=== PATIENT | female | born 1940 | race Caucasian/White ===

== ENCOUNTER → 2018-05-21 12:11 | Outpatient (RCR) | payer MEDICARE, MEDICAID, SELFPAY ==
--- NOTE | 2013-12-20 12:14 | TODAY_ITS ---
To: PCP AND CCC Reason for today's visit: TRANSPORTATION Plan: 12/06/13 - [facility], [employer], SPOKE TO PATIENT VIA PHONE, FILLED OUT THE [facility] TRANSPORTATION FORM, FAXED FORM TO [facility]. 12/09/13 - MEHRAN TAY, [facility] TRANSPORTATION CONFIRMED TO [facility] [employer] Action Plan: Chronic Condition: Referred to:
== END ==
LOC: CCT 11-22 13:00
PROVIDERS: PCP Nurse Practitioner Adult Health; Visit Provider Nurse Practitioner Adult Health
DX: 799.89 (principal)

== ENCOUNTER → 2018-09-07 08:56 | Outpatient (BNVA) | payer MEDICARE, MEDICAID, SELFPAY | PROVIDERS: PCP Student in an Organized Health Care Education/Training Program; Visit Provider Nurse Practitioner Gerontology | DX: R69 Illness, unspecified (principal) ==

== ENCOUNTER 2018-09-07 10:45 | Outpatient (CLI) | payer MEDICARE, MEDICAID, SELFPAY ==
--- NOTE | 2018-09-07 10:00 | DI.RAD_ITS ---
SYMPTOM/DIAGNOSIS: RT FLANK PAIN. H/O RT RENAL STONES Z87.442. H/O URINARY CALCULI ABDOMINAL PLAIN FILM: Scattered gas and fecal material are noted in the colon. There is a small quantity of gas in nondilated proximal small bowel loops. There is no evidence of obstruction. There is no evidence of gross organomegaly or localized intra-abdominal or pelvic mass. On this image a small radiodensity is noted in the right paramedian position at the level of L3-4 which was seen on the previous study of 03/19/18 and may represent a vascular calcification. A small mid-ureteral calculus could however, not be entirely excluded. Vascular calcification is identified in the abdomen and pelvis. There is no evidence of gross organomegaly or localized intra-abdominal or pelvic mass. SUMMARY: There is no change in the position or appearance of a small calcification in the right paramedian position at L3-4. If there is any specific clinical question regarding a right ureteral calculus at this site then further assessment with ultrasound, CT urogram and if appropriate a retrograde study is suggested.
== END 2018-09-07 11:05 ==
PROVIDERS: PCP Student in an Organized Health Care Education/Training Program; Visit Provider Nurse Practitioner Gerontology
DX: R10.31 Right lower quadrant pain (principal); Z87.442 Personal history of urinary calculi; I10 Essential (primary) hypertension
CPT/HCPCS: 81003; 99213; 74018

== ENCOUNTER 2018-09-07 11:13 | Outpatient (REF) | payer MEDICARE, MEDICAID, SELFPAY | END 2018-09-07 11:33 | LOC: LBN 11:13 | PROVIDERS: PCP Student in an Organized Health Care Education/Training Program; Visit Provider Nurse Practitioner Gerontology | DX: R10.9 Unspecified abdominal pain (principal) | CPT/HCPCS: 87086 ==

== ENCOUNTER 2018-09-08 00:48 | Outpatient (CLI) | payer MEDICARE, MEDICAID, SELFPAY ==
--- NOTE | 2018-09-08 16:41 | DI.US_ITS ---
SYMPTOM/DIAGNOSIS: RIGHT FLANK PAIN WITH H/O KIDNEY STONES, RT URETERAL CALCULUS R10.9 ABD PAIN N20.0 RENAL ULTRASOUND: The left kidney measures 10 x 4.3 x 4.4 cm. Multiple small nonobstructing renal calculi are demonstrated. The right kidney measures 11 x 4.8 x 4.3 cm. Note is also made of multiple calcifications in the left kidney. The largest calcification measures up to 4.6 mm in the lower pole. There is no evidence of right or left hydronephrosis. No mass or cyst is identified. There is incidental finding of a left adnexal ovarian cyst which could be further evaluated with a committed pelvic ultrasound. The pre-void bladder contains 63 cc. The post-void bladder 30 cc. Both ureteral jets were demonstrated. SUMMARY: Bilateral nonobstructing nephrolithiasis. Incidental finding of an anechoic region in the left adnexa which likely represents a small left ovarian cyst. This patient could be further evaluated with a committed pelvic ultrasound if appropriate.
== END 2018-09-08 01:08 ==
PROVIDERS: PCP Student in an Organized Health Care Education/Training Program; Visit Provider Nurse Practitioner Gerontology
DX: R10.31 Right lower quadrant pain (principal); N20.0 Calculus of kidney; N83.292 Other ovarian cyst, left side; N20.1 Calculus of ureter
CPT/HCPCS: 76770

== ENCOUNTER 2018-09-22 22:57 | Emergency (ER) | payer MEDICARE, MEDICAID, SELFPAY ==
[2018-09-22 23:02] VITALS: BP 166/69; PULSE 58; RESP 16; TEMP 36.4; O2SAT 99
--- NOTE | 2018-09-22 23:09 | W.ED.GENAD ---
Discharge Plan Disposition Patient Disposition: HOME Condition: Good Discharge Details Chief Complaint: FlankPain Clinical Impression: Kidney stone Primary Care Provider: Miguelina Tilley ED Provider: Bernard Ballard Home Meds and New Rx's Prescriptions: New tramadol 50 mg tablet 50 mg PO Q6H Qty: 12 RF: 0 No Action nitroglycerin [Nitrostat] 0.4 mg tablet, sublingual 0.4 mg Sublingual PRN Qty: 30 RF: 0 metoprolol succinate 25 mg tablet extended release 24 hr 25 mg PO DAILY Qty: 90 RF: 3 multivitamin [Daily Vitamin] 1 EACH tablet 1 ea PO DAILY RF: 0 acetaminophen [Tylenol Arthritis] 650 MG tablet extended release 1,300 mg PO BID PRNRF: 0 ipratropium-albuterol [DuoNeb] 3 ML solution for nebulization 3 ml Inhalation Q4H PRN Qty: 3 RF: 6 calcium carb and citrate-vitD3 1 EACH tablet extended release 1 ea PO DAILY Qty: 1 RF: 0 melatonin-pyridoxine HCl (B6) 1 EACH tablet,ext release multiphase 1 ea PO HS RF: 0 Magnesium Citrate 240 mg PO DAILY RF: 0 Advair HFA 8 GM HFA aerosol inhaler 2 puff Inhalation BID Qty: 3 RF: 3 epinephrine [EpiPen 2-Moe] 0.3 MG/0.3 ML auto-injector 0.3 mg IM ONCE Qty: 2 RF: 0 fluticasone [Flonase Allergy Relief] 9.9 ML spray,suspension 1 - 2 spry NS DAILY Qty: 3 RF: 3 montelukast 10 MG tablet 10 mg PO HS Qty: 90 RF: 3 guaifenesin 600 MG tablet extended release 12hr 600 mg PO Q12H PRN Qty: 180 RF: 3 Adult Aerosol Mask 1 EACH misc 1 ea Miscellaneous DAILY Qty: 1 RF: 0 Entrust Plus Briefs 1 EACH misc 1 ea Miscellaneous TID Qty: 1 RF: 12 atorvastatin 40 MG tablet 40 mg PO DAILY Qty: 90 RF: 3 cetirizine 10 MG tablet 10 mg PO DAILY MDD 10 Qty: 90 RF: 3 amlodipine [Norvasc] 5 MG tablet 5 mg PO DAILY Qty: 90 RF: 3 ProAir HFA 8.5 GM HFA aerosol inhaler 1 - 2 puff Inhalation Q4H PRN Qty: 2 RF: 4 ipratropium-albuterol 3 ML solution for nebulization 3 ml Inhalation Q3H PRN Qty: 1 RF: 0 aspirin [Aspir-81] 81 mg tablet,delayed release (DR/EC) 81 mg PO DAILY Qty: 90 RF: 3 nitrofurantoin macrocrystal 100 mg capsule 100 mg PO QID Qty: 20 RF: 0 Discharge Instructions Instructions: Kidney Stones (ED) Additional Instructions: Please contact Dr. Call immediately this morning for further evaluation. Please follow-up as soon as possible for reassessment. If you notice any worsening of your symptoms, or any new symptoms such as vomiting, diarrhea, fever, chills, shortness of breath, chest pain, numbness, weakness, or fainting , please return immediately to the emergency department for reevaluation. Please follow up with your primary care provider as soon as possible for reassessment and reevaluation. As always, it was a pleasure participating in your medical care today. Referrals: Miguelina Tilley DO [Primary Care Provider] - Medical Decision Making This is a 77-year-old female who presents today for evaluation of right flank pain. Pain is been present for greater than 10 days. She had a suspected urinary tract infection which was treated with nitrofurantoin. She had 10 days of this, and for the last 5 days after treatment she has had continued pain that is not improving. Physical exam demonstrates notable right upper quadrant tenderness. The patient is concern for a UTI or Lex I do feel that the differential should also include gallbladder etiology. Because of the patient's age, and risk factors we will evaluate for urinary tract infection however will also get a CT scan to evaluate for any acute intra-abdominal process. Will order EKG and chest x-ray for less likely atypical ACS presentation. Patient does not want anything additional for pain at this time. 3:[address] scan has returned demonstrates evidence of a 7 mm calculus on the right. This correlates well with the patient's symptomatology. Her pain seems to be well controlled at this point. Renal function is normal, no evidence of UTI on urinalysis, and no evidence of significant white count or bandemia. No left shift. With normal laboratory workup, pain is controlled, and the patient able to tolerate p.o. I feel that she can be safely discharged home with close follow-up with Dr. Call her regular urologist. They will be contacting him tomorrow morning. Since the stone is 7 mm and proximal she is not a candidate for Flomax. I would not be surprised that this will require stenting for removal. I have extensively reviewed the treatment plan and discharge instructions with the patient and their family. I have addressed all patient concerns at this time. The patient and family was made aware of what symptoms to monitor for that would warrant a return to the emergency department. Discussed the plan with the patient and family, they demonstrate verbal understanding and agreement with our assessment and plan at this time. FINDINGS: Lower thorax: No acute findings. ABDOMEN: Liver: Normal. No mass. Gallbladder and bile ducts: Normal. No calcified stones. No ductal dilation. Pancreas: Normal. No ductal dilation. Spleen: Normal. No splenomegaly. Adrenals: Normal. No mass. Kidneys and ureters: Renal cysts up to 8 mm. 7 mm calculus right proximal ureter with minimal right hydronephrosis. Stomach and bowel: Colonic diverticula. . Mild fecal retention. Appendix: No evidence of appendicitis. PELVIS: Bladder: Unremarkable as visualized. Reproductive: 4 cm left ovarian cyst suggested. ABDOMEN and PELVIS: Intraperitoneal space: Normal. No free air. No significant fluid collection. Bones/joints: No acute fracture. No dislocation. Soft tissues: Unremarkable. Vasculature: Normal. No abdominal aortic aneurysm. Lymph nodes: Normal. No enlarged lymph nodes. IMPRESSION: 1. 7 mm calculus right proximal ureter with minimal right hydronephrosis. 2. 4 cm left ovarian cyst suggested. 3. Mild fecal retention. Dictated and Authenticated by: Brian Reynaga MD. Urine culture results from urinalysis she was receiving treatment for: Possible contaminated collection Organism 1 GRAM NEGATIVE ARCELIA COLONY COUNT <10,000 COLONIES/ML Organism 2 STREPTOCOCCUS VIRIDANS GROUP COLONY COUNT 50,000 - 100,000 COLONIES/ML Organism 3 GRAM POSITIVE LEW,MIXED COLONY COUNT <10,000 COLONIES/ML EKG 23: 40 Rate 75, sinus rhythm, first-degree AV block, [place] 242, QTc 458, QRS 100, no significant ST elevations or depressions, old Q wave in V2, no other significant abnormalities. HPI General Date/Time Provider Initiated Documentation: 09/22/18 22:58. HPI Narrative: This is a 77-year-old female with a multitude of allergies and a past medical history of cerebrovascular disease, coronary artery disease, hypertension, COPD, kidney stones, and bladder sling surgery who presents today for evaluation of right flank and abdominal pain. The patient states that the symptoms began roughly a week and a half ago, she received a 10-day treatment of nitrofurantoin by her physician. She completed this course 5 days ago. Since then her symptoms have persisted, she has had some associated chills but no fevers. Her pain is described as a right-sided flank pain that radiates directly to her groin with associated right upper quadrant abdominal pain. She denies any hematochezia, melena, acholic stool, or hematemesis. She denies any hematuria, increase in urinary frequency, or dysuria. Patient does have chronic pain problems, and she regularly takes Tylenol for her pain, which she states is not improved her symptoms. Patient denies any other modifying factors. She still has her gallbladder, appendix, and uterus. She denies any IV or illicit drug use. She denies any pertinent family history. Related Data Home Medications Medication Instructions Recorded Confirmed acetaminophen [Tylenol Arthritis] 1,300 mg PO BID PRN 12/31/12 09/23/18 multivitamin [Daily Vitamin] 1 ea PO DAILY 12/31/12 09/22/18 ipratropium-albuterol [DuoNeb] 3 ml INHALATION Q4H PRN #3 box 08/03/14 09/22/18 calcium carb and citrate-vitD3 1 ea PO DAILY #1 tab 08/29/14 09/22/18 melatonin-pyridoxine HCl (B6) 1 ea PO HS 12/11/15 09/22/18 Magnesium Citrate 240 mg PO DAILY 05/01/17 09/23/18 fluticasone-salmeterol [Advair Hfa 2 puff INHALATION BID #3 inhaler 06/10/17 09/22/18 230-21] epinephrine [Epipen 2-Moe] 0.3 mg IM ONCE #2 pen 08/21/17 09/22/18 fluticasone [Flonase Allergy 1 - 2 spry NS DAILY #3 bottle 09/18/17 09/22/18 Relief] diaper,brief,adult,disposable #1 ea 11/06/17 09/08/18 [Brief] guaifenesin 600 mg PO Q12H PRN #180 tab-cap 11/06/17 09/22/18 montelukast 10 mg PO HS #90 tab-cap 11/06/17 09/22/18 nebulizer accessories [Adult #1 ea 11/06/17 09/08/18 Aerosol Mask] albuterol sulfate [Proair Hfa] 1 - 2 puff INHALATION Q4H PRN #2 03/19/18 09/23/18 puff amlodipine [Norvasc] 5 mg PO DAILY #90 tab-cap 03/19/18 09/23/18 atorvastatin 40 mg PO DAILY #90 tab-cap 03/19/18 09/22/18 cetirizine 10 mg PO DAILY #90 tab-cap MDD 10 03/19/18 09/22/18 ipratropium-albuterol 3 ml INHALATION Q3H PRN #1 box 03/19/18 09/22/18 aspirin 81 mg tablet,delayed 81 mg PO DAILY #90 tab 08/09/18 09/23/18 release nitroglycerin 0.4 mg sublingual 0.4 mg SUBLINGUAL PRN #30 tab-cap 09/08/18 09/22/18 tablet metoprolol succinate ER 25 mg 25 mg PO DAILY #90 tab 09/09/18 09/22/18 tablet,extended release 24 hr nitrofurantoin macrocrystal 100 mg 100 mg PO QID #20 cap 09/09/18 09/22/18 capsule tramadol 50 mg PO Q6H #12 tab 09/23/18 Previous Rx's Medication Instructions Recorded fluticasone-salmeterol [Advair Hfa 2 puff INHALATION BID #3 inhaler 06/10/17 230-21] epinephrine [Epipen 2-Moe] 0.3 mg IM ONCE #2 pen 08/21/17 fluticasone [Flonase Allergy 1 - 2 spry NS DAILY #3 bottle 09/18/17 Relief] diaper,brief,adult,disposable #1 ea 11/06/17 [Brief] guaifenesin 600 mg PO Q12H PRN #180 tab-cap 11/06/17 montelukast 10 mg PO HS #90 tab-cap 11/06/17 nebulizer accessories [Adult #1 ea 11/06/17 Aerosol Mask] albuterol sulfate [Proair Hfa] 1 - 2 puff INHALATION Q4H PRN #2 03/19/18 puff amlodipine [Norvasc] 5 mg PO DAILY #90 tab-cap 03/19/18 atorvastatin 40 mg PO DAILY #90 tab-cap 03/19/18 cetirizine 10 mg PO DAILY #90 tab-cap MDD 10 03/19/18 ipratropium-albuterol 3 ml INHALATION Q3H PRN #1 box 03/19/18 aspirin 81 mg tablet,delayed 81 mg PO DAILY #90 tab 08/09/18 release nitroglycerin 0.4 mg sublingual 0.4 mg SUBLINGUAL PRN #30 tab-cap 09/08/18 tablet metoprolol succinate ER 25 mg 25 mg PO DAILY #90 tab 09/09/18 tablet,extended release 24 hr nitrofurantoin macrocrystal 100 mg 100 mg PO QID #20 cap 09/09/18 capsule tramadol 50 mg PO Q6H #12 tab 09/23/18 Allergies Allergy/AdvReac Type Severity Reaction Status Date / Time Influenza Virus Vaccines Allergy Severe throat Verified 09/22/18 23:13 closed duloxetine HCl Allergy Intermediate sweat/throat Verified 09/22/18 23:13 [From Cymbalta] tight egg Allergy Intermediate Swelling/Ed Verified 09/22/18 23:13 shoshana Penicillins Allergy Intermediate swelling/choked Verified 09/22/18 23:13 up Sulfa (Sulfonamide Allergy Intermediate swelling Verified 09/22/18 23:13 Antibiotics) tetracycline Allergy Unknown unknown Verified 09/22/18 23:13 morphine AdvReac Severe HR Verified 09/22/18 23:13 dropped/BP high ciprofloxacin [From Cipro] AdvReac Intermediate AGITATION Verified 09/22/18 23:13 gabapentin AdvReac Intermediate Dizziness Verified 09/22/18 23:13 & Sedation hyoscyamine AdvReac Intermediate lightheaded Verified 09/22/18 23:13 lisinopril AdvReac Intermediate Uvula Verified 09/22/18 23:13 Swelling mirtazapine AdvReac Intermediate throat Verified 09/22/18 23:13 discomfort, feeling tired, nauseated nortriptyline AdvReac Intermediate Verified 09/22/18 23:13 homatropine [From Hycodan] AdvReac Mild Loopy Verified 09/22/18 23:13 hydrocodone bitartrate AdvReac Mild Loopy Verified 09/22/18 23:13 [From Hycodan] lidocaine AdvReac Mild Skin Verified 09/22/18 23:13 sensitivity/Rash trazodone AdvReac Unknown Dizzy, Verified 09/22/18 23:13 weak and hallucinations cephalexin monohydrate AdvReac ?LE Verified 09/22/18 23:13 [From Keflex] weakness nuts Allergy Intermediate Swelling/Ed Uncoded 09/22/18 23:13 shoshana peanut butter AdvReac Uncoded 09/22/18 23:13 Review of Systems Review of Systems All systems reviewed & are unremarkable except as noted in HPI and below PFSH Medical History ASCVD (arteriosclerotic cardiovascular disease) CVA (cerebral vascular accident) HTN (hypertension) Postmenopausal Surgical History Coronary Stent TOT (Incontinence sling) Social History Smoking/Tobacco Use Status: Never Exam Narrative Exam Narrative: 1.Const: Well-nourished, Well-developed, appearing stated age 2.Eyes: PERRL, no conjunctival injection, and symmetrical lids. 3.ENT: Atraumatic external nose and ears. Mildly dry MM. Neck: Symmetric, trachea midline, No thyromegaly. 4.CVS: +S1/S2, No murmurs or gallops. Peripheral pulses 2+ and equal in all extremities. Brisk capillary refill in all extremities. 5.RESP: Unlabored respiratory effort. Clear to auscultation bilaterally. No wheezes rales or rhonchi 6.GI: Soft, notable right upper quadrant and right CVA tenderness. Mild right groin tenderness. No evidence of significant inguinal hernia. No abdominal distention. 7.MSK: Normocephalic/Atraumatic, Extremities w/o deformity or ttp No cyanosis or clubbing, Normal movement of all extremities. No significant pitting edema. 8.Skin: Warm, Dry. No rashes or lesions. 9.Neuro: appointment coordinator II-XII grossly intact. Sensation grossly intact, no focal neurologic deficits. 10.Psych: (AAO) x3. Appropriate mood and affect
[2018-09-22 23:35] LABS: Abs Immature Grans 0.01 k/cumm (0.0-0.09); Absolute Basophil Count 0.02 k/cumm (0.0-0.2); Absolute Lymphocyte Count 2.15 k/cumm (1.2-3.4); Absolute Monocyte Count 0.67 k/cumm (0.11-0.7); Absolute Neutrophil Count 4.01 k/cumm (1.2-6.7); Basophils % 0.3; Eosinophils % 2.8; HGB 13.2 g/dL (12.0-15.5); Immature Grans % 0.1; Lymphocytes % 30.5; Mean Corp. HGB Concentration 33.8 g/dL (32.0-36.0); Mean Corpuscular Hemoglobin 32.6 pg (27.0-33.0); Mean Corpuscular Volume 96.3 fL (80-95); Mean Platelet Volume 10.1 fL (8.0-11.0); Monocytes % 9.5; Neutrophils % 56.8; Platelet Count 165 x1000/uL (130-400); RBC 4.05 m/cumm (4.00-5.20); White Blood Cell Count 7.06 k/cumm (4.4-10.8)
[2018-09-22 23:42] LABS: Bilirubin Negative (Negative); Blood Trace-lysed (Negative); Clarity Clear; Glucose Negative (Negative); Ketones Negative (Negative); Leukocyte Esterase Trace (Negative); Nitrite Negative (Negative); Specific Gravity 1.015 (1.005-1.025); Urobilinogen 0.2 EU/dL (Up TO 0.2); pH 8.5 (5-8)
[2018-09-22] MEDS: Lactated Ringers 1,000 ML 1000 ML IV (23:45)
[2018-09-22 23:49] LABS: Bacteria Negative HPF (Negative); C & S Indicated? No; Casts Negative LPF (Negative); Crystals Negative HPF (Negative); Epithelial Cells Few HPF (Negative); Mucus Negative (Negative); RBC Negative (0-2); WBC 0-2 HPF (0-5)
[2018-09-22 23:50] LABS: ALT 33 U/L (12-78); AST 22 U/L (15-37); Albumin 3.8 g/dL (3.4-5.0); Alkaline Phosphatase 87 U/L (46-116); BUN 14 mg/dL (7-18); Bilirubin, Total 0.3 mg/dL (0.2-1.0); CREATININE 0.97 mg/dL (0.55-1.02); Calcium 9.9 mg/dL (8.5-10.1); Chloride 104 mmol/L (98-107); Estimated GFR 55.98 (mL/min/1.73m2); Glucose 107 mg/dL (70-100); Lipase 100 U/L (73-393); Potassium 3.7 mmol/L (3.5-5.1); Sodium 144 mmol/L (136-145); Total Protein 6.9 g/dL (6.4-8.2); Troponin I 0.04 ng/mL (0.00-0.06)
--- NOTE | 2018-09-23 01:35 | DI.CT_ITS ---
SYMPTOM/DIAGNOSIS: RUQ TENDERNESS ABDOMEN AND PELVIC CT: CT scan of the abdomen and pelvis was performed following the uneventful administration of intravenous contrast material. Comparison is made with 11/15/16. No acute findings are seen in the lung bases. The liver is normal in size. No suspicious hepatic masses are seen. The portal and superior mesenteric veins are patent. The gallbladder is negative. No biliary ductal dilatation is seen. The pancreas, spleen and adrenal glands are unremarkable. The kidneys show normal and symmetric enhancement. There are bilateral renal cysts. There are non obstructing stones seen in the right kidney. There is a 7 mm. stone seen in the proximal right ureter causing mild hydronephrosis. The urinary bladder is intact. There is a 4 cm. cystic lesion in the left adnexa. This has shown interval increase in size since 11/15/16. The reproductive organs are otherwise unremarkable. There is diverticulosis of the colon but no evidence of acute diverticulitis. The bowel shows no evidence of obstruction or inflammation. There is extensive atherosclerosis of the abdominal aorta and its runoff and the celiac axis and both superior and inferior mesenteric arteries. No significant abdominal or pelvic adenopathy, ascites or pneumoperitoneum is present. The bones show no acute abnormality. IMPRESSION: 1. 7 mm. proximal right ureteral calculus with mild hydronephrosis. 2. Interval increase in size of 4 cm. left adnexal cystic lesion which may be ovarian in origin. Pelvic ultrasound may be considered for further evaluation.
[2018-09-23] MEDS: Omnipaque 350 MG/ML 100 ML BTL IJ (01:43)
--- NOTE | 2018-09-23 02:36 | DI.VRAD_ITS ---
EXAM: CT Abdomen and Pelvis With Contrast EXAM DATE/TIME: 09/23/2018 12:48 AM CLINICAL HISTORY: 77 years old, female; Pain; Abdominal pain; Localized; Right upper quadrant (ruq); Prior surgery; Surgery date: 6+ months; Surgery type: Bladder sling surgery, kidney stones removed, coronary stents; Patient HX: Ruq pain and tenderness TECHNIQUE: Axial computed tomography images of the abdomen and pelvis with intravenous contrast. All CT scans at this facility use at least one of these dose optimization techniques: automated exposure control; mA and/or kV adjustment per patient size (includes targeted exams where dose is matched to clinical indication); or iterative reconstruction. Coronal and sagittal reformatted images were created and reviewed. CONTRAST: 77 ml of Omnipaque 350 administered intravenously. COMPARISON: CT ABD PELVIS WO CONTRAST 11/15/2016 11:28 AM FINDINGS: Lower thorax: No acute findings. ABDOMEN: Liver: Normal. No mass. Gallbladder and bile ducts: Normal. No calcified stones. No ductal dilation. Pancreas: Normal. No ductal dilation. Spleen: Normal. No splenomegaly. Adrenals: Normal. No mass. Kidneys and ureters: Renal cysts up to 8 mm. 7 mm calculus right proximal ureter with minimal right hydronephrosis. Stomach and bowel: Colonic diverticula. . Mild fecal retention. Appendix: No evidence of appendicitis. PELVIS: Bladder: Unremarkable as visualized. Reproductive: 4 cm left ovarian cyst suggested. ABDOMEN and PELVIS: Intraperitoneal space: Normal. No free air. No significant fluid collection. Bones/joints: No acute fracture. No dislocation. Soft tissues: Unremarkable. Vasculature: Normal. No abdominal aortic aneurysm. Lymph nodes: Normal. No enlarged lymph nodes. IMPRESSION: 1. 7 mm calculus right proximal ureter with minimal right hydronephrosis. 2. 4 cm left ovarian cyst suggested. 3. Mild fecal retention. Dictated and Authenticated by: Brian Reynaga MD. Ordering:SHAYNA Wagner MD
[2018-09-23 02:55] LABS: Troponin I 0.02 ng/mL (0.00-0.06)
[2018-09-23 03:26] VITALS: BP 184/97; PULSE 96; RESP 16; O2SAT 98
== END 2018-09-23 03:28 | disposition home or self-care (01) ==
PROVIDERS: Emergency Provider Student in an Organized Health Care Education/Training Program; PCP Student in an Organized Health Care Education/Training Program
DX: N13.2 Hydronephrosis with renal and ureteral calculous obstruction (principal); I25.10 Atherosclerotic heart disease of native coronary artery without angina pectoris; Z95.5 Presence of coronary angioplasty implant and graft; Z87.440 Personal history of urinary (tract) infections; Z87.442 Personal history of urinary calculi; J44.9 Chronic obstructive pulmonary disease, unspecified; I10 Essential (primary) hypertension
CPT/HCPCS: 36415; 80053; 83690; 93005; 96360; 99285; 74177; 81003; 81015; 82248; 84484; 85025; 93010; 99284; J3490

== ENCOUNTER 2018-09-27 11:19 | Observation (INO) | payer MEDICARE, MEDICAID, SELFPAY ==
[2018-09-27] VITALS (9 sets, daily range): BP systolic 113–135; BP diastolic 56–81; PULSE 55–73; RESP 16–22; TEMP 36.3–37.4; O2SAT 95–99
[2018-09-27] MEDS: Lactated Ringers 1,000 ML 80 ML IV (09:09)
[2018-09-27] MEDS: LEVOFLOXACIN 500 MG/100 ML BAG 100 MG IVPB (09:15)
--- NOTE | 2018-09-27 09:22 | DI.RAD_ITS ---
SYMPTOMS/DIAGNOSIS: RIGHT KIDNEY STONE RETROGRADE IN THE OR: Fluoroscopy Time: 3.94 sec Fluoroscopy was utilized by Dr. Call during the retrograde evaluation of the right renal collecting system. Please refer to the procedure report for complete details.
[2018-09-27] MEDS: Lidocaine 2% Jelly 6 ML SYR (10:32)
[2018-09-27] MEDS: Omnipaque 300 MG/ML 50 ML BTL (11:16)
[2018-09-27] MEDS: Lactated Ringers 1,000 ML 75 ML IV (12:59)
[2018-09-27] MEDS: Normal Saline Flush 10 ML SYR IV (12:59)
[2018-09-27] MEDS: traMADol 50 MG TAB PO ×3 (12:59→23:44)
--- NOTE | 2018-09-27 13:14 | NUR.NOTE ---
Nursing Note: 1210 Pt arrived on [facility] room 234 from PACU, vitals stable. See shift assessment for details.
--- NOTE | 2018-09-27 15:26 | ROE_ITS ---
DATE OF PROCEDURE: September 27, 2018 PREOPERATIVE DIAGNOSIS: Right ureteral stone. POSTOPERATIVE DIAGNOSIS: Same. PROCEDURE: Cystoscopy; right retrograde pyelogram; right flexible ureteroscopy; insert right uretera l catheter. SURGEON: Hansel Call M.D. ANESTHESIA: General. COMPLICATIONS: None. HISTORY: This is a 77-year-old woman who has a history of Proteus urinary tract infections and infec tion-type kidney stones. She's recently been found to have a proximal right ureteral stone that is s ymptomatic. She presents for stone manipulation. OPERATIVE REPORT: The patient was brought to the Operating Room on 09/27/18. She was given preoperati ve antibiotics. After successful induction of general anesthesia, she was placed in the dorsal lithotomy position. H er genitalia was prepped and draped. A 22 Macedonian rigid cystoscope was passed through the urethra into the bladder. The bladder was inspec ori with the 30-degree lens. Numerous small stone particles were found floating within the bladder. No large stone burden was see n. The right ureteral orifice was then cannulated with a 6 Macedonian access catheter. A retrograde film wa s obtained by injecting Omnipaque through the access catheter under fluoroscopic guidance. The ureter no longer appeared dilated compared to her CT scan from just a week ago. I then passed a Glidewire through the access catheter and maneuvered the wire up to the lower pole ca lyx of the kidney. We passed a dual-lumen catheter over the wire and a second wire was positioned. We chose one of the wires as a working wire and the second as a safety wire. We then removed the josh l-lumen catheter. We passed a ureteral access sheath over the working wire. We removed that wire and passed the flexib le ureteroscope up the access sheath until we reached the proximal ureter. Some inflammatory changes were seen in the proximal ureter at the location of the previously-identifi ed stone, but no stone was seen in that particular region. We then inspected each of the calyces an d only found two small stones within the lower pole calyx. These stones were flushed free. The uret eroscope was then withdrawn down the remainder of the ureter, inspecting the ureter as we went. No a dditional large stone burden was seen within the ureter. Based on today's examination it appears that the stone has either fragmented or passed. I went ahead and passed a 6 Macedonian access catheter back over the safety wire and we will utilize this access cath eter as our stent. The access catheter was brought back out through the urethra. We then passed a 1 6 Macedonian De La Rosa catheter and brought the access catheter into the lumen of the De La Rosa catheter to allow both to drain to a drainage bag. The catheter balloon was inflated with 10 cc's of sterile water. The patient tolerated this procedure well. There were no complications.
[2018-09-27] MEDS: guaiFENesin 600 MG TABCR PO (20:26)
[2018-09-27] MEDS: Budesonide/Formoterol 160/4.5 6 GM 60 PUFF INH IH (20:26)
[2018-09-27] MEDS: Montelukast 10 MG TAB PO (22:23)
[2018-09-27] MEDS: amLODIPine 5 MG TAB PO (22:23)
[2018-09-28 00:18] VITALS: BP 130/69; PULSE 60; RESP 19; TEMP 36.2; O2SAT 96
[2018-09-28] MEDS: Lactated Ringers 1,000 ML 75 ML IV (00:22)
[2018-09-28] MEDS: traMADol 50 MG TAB PO ×2 (05:57→12:18)
--- NOTE | 2018-09-28 07:21 | W.PM.PROGNOT ---
Date of Service Date of service: 09/28/18 Time of Service: 07:21 Assessment and Plan (1) Right ureteral calculus: Current visit: No Status: Acute We will remove her De La Rosa catheter and ureteral stents/catheter this morning. We will send her home later today with oral antibiotics. She will follow-up with me in 4 weeks. She will need a renal ultrasound and a urine culture at that time. Subjective Interval history since last seen: Chief complaint: Postoperative day #1 The patient has had some back discomfort especially on the right side. He has not had any fever or chills. She is tolerating p.o. Exam Narrative Exam Narrative: She is in no distress. Her vital signs are documented elsewhere in the chart. Her catheter is draining clear urine with some particulate matter. She is awake and alert. Objective Objective Clinical Data: Vital Signs Temperature 36.2 C L 09/28/18 00:18 Temperature Source Tympanic 09/28/18 00:18 Pulse 60 09/28/18 00:18 Pulse Rhythm Regular 09/28/18 01:05 Respiratory Rate 19 09/28/18 00:18 Respiratory Effort Non-Labored 09/28/18 01:05 Respiratory Depth Normal 09/28/18 01:05 Respiratory Pattern Normal 09/28/18 01:05 Blood Pressure 130/69 09/28/18 00:18 Pulse Oximetry 96 09/28/18 00:18 Respiratory End-tidal CO2 32 09/27/18 11:56 Oxygen Delivery Method Room Air 09/28/18 00:18 Oxygen Flow Rate 0 09/28/18 00:18 Pain Level 0 09/27/18 12:10 Intake & Output 09/27/18 09/27/18 09/28/18 11:59 23:59 11:59 Intake Total 800 / 1520.75 720.75 / 1520.75 611.25 / 611.25 Output Total 1200 / 1200 700 / 700 Balance 800 / 320.75 -479.25 / 320.75 -88.75 / -88.75 Weight 54.7 kg Intake: IV 800 / 1270.75 470.75 / 1270.75 611.25 / 611.25 Oral 250 / 250 Output: Urine 1200 / 1200 700 / 700 Other: Urine Color Pale Hendricks Hendricks Yellow Urine Appearance Clear Mucous Threads Clear Emesis Description None
--- NOTE | 2018-09-28 07:23 | W.PM.DS.N ---
DS: Diagnosis Discharge Diagnosis (1) Right ureteral calculus: Status: Acute Discharge Plan Disposition Patient Disposition: HOME Condition: Stable Discharge Details Reason For Visit: URETERAL STONE Admit Date/Time: 09/27/18 11:19 Admit Provider: Hansel Call Attending Provider: Hansel Call Primary Care Provider: Miguelina Tilley Hospital Course Hospital Course: The patient was found to have a right proximal ureteral stone on CT scan. She was brought to the operating room on 09/27/2018. She had a retrograde pyelogram that did not confirm the large stone. We then did flexible ureteroscopy which showed multiple small stones along the ureter and in the collecting system. None of these needed to be fragmented with the holmium laser but we were able to flush them out using hand irrigation. We placed a ureteral catheter to act as temporary stent as well as a De La Rosa catheter. 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 On postoperative day #1 she is afebrile we are removing her catheter and stent and she will be discharged to home Home Meds and New Rx's Prescriptions: New levofloxacin 250 mg tablet 250 mg PO DAILY Qty: 3 RF: 0 No Action nitroglycerin [Nitrostat] 0.4 mg tablet, sublingual 0.4 mg Sublingual PRN Qty: 30 RF: 0 metoprolol succinate 25 mg tablet extended release 24 hr 25 mg PO DAILY Qty: 90 RF: 3 multivitamin [Daily Vitamin] 1 EACH tablet 1 ea PO DAILY RF: 0 acetaminophen [Tylenol Arthritis] 650 MG tablet extended release 1,300 mg PO BID PRNRF: 0 calcium carb and citrate-vitD3 1 EACH tablet extended release 1 ea PO BID Qty: 1 RF: 0 melatonin-pyridoxine HCl (B6) 1 EACH tablet,ext release multiphase 1 ea PO HS RF: 0 Magnesium Citrate 240 mg PO DAILY RF: 0 Advair HFA 8 GM HFA aerosol inhaler 2 puff Inhalation BID Qty: 3 RF: 3 epinephrine [EpiPen 2-Moe] 0.3 MG/0.3 ML auto-injector 0.3 mg IM ONCE Qty: 2 RF: 0 fluticasone [Flonase Allergy Relief] 9.9 ML spray,suspension 1 - 2 spry NS DAILY Qty: 3 RF: 3 montelukast 10 MG tablet 10 mg PO HS Qty: 90 RF: 3 Adult Aerosol Mask 1 EACH misc 1 ea Miscellaneous DAILY Qty: 1 RF: 0 Entrust Plus Briefs 1 EACH misc 1 ea Miscellaneous TID Qty: 1 RF: 12 atorvastatin 40 MG tablet 40 mg PO DAILY Qty: 90 RF: 3 cetirizine 10 MG tablet 10 mg PO DAILY MDD 10 Qty: 90 RF: 3 ProAir HFA 8.5 GM HFA aerosol inhaler 1 - 2 puff Inhalation Q4H PRN Qty: 2 RF: 4 ipratropium-albuterol 3 ML solution for nebulization 3 ml Inhalation Q3H PRN Qty: 1 RF: 0 aspirin [Aspir-81] 81 mg tablet,delayed release (DR/EC) 81 mg PO DAILY Qty: 90 RF: 3 nitrofurantoin macrocrystal 100 mg capsule 100 mg PO QID Qty: 20 RF: 0 amlodipine [Norvasc] 5 MG tablet 5 mg PO HS RF: 0 guaifenesin 600 MG tablet extended release 12hr 600 mg PO BID RF: 0 tramadol 50 mg tablet 50 mg PO Q6H Qty: 12 RF: 0 Discharge Instructions Additional Instructions: A prescription for antibiotics lopez has been sent to pharmacy in [place]. Please notify the patient's [id number] so that the prescription can be picked up before the [id number] drives over from [place]. The patient will need a follow-up appointment with me in about 4 weeks. She will need a renal ultrasound and a urine culture at that time. Activity:: Activity as Tolerated Equipment/Supplies:: No Equipment Needed Diet:: As Tolerated Discharge Orders Discharge Orders: Discharge Order (Routine); Ordered 09/28/18 Ordered By: Hansel Call Discharge Data Discharge Comment: Pts [id number] will not be available to clam picker pt until after noon Exam Narrative Exam Narrative: At the time of discharge, the patient appears comfortable. She does not appear septic or toxic. Her vital signs are documented elsewhere in the chart. Her abdomen is soft with no masses. There is no guarding or rebound tenderness. Her De La Rosa catheter is draining clear urine this morning. The catheter will be removed prior to discharge. She is awake, alert and oriented DS: Data Vitals/I&O Vitals and I&O: Vital Signs Temperature 36.2 C L 09/28/18 00:18 Temperature Source Tympanic 09/28/18 00:18 Pulse 60 09/28/18 00:18 Pulse Rhythm Regular 09/28/18 01:05 Respiratory Rate 19 09/28/18 00:18 Respiratory Effort Non-Labored 09/28/18 01:05 Respiratory Depth Normal 09/28/18 01:05 Respiratory Pattern Normal 09/28/18 01:05 Blood Pressure 130/69 09/28/18 00:18 Pulse Oximetry 96 09/28/18 00:18 Respiratory End-tidal CO2 32 09/27/18 11:56 Oxygen Delivery Method Room Air 09/28/18 00:18 Oxygen Flow Rate 0 09/28/18 00:18 Pain Level 0 09/27/18 12:10 Intake & Output 09/27/18 09/27/18 09/28/18 11:59 23:59 11:59 Intake Total 800 / 1520.75 720.75 / 1520.75 611.25 / 611.25 Output Total 1200 / 1200 700 / 700 Balance 800 / 320.75 -479.25 / 320.75 -88.75 / -88.75 Weight 54.7 kg Intake: IV 800 / 1270.75 470.75 / 1270.75 611.25 / 611.25 Oral 250 / 250 Output: Urine 1200 / 1200 700 / 700 Other: Urine Color Pale Hendricks Hendricks Yellow Urine Appearance Clear Mucous Threads Clear Emesis Description None PFSH Medical History ASCVD (arteriosclerotic cardiovascular disease) CVA (cerebral vascular accident) HTN (hypertension) Postmenopausal Surgical History Coronary Stent TOT (Incontinence sling) Social History Smoking/Tobacco Use Status: Never
[2018-09-28] MEDS: Budesonide/Formoterol 160/4.5 6 GM 60 PUFF INH IH (07:51)
[2018-09-28] MEDS: Aspirin E.C. 81 MG TABEC PO (08:25)
[2018-09-28] MEDS: Atorvastatin 40 MG TAB PO (08:25)
[2018-09-28] MEDS: guaiFENesin 600 MG TABCR PO (08:25)
[2018-09-28] MEDS: LEVOFLOXACIN 500 MG/100 ML BAG 100 MG IVPB (08:25)
[2018-09-28] MEDS: Cetirizine 10 MG TAB PO (08:25)
[2018-09-28] MEDS: Multivitamin TAB 1 TAB PO (08:25)
[2018-09-28 08:33] VITALS: BP 114/70; PULSE 74; RESP 18; TEMP 37.2; O2SAT 97
[2018-09-28] MEDS: Metoprolol CR 25 MG TABCR PO (09:46)
--- NOTE | 2018-09-28 13:54 | PDOC.CMIN ---
- If Service Date Differs Date of service: 09/28/18 Time of Service: 13:54 Care Management Initial Assess REASON FOR HOSPITALIZATION:: Uretheral stone PAST MEDICAL HISTORY/PAST SURGICAL HISTORY:: HTN, Asthma, urinary incontinance, spinal stenosis, osteopenia, GERD, cervival spondylosis, allergic rhinitis, rectocele, irreg heartrate, PREVIOUS FUNCTIONAL STATUS/SOCIAL/FAMILY SUPPORTS:: Ellen lives at home alone she does have moderate needs choices for care and a homemaker. Her daugher in law is an RN and provides her support at home including transportaiton. Ellen prepares her own food and is able to move around her home with the assistance of her walker. CURRENT FUNCTIONAL STATUS:: Ellen is up to the chair she states she is ready to return home. Her daughter in law is present for discharge instructions and follow up plan of care. Ellen states she is ready to return home today. ADVANCE DIRECTIVES:: On file son and daughter in law are agents, Her spouse Don is no longer living. CM provided a new advance directive for patient to complete if she chooses. Has patient been provided with information about the portal?: Yes Did the patient sign up for the portal?: No CODE STATUS:: Full Code INSURANCE COVERAGE / FINANCIAL ISSUES:: Medicare CURRENT HOME/COMMUNITY SERVICES/EQUIPMENT:: Choice for care moderate needs Khalida Telles through [facility] is her community CM. She has a walker, wheelchair, commode, and ramp at home. PRIMARY CARE PHYSICIAN:: POTENTIAL DISCHARGE NEEDS:: Follow up with and primary care as directed. PATIENT/FAMILY EDUCATION NEEDS:: Discharge education, limitations and follow up plan of including as me three discussion and self management. ANTICIPATED BARRIERS TO DISCHARGE:: None identified TRANSPORTATION:: Via private car with daughter in law PLAN:: Ellen will be discharged home today she will follow up with provider as directed. No addtional services at this time she will resume choice for care and services through [facility].
== END 2018-09-28 14:51 | disposition home or self-care (01) ==
PROVIDERS: Admitting Provider Urology; PCP Student in an Organized Health Care Education/Training Program; Visit Provider Urology
PROC: 0TC68ZZ Extirpation of Matter from Right Ureter, Via Natural or Artificial Opening Endoscopic (ICD-10-PCS; CPT 52352; principal; 2018-09-27 09:30)
DX: N20.1 Calculus of ureter (principal); I10 Essential (primary) hypertension
CPT/HCPCS: 52352; 52332; 94640; 99217; 99238; NC; 74420; G0378; J1100; J1885; J1956; J2405; Q9967

== ENCOUNTER 2018-10-26 01:00 | Outpatient (CLI) | payer MEDICARE, MEDICAID, SELFPAY ==
--- NOTE | 2018-10-26 13:00 | DI.US_ITS ---
SYMPTOMS/DIAGNOSIS: RT URETERAL CALCULUS, N201., F/U AFTER URETEROSCOPY RENAL ULTRASOUND: Comparison is made with CT dated . The prevoid bladder volume measured 55 cc's. No bladder stones or bladder masses are seen. There is no postvoid residual. A 5 cm cyst is again noted in the left adnexal region. This appears unchanged from previous exams. The right kidney measures 9.6 cm in length. Mild right hydronephrosis is seen. A small stone is seen at the inferior pole. The left kidney measures 9.8 cm. A nonobstructing stone is seen in the mid left kidney which appeared vascular on the previous CT. No left hydronephrosis is seen. IMPRESSION: Mild right hydronephrosis. Small nonobstructing bilateral renal calculi.
== END 2018-10-26 01:20 ==
PROVIDERS: PCP Student in an Organized Health Care Education/Training Program; Visit Provider Urology
DX: N13.30 Unspecified hydronephrosis (principal); N20.0 Calculus of kidney
CPT/HCPCS: 76770; 81003; 99213

== ENCOUNTER 2019-04-14 01:25 | Outpatient (CLI) | payer MEDICARE, MEDICAID, SELFPAY ==
--- NOTE | 2019-04-14 10:09 | DI.US_ITS ---
SYMPTOMS/DIAGNOSIS: MONITOR STONES, N20.0, CALCULUS OF KIDNEY AND URETER, N20.1 RENAL ULTRASOUND: The prevoid bladder volume measures 122 cc. The postvoid residual is 24 cc. Both the ureteral jets were visualized. No bladder mass or bladder calcification is seen. The left kidney measures 9.4 cm in length. The right kidney measures 9.3 cm in length and shows a cyst at the upper pole. There is a small nonobstructing stone at the lower pole of the right kidney. There is stable mild right hydronephrosis. There is a 4.4 cm left adnexal cyst with a septation, which does not appear significantly changed. It appears to have increased in size when compared with the 2015 exam. IMPRESSION: Stable mild hydronephrosis. Left adnexal cyst appears increased in size when compared with 2015, but stable since the more recent exam.
--- NOTE | 2019-04-14 10:10 | DI.RAD_ITS ---
SYMPTOMS/DIAGNOSIS: N20.0, RT KIDNEY STONE, F/U STONES KUB: Comparison is made with [id number] and CT dated . A calcification remains in place on the right side of the L 3 - 4 disc space consistent with the mid ureteral stone on CT. The kidneys are mainly obscured by bowel gas and stool. Degenerative changes are seen in the spine and hips. IMPRESSION: No change in position of right ureteral calculus.
== END 2019-04-14 01:45 ==
PROVIDERS: PCP Student in an Organized Health Care Education/Training Program; Visit Provider Urology
DX: N20.0 Calculus of kidney (principal); N20.1 Calculus of ureter
CPT/HCPCS: 76770; 74018

== ENCOUNTER → 2019-04-22 08:20 | Outpatient (BNVA) | payer MEDICARE, MEDICAID, SELFPAY | PROVIDERS: PCP Student in an Organized Health Care Education/Training Program; Visit Provider Urology | DX: N20.1 Calculus of ureter (principal) | CPT/HCPCS: 99213 ==

== ENCOUNTER 2019-04-28 13:55 | Inpatient (IN) | payer MEDICARE, MEDICAID, SELFPAY ==
[2019-04-28] VITALS (12 sets, daily range): BP systolic 102–157; BP diastolic 63–99; PULSE 83–109; RESP 12–21; TEMP 36–36.9; O2SAT 95–98
--- NOTE | 2019-04-28 06:45 | DI.RAD_ITS ---
SYMPTOM/DIAGNOSIS: RT URETERAL CALCULUS OR RETROGRADE: Fluoroscopy Time: 78.6 seconds C arm fluoroscopy was utilized by Dr. Call. Please see the procedure note. Hard copies show catheterization of what appears to be the right ureter.
--- NOTE | 2019-04-28 11:46 | W.PM.HP.N ---
Date of service: 04/28/19 Time of Service: 11:46 Assessment and Plan (1) Right ureteral calculus: Current visit: No Status: Acute For ureteroscopy and holmium laser of ureteral stone. We will keep her in the hospital overnight for IV antibiotics and to monitor for sepsis. (2) Asthma: Current visit: No Status: Acute Qualifiers: Asthma complication type: uncomplicated Asthma persistence: persistent Asthma severity: moderate Qualified Code(s): J45.40 - Moderate persistent asthma, uncomplicated History of Present Illness Chief Complaint: Right ureteral stone Narrative: This is a 78 year old woman who has a history of Proteus urinary tract infections, sepsis and kidney stones. She has required ureteroscopic stone treatment. Her stone composition was 70% calcium phosphate, 20% calcium carbonate and 10% struvite. She presents now with a 4 week history of right flank pain. She has been found to have right hydronephrosis on Ultrasound and a calcification in the expected course of the right proximal ureter on KUB. She presents for ureteroscopic treatment of her stone. She is not febrile at this point, but given her history of struvite stones and sepsis, she will be kept in the hospital overnight for IV antibiotics. Her antibiotics (Gentamicin) will be chosen based on her previous proteus sensitivities. Review of Systems Review of Systems No fevers or chills No vision change or dysphasia No diabetes or thyroid Shortness of breath with exertion, Hx COPD No chest pain or palpitations No nausea, vomiting, hepatitis, ulcers, jaundice No seizures, strokes or peripheral neuropathy No bleeding disorders or anemia Chronic back pain and arthralgia PFSH Social History Smoking/Tobacco Use Status: Never Alcohol Intake: never Drug use: Never Substance use type: does not use Do you feel safe at home: Yes Meds Home Medications Medication Instructions Recorded Confirmed Type multivitamin [Daily Vitamin] 1 ea PO DAILY 12/31/12 04/28/19 History melatonin-pyridoxine HCl (B6) 1 ea PO HS 12/11/15 04/28/19 History fluticasone propion-salmeterol 2 puff INHALATION BID #3 inhaler 06/10/17 04/28/19 Rx [Advair Hfa 230-21] nebulizer accessories [Adult #1 ea 11/06/17 03/16/19 Rx Aerosol Mask] albuterol sulfate [Proair Hfa] 1 - 2 puff INHALATION Q4H PRN #2 03/19/18 04/28/19 Rx puff aspirin 81 mg tablet,delayed 81 mg PO DAILY #90 tab 08/09/18 04/28/19 Rx release nitroglycerin 0.4 mg sublingual 0.4 mg SUBLINGUAL PRN #30 tab-cap 09/08/18 04/28/19 Rx tablet metoprolol succinate 25 mg 25 mg PO DAILY #90 tab 09/09/18 04/28/19 Rx tablet,extended release 24 hr amlodipine [Norvasc] 5 mg PO HS 09/24/18 04/28/19 History guaifenesin 600 mg tablet, 600 mg PO BID #60 tab 12/09/18 04/28/19 Rx extended release 12 hr montelukast 10 mg tablet 10 mg PO HS #90 tab-cap 12/09/18 04/28/19 Rx epinephrine 0.3 mg/0.3 mL 0.3 mg IM ONCE #2 pen 01/07/19 04/25/19 Rx injection, auto-injector acetaminophen 650 mg 1,300 mg PO BID 03/16/19 04/25/19 History tablet,extended release atorvastatin 40 mg tablet 40 mg PO DAILY #90 tab-cap 03/16/19 04/28/19 Rx cetirizine 10 mg tablet 10 mg PO DAILY #90 tab-cap MDD 10mg 03/16/19 04/28/19 Rx diaper,brief,adult,disposable #132 each 03/16/19 03/16/19 Rx ipratropium-albuterol 0.5 mg-3 3 ml INHALATION Q3H PRN #90 ml 03/16/19 04/25/19 Rx mg(2.5 mg base)/3 mL nebulization soln magnesium citrate 125 mg capsule 250 mg PO DAILY cap 03/16/19 04/28/19 History sanitary pads #150 each 03/16/19 03/16/19 Rx sanitary pads #20 each 03/16/19 03/16/19 History calcium carb,cit ER 600 mg 1 tab PO BID #1 tab 04/22/19 04/28/19 History calcium-vit D3 500 unit tablet,ext.release Allergies Allergy/AdvReac Type Severity Reaction Status Date / Time Influenza Virus Vaccines Allergy Severe throat Verified 04/28/19 12:18 closed duloxetine HCl Allergy Intermediate sweat/throat Verified 04/28/19 12:18 [From Cymbalta] tight egg Allergy Intermediate Swelling/Ed Verified 04/28/19 12:18 shoshana Penicillins Allergy Intermediate swelling/choked Verified 04/28/19 12:18 up Sulfa (Sulfonamide Allergy Intermediate swelling Verified 04/28/19 12:18 Antibiotics) tetracycline Allergy Unknown unknown Verified 04/28/19 12:18 morphine AdvReac Severe HR Verified 04/28/19 12:18 dropped/BP high ciprofloxacin [From Cipro] AdvReac Intermediate AGITATION Verified 04/28/19 12:18 gabapentin AdvReac Intermediate Dizziness Verified 04/28/19 12:18 & Sedation hyoscyamine AdvReac Intermediate lightheaded Verified 04/28/19 12:18 lisinopril AdvReac Intermediate Uvula Verified 04/28/19 12:18 Swelling mirtazapine AdvReac Intermediate throat Verified 04/28/19 12:18 discomfort, feeling tired, nauseated nortriptyline AdvReac Intermediate Verified 04/28/19 12:18 homatropine [From Hycodan] AdvReac Mild Loopy Verified 04/28/19 12:18 hydrocodone bitartrate AdvReac Mild Loopy Verified 04/28/19 12:18 [From Hycodan] lidocaine AdvReac Mild Skin Verified 04/28/19 12:18 sensitivity/Rash trazodone AdvReac Unknown Dizzy, Verified 04/28/19 12:18 weak and hallucinations cephalexin monohydrate AdvReac ?LE Verified 04/28/19 12:18 [From Keflex] weakness nuts Allergy Intermediate Swelling/Ed Uncoded 04/28/19 12:18 shoshana peanut butter AdvReac Intermediate Swelling/Ed Uncoded 04/28/19 12:18 shoshana Exam Const General: cooperative and not in acute distress Nutritional Appearance: thin Neck Neck: supple Resp Effort & Inspection: normal respiratory effort Auscultation: clear to auscultation bilaterally Cardio Rate: regular rate Rhythm: regular rhythm Other: tachycardic GI Palpation: soft and no masses Neuro General: alert, awake and oriented x3
[2019-04-28] MEDS: Lactated Ringers 1,000 ML 80 ML IV ×3 (12:35→23:44)
[2019-04-28] MEDS: Omnipaque 300 MG/ML 50 ML BTL (13:35)
[2019-04-28 14:39] LABS: HCT 36.5 % (36.0-46.0); HGB 12.5 g/dL (12.0-15.5); Mean Corp. HGB Concentration 34.2 g/dL (32.0-36.0); Mean Corpuscular Hemoglobin 33.2 pg (27.0-33.0); Mean Corpuscular Volume 96.8 fL (80-95); Mean Platelet Volume 10.8 fL (8.0-11.0); Platelet Count 140 x1000/uL (130-400); RBC 3.77 m/cumm (4.00-5.20)
--- NOTE | 2019-04-28 15:02 | NUR.NOTE ---
Nursing Note: Pt brought up to 227 from the PACU @ 1443. Report received from SLEEVE TURNER. Pt in stable condition. Slid to bed in room. Reporting 0/10 pain, A&Ox3, denies SOB - clear lung sounds, denies chest pain/discomfort, no N/V, jaramillo in place w/ blue stent in place - patent draining clear pink tinged urine, pedal/radial pulses palpable, no edema. Started LR @ 80 mL/hr on L FA PIV per order. Daughter in room w/ patient, number on board. Awaiting PT consult. Vitals in stable condition. Was reported that patient has right sided facial droop and L sided weakness in history. Pt oriented to call banda system, SCDs started. Pt has many allergies - few to note: eggs and nuts. Pt requires ground meat. Dietary notified.
[2019-04-28 15:40] LABS: ALT 36 U/L (12-78); AST 19 U/L (15-37); Albumin 3.8 g/dL (3.4-5.0); Alkaline Phosphatase 53 U/L (46-116); Anion Gap 8.9 mmol/L (3-11); BUN 15 mg/dL (7-18); Bilirubin, Total 0.6 mg/dL (0.2-1.0); CO2 28.1 mmol/L (21.0-32.0); CREATININE 0.84 mg/dL (0.55-1.02); Calcium 8.7 mg/dL (8.5-10.1); Chloride 106 mmol/L (98-107); Glucose 106 mg/dL (70-100); Potassium 3.9 mmol/L (3.5-5.1); Sodium 143 mmol/L (136-145); Total Protein 6.2 g/dL (6.4-8.2)
--- NOTE | 2019-04-28 18:00 | IN_ITS ---
Date of service: 04/28/19 Time of Service: 16:02 PT Notes Inpatient Physical Therapy Evaluation Date: 04/28/2019 Referring Doctor: Hansel Call MD PT Orders: PT CONSULT: Gait and strength training?which she benefit from home PT after discharge? Precautions: Fall. Standard. Patient Profile/Admitting Diagnosis: Patient is a 78-year-old female with past medical history significant for urinary incontinence, osteopenia, and palliative care treatments who is diagnosed with a right ureteral calculus and is status post ureteroscopic stone therapy on 04/27/2019. PMHX: Palliative care treatment Cervical spondylosis Carpal tunnel syndrome GERD Osteopenia Spinal stenosis Urinary incontinence Unsteady gait Uvular edema Social History/Home Situation: Patient lives alone in a 2 floor house with a ramp to enter and with a stair lift to go to the second floor of the house. Patient has everything she needs on the main floor of the house. She states that she is been for a long time of part of a walking in [place], [place] using her 4 wheeled walker. Inside the house she is independent with all transfers but sometimes would require the use of a cane. She also uses a cane to get to her mailbox outside of her house. Laagvckt-sx-bqu states that she has a wheelchair for any day that she feels so. She has been independent in the kitchen and needs to walk 30 feet from her bedroom to the kitchen and about 45 feet from her bedroom to the bathroom. Son and fyznhyxe-hj-thb lives 2 miles away. Current Functional Limitations: Need for assistance and assistive device and doing all transfer and ambulation task Equipment Owned/DME: F WW, wheelchair, SPC, raised toilet seat, grab bar, walk in shower, shower stool, bedside commode, grab bars Subjective: Patient pleasant and cooperative. She is agreeable to a PT consult and treatment today. Eucmbiiv-pi-nfi who is a nurse is present throughout PT consult and treatment. Miwikmna-cu-gsp stated that they are hoping that regimen of written home exercise program will be provided for the patient so that they may not have a need for home health PT services anymore. Patient denies headache, chest pain, and flank pain throughout PT session. Objective: General Observation: Patient seen resting in bed. In NAD. De La Rosa catheter with stent in place. IV in left UE. Bilateral knee-high TEDS on. Anti- thromboembolic pump on bilateral legs. Mental Status: Alert and oriented as to person and place Pain: 0/10 ROM: Right Upper Extremity: Shoulder Flexion WFL. Shoulder abduction WFL. Elbow flexion WFL. Wrist flexion WFL. Functional opening and closing of hand WFL. Left Upper Extremity: Shoulder Flexion WFL. Shoulder abduction WFL. Elbow flexion WFL. Wrist flexion WFL. Functional opening and closing of hand WFL. Right Lower Extremity: Hip flexion WFL. Hip abduction WFL. Knee flexion WFL. Ankle dorsiflexion WFL. Ankle plantarflexion WFL. Left Lower Extremity: Hip flexion WFL. Hip abduction WFL. Knee flexion WFL. Ankle dorsiflexion WFL. Ankle plantarflexion WFL. Strength: Right Upper Extremity: Shoulder flexors 4-/5. Shoulder abductors 4-/5. Elbow flexors 4-/5. Elbow extensors 4-/5. Business Banking Manager strong. Left Upper Extremity: Shoulder flexors 4/5. Shoulder abductors 4/5. Elbow flexors 4/5. Elbow extensors4/5. Business Banking Manager strong. Right Lower Extremity: Hip flexors 3+/5. Hip abductors 3+/5. Knee flexors 3+/5. Knee extensors 3+/5. Ankle dorsiflexors 3+/5. Ankle plantarflexors 3+/5. Left Lower Extremity:Hip flexors 4-/5. Hip abductors 4-/5. Knee flexors 4-/5. Knee extensors 4-/5. Ankle dorsiflexors 4-/5. Ankle plantarflexors 4-/5. Sensation: Intact as to pain and pressure on bilateral lower extremities. Bed Mobility/Transfers: Rolling SBA Supine to sit SBA Sit to supine SBA Sit to stand CGA Stand to sit CGA Bed to chair CGA Chair to bed CGA Gait: Patient was able to tolerate short distance in room ambulation of 8 feet +1 turn +2 step back's using F WW with FWB requiring only minimal assist from this PT with right knee mild buckle x 2, decreased appetite, and decreased gait velocity, Balance: Static Sitting: Good Dynamic Sitting: Good Static Standing: Fair Dynamic Standing: Fair Special Tests: Mobility Limitations Standardized Measure [facility] 6 clicks Basic Mobility Inpatient Short Form: Raw Score: 16 CMS Score: 54% deficit Informed Consent/Education: Patient and yefuhhvt-cc-nue instructed in purpose of PT consult and plan of care. Assessment: Patient presents with clinical signs and symptoms consistent with current/admitting diagnoses that have resulted to mobility limitations, gait instability, generalized weakness, and impairment of motor control as demonstrated by the following impairment level findings: 1. Decreased strength to B LE major muscle groups with the right more affected than the left 2. Impaired sitting/standing balance 3. Impaired activity tolerance Impairments are contributing to the following functional limitations: 1. Dependent bed mobility skills 2. Increased dependence with transfers 3. Inability to safely ambulate without assistive device and physical assistance 4. Increase completion time for mobility ADL performance 5. Increased fall risk 6. Inability to negotiate steps alone safely Patient is assessed as a 32098 moderate complexity based on the following: History: 78-year-old female with past medical history significant for asthma, cervical spondylosis, osteopenia, and spinal stenosis Examination: Demonstrable impairment in strength, balance, and range of motion with underlying impairments and functional limitations as documented above Presentation: Stable Decision Makin moderate complexity Goals: Goals X1 week 1. Supine-Sit independent 2. Sit-Supine independent 3. Sit-Stand independent 4. Stand-Sit independent 5. Bed-Chair independent 6. Chair-Bed independent 7. Independent gait on level surface with use of least restrictive device for at least 300 feet without report of pain nor dyspnea 8. Independent stair negotiation while holding onto bilateral rails for at least 10 steps without report of pain nor dyspnea 9. Independent with home exercise program 10. Good static and dynamic standing balance/tolerance Plan of Care/Treatment Plan: 1-2x/day, 7 days/week x 1 week. Plan of care has been reviewed with the PATTERN HAND providing the service under Physical Therapy direction. Initiate Physical Therapy intervention for strengthening, bed mobility, transfers, gait, stairs, balance training, use of assistive device. DISCHARGE RECOMMENDATIONS: Patient will benefit from home health PT services in order to progress mobility level using least restrictive assistive ambulatory device/using no device, assess home safety, identify additional equipment needs, and establish a functional maintenance program that will increase ability of patient to remain at home. TREATMENT CODE/TIME: 9716 2 x 30 minutes, 9753 0 x 14 minutes, beginning at 16:0:2 PM. Thank you very much for this referral. Arianna Fraser PT, DPT, CLT [facility]
[2019-04-28] MEDS: guaiFENesin 600 MG TABCR PO (20:12)
[2019-04-28] MEDS: Budesonide/Formoterol 160/4.5 6 GM 60 PUFF INH IH (20:12)
[2019-04-28] MEDS: Melatonin 3 MG TAB 9 MG PO (21:40)
[2019-04-28] MEDS: amLODIPine 5 MG TAB PO (21:40)
[2019-04-28] MEDS: Montelukast 10 MG TAB PO (21:41)
[2019-04-29 04:14] VITALS: BP 126/75; PULSE 73; RESP 18; TEMP 35.5; O2SAT 96
[2019-04-29 07:45] VITALS: BP 120/63; PULSE 86; RESP 18; TEMP 36.5; O2SAT 98
--- NOTE | 2019-04-29 07:46 | W.PM.PROGNOT ---
Date of Service Date of service: 04/29/19 Time of Service: 07:46 Assessment and Plan (1) Right ureteral calculus: Current visit: No Status: Acute She is doing well after her surgery. She has had no additional cardiac concerns. I would assume that she will be able to go home later today. I will check with her inspector of dredging to see if we need to make any adjustments to her cardiac medications were planned follow-up. We will also check in with care management and physical therapy to see if home physical therapy is indicated for this patient. Subjective Interval history since last seen: She has been comfortable overnight with no flank pain. She has had no chest pain. Exam Narrative Exam Narrative: She appears comfortable. Her vital signs are documented elsewhere. Her urine is clear. I went ahead and removed her catheter and ureteral stent this morning. She is awake, alert and oriented. Objective Objective Clinical Data: Abnormal lab results 04/28/19 04/28/19 Range/Units 14:20 14:20 WBC 3.70 L (4.4-10.8) k/cumm RBC 3.77 L (4.00-5.20) m/cumm MCV 96.8 H (80-95) fL MCH 33.2 H (27.0-33.0) pg Glucose 106 H (70-100) mg/dL Total Protein 6.2 L (6.4-8.2) g/dL Vital Signs Temperature 35.5 C L 04/29/19 04:14 Temperature Source Tympanic 04/29/19 04:14 Pulse 73 04/29/19 04:14 Pulse Rhythm Irregular 04/29/19 03:54 Respiratory Rate 18 04/29/19 04:14 Respiratory Effort Non-Labored 04/29/19 03:54 Respiratory Depth Normal 04/29/19 03:54 Respiratory Pattern Normal 04/29/19 03:54 Blood Pressure 126/75 04/29/19 04:14 Pulse Oximetry 96 04/29/19 04:14 Respiratory End-tidal CO2 32 04/28/19 14:08 Oxygen Delivery Method Room Air 04/29/19 04:14 Oxygen Flow Rate 0 04/29/19 04:14 Pain Level 0 04/28/19 14:32 Intake & Output 04/28/19 04/28/19 04/29/19 11:59 23:59 11:59 Intake Total 1735.000 / 1735.000 502 / 502 Output Total 1800 / 1800 1050 / 1050 Balance -65.000 / -65.000 -548 / -548 Weight 50 kg Intake: IV 1660.000 / 1660.000 102 / 102 Oral 75 / 75 400 / 400 Output: Urine 1800 / 1800 1050 / 1050 Other: Urine Color [place] Hendricks Hendricks Urine Appearance Clear Clear Comment URETERAL CATH URETERAL STENT PLACED TO DRAIN INTO RAPHAEL BAG Emesis Description None Laboratory Results WBC 3.70 k/cumm (4.4-10.8) L 04/28/19 14:20 RBC 3.77 m/cumm (4.00-5.20) L 04/28/19 14:20 Hgb 12.5 g/dL (12.0-15.5) 04/28/19 14:20 Hct 36.5 % (36.0-46.0) 04/28/19 14:20 MCV 96.8 fL (80-95) H 04/28/19 14:20 MCH 33.2 pg (27.0-33.0) H 04/28/19 14:20 MCHC 34.2 g/dL (32.0-36.0) 04/28/19 14:20 RDW 14.0 % (11.7-14.6) 04/28/19 14:20 Plt Count 140 x1000/uL (130-400) 04/28/19 14:20 MPV 10.8 fL (8.0-11.0) 04/28/19 14:20 Sodium 143 mmol/L (136-145) 04/28/19 14:20 Potassium 3.9 mmol/L (3.5-5.1) 04/28/19 14:20 Chloride 106 mmol/L (98-107) 04/28/19 14:20 Carbon Dioxide 28.1 mmol/L (21.0-32.0) 04/28/19 14:20 8.9 mmol/L (3-11) 04/28/19 14:20 BUN 15 mg/dL (7-18) 04/28/19 14:20 0.84 mg/dL (0.55-1.02) 04/28/19 14:20 >= 60.00 (mL/min/1.73m2) 04/28/19 14:20 Glucose 106 mg/dL (70-100) H 04/28/19 14:20 Calcium 8.7 mg/dL (8.5-10.1) 04/28/19 14:20 0.6 mg/dL (0.2-1.0) 04/28/19 14:20 AST 19 U/L (15-37) 04/28/19 14:20 ALT 36 U/L (12-78) 04/28/19 14:20 53 U/L (46-116) 04/28/19 14:20 6.2 g/dL (6.4-8.2) L 04/28/19 14:20 3.8 g/dL (3.4-5.0) 04/28/19 14:20
--- NOTE | 2019-04-29 07:49 | DSE_ITS ---
Date of service: 04/29/19 Time of Service: 07:49 DS: Diagnosis Discharge Diagnosis (1) Right ureteral calculus: Status: Acute Discharge Plan Disposition Patient Disposition: HOME Condition: Stable Discharge Details Reason For Visit: URETERAL STONE Admit Date/Time: 04/28/19 13:55 Admit Provider: Hansel Call Attending Provider: Hansel Call Primary Care Provider: Miguelina Tilley Hospital Course Hospital Course: The patient was brought to the operating room on 04/29/2019. She underwent left retrograde pyelogram which showed no obvious stones. We did right flexible ureteroscopy and extracted a ureteral stone. The previously identified ureteral stone in the proximal ureter was not seen intraluminally. I expect that this calcification is actually outside the ureter. We placed a ureteral stent and Raphael catheter after the procedure. 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 She remained af ebrile and from a urologic standpoint is ready for discharge on postoperative day #1. After induction of anesthesia, she did have some tachycardia. This has been an issue for her previously and she is maintained on beta-blockers. Her rate and rhythm return to her baseline. Before discharge, I will check with her metal cleaner to see if we need to make any changes in her medications or follow-up plans. I removed her catheter and stent before discharge. We will see her back in the office in 4 to 6 weeks. We should be able to review her stone analysis at that time. Instead of monitoring her with a renal ultrasound, I have chosen to monitor her with a nuclear renogram to confirm the absence of obstruction. Home Meds and New Rx's Prescriptions: No Action nitroglycerin [Nitrostat] 0.4 mg tablet, sublingual 0.4 mg Sublingual PRN Qty: 30 RF: 0 metoprolol succinate 25 mg tablet extended release 24 hr 25 mg PO DAILY Qty: 90 RF: 3 magnesium citrate 125 mg capsule 250 mg PO DAILY RF: 0 ipratropium-albuterol 0.5 mg-3 mg(2.5 mg base)/3 mL solution for nebulization 3 ml Inhalation Q3H PRN Qty: 90 RF: 4 atorvastatin 40 mg tablet 40 mg PO DAILY Qty: 90 RF: 3 cetirizine 10 mg tablet 10 mg PO DAILY MDD 10mg Qty: 90 RF: 3 (DME) Entrust Plus Briefs misc 1 ea Miscellaneous TID Qty: 132 RF: 12 (DME) sanitary pads pad See Dose Instructions .ROUTE .MEDSUPPLY Qty: 20 RF: 0 (DME) sanitary pads Qty: 150 RF: 11 multivitamin [Daily Vitamin] 1 EACH tablet 1 ea PO DAILY RF: 0 melatonin-pyridoxine HCl (B6) 1 EACH tablet,ext release multiphase 1 ea PO HS RF: 0 Advair HFA 8 GM HFA aerosol inhaler 2 puff Inhalation BID Qty: 3 RF: 3 (DME) Adult Aerosol Mask 1 EACH misc 1 ea Miscellaneous DAILY Qty: 1 RF: 0 albuterol sulfate [ProAir HFA] 8.5 GM HFA aerosol inhaler 1 - 2 puff Inhalation Q4H PRN Qty: 2 RF: 4 aspirin [Aspir-81] 81 mg tablet,delayed release (DR/EC) 81 mg PO DAILY Qty: 90 RF: 3 guaifenesin 600 mg tablet extended release 12hr 600 mg PO BID Qty: 60 RF: 3 montelukast 10 mg tablet 10 mg PO HS Qty: 90 RF: 3 epinephrine [EpiPen 2-Moe] 0.3 mg/0.3 mL auto-injector 0.3 mg IM ONCE Qty: 2 RF: 0 acetaminophen [Tylenol Arthritis] 650 mg tablet extended release 1,300 mg PO BID RF: 0 calcium carb and citrate-vitD3 600 mg calcium- 500 unit tablet extended release 1 tab PO BID Qty: 1 RF: 0 amlodipine [Norvasc] 5 MG tablet 5 mg PO HS RF: 0 Discharge Instructions Additional Instructions: F/U 4 to 6 weeks with nuclear renogram prior to visit (ordered in outpatient EMR) No change to cardiac medications or planned cardiac followup Stand Alone Forms: Nursing Discharge Form Referrals: Hansel Call MD [ [facility] STAFF PHYSICIAN] - Activity:: Activity as Tolerated Equipment/Supplies:: Walker Diet:: As Tolerated Discharge Orders Discharge Orders: Discharge Order (Routine); Ordered 04/29/19 Ordered By: Hansel Call Exam Narrative Exam Narrative: She is a thin older woman who does not appear to be in any current distress. She is cooperative. Her vital signs are documented elsewhere. Her chest wall motion is normal. She does not appear short of breath at rest. Her cardiac exam shows a regular rate and rhythm. Her abdomen is soft with no masses. Prior to removing the catheter, her urine was clear. She is awake, alert and oriented. DS: Data Vitals/I&O Vitals and I&O: Vital Signs Temperature 35.5 C L 04/29/19 04:14 Temperature Source Tympanic 04/29/19 04:14 Pulse 73 04/29/19 04:14 Pulse Rhythm Irregular 04/29/19 03:54 Respiratory Rate 18 04/29/19 04:14 Respiratory Effort Non-Labored 04/29/19 03:54 Respiratory Depth Normal 04/29/19 03:54 Respiratory Pattern Normal 04/29/19 03:54 Blood Pressure 126/75 04/29/19 04:14 Pulse Oximetry 96 04/29/19 04:14 Respiratory End-tidal CO2 32 04/28/19 14:08 Oxygen Delivery Method Room Air 04/29/19 04:14 Oxygen Flow Rate 0 04/29/19 04:14 Pain Level 0 04/28/19 14:32 Intake & Output 04/28/19 04/28/19 04/29/19 11:59 23:59 11:59 Intake Total 1735.000 / 1735.000 502 / 502 Output Total 1800 / 1800 1050 / 1050 Balance -65.000 / -65.000 -548 / -548 Weight 50 kg Intake: IV 1660.000 / 1660.000 102 / 102 Oral 75 / 75 400 / 400 Output: Urine 1800 / 1800 1050 / 1050 Other: Urine Color [place] Hendricks Hendricks Urine Appearance Clear Clear Comment URETERAL CATH URETERAL STENT PLACED TO DRAIN INTO RAPHAEL BAG Emesis Description None Labs on day of discharge: Labs from last 24 hours 04/28/19 04/28/19 04/28/19 14:20 14:20 13:32 WBC 3.70 L RBC 3.77 L Hgb 12.5 Hct 36.5 MCV 96.8 H MCH 33.2 H MCHC 34.2 RDW 14.0 Plt Count 140 MPV 10.8 Sodium 143 Potassium 3.9 Chloride 106 Carbon Dioxide 28.1 Anion Gap 8.9 BUN 15 Creatinine 0.84 Estimated GFR/1.73 m2 >= 60.00 Glucose 106 H Calcium 8.7 Total Bilirubin 0.6 AST 19 ALT 36 Alkaline Phosphatase 53 Total Protein 6.2 L Albumin 3.8 Stone Analysis Pending Stone Source Pending Stone Constituent 1 Pending Stone Constituent 2 Pending Stone Constituent 3 Pending Major Stone Nidus Pending Minor Stone Nidus Pending Major Stone Shell Pending Minor Stone Shell Pending Stone Comment Pending [facility] Medical History ASCVD (arteriosclerotic cardiovascular disease) CVA (cerebral vascular accident) HTN (hypertension) Postmenopausal Surgical History Coronary Stent History of section (Chronic) History of colonoscopy (Chronic) History of tubal ligation (Chronic) TOT (Incontinence sling) Social History Smoking/Tobacco Use Status: Never Alcohol Intake: never Drug use: Never Substance use type: does not use Do you feel safe at home: Yes
[2019-04-29] MEDS: Budesonide/Formoterol 160/4.5 6 GM 60 PUFF INH IH (07:56)
[2019-04-29] MEDS: guaiFENesin 600 MG TABCR PO (08:18)
[2019-04-29] MEDS: Cetirizine 10 MG TAB PO (08:18)
[2019-04-29] MEDS: Metoprolol CR 25 MG TABCR PO (08:19)
[2019-04-29] MEDS: Aspirin E.C. 81 MG TABEC PO (08:19)
[2019-04-29] MEDS: Atorvastatin 40 MG TAB PO (08:19)
[2019-04-29] MEDS: Multivitamin TAB 1 TAB PO (08:19)
--- NOTE | 2019-04-29 09:32 | ROE_ITS ---
DATE OF PROCEDURE: April 28, 2019 PREOPERATIVE DIAGNOSIS: Right ureteral stone. POSTOPERATIVE DIAGNOSIS: Same. PROCEDURE: Cystoscopy; right flexible ureteroscopy with stone extraction; left retrograde pyelogram; placement of right ureteral stent. SURGEON: Hansel Call M.D. ANESTHESIA: General. COMPLICATIONS: None. ESTIMATED BLOOD LOSS: Minimal. HISTORY: This is a 78-year-old woman who has a history of ureteral stones and renal stones. She cur rently is having right flank pain and hydronephrosis. On KUB she appears to have a proximal right ur eteral stone. She presents for stone manipulation. OPERATIVE REPORT: The patient was brought to the Operating Room on 04/28/19. After successful inducti on of general anesthesia, she was placed in the dorsal lithotomy position. Her genitalia was prepped and draped. A 22 Uzbek rigid cystoscope was passed through the urethra into the bladder. The bladder was inspec ori with a 30-degree lens. We initially started with the right ureteral orifice and cannulated it with an access catheter. I th en passed a guidewire through the access catheter and maneuvered the wire up the remainder of the ure ter. The access catheter was removed and a dual-lumen catheter was passed over the wire. This allow ed us to position a second wire. One of the wires was chosen as a working wire and the other one was a safety wire. We then passed a ureteral access sheath over the working wire and advanced the sheath up to the mid-ureter. I then passed a flexible ureteroscope through the access sheath and advanced the scope up the ureter. There was a narrowed area in the proximal ureter where the suspected stone was present, but I saw n o intraluminal stones at this point. I then advanced the scope further up the kidney and in one of the lower pole calyces I found a 3 mm s tone. That stone was grasped in a Zero-Tip stone basket and extracted in its entirety. The stone wa s sent to Pathology for stone analysis. We then withdrew the ureteroscope and access sheath. I reintroduced the cystoscope and passed and ac cess catheter into the left ureteral orifice. A retrograde film was obtained by injecting Omnipaque through the access catheter under fluoroscopic guidance. No filling defects were seen in the left ur eter or collecting system. Because of the manipulation on the right, we decided to place a ureteral stent. I used the 6 Uzbek access catheter as the stent and advanced it over the safety wire. The wire was removed. The access catheter was left coming through the urethra. I then passed a 16 Uzbek De La Rosa catheter through the urethra into the bladder. We brought the catheter into the lumen of the De La Rosa catheter and hooked th e catheter to gravity drainage. The patient tolerated this procedure well. There were no complications. We will plan on keeping her in the hospital overnight for IV antibiotics. We will monitor her with a nuclear renogram in 4 to 6 weeks.
--- NOTE | 2019-04-29 10:08 | CMPROGNOTE_ITS ---
- If Service Date Differs Date of service: 04/29/19 Time of Service: 10:08 Care Management Progress Note Ellen was discharged before CM was able to see her. A referral has been sent to [facility] for new PT and OT. They will start on Thursday and Ellen has been notified of that fact.
--- NOTE | 2019-04-29 10:56 | PT.INTREAT ---
Date of service: 04/29/19 Time of Service: 10:56 PT Notes Inpatient Physical Therapy Treatment Note [facility] Date: 04/29/19 PRECAUTIONS: Fall SUBJECTIVE: Ellen is agreeable to participating in PT. She states that she was not able to get much rest last night, and feels pretty tired today. OBJECTIVE: PAIN: No c/o pain BED MOBILITY/TRANSFERS Supine-sit: I Sit-supine: I Sit-stand: S Stand-sit: S GAIT Assistive Device: 4WW Weight bearing: Full Assist: CGA Distance: 15' x2 THEREX: Patient was issued and instructed in a HEP for LE strengthening and stabilization program, as per flow sheet. Patient demonstrates good understanding and appropriate completion of exercises. TOILETING: Patient toileted with supervision. ASSESSMENT: Patient tolerated session well without complaint. She was able to tolerate a progression in gait distance with 4WW support and CGA. She was able to tolerate the addition of a HEP for LE strengthening and stabilzation. PLAN: As per primary PT TREATMENT CODE/TIME: 25 minutes; 62387, [id number]
[2019-04-29 11:34] VITALS: BP 138/80; PULSE 83; RESP 17; TEMP 36.7; O2SAT 98
--- NOTE | 2019-04-29 12:57 | HHF2F_ITS ---
1. Encounter Date and Reason I certify that TATO MATOS was seen by Hansel Call MD on 04/29/19 and that I had a [id number] encounter with this patient that meets the physician face to face encounter requirements. 2. Clinical Findings Supporting Skilled Need and Homebound Status I certify that home health services are medically necessary, include either intermittent senior care and/or physical/speech therapy, and that this patient is homebound in that absences from the home require considerable and taxing effort and are infrequent or of short duration, or are attributable to the need to receive medical care. [X] (a) Attached documentation from encounter provides clinical findings supporting skilled need and homebound status (including what assistance patient requires to leave the home). The encounter with the patient was in whole, or in part, for the following medical condition, which is the primary reason for home health care: URETERAL STONE Halfway: Physical Therapy: PT/OT for gait and strength training - pt currently uses walker for ambulation Speech Therapy: Homebound: 3. Certification and Authentication I certify that I composed the above information based on my clinical judgement relating to this patient's medical condition and, if applicable, clinical findings communicated to me by the NPP or inpatient physician who performed the Home Health Referral. All further orders will be obtained through (Community Based Physician - PCP)
--- NOTE | 2019-04-29 15:48 | PT.INDS ---
Date of service: 04/29/19 Time of Service: 15:49 PT Notes Inpatient Physical Therapy Discharge Summary Dates: 04/29/2019 Dates of Service: 04/28/2019 through 04/29/2019 This is a clinical summary of care provided on the duration of dates listed above. No charge was made in the completion of this documentation. Referring Doctor: Hansel Call MD PT Orders: PT CONSULT: Gait and strength training?which she benefit from home PT after discharge? Precautions: Fall. Standard. Patient Profile/Admitting Diagnosis: Patient is a 78-year-old female with past medical history significant for urinary incontinence, osteopenia, and palliative care treatments who is diagnosed with a right ureteral calculus and is status post ureteroscopic stone therapy on 04/27/2019. PMHX: Palliative care treatment Cervical spondylosis Carpal tunnel syndrome GERD Osteopenia Spinal stenosis Urinary incontinence Unsteady gait Uvular edema Social History/Home Situation: Patient lives alone in a 2 floor house with a ramp to enter and with a stair lift to go to the second floor of the house. Patient has everything she needs on the main floor of the house. She states that she is been for a long time of part of a walking in [place], [place] using her 4 wheeled walker. Inside the house she is independent with all transfers but sometimes would require the use of a cane. She also uses a cane to get to her mailbox outside of her house. Hoxliink-oi-mdo states that she has a wheelchair for any day that she feels so. She has been independent in the kitchen and needs to walk 30 feet from her bedroom to the kitchen and about 45 feet from her bedroom to the bathroom. Son and [id number] lives 2 miles away. Current Functional Limitations: Need for assistance and assistive device and doing all transfer and ambulation task Equipment Owned/DME: F WW, wheelchair, SPC, raised toilet seat, grab bar, walk in shower, shower stool, bedside commode, grab bars Subjective: Patient pleasant and cooperative. She is agreeable to a PT consult and treatment today. Jgtbesim-un-rgs who is a nurse is present throughout PT consult and treatment. Yubuaboh-eg-lcd stated that they are hoping that regimen of written home exercise program will be provided for the patient so that they may not have a need for home health PT services anymore. Patient denies headache, chest pain, and flank pain throughout PT session. Objective: General Observation: NT Mental Status: NT Pain: NT ROM: Right Upper Extremity: Shoulder Flexion WFL. Shoulder abduction WFL. Elbow flexion WFL. Wrist flexion WFL. Functional opening and closing of hand WFL. Left Upper Extremity: Shoulder Flexion WFL. Shoulder abduction WFL. Elbow flexion WFL. Wrist flexion WFL. Functional opening and closing of hand WFL. Right Lower Extremity: Hip flexion WFL. Hip abduction WFL. Knee flexion WFL. Ankle dorsiflexion WFL. Ankle plantarflexion WFL. Left Lower Extremity: Hip flexion WFL. Hip abduction WFL. Knee flexion WFL. Ankle dorsiflexion WFL. Ankle plantarflexion WFL. Strength: Right Upper Extremity: Shoulder flexors 4-/5. Shoulder abductors 4-/5. Elbow flexors 4-/5. Elbow extensors 4-/5. Mailroom Manager strong. Left Upper Extremity: Shoulder flexors 4/5. Shoulder abductors 4/5. Elbow flexors 4/5. Elbow extensors4/5. Mailroom Manager strong. Right Lower Extremity: Hip flexors 3+/5. Hip abductors 3+/5. Knee flexors 3+/5. Knee extensors 3+/5. Ankle dorsiflexors 3+/5. Ankle plantarflexors 3+/5. Left Lower Extremity:Hip flexors 4-/5. Hip abductors 4-/5. Knee flexors 4-/5. Knee extensors 4-/5. Ankle dorsiflexors 4-/5. Ankle plantarflexors 4-/5. Sensation: Intact as to pain and pressure on bilateral lower extremities. Bed Mobility/Transfers: Rolling independent Supine to sit independent Sit to supine independent Sit to stand supervision Stand to sit supervision Bed to chair supervision Chair to bed supervision Gait: Patient was able to tolerate short distance in room ambulation of 15 feet x2 using 4WW with FWB requiring only CGA from PRODUCTION CONTROL SUPERVISOR this morning without right knee buckle, decreased step length, and decreased gait velocity. Balance: Static Sitting: Good Dynamic Sitting: Good Static Standing: Fair Dynamic Standing: Fair Assessment: Patient continues to presents with clinical signs and symptoms consistent with current/admitting diagnoses that have resulted to mobility limitations, gait instability, generalized weakness, and impairment of motor control as demonstrated by the following impairment level findings: 1. Decreased strength to B LE major muscle groups with the right more affected than the left 2. Impaired sitting/standing balance 3. Impaired activity tolerance Impairments are contributing to the following functional limitations: 1. Increased dependence with transfers 2. Inability to safely ambulate without assistive device and physical assistance 3. Increase completion time for mobility ADL performance 4. Increased fall risk 5. Inability to negotiate steps alone safely Patient is assessed as a [id number] moderate complexity based on the following: History: 78-year-old female with past medical history significant for asthma, cervical spondylosis, osteopenia, and spinal stenosis Examination: Demonstrable impairment in strength, balance, and range of motion with underlying impairments and functional limitations as documented above Presentation: Stable Decision Makin moderate complexity Goals: Goals X1 week 1. Supine-Sit independent MET 2. Sit-Supine independent MET 3. Sit-Stand independent NOT MET 4. Stand-Sit independent NOT MET 5. Bed-Chair independent NOT MET 6. Chair-Bed independent NOT MET 7. Independent gait on level surface with use of least restrictive device for at least 300 feet without report of pain nor dyspnea NOT MET 8. Independent stair negotiation while holding onto bilateral rails for at least 10 steps without report of pain nor dyspnea NOT MET 9. Independent with home exercise program NOT MET 10. Good static and dynamic standing balance/tolerance NOT MET DISCHARGE RECOMMENDATIONS: Patient will benefit from home health PT services in order to progress mobility level using least restrictive assistive ambulatory device/using no device, assess home safety, identify additional equipment needs, and establish a functional maintenance program that will increase ability of patient to remain at home. TREATMENT CODE/TIME: MD Thank you very much for this referral. Arianna Fraser PT, DPT, CLT [facility]
[2019-05-05 00:48] LABS: Source: Right Ureter
== END 2019-04-29 11:36 | disposition home or self-care (01) | DRG 661 ==
LOC: MS 14:57
PROVIDERS: Admitting Provider Urology; PCP Student in an Organized Health Care Education/Training Program; Visit Provider Urology
PROC: 0TC08ZZ Extirpation of Matter from Right Kidney, Via Natural or Artificial Opening Endoscopic (ICD-10-PCS; CPT 52352; principal; 2019-04-28 13:00)
DX: R00.0 Tachycardia, unspecified; T41.45XA Adverse effect of unspecified anesthetic, initial encounter; I10 Essential (primary) hypertension; K21.9 Gastro-esophageal reflux disease without esophagitis; R26.81 Unsteadiness on feet; N20.0 Calculus of kidney
CPT/HCPCS: 52352; 52005; 36415; 80053; 85027; 97110; 97162; 97530; 99232; NC; 74420; 82365; J0131; J1100; J1580; J1885; J2405; J3010; Q9967

== ENCOUNTER → 2019-05-06 15:22 | Outpatient (BNVA) | payer MEDICARE, MEDICAID, SELFPAY | PROVIDERS: PCP Student in an Organized Health Care Education/Training Program; Visit Provider Urology | DX: R10.9 Unspecified abdominal pain (principal); Z48.816 Encounter for surgical aftercare following surgery on the genitourinary system | CPT/HCPCS: 81003; 99213 ==

== ENCOUNTER 2019-05-06 16:49 | Outpatient (REF) | payer MEDICARE, MEDICAID, SELFPAY | END 2019-05-06 17:09 | LOC: LBN 16:49 | PROVIDERS: PCP Student in an Organized Health Care Education/Training Program; Visit Provider Urology | DX: R10.9 Unspecified abdominal pain (principal) | CPT/HCPCS: 87086 ==

== ENCOUNTER 2019-05-20 00:26 | Outpatient (CLI) | payer MEDICARE, MEDICAID, SELFPAY ==
--- NOTE | 2019-05-20 12:24 | DI.NM_ITS ---
SYMPTOMS/DIAGNOSIS: ? OBSTRUCTION, NO STONE ON URETEROSCOPY, N13.30 DTPA LASIX RENOGRAM: 12.0 millicuries of Technetium 99 M DTPA were administered IV. The split function is 51 on the left and 49 on the right. The right renal pelvis appears more prominent than the left, however, there is no evidence of abnormal renal retention. There is normal excretion following Lasix. IMPRESSION: DTPA Renogram is within normal limits.
== END 2019-05-20 00:46 ==
PROVIDERS: PCP Student in an Organized Health Care Education/Training Program; Visit Provider Urology
DX: N13.30 Unspecified hydronephrosis (principal); I25.10 Atherosclerotic heart disease of native coronary artery without angina pectoris; I10 Essential (primary) hypertension; E78.5 Hyperlipidemia, unspecified; I48.91 Unspecified atrial fibrillation
CPT/HCPCS: 99214; 78708

== ENCOUNTER 2019-05-20 10:21 | Outpatient (CLI) | payer MEDICARE, MEDICAID, SELFPAY | END 2019-05-20 10:41 | PROVIDERS: PCP Student in an Organized Health Care Education/Training Program; Visit Provider Internal Medicine Cardiovascular Disease | DX: I25.10 Atherosclerotic heart disease of native coronary artery without angina pectoris (principal); I48.91 Unspecified atrial fibrillation; E78.5 Hyperlipidemia, unspecified; I10 Essential (primary) hypertension; N13.30 Unspecified hydronephrosis | CPT/HCPCS: 99214; 78708; 93005; 93010 ==

== ENCOUNTER → 2019-05-24 08:17 | Outpatient (BNVA) | payer MEDICARE, MEDICAID, SELFPAY | PROVIDERS: PCP Student in an Organized Health Care Education/Training Program; Visit Provider Urology | DX: N20.0 Calculus of kidney (principal) | CPT/HCPCS: 99213 ==

== ENCOUNTER 2019-06-22 14:24 | Emergency (ER) | payer MEDICARE, MEDICAID, SELFPAY ==
[2019-06-22] VITALS (32 sets, daily range): BP systolic 120–140; BP diastolic 82–94; PULSE 76–144; RESP 13–33; TEMP 36.6; O2SAT 94–98
[2019-06-22 15:16] LABS: Abs Immature Grans 0.02 k/cumm (0.0-0.09); Absolute Basophil Count 0.01 k/cumm (0.0-0.2); Absolute Eosinophil Count 0.12 k/cumm (0.0-0.7); Absolute Lymphocyte Count 1.42 k/cumm (1.2-3.4); Absolute Monocyte Count 0.73 k/cumm (0.11-0.7); Absolute Neutrophil Count 3.62 k/cumm (1.2-6.7); Basophils % 0.2; HCT 39.8 % (36.0-46.0); HGB 13.6 g/dL (12.0-15.5); Immature Grans % 0.3; Mean Corp. HGB Concentration 34.2 g/dL (32.0-36.0); Mean Corpuscular Hemoglobin 33.4 pg (27.0-33.0); Mean Corpuscular Volume 97.8 fL (80-95); Mean Platelet Volume 9.7 fL (8.0-11.0); Monocytes % 12.3; Neutrophils % 61.2; Platelet Count 209 x1000/uL (130-400); RBC 4.07 m/cumm (4.00-5.20); White Blood Cell Count 5.92 k/cumm (4.4-10.8)
[2019-06-22 15:38] LABS: ALT 33 U/L (14-59); AST 19 U/L (15-37); Albumin 3.9 g/dL (3.4-5.0); Alkaline Phosphatase 57 U/L (46-116); Anion Gap 4.4 mmol/L (3-11); BUN 18 mg/dL (7-18); Bilirubin, Total 0.6 mg/dL (0.2-1.0); CO2 32.6 mmol/L (21.0-32.0); CREATININE 1.09 mg/dL (0.55-1.02); Calcium 9.5 mg/dL (8.5-10.1); Chloride 104 mmol/L (98-107); Glucose 106 mg/dL (70-100); Potassium 4.5 mmol/L (3.5-5.1); Sodium 141 mmol/L (136-145); Total Protein 7.1 g/dL (6.4-8.2)
[2019-06-22 16:07] LABS: Lipase 75 U/L (73-393); TSH 1.73 uIU/mL (0.36-3.74)
--- NOTE | 2019-06-22 16:34 | NUR.NOTE ---
Nursing Note: pt back from CT scan
[2019-06-22] MEDS: Omnipaque 350 MG/ML 100 ML BTL IJ (16:40)
--- NOTE | 2019-06-22 16:41 | DI.CT_ITS ---
EXAM: CT ABDOMEN PELVIS W CLINICAL HISTORY: epigasrtic pain. TECHNIQUE: CT examination of the abdomen and pelvis was performed with a bolus infusion of 100 cc Om nipaque 350. COMPARISON: CT ABDOMEN PELVIS W from 09/23/2018 FINDINGS: Images obtained through the lung bases are unremarkable. Liver, spleen, pancreas, gallbladder and b ile ducts are unremarkable. Abdominal aorta is of normal diameter. There is heavy wall calcificatio n of all abdominal arterial vasculature, high-grade stenosis of renal arteries could be present bilat erally but the arteries are not ideally visualized. Appendix not identified with certainty but there is no evidence of appendicitis or diverticulitis. 4 .5 cm in diameter left adnexal cyst again noted, possibly ovarian in origin. This has been previousl y noted and is grossly unchanged from most recent examination of April 14. No significant abdominal wall hernia seen. No abdominal or pelvic adenopathy. Renal cortex appears to enhance normally bilaterally. Presumed small incidental bilateral cortical renal cysts. No hydro nephrosis. Dense calcification noted adjacent to proximal right ureter, no intraureteral stone ident ified. Urinary bladder grossly unremarkable. IMPRESSION: 1. No evidence of urinary tract obstruction. 2 Indeterminate left adnexal cyst which appears stable. However ovarian carcinoma is not entirely ex cluded in this age group and close follow-up should be obtained.
--- NOTE | 2019-06-22 16:45 | DI.CT_ITS ---
EXAM: CT NECK W CLINICAL HISTORY: neck FB sensation. TECHNIQUE: CT examination of the cervical region was performed following contrast-enhanced abdominal and pelvic CT. COMPARISON: No exams were available for comparison FINDINGS: Aortic arch mildly ectatic at 35 millimeters. Visualized lung apices are clear. Tracheolaryngeal st ructures appear intact. No cervical mass, adenopathy or foreign body identified. Vascular structure s appear intact except for non occluding wall calcifications of carotid bifurcations bilaterally. T here may be less than 50 percent luminal diameter stenosis of proximal left ICA and proximal right IC A. Bones appear intact. Intracranial structures unremarkable as visualized. Visualized orbits appe ar intact. Visualized paranasal sinuses and mastoid air cell well aerated. IMPRESSION: No evidence of acute process.
--- NOTE | 2019-06-22 17:08 | DI.VRAD_ITS ---
PROCEDURE INFORMATION: Exam: CT Neck With Contrast Exam date and time: 06/22/2019 4:25 PM Clinical history: 78 years old, female; Other: Neck fb sensation TECHNIQUE: Imaging protocol: Computed tomography images of the neck with intravenous contrast. Radiation optimization: All CT scans at this facility use at least one of these dose optimization techniques: automated exposure control; mA and/or kV adjustment per patient size (includes targeted exams where dose is matched to clinical indication); or iterative reconstruction. 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 Nasopharynx: Unremarkable. Oropharynx: Unremarkable. No significant tonsillar enlargement. Hypopharynx: Unremarkable. Larynx: Unremarkable. Normal epiglottis. Retropharyngeal space: Unremarkable. Submandibular/Parotid glands: Unremarkable. Glands are normal in size. Thyroid: Subcentimeter thyroid lobe nodules. Lymph nodes: Unremarkable. No lymphadenopathy. Trachea: Visualized trachea is unremarkable. Lungs: Unremarkable as visualized. Bones/joints: Unremarkable. No acute fracture. Soft tissues: No radiopaque foreign body identified. IMPRESSION: No acute abnormality. Dictated and Authenticated by: Jun Dolan MD. Ordering:SEFERINO Ramirez MD
--- NOTE | 2019-06-22 17:15 | DI.VRAD_ITS ---
PROCEDURE INFORMATION: Exam: CT Abdomen and pelvis with contrast Exam date and time: 06/22/2019 4:18 PM Clinical history: 78 years old, female; Other: Epigastric pain TECHNIQUE: Imaging protocol: Computed tomography of the abdomen and pelvis with intravenous contrast. Radiation optimization: All CT scans at this facility use at least one of these dose optimization techniques: automated exposure control; mA and/or kV adjustment per patient size (includes targeted exams where dose is matched to clinical indication); or iterative reconstruction. COMPARISON: CT ABDOMEN PELVIS W 09/23/2018 1:19 AM FINDINGS: Lungs: Dependent atelectasis within the lung bases. Heart: Cardiomegaly. Liver: Unremarkable. No mass. Gallbladder and bile ducts: Unremarkable. No calcified stones. No ductal dilation. Pancreas: Unremarkable. No ductal dilation. Spleen: Unremarkable. No splenomegaly. Adrenals: Normal. No mass. Kidneys and ureters: Small cyst in the right kidney upper pole. No right renal stone or hydronephrosis. Unremarkable left kidney and left ureter. Dense calcification adjacent to the right proximal ureter (axial image 40 of series 4) is unchanged and likely vascular. Stomach and bowel: Sigmoid diverticulosis. No diverticulitis or colitis. Unremarkable stomach and small bowel. No radiopaque foreign body identified within the GI tract. Appendix: No evidence of appendicitis. Intraperitoneal space: Unremarkable. No free air. No significant fluid collection. Vasculature: Severe atherosclerosis of the abdominal aorta and branch vessels. No aneurysm. Lymph nodes: Unremarkable. No enlarged lymph nodes. Bladder: Unremarkable as visualized. Reproductive: Left adnexal cystic mass measuring 4.5 cm in diameter is unchanged and likely ovarian in origin. Bones/joints: No acute fracture. Soft tissues: Unremarkable. IMPRESSION: No acute abnormality. Dictated and Authenticated by: Jun Dolan MD. Ordering:SEFERINO Ramirez MD
--- NOTE | 2019-06-22 17:32 | ED.GENADUL_ITS ---
Discharge Plan Disposition Patient Disposition: HOME Condition: Stable Discharge Details Chief Complaint: SOB Clinical Impression: Thyroid nodule, Cyst of right kidney, Abdominal discomfort, epigastric Primary Care Provider: Miguelina Tilley ED Provider: Ashley Alcantar Home Meds and New Rx's Prescriptions: Continued metoprolol succinate 50 mg tablet extended release 24 hr 50 mg PO DAILY 90 Days Qty: 90 RF: 3 tumeric 500 mg capsule 500 mg PO DAILY RF: 0 nitroglycerin [Nitrostat] 0.4 mg tablet, sublingual 0.4 mg Sublingual PRN Qty: 30 RF: 0 magnesium citrate 125 mg capsule 250 mg PO DAILY RF: 0 ipratropium-albuterol 0.5 mg-3 mg(2.5 mg base)/3 mL solution for nebulization 3 ml Inhalation Q3H PRN Qty: 90 RF: 4 atorvastatin 40 mg tablet 40 mg PO DAILY Qty: 90 RF: 3 cetirizine 10 mg tablet 10 mg PO DAILY MDD 10mg Qty: 90 RF: 3 (DME) Entrust Plus Briefs misc 1 ea Miscellaneous TID Qty: 132 RF: 12 (DME) sanitary pads pad See Dose Instructions .ROUTE .MEDSUPPLY Qty: 20 RF: 0 (DME) sanitary pads Qty: 150 RF: 11 multivitamin [Daily Vitamin] 1 EACH tablet 1 ea PO DAILY RF: 0 melatonin-pyridoxine HCl (B6) 1 EACH tablet,ext release multiphase 1 ea PO HS RF: 0 Advair HFA 8 GM HFA aerosol inhaler 2 puff Inhalation BID Qty: 3 RF: 3 (DME) Adult Aerosol Mask 1 EACH misc 1 ea Miscellaneous DAILY Qty: 1 RF: 0 albuterol sulfate [ProAir HFA] 8.5 GM HFA aerosol inhaler 1 - 2 puff Inhalation Q4H PRN Qty: 2 RF: 4 aspirin [Aspir-81] 81 mg tablet,delayed release (DR/EC) 81 mg PO DAILY Qty: 90 RF: 3 montelukast 10 mg tablet 10 mg PO HS Qty: 90 RF: 3 epinephrine [EpiPen 2-Moe] 0.3 mg/0.3 mL auto-injector 0.3 mg IM ONCE Qty: 2 RF: 0 acetaminophen [Tylenol Arthritis] 650 mg tablet extended release 1,300 mg PO BID RF: 0 ondansetron HCl [Zofran] 4 mg tablet 4 mg PO Q8H PRN (Reason: nausea and vomiting) Qty: 20 RF: 0 calcium carb and citrate-vitD3 600 mg calcium- 500 unit tablet extended release 1 tab PO HS Qty: 1 RF: 0 amlodipine [Norvasc] 5 MG tablet 5 mg PO HS RF: 0 Discharge Instructions Additional Instructions: Your CT scan and labs are reassuring today. Please continue medications as previously advised. You may want to discuss possible proton pump inhibitor or other medication to help with acid reflux with your primary care further, please call tomorrow to schedule follow-up appointment as soon as possible. You may use Tums to help with symptomatic management. If you develop chest pain, shortness of breath, increased pain, inability stay hydrated or other new/w orsening symptoms please seek care urgently once again. Referrals: Miguelina Tilley DO [Primary Care Provider] - Discharge Data Discharge Date/Time-TO BE ENTERED AT DEPARTURE: 06/22/19 18:06 Medical Decision Making <MARINO Gastelum - Last Filed: 06/26/19 21:52> Care was transitioned to myself with imaging pending. 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 Nasopharynx: Unremarkable. Oropharynx: Unremarkable. No significant tonsillar enlargement. Hypopharynx: Unremarkable. Larynx: Unremarkable. Normal epiglottis. Retropharyngeal space: Unremarkable. Submandibular/Parotid glands: Unremarkable. Glands are normal in size. Thyroid: Subcentimeter thyroid lobe nodules. Lymph nodes: Unremarkable. No lymphadenopathy. Trachea: Visualized trachea is unremarkable. Lungs: Unremarkable as visualized. Bones/joints: Unremarkable. No acute fracture. Soft tissues: No radiopaque foreign body identified. IMPRESSION: No acute abnormality. Discussed these findings with the patient. Advised that she follow-up with her primary care regarding the subcentimeter thyroid nodules. COMPARISON: CT ABDOMEN PELVIS W 09/23/2018 1:19 AM FINDINGS: Lungs: Dependent atelectasis within the lung bases. Heart: Cardiomegaly. Liver: Unremarkable. No mass. Gallbladder and bile ducts: Unremarkable. No calcified stones. No ductal dilation. Pancreas: Unremarkable. No ductal dilation. Spleen: Unremarkable. No splenomegaly. Adrenals: Normal. No mass. Kidneys and ureters: Small cyst in the right kidney upper pole. No right renal stone or hydronephrosis. Unremarkable left kidney and left ureter. Dense calcification adjacent to the right proximal ureter (axial image 40 of series 4) is unchanged and likely vascular. Stomach and bowel: Sigmoid diverticulosis. No diverticulitis or colitis. Unremarkable stomach and small bowel. No radiopaque foreign body identified within the GI tract. Appendix: No evidence of appendicitis. Intraperitoneal space: Unremarkable. No free air. No significant fluid collection. Vasculature: Severe atherosclerosis of the abdominal aorta and branch vessels. No aneurysm. Lymph nodes: Unremarkable. No enlarged lymph nodes. Bladder: Unremarkable as visualized. Reproductive: Left adnexal cystic mass measuring 4.5 cm in diameter is unchanged and likely ovarian in origin. Bones/joints: No acute fracture. Soft tissues: Unremarkable. IMPRESSION: No acute abnormality. Discussed these findings with the patient. We discussed the incidental findings as noted above. She was aware of the cyst on the kidney as well as the left adnexal cystic mass. She will continue to follow-up with her primary care regarding these abnormalities. Patient is resting comfortably. Vital signs are stable. I advised that as this came on after steroids and seems to radiate from her epigastrium to her neck, this may be associate with GERD. She has had this historically. Her caregiver advised that she was on a PPI historically but is unclear as to which one. She has also tolerated Tums well and has not tried this recently. Patient is resting comfortably, does not appear to be in any acute distress, speaking in full sentences. Denies any chest pain. At this point, I feel patient is appropriate for discharge. They agree with this assessment. We did discuss additional meds to help with her possible GERD. However, given the patient's medications and allergies, we have decided to hold off until she is able to discuss this further with her primary care physician. They will call tomorrow to schedule prompt appointment and follow-up. They are given strict return precautions. All other questions and concerns were addressed and they are in agreement this plan. <MARINO Madera - Last Filed: 06/23/19 23:47> Is a 78-year-old woman with extension medical allergies who presents to the ER 3 days after a dose of prednisone which she was taking for bursitis pain in her hip. Patient has had difficulty taking prednisone in the past but felt it reasonable to try the medication again as her hip pain was very bothersome and she was hoping this would alleviate her hip pain. Historically patient had GI symptoms after taking prednisone.. Patient ultimately after taking prednisone began with mild stomach upset specifically nausea and sensation of an egg in her throat patient discontinued use of prednisone. Patient is in no apparent distress. Patient reports her symptoms in general have improved compared to 3 days ago however she does report mild dizziness. Patient was offered Benadryl and declines that she reports that makes her heart race. Denies any associated chest or back pain. Denies shortness of breath patient reports she has had decreased fluid intake in the last few days and is concerned she could feel mild ly high dehydrated. Patient denies any obvious infectious symptoms specifically no fevers, chills, cough, congestion, urinary symptoms. Patient on exam does have mild epigastric discomfort. On exam she has mild pharyngeal erythema without obvious swelling of the posterior pharynx or involvement of the uvula. Patient's breath sounds are clear with no associated wheezing. Will evaluate patient's neck with CT as she does report tightness in her throat when swallowing and anterior neck pain with palpation on exam. Labs ordered, IV fluid provided. Patient's labs are unremarkable for obvious abnormality specifically she has no leukocytosis or shift, chemistry panel is normal, LFTs are normal, TSH is normal Patient was feeling somewhat improved after IV fluid. Patient did present initially tachycardic which has since improved after IV fluid. Sensation of fullness in her throat persists. Patient signed out pending CT evaluation. EKG revealing heart rate of 100, atrial fibrillation with occasional PVC. No obvious ischemic pattern noted. Unchanged compared to previous in 2016 noted in her chart. reviewed with my attending Dr. Ballard. HPI <MARINO Gastelum - Last Filed: 06/26/19 21:52> General Date/Time Provider Initiated Documentation: 06/22/19 14:29 . Related Data Home Medications Medication Instructions Recorded Confirmed multivitamin [Daily Vitamin] 1 ea PO DAILY 12/31/12 06/22/19 melatonin-pyridoxine HCl (B6) 1 ea PO HS 12/11/15 06/22/19 Advair HFA 2 puff INHALATION BID #3 inhaler 06/10/17 06/22/19 Adult Aerosol Mask #1 ea 11/06/17 06/15/19 albuterol sulfate [ProAir HFA] 1 - 2 puff INHALATION Q4H PRN #2 03/19/18 06/22/19 puff aspirin 81 mg tablet,delayed 81 mg PO DAILY #90 tab 08/09/18 06/22/19 release nitroglycerin 0.4 mg sublingual 0.4 mg SUBLINGUAL PRN #30 tab-cap 09/08/18 06/22/19 tablet amlodipine [Norvasc] 5 mg PO HS 09/24/18 06/15/19 montelukast 10 mg tablet 10 mg PO HS #90 tab-cap 12/09/18 06/22/19 epinephrine 0.3 mg/0.3 mL 0.3 mg IM ONCE #2 pen 01/07/19 06/22/19 injection, auto-injector acetaminophen 650 mg 1,300 mg PO BID 03/16/19 06/22/19 tablet,extended release atorvastatin 40 mg tablet 40 mg PO DAILY #90 tab-cap 03/16/19 06/22/19 cetirizine 10 mg tablet 10 mg PO DAILY #90 tab-cap MDD 10mg 03/16/19 06/22/19 diaper,brief,adult,disposable #132 each 03/16/19 06/15/19 ipratropium-albuterol 0.5 mg-3 3 ml INHALATION Q3H PRN #90 ml 03/16/19 06/22/19 mg(2.5 mg base)/3 mL nebulization soln magnesium citrate 125 mg capsule 250 mg PO DAILY cap 03/16/19 06/22/19 sanitary pads #150 each 03/16/19 06/15/19 sanitary pads #20 each 03/16/19 06/15/19 ondansetron HCl 4 mg tablet 4 mg PO Q8H PRN #20 tab 05/10/19 06/22/19 calcium carb,cit ER 600 mg 1 tab PO HS #1 tab 05/20/19 06/22/19 calcium-vit D3 500 unit tablet,ext.release metoprolol succinate 50 mg 50 mg PO DAILY 90 Days #90 tab 05/20/19 06/22/19 tablet,extended release 24 hr tumeric 500 mg PO DAILY 06/15/19 06/22/19 Previous Rx's Medication Instructions Recorded Advair HFA 2 puff INHALATION BID #3 inhaler 06/10/17 Adult Aerosol Mask #1 ea 11/06/17 albuterol sulfate [ProAir HFA] 1 - 2 puff INHALATION Q4H PRN #2 03/19/18 puff aspirin 81 mg tablet,delayed 81 mg PO DAILY #90 tab 08/09/18 release nitroglycerin 0.4 mg sublingual 0.4 mg SUBLINGUAL PRN #30 tab-cap 09/08/18 tablet montelukast 10 mg tablet 10 mg PO HS #90 tab-cap 12/09/18 epinephrine 0.3 mg/0.3 mL 0.3 mg IM ONCE #2 pen 01/07/19 injection, auto-injector atorvastatin 40 mg tablet 40 mg PO DAILY #90 tab-cap 03/16/19 cetirizine 10 mg tablet 10 mg PO DAILY #90 tab-cap MDD 10mg 03/16/19 diaper,brief,adult,disposable #132 each 03/16/19 ipratropium-albuterol 0.5 mg-3 3 ml INHALATION Q3H PRN #90 ml 03/16/19 mg(2.5 mg base)/3 mL nebulization soln sanitary pads #150 each 03/16/19 ondansetron HCl 4 mg tablet 4 mg PO Q8H PRN #20 tab 05/10/19 metoprolol succinate 50 mg 50 mg PO DAILY 90 Days #90 tab 05/20/19 tablet,extended release 24 hr Allergies Allergy/AdvReac Type Severity Reaction Status Date / Time Influenza Virus Vaccines Allergy Severe throat Verified 06/15/19 18:33 closed prednisone Allergy Severe throat Verified 06/21/19 17:08 swelling duloxetine HCl Allergy Intermediate sweat/throat Verified 06/15/19 18:33 [From Cymbalta] tight egg Allergy Intermediate Swelling/Ed Verified 06/15/19 18:33 shoshnaa Penicillins Allergy Intermediate swelling/choked Verified 06/15/19 18:33 up Sulfa (Sulfonamide Allergy Intermediate swelling Verified 06/15/19 18:33 Antibiotics) tetracycline Allergy Unknown unknown Verified 06/15/19 18:33 tramadol Allergy Verified 06/15/19 18:33 morphine AdvReac Severe HR Verified 06/15/19 18:33 dropped/BP high ciprofloxacin [From Cipro] AdvReac Intermediate AGITATION Verified 06/15/19 18:33 diclofenac AdvReac Intermediate confusion, Verified 06/15/19 18:33 night terrors, dizziness gabapentin AdvReac Intermediate Dizziness Verified 06/15/19 18:33 & Sedation hyoscyamine AdvReac Intermediate lightheaded Verified 06/15/19 18:33 lisinopril AdvReac Intermediate Uvula Verified 06/15/19 18:33 Swelling mirtazapine AdvReac Intermediate throat Verified 06/15/19 18:33 discomfort, feeling tired, nauseated nortriptyline AdvReac Intermediate Verified 06/15/19 18:33 homatropine [From Hycodan] AdvReac Mild Loopy Verified 06/15/19 18:33 hydrocodone bitartrate AdvReac Mild Loopy Verified 06/15/19 18:33 [From Hycodan] lidocaine AdvReac Mild Skin Verified 06/15/19 18:33 sensitivity/Rash trazodone AdvReac Unknown Dizzy, Verified 06/15/19 18:33 weak and hallucinations cephalexin monohydrate AdvReac ?LE Verified 06/15/19 18:33 [From Keflex] weakness nuts Allergy Intermediate Swelling/Ed Uncoded 06/15/19 18:33 shoshana peanut butter AdvReac Intermediate Swelling/Ed Uncoded 06/15/19 18:33 shoshana <MARINO Madera - Last Filed: 06/23/19 23:47> HPI Narrative: 78-year-old patient presents for complaints of sensation of an egg in her throat after taking oral steroids 3 days ago for complaints of bursitis in her hip. Patient reports she has had difficulty taking steroids in the past which resulted in nausea however decided to try taking them again as the hip pain was significant. Patient reports since use of steroid she noted a sensation of throat tightness. Patient reports she is eating and drinking without difficulty. She is having no difficulty swallowing this is a sensation of throat tightness. Patient also reports mild epigastric discomfort. Patient denies any chest pain or back pain. Denies fevers or chills. Patient denies any associated upper respiratory symptoms. Patient reports she did have mild dizziness. Patient reports she does have extensive medication allergies. Patient has tried taking no Benadryl as Benadryl gives her secondary tachycardia. Patient reports no unsteady gait or balance. No weakness in arms or legs. No neck pain. Patient reports her symptoms are mildly improved compared to onset. General Stated Complaint: SOB DELVIN: 2 <MARINO Madera - Last Filed: 06/23/19 23:47> Review of Systems ROS Unobtainable: All systems reviewed & are unremarkable except as noted in HPI and below Constitutional Constitutional: Denies chills and Denies fever(s) ENT Ears, Nose, Mouth, and Throat: Denies otalgia, Denies mouth pain, Denies nasal discharge, Denies post nasal drip, Denies sinus pain, Denies sinus pressure and Denies tongue swelling Cardiovascular Cardiovascular: Denies dyspnea on exertion Respiratory Respiratory: Denies cough, Denies dyspnea on exertion, Denies stridor and Denies wheezing Gastrointestinal Gastrointestinal: Reports abdominal pain, Denies cramping and Denies vomiting Allergic/Immunologic Allergic/Immunologic: Denies tongue swelling and Denies wheezing PFSH <MARINO Gastelum - Last Filed: 06/26/19 21:52> Medical History ASCVD (arteriosclerotic cardiovascular disease) CVA (cerebral vascular accident) HTN (hypertension) Postmenopausal LMP ~47 y/o Surgical History Coronary Stent x5 at [facility] 1990s History of section (Chronic) History of colonoscopy (Chronic) History of tubal ligation (Chronic) TOT (Incontinence sling) Social History Smoking/Tobacco Use Status: Never Alcohol Intake: never Drug use: Never Substance use type: does not use Do you feel safe at home: Yes <MARINO Madera - Last Filed: 06/23/19 23:47> Narrative Exam Narrative: CONST: Healthy appearing patient, in no acute distress. Well hydrated. Alert and alert. HENMT: Head nomocephalic, normal to inspection. Atraumatic. Hearing grossly normal. No obvious pharyngeal injection or uvula edema. No tonsillar swelling. No exudates. EYES: General normal appearance. Alignment normal. Eyelids normal. Conjunctiva normal. NECK: Normal visual inspection. FROM. Trachea midline. No Midline tenderness. Mild sensitivity to the anterior neck with palpation without associated rashes or swelling. No cervical lymphadenopathy present CHEST: Normal insepection of the chest. RESP: Normal respiratory effort. Speaking full sentences. No cough. No audible wheezing. No retractions. CARDIO: No JVD. No murmurs or rubs. Rhythm regular Abdomen;. Mild epigastric pain with palpation. No rebound, guarding or peritoneal signs. Bowel sounds present in all 4 quadrants. No distention of abdomen. MUSCULOSKELETAL: Normal Gait. FROM of all extremities. SKIN: Normal. Dry. No rashes. NEURO: Alert and awake. Speech clear. PSYCH: Normal affect. Cooperative. <MARINO Madera - Last Filed: 06/23/19 23:47> Vital Signs Vital signs: Vital Signs Respiratory Rate 21 06/22/19 14:26 Pulse Oximetry 98 06/22/19 14:26 Temperature 36.6 C 06/22/19 14:35 Temperature Source Skin 06/22/19 14:35 Pulse 90 06/22/19 15:30 Pulse 123 H 06/22/19 16:50 Respiratory Rate 18 06/22/19 16:50 Respiratory Effort Non-Labored 06/22/19 16:00 Respiratory Depth Normal 06/22/19 16:00 Respiratory Pattern Normal 06/22/19 14:42 Blood Pressure 131/84 06/22/19 15:45 Blood Pressure Mean 90 06/22/19 15:45 Pulse Oximetry 97 06/22/19 15:50 Oxygen Delivery Method Room Air 06/22/19 14:35 Oxygen Flow Rate 0 06/22/19 14:35 Lab/Test Results Lab/Test Results: Laboratory Tests Range/Units 06/22/19 06/22/19 06/22/19 15:10 15:10 15:10 WBC (4.4-10.8) k/cumm 5.92 RBC (4.00-5.20) m/cumm 4.07 Hgb (12.0-15.5) g/dL 13.6 Hct (36.0-46.0) % 39.8 MCV (80-95) fL 97.8 H MCH (27.0-33.0) pg 33.4 H MCHC (32.0-36.0) g/dL 34.2 RDW (11.7-14.6) % 14.0 Plt Count (130-400) x1000/uL 209 MPV (8.0-11.0) fL 9.7 Immature Gran % 0.3 Neutrophils % 61.2 Lymphocytes % 24.0 Monocytes % 12.3 Eosinophils % 2.0 Basophils % 0.2 Absolute Neutrophils (1.2-6.7) k/cumm 3.62 Absolute Lymphocytes (1.2-3.4) k/cumm 1.42 Absolute Monocytes (0.11-0.7) k/cumm 0.73 H Absolute Eosinophils (0.0-0.7) k/cumm 0.12 Absolute Basophils (0.0-0.2) k/cumm 0.01 Sodium (136-145) mmol/L 141 Potassium (3.5-5.1) mmol/L 4.5 Chloride (98-107) mmol/L 104 Carbon Dioxide (21.0-32.0) mmol/L 32.6 H Anion Gap (3-11) mmol/L 4.4 BUN (7-18) mg/dL 18 Creatinine (0.55-1.02) mg/dL 1.09 H Estimated GFR/1.73 m2 (mL/min/1.73m2) 48.80 Glucose (70-100) mg/dL 106 H Calcium (8.5-10.1) mg/dL 9.5 Total Bilirubin (0.2-1.0) mg/dL 0.6 AST (15-37) U/L 19 ALT (14-59) U/L 33 Alkaline Phosphatase (46-116) U/L 57 Total Protein (6.4-8.2) g/dL 7.1 Albumin (3.4-5.0) g/dL 3.9 Lipase (73-393) U/L 75 TSH (0.36-3.74) uIU/mL 1.73
== END 2019-06-22 18:06 | disposition home or self-care (01) ==
PROVIDERS: Emergency Provider Physician Assistant; PCP Student in an Organized Health Care Education/Training Program
DX: E04.1 Nontoxic single thyroid nodule (principal); N28.1 Cyst of kidney, acquired; R10.13 Epigastric pain; M70.71 Other bursitis of hip, right hip; I10 Essential (primary) hypertension
CPT/HCPCS: 36415; 70491; 80053; 83690; 93005; 99285; 74177; 84443; 85025; 93010; J3490

== ENCOUNTER 2019-07-06 01:38 | Outpatient (CLI) | payer MEDICARE, MEDICAID, SELFPAY ==
--- NOTE | 2019-07-06 07:38 | DI.US_ITS ---
EXAM: US ABDOMEN CLINICAL HISTORY: r/o GB disease, RUQ/RLQ tenderness (NEG CT).abd pain,r10.9 TECHNIQUE: Ultrasound performed using standard protocol. COMPARISON: CT ABDOMEN PELVIS W from 06/22/2019 FINDINGS: The liver is normal in size and echogenicity. No focal liver lesion or biliary dilatation is seen. Th e gallbladder has a normal appearance, without evidence of wall thickening. The kidneys are normal in size. An echogenic focus is noted in the left kidney which likely represents an artifact since no st ones were visible by CT. There is no hydronephrosis. The aorta is heavily calcified and normal in soco meter. The spleen, pancreas and left kidney are unremarkable. There is no ascites. IMPRESSION: No evidence of gallbladder disease or other acute abnormality.
== END 2019-07-06 01:58 ==
PROVIDERS: PCP Student in an Organized Health Care Education/Training Program; Visit Provider Student in an Organized Health Care Education/Training Program
DX: R10.11 Right upper quadrant pain (principal); R10.31 Right lower quadrant pain
CPT/HCPCS: 76700

== ENCOUNTER 2019-07-13 01:20 | Outpatient (CLI) | payer MEDICARE, MEDICAID, SELFPAY ==
--- NOTE | 2019-07-15 08:36 | W.HOLTRPT ---
Holter Monitor Report Holter Monitor Note: This is a 48-hour Holter monitor ordered for the indication of atrial fibrillation (maximum rate 156 bpm). ?The patient was in atrial fibrillation for the entirety of the recording. ?There were rare (less than 1%) single ventricular ectopic beats. There were 11 couplets. ?There were no pauses greater than 3 seconds or episodes of high degree heart block. Date of service: 07/15/19 Time of Service: 08:36
== END 2019-07-13 01:40 ==
PROVIDERS: PCP Student in an Organized Health Care Education/Training Program; Visit Provider Internal Medicine Cardiovascular Disease
DX: I48.91 Unspecified atrial fibrillation (principal)
CPT/HCPCS: 93225

== ENCOUNTER 2019-07-14 12:06 | Outpatient (CLI) | payer MEDICARE, MEDICAID, SELFPAY | END 2019-07-14 12:26 | LOC: LBN 07-18 11:27 → RT 09-08 10:32 | PROVIDERS: PCP Student in an Organized Health Care Education/Training Program; Visit Provider Student in an Organized Health Care Education/Training Program | DX: I48.91 Unspecified atrial fibrillation (principal) | CPT/HCPCS: 93226 ==

== ENCOUNTER 2019-07-15 08:36 | Outpatient (CLI) | payer MEDICARE, MEDICAID, SELFPAY | END 2019-07-15 08:56 | PROVIDERS: PCP Student in an Organized Health Care Education/Training Program; Referring Provider Student in an Organized Health Care Education/Training Program; Visit Provider Internal Medicine Cardiovascular Disease | DX: I48.91 Unspecified atrial fibrillation (principal) | CPT/HCPCS: 93227 ==

== ENCOUNTER 2019-08-17 01:20 | Outpatient (CLI) | payer MEDICARE, MEDICAID, SELFPAY ==
--- NOTE | 2019-08-17 07:30 | DI.US_ITS ---
APPROVED REPORT EXAM: Comprehensive 2D, Doppler, and color-flow Echocardiogram Patient Location: Out-Patient Marker Delivery: Estela Jonas [facility] ([place]) Rhythm: Atrial Fibrillation Indications: atrial fibrillation i48.91 Conclusion Left Ventricle : The left ventricle is normal size. Left ventricular systolic function is mildly dec reased. There is normal left ventricular wall thickness. There is a slight sigmoid septum. There is normal LV segmental wall motion. LV diastolic function is indeterminate but there is evidence of elev ated left ventricular filling pressures. LVEF is estimated to be 45-50%. Right Ventricle : The right ventricular systolic function is low normal. Right ventricle appears norm al in size. Atria : Left atrium is moderately dilated. Right atrium is moderately dilated. Aortic Valve : Aortic valve is thickened but has adequate excursion. Aortic valve is trileaflet. Aort ic sclerosis without stenosis. No aortic regurgitation is present. Mitral Valve : Mitral valve leaflets Mild mitral annular calcification. are mildly thickened. Moderat e mitral regurgitation. No evidence of mitral valve stenosis. Tricuspid Valve : Tricuspid valve leaflets are thickened but open well. Moderate tricuspid regurgitat ion. Great Vessels : The IVC is top normal in size and collapses >50% with inspiration. RVSP is estimated to be between 28-34 mmHg. The ascending aorta is mild to moderately dilated (4cm). Compared to prior echocardiogram dated 09/09/2016, the mitral valve regurgitation has modestly worsen ed. There are no other significant changes. Wall motion Left Ventricle The left ventricle is normal size. Left ventricular systolic function is mildly decreased. There is n ormal left ventricular wall thickness. There is a slight sigmoid septum. There is normal LV segmental wall motion. LV diastolic function is indeterminate but there is evidence of elevated left ventricul ar filling pressures. LVEF is estimated to be 45-50%. Right Ventricle Right ventricle appears normal in size. The right ventricular systolic function is low normal. Atria Left atrium is moderately dilated. Right atrium is moderately dilated. Aortic Valve Aortic valve is thickened but has adequate excursion. Aortic valve is trileaflet. Aortic sclerosis wi thout stenosis. No aortic regurgitation is present. Mitral Valve Mitral valve leaflets Mild mitral annular calcification. are mildly thickened. No evidence of mitral valve stenosis. Moderate mitral regurgitation. Tricuspid Valve Tricuspid valve leaflets are thickened but open well. Moderate tricuspid regurgitation. Pulmonic Valve Pulmonic valve is not well visualized. Great Vessels Aortic root is mildly dilated. The ascending aorta is mild to moderately dilated (4cm). The IVC is to p normal in size and collapses >50% with inspiration. RVSP is estimated to be between 28-34 mmHg. Pericardium Possible trivial anterior pericardial effusion 2D Dimensions IVSd 0.90 cm F: 0.6-1.0 LV EDV A2C 51.20 mL PWd 1.00 cm F: 0.6 - 1.0 LV EDV A4C 48.10 mL LVDd 4.00 cm F: 3.8 - 5.2 LA Volume Index A2C 42.58 mL/m2 LVDs 3.00 cm F: 2.2 - 3.5 LA Volume Index A4C 46.39 mL/m2 Aortic Root 3.60 cm F: 2.7 - 3.3 LA Volume Index Biplane 49.93 mL/m2 RA Area A4C 22.92 cm2 LA Area A4C 19.65 cm2 LVOT 1.95 cm (M/F) 1.5-2.5 LA Area A2C 21.15 cm2 Ascending Aorta 4.02 cm F: 2.3 - 3.1 EF AP4 47.19 % LVEF (Teich) 48.88 % EF AP2 46.29 % LVEF (Walters's) 47.70 % F: 54 - 74 EF BP 47.70 % LV Volume 45.84 mL F: 46 - 106 LV Volume Index 32.28 mL/m2 F: 29 - 61 FS 24.30 % LV Diastology MED E' 0.05 (>0.07 m/s) LV E/e MED 18.60 (<14) LAT E' 0.07 (>0.1 m/s) LV E/e LAT 11.85 (<14) Aortic Valve LVOT Area 3.03 cm2 LVOT Peak Melchor. 0.65 m/s LVOT Mean Melchor. 0.49 m/s CECILIA Vmax 0.00 m/s LVOT Peak Gr. 1.70 mmHg CECILIA Vmax Index 1.46 cm2/m2 LVOT Mean Gr. 1.05 mmHg CECILIA Mean Melchor. 0.00 m/s LVOT VTI 0.10 m CECILIA Mean Melchor. Index 1.37 cm2/m2 AoV Peak Melchor. 0.95 (0.5-1.3 m/s) AoV Mean Melchor. 0.77 m/s AO Peak GR. 3.65 mmHg AO Mean GR. 2.50 (<5 mmHg) VTI Ratio 0.60 CECILIA (VTI) 1.81 (2.5-4.5 cm2) CECILIA (VTI) Index 1.28 cm/m2 Mitral Valve MV E Max Melchor. 0.86 (0.4-1.3 m/s) MV Decel. Time 140.80 (160-240 msec) MV Regurg Volume 8.68 mL MV PHT 40.83 msec MV RF 20.25 % MVA PHT 5.35 cm2 Tricuspid Valve TR P. Velocity 2.65 m/s TV Regurg Vmax 2.65 m/s RAP Estimate 3.00 mmHg RVSP 31.00 mmHg TR P. Gradient 27.98 mmHg
== END 2019-08-17 01:40 ==
PROVIDERS: PCP Student in an Organized Health Care Education/Training Program; Visit Provider Internal Medicine Cardiovascular Disease
DX: I48.91 Unspecified atrial fibrillation (principal); I25.10 Atherosclerotic heart disease of native coronary artery without angina pectoris; Z95.5 Presence of coronary angioplasty implant and graft; I10 Essential (primary) hypertension; I35.8 Other nonrheumatic aortic valve disorders; I34.0 Nonrheumatic mitral (valve) insufficiency
CPT/HCPCS: 93306

== ENCOUNTER → 2019-08-22 14:13 | Outpatient (BNVA) | payer MEDICARE, MEDICAID, SELFPAY | PROVIDERS: PCP Student in an Organized Health Care Education/Training Program; Referring Provider Student in an Organized Health Care Education/Training Program; Visit Provider Student in an Organized Health Care Education/Training Program | DX: M70.61 Trochanteric bursitis, right hip (principal); M70.62 Trochanteric bursitis, left hip; I10 Essential (primary) hypertension | CPT/HCPCS: 99203; 99214 ==

== ENCOUNTER 2019-09-04 13:13 | Emergency (ER) | payer MEDICARE, MEDICAID, SELFPAY ==
[2019-09-04] VITALS (24 sets, daily range): BP systolic 120–161; BP diastolic 71–104; PULSE 66–111; RESP 14–30; TEMP 36.2; O2SAT 96–99
--- NOTE | 2019-09-04 13:44 | ED.GENADUL_ITS ---
Discharge Plan Disposition Patient Disposition: HOME Condition: Stable Discharge Details Chief Complaint: Dizzy/Sync Clinical Impression: Right-sided epistaxis Primary Care Provider: Miguelina Tilley ED Provider: Girma Jules Home Meds and New Rx's Prescriptions: Continued tumeric 500 mg capsule 500 mg PO BID RF: 0 nitroglycerin [Nitrostat] 0.4 mg tablet, sublingual 0.4 mg Sublingual PRN Qty: 30 RF: 0 magnesium citrate 125 mg capsule 250 mg PO DAILY RF: 0 ipratropium-albuterol 0.5 mg-3 mg(2.5 mg base)/3 mL solution for nebulization 3 ml Inhalation Q3H PRN Qty: 90 RF: 4 cetirizine 10 mg tablet 10 mg PO DAILY MDD 10mg Qty: 90 RF: 3 Advair HFA 230-21 mcg/actuation HFA aerosol inhaler 2 puff Inhalation BID Qty: 3 RF: 3 guaifenesin 1,200 mg tablet extended release 12hr 1,200 mg PO BID Qty: 180 RF: 1 simethicone 125 mg capsule 125 mg PO BID PRN (Reason: abdominal distention) Qty: 60 RF: 3 multivitamin [Daily Vitamin] 1 EACH tablet 1 ea PO DAILY RF: 0 melatonin-pyridoxine HCl (B6) 1 EACH tablet,ext release multiphase 1 ea PO HS RF: 0 albuterol sulfate [ProAir HFA] 8.5 GM HFA aerosol inhaler 1 - 2 puff Inhalation Q4H PRN Qty: 2 RF: 4 montelukast 10 mg tablet 10 mg PO HS Qty: 90 RF: 3 epinephrine [EpiPen 2-Moe] 0.3 mg/0.3 mL auto-injector 0.3 mg IM ONCE Qty: 2 RF: 0 acetaminophen [Tylenol Arthritis] 650 mg tablet extended release 1,300 mg PO BID RF: 0 calcium carb and citrate-vitD3 600 mg calcium- 500 unit tablet extended release 1 tab PO HS Qty: 1 RF: 0 ranitidine HCl 150 mg capsule 150 mg PO DAILY Qty: 90 RF: 0 metoprolol succinate 50 mg tablet extended release 24 hr 75 mg PO DAILY RF: 0 amlodipine [Norvasc] 5 mg tablet 2.5 mg PO HS RF: 0 Discontinued Eliquis 5 mg Tablet 5 mg PO BID RF: 0 No Action atorvastatin 40 mg tablet 40 mg PO DAILY Qty: 90 RF: 3 (DME) Entrust Plus Briefs misc 1 ea Miscellaneous TID Qty: 132 RF: 12 (DME) sanitary pads pad See Dose Instructions .ROUTE .MEDSUPPLY Qty: 20 RF: 0 (DME) Adult Aerosol Mask 1 EACH misc 1 ea Miscellaneous DAILY Qty: 1 RF: 0 aspirin [Aspir-81] 81 mg tablet,delayed release (DR/EC) 81 mg PO DAILY Qty: 90 RF: 3 Discharge Instructions Instructions: Nosebleed (ED) Additional Instructions: We have placed a referral with our care managers to otolaryngology clinic for reevaluation and if an appointment is available, for removal of the nasal tampon on Thursday. Please return for nasal tampon removal on Thursday morning if unable to be seen in otolaryngology clinic. I recommend you stop using the Eliquis until you are able to discuss further use with Dr. Overton, please call the clinic tomorrow as you have planned. Please hold 1 dose of your aspirin. Continue all other regularly prescribed medications. Home to rest this evening. Return to the emergency department for any acute concerns. Medical Decision Making 78-year-old female with a history of atrial fibrillation, followed by Dr. Overton, who presents today complaining of lightheadedness with rising and frequent episodes of anterior epistaxis at home since beginning Eliquis earlier this week. Initially she had evidence of scant right anterior venous bleed and a cottonball soaked with lidocaine and epinephrine was placed, this did provoke persistent brisk bleeding and a right 4.5 cm nasal tampon was placed. The patient is not anemic, her hematocrit is 39 and platelets are 187. Ch emistries reassuring with a BUN of 14, creatinine 0.9, troponin negative, INR 1.1. After 500 cc of parenteral fluids, the patient is improved. Nasal tampon has effectively ceased her right anterior epistaxis. She has a robust list of medication intolerances and allergies; I discussed with the patient and her [id number] who is a nurse that there is a very slight risk of infection from the indwelling nasal tampon but I feel that the risk/benefit of coverage with antibiotics weighs in favor of not using empiric antibiotics. She will hold the Eliquis until able to talk with Dr. Mendes office tomorrow morning. I will have her hold 1 dose of aspirin. Discussed return precautions. We will refer her to otolaryngology clinic for reevaluation and removal of nasal tampon if appointment is available as she has previously consulted with Dr. Bhatti, otherwise she will return to the ER in 3 days for removal. Lab Data Lab results reviewed: Yes I reviewed the patient's lab results. Labs: Laboratory Results - last 24 hr 09/04/19 09/04/19 09/04/19 13:50 13:50 13:50 WBC 4.43 RBC 3.93 L Hgb 13.1 Hct 39.0 MCV 99.2 H MCH 33.3 H MCHC 33.6 RDW 13.6 Plt Count 187 MPV 10.1 Immature Gran % 0.2 Neutrophils % 51.5 Lymphocytes % 35.7 Monocytes % 10.6 Eosinophils % 1.8 Basophils % 0.2 Absolute Neutrophils 2.28 Absolute Lymphocytes 1.58 Absolute Monocytes 0.47 Absolute Eosinophils 0.08 Absolute Basophils 0.01 PT 11.5 H INR 1.1 APTT 28.8 Sodium 144 Potassium 4.0 Chloride 106 Carbon Dioxide 31.4 Anion Gap 6.6 BUN 14 Creatinine 0.98 Estimated GFR/1.73 m2 55.18 Glucose 104 Calcium 9.1 Magnesium 2.1 Total Bilirubin 0.5 AST 18 ALT 22 Alkaline Phosphatase 44 L Troponin I < 0.05 Total Protein 6.6 Albumin 3.8 ECG Data Attestation: I personally reviewed and interpreted this ECG (s) as follows: Interpretation: Atrial fibrillation with a rate of 82, the QRS is narrow and there is no ST segment elevation present. HPI General Mode of arrival: ambulatory . Date/Time Provider Initiated Documentation: 09/04/19 13:15 . Limitations to Documentation: no limitations . Information obtained by: patient . History of Present Illness 78 year old F presents to the emergency department with the chief complaint of Nosebleeds and lightheadedness, described as moderate, and is localized to the face. Patient reports no radiation. Patient started experiencing this day(s) and it has been intermittent. No relieving factors improve symptom(s), No exacerbating factors reported . Patient notes denies chest pain, headaches, nausea/vomiting and syncope. Patient did receive the following treatments prior to arrival, other (Improves with pressure.) Related Data Home Medications Medication Instructions Recorded Confirmed multivitamin [Daily Vitamin] 1 ea PO DAILY 12/31/12 09/04/19 melatonin-pyridoxine HCl (B6) 1 ea PO HS 12/11/15 09/04/19 Adult Aerosol Mask #1 ea 11/06/17 08/22/19 albuterol sulfate [ProAir HFA] 1 - 2 puff INHALATION Q4H PRN #2 03/19/18 09/04/19 puff nitroglycerin 0.4 mg sublingual 0.4 mg SUBLINGUAL PRN #30 tab-cap 09/08/18 09/04/19 tablet montelukast 10 mg tablet 10 mg PO HS #90 tab-cap 12/09/18 09/04/19 epinephrine 0.3 mg/0.3 mL 0.3 mg IM ONCE #2 pen 01/07/19 09/04/19 injection, auto-injector acetaminophen 650 mg 1,300 mg PO BID 03/16/19 09/04/19 tablet,extended release atorvastatin 40 mg tablet 40 mg PO DAILY #90 tab-cap 03/16/19 09/04/19 cetirizine 10 mg tablet 10 mg PO DAILY #90 tab-cap MDD 10mg 03/16/19 09/04/19 diaper,brief,adult,disposable #132 each 03/16/19 08/22/19 ipratropium-albuterol 0.5 mg-3 3 ml INHALATION Q3H PRN #90 ml 03/16/19 09/04/19 mg(2.5 mg base)/3 mL nebulization soln magnesium citrate 125 mg capsule 250 mg PO DAILY cap 03/16/19 09/04/19 sanitary pads #20 each 03/16/19 08/22/19 calcium carb,cit ER 600 mg 1 tab PO HS #1 tab 05/20/19 09/04/19 calcium-vit D3 500 unit tablet,ext.release ranitidine HCl 150 mg capsule 150 mg PO DAILY #90 cap 07/15/19 09/04/19 aspirin 81 mg tablet,delayed 81 mg PO DAILY #90 tab 08/08/19 09/04/19 release fluticasone propionate-salmeterol 2 puff INHALATION BID #3 inhaler 08/10/19 09/04/19 230 mcg-21 mcg/actuation HFA inhaler guaifenesin 1,200 mg tablet, 1,200 mg PO BID #180 tab 08/10/19 09/04/19 extended release 12 hr simethicone 125 mg capsule 125 mg PO BID PRN #60 cap 08/10/19 09/04/19 tumeric 500 mg PO BID 08/10/19 09/04/19 amlodipine [Norvasc] 2.5 mg PO HS 09/04/19 09/04/19 metoprolol succinate 75 mg PO DAILY 09/04/19 09/04/19 Previous Rx's Medication Instructions Recorded Adult Aerosol Mask #1 ea 11/06/17 albuterol sulfate [ProAir HFA] 1 - 2 puff INHALATION Q4H PRN #2 03/19/18 puff nitroglycerin 0.4 mg sublingual 0.4 mg SUBLINGUAL PRN #30 tab-cap 09/08/18 tablet montelukast 10 mg tablet 10 mg PO HS #90 tab-cap 12/09/18 epinephrine 0.3 mg/0.3 mL 0.3 mg IM ONCE #2 pen 01/07/19 injection, auto-injector atorvastatin 40 mg tablet 40 mg PO DAILY #90 tab-cap 03/16/19 cetirizine 10 mg tablet 10 mg PO DAILY #90 tab-cap MDD 10mg 03/16/19 diaper,brief,adult,disposable #132 each 03/16/19 ipratropium-albuterol 0.5 mg-3 3 ml INHALATION Q3H PRN #90 ml 03/16/19 mg(2.5 mg base)/3 mL nebulization soln ranitidine HCl 150 mg capsule 150 mg PO DAILY #90 cap 07/15/19 aspirin 81 mg tablet,delayed 81 mg PO DAILY #90 tab 08/08/19 release fluticasone propionate-salmeterol 2 puff INHALATION BID #3 inhaler 08/10/19 230 mcg-21 mcg/actuation HFA inhaler guaifenesin 1,200 mg tablet, 1,200 mg PO BID #180 tab 08/10/19 extended release 12 hr simethicone 125 mg capsule 125 mg PO BID PRN #60 cap 08/10/19 Allergies Allergy/AdvReac Type Severity Reaction Status Date / Time Influenza Virus Vaccines Allergy Severe throat Verified 09/04/19 13:22 closed prednisone Allergy Severe throat Verified 09/04/19 13:22 swelling duloxetine HCl Allergy Intermediate sweat/throat Verified 09/04/19 13:22 [From Cymbalta] tight egg Allergy Intermediate Swelling/Ed Verified 09/04/19 13:22 shoshana Penicillins Allergy Intermediate swelling/choked Verified 09/04/19 13:22 up Sulfa (Sulfonamide Allergy Intermediate swelling Verified 09/04/19 13:22 Antibiotics) tetracycline Allergy Unknown unknown Verified 09/04/19 13:22 tramadol Allergy Verified 09/04/19 13:22 morphine AdvReac Severe HR Verified 09/04/19 13:22 dropped/BP high ciprofloxacin [From Cipro] AdvReac Intermediate AGITATION Verified 09/04/19 13:22 diclofenac AdvReac Intermediate confusion, Verified 09/04/19 13:22 night terrors, dizziness gabapentin AdvReac Intermediate Dizziness Verified 09/04/19 13:22 & Sedation hyoscyamine AdvReac Intermediate lightheaded Verified 09/04/19 13:22 lisinopril AdvReac Intermediate Uvula Verified 09/04/19 13:22 Swelling mirtazapine AdvReac Intermediate throat Verified 09/04/19 13:22 discomfort, feeling tired, nauseated nortriptyline AdvReac Intermediate Verified 09/04/19 13:22 homatropine [From Hycodan] AdvReac Mild Loopy Verified 09/04/19 13:22 hydrocodone bitartrate AdvReac Mild Loopy Verified 09/04/19 13:22 [From Hycodan] lidocaine AdvReac Mild Skin Verified 09/04/19 13:22 sensitivity/Rash trazodone AdvReac Unknown Dizzy, Verified 09/04/19 13:22 weak and hallucinations cephalexin monohydrate AdvReac ?LE Verified 09/04/19 13:22 [From Keflex] weakness nuts Allergy Intermediate Swelling/Ed Uncoded 09/04/19 13:22 shoshana peanut butter AdvReac Intermediate Swelling/Ed Uncoded 09/04/19 13:22 shoshana General Stated Complaint: Dizzy/Sync DELVIN: 3 Review of Systems Narrative: 6 systems reviewed and otherwise negative [facility] Medical History ASCVD (arteriosclerotic cardiovascular disease) CVA (cerebral vascular accident) HTN (hypertension) Postmenopausal LMP ~47 y/o Trochanteric bursitis, left hip (Acute) Trochanteric bursitis, right hip (Acute) Surgical History Coronary Stent x5 at [facility] 1990s History of section (Chronic) History of colonoscopy (Chronic) History of tubal ligation (Chronic) TOT (Incontinence sling) Social History Smoking/Tobacco Use Status: Never Alcohol Intake: never Drug use: Never Substance use type: does not use Current gender identity: female Do you feel safe at home: Yes Exam Narrative Exam Narrative: GEN: awake, alert, oriented 3. Pleasant, well groomed, interactive. HEAD: Normocephalic, atraumatic ENT: Mucous membranes moist, oropharynx unremarkable, the right nostril has punctate area of anterior venous bleeding. Ear exam unremarkable EYES: PERRL, EOMI NECK: Full ROM, no BHAKTI, no menigismus CHEST/RESP: Nontender, clear to auscultation bilateral, no wheeze/rhonchi/rales CARDIOVASCULAR: Regular rate, irregularly irregular rhythm, no murmur, rub gisselle. 2+ Rad pulse bilateral ABDOMEN: Soft, nontender, no mass. +Bowel sounds EXT: Full ROM, no edema, no rash Neuro: Grossly normal neurologic exam, conversant, interactive. Psych: Speech fluent, thoughts congruent, affect normal Course Vital Signs Vital signs: Vital Signs Temperature 36.2 C L 09/04/19 13:19 Pulse 84 09/04/19 13:19 Respiratory Rate 21 09/04/19 13:19 Blood Pressure 142/104 H 09/04/19 13:19 Pulse Oximetry 97 09/04/19 13:19 Temperature 36.2 C L 09/04/19 13:19 Temperature Source Skin 09/04/19 13:19 Pulse 84 09/04/19 13:19 Respiratory Rate 21 09/04/19 13:19 Respiratory Effort 09/04/19 13:30 Respiratory Depth Normal 09/04/19 13:30 Respiratory Pattern Normal 09/04/19 13:30 Blood Pressure 142/104 H 09/04/19 13:19 Blood Pressure Position Supine 09/04/19 13:19 Pulse Oximetry 97 09/04/19 13:19 Oxygen Delivery Method Room Air 09/04/19 13:19 Oxygen Flow Rate 0 09/04/19 13:19 Pain Level 0 09/04/19 13:19 Procedures Epistaxis Control Time Out Performed: Yes Nostril: right Nose Prepped With: lidocaine Device Inserted: nasal tampon Device Size: 4 Patient Tolerated Procedure: well
[2019-09-04] MEDS: Normal Saline 250 ML IV (13:53)
[2019-09-04 14:05] LABS: Abs Immature Grans 0.01 k/cumm (0.0-0.09); Absolute Basophil Count 0.01 k/cumm (0.0-0.2); Absolute Eosinophil Count 0.08 k/cumm (0.0-0.7); Absolute Lymphocyte Count 1.58 k/cumm (1.2-3.4); Absolute Monocyte Count 0.47 k/cumm (0.11-0.7); Absolute Neutrophil Count 2.28 k/cumm (1.2-6.7); Basophils % 0.2; Eosinophils % 1.8; HGB 13.1 g/dL (12.0-15.5); Immature Grans % 0.2; Lymphocytes % 35.7; Mean Corp. HGB Concentration 33.6 g/dL (32.0-36.0); Mean Corpuscular Hemoglobin 33.3 pg (27.0-33.0); Mean Corpuscular Volume 99.2 fL (80-95); Mean Platelet Volume 10.1 fL (8.0-11.0); Monocytes % 10.6; Neutrophils % 51.5; Platelet Count 187 x1000/uL (130-400); RBC 3.93 m/cumm (4.00-5.20); RBC Distribution Width 13.6 % (11.7-14.6); White Blood Cell Count 4.43 k/cumm (4.4-10.8)
[2019-09-04 14:13] LABS: INR 1.1 (0.9-1.1); PTT Activated 28.8 sec (21.0-31.4); Prothrombin Time 11.5 sec (9.3-11.0)
[2019-09-04 14:16] LABS: ALT 22 U/L (14-59); AST 18 U/L (15-37); Albumin 3.8 g/dL (3.4-5.0); Alkaline Phosphatase 44 U/L (46-116); Anion Gap 6.6 mmol/L (3-11); BUN 14 mg/dL (7-18); Bilirubin, Total 0.5 mg/dL (0.2-1.0); CO2 31.4 mmol/L (21.0-32.0); CREATININE 0.98 mg/dL (0.55-1.02); Calcium 9.1 mg/dL (8.5-10.1); Chloride 106 mmol/L (98-107); Estimated GFR 55.18 (mL/min/1.73m2); Glucose 104 mg/dL (74-106); Magnesium 2.1 mg/dL (1.8-2.4); Sodium 144 mmol/L (136-145); Total Protein 6.6 g/dL (6.4-8.2); Troponin I < 0.05 ng/Ml (<0.06)
--- NOTE | 2019-09-04 15:59 | NUR.NOTE ---
Nursing Note: Faxed referral, MD note and labs for follow up on Sep 01 with ENT in [facility]. Agatha Nicole
== END 2019-09-04 16:05 | disposition home or self-care (01) ==
PROVIDERS: Emergency Provider Emergency Medicine; PCP Student in an Organized Health Care Education/Training Program
DX: R42 Dizziness and giddiness (principal); R04.0 Epistaxis; Z79.01 Long term (current) use of anticoagulants; I10 Essential (primary) hypertension
CPT/HCPCS: 30901; 36415; 80053; 93005; 96360; 99284; 83735; 84484; 85025; 85610; 85730; 93010

== ENCOUNTER 2019-09-06 05:11 | Emergency (ER) | payer MEDICARE, MEDICAID, SELFPAY ==
--- NOTE | 2019-09-06 05:17 | ED.GENADUL_ITS ---
Discharge Plan Disposition Patient Disposition: HOME Condition: Good Discharge Details Chief Complaint: Epistaxis Clinical Impression: Epistaxis Primary Care Provider: Miguelina Tilley ED Provider: Osei Moncada Meds and New Rx's Prescriptions: Continued tumeric 500 mg capsule 500 mg PO BID RF: 0 nitroglycerin [Nitrostat] 0.4 mg tablet, sublingual 0.4 mg Sublingual PRN Qty: 30 RF: 0 magnesium citrate 125 mg capsule 250 mg PO DAILY RF: 0 ipratropium-albuterol 0.5 mg-3 mg(2.5 mg base)/3 mL solution for nebulization 3 ml Inhalation Q3H PRN Qty: 90 RF: 4 atorvastatin 40 mg tablet 40 mg PO DAILY Qty: 90 RF: 3 cetirizine 10 mg tablet 10 mg PO DAILY MDD 10mg Qty: 90 RF: 3 (DME) Entrust Plus Briefs misc 1 ea Miscellaneous TID Qty: 132 RF: 12 (DME) sanitary pads pad See Dose Instructions .ROUTE .MEDSUPPLY Qty: 20 RF: 0 Advair HFA 230-21 mcg/actuation HFA aerosol inhaler 2 puff Inhalation BID Qty: 3 RF: 3 guaifenesin 1,200 mg tablet extended release 12hr 1,200 mg PO BID Qty: 180 RF: 1 simethicone 125 mg capsule 125 mg PO BID PRN (Reason: abdominal distention) Qty: 60 RF: 3 multivitamin [Daily Vitamin] 1 EACH tablet 1 ea PO DAILY RF: 0 melatonin-pyridoxine HCl (B6) 1 EACH tablet,ext release multiphase 1 ea PO HS RF: 0 (DME) Adult Aerosol Mask 1 EACH misc 1 ea Miscellaneous DAILY Qty: 1 RF: 0 albuterol sulfate [ProAir HFA] 8.5 GM HFA aerosol inhaler 1 - 2 puff Inhalation Q4H PRN Qty: 2 RF: 4 montelukast 10 mg tablet 10 mg PO HS Qty: 90 RF: 3 epinephrine [EpiPen 2-Moe] 0.3 mg/0.3 mL auto-injector 0.3 mg IM ONCE Qty: 2 RF: 0 acetaminophen [Tylenol Arthritis] 650 mg tablet extended release 1,300 mg PO BID RF: 0 calcium carb and citrate-vitD3 600 mg calcium- 500 unit tablet extended release 1 tab PO HS Qty: 1 RF: 0 ranitidine HCl 150 mg capsule 150 mg PO DAILY Qty: 90 RF: 0 aspirin [Aspir-81] 81 mg tablet,delayed release (DR/EC) 81 mg PO DAILY Qty: 90 RF: 3 metoprolol succinate 50 mg tablet extended release 24 hr 75 mg PO DAILY RF: 0 amlodipine [Norvasc] 5 mg tablet 2.5 mg PO HS RF: 0 Discharge Instructions Instructions: Nosebleed (ED) Additional Instructions: You may use the Afrin twice a day for the next couple of days if needed for recurrent bleeding. Apply T nasal clamp for 10 or 15 minutes if significant recurrent nosebleed. Follow-up with ear nose and throat this week for recheck. Return to ED for persistent, uncontrolled nosebleeds, fever, other concerns. Referrals: Saurabh Bhatti DO [OSTEOPATHIC DOCTOR] - Medical Decision Making No significant active bleeding at this point. Patient complaining about the discomfort from the packing. She was unable to secure an ENT appointment for tomorrow. She really does not want this packing in. I was concerned about removing it now since she was complaining of what she described as significant bleeding earlier this morning. Ultimately she wanted the packing removed which I did. There was some bleeding noted the anterior septum. Afrin was sprayed into the nose and nasal clamp applied. On recheck there is no bleeding. There is no definite source noted in the anterior septum after the Afrin spray. No further intervention at this time. Patient will be given the Afrin spray and the nose clamp to use at home. She understands the Afrin is twice a day only and can only be used for couple days. Asked to make follow-up appointment with ENT for reevaluation sometime this week. Return to ED if persistent bleeding. Medical Records Medical records reviewed: Yes I reviewed the patient's medical records. HPI General Mode of arrival: ambulatory . Date/Time Provider Initiated Documentation: 09/06/19 05:13 . Limitations to Documentation: no limitations . Information obtained by: patient, family, RN notes reviewed and old records reviewed . HPI Narrative: Patient presents to ED with some oozing and bleeding from her nose as well as right-sided facial pain and pressure. She had presented here 2 days ago with epistaxis that required packing. She was supposed to follow-up on Wednesday. She has been complaining of significant pain and some bleeding this morning so she is brought back in for evaluation. Related Data Home Medications Medication Instructions Recorded Confirmed multivitamin [Daily Vitamin] 1 ea PO DAILY 12/31/12 09/06/19 melatonin-pyridoxine HCl (B6) 1 ea PO HS 12/11/15 09/06/19 Adult Aerosol Mask #1 ea 11/06/17 08/22/19 albuterol sulfate [ProAir HFA] 1 - 2 puff INHALATION Q4H PRN #2 03/19/18 09/06/19 puff nitroglycerin 0.4 mg sublingual 0.4 mg SUBLINGUAL PRN #30 tab-cap 09/08/18 09/06/19 tablet montelukast 10 mg tablet 10 mg PO HS #90 tab-cap 12/09/18 09/06/19 epinephrine 0.3 mg/0.3 mL 0.3 mg IM ONCE #2 pen 01/07/19 09/06/19 injection, auto-injector acetaminophen 650 mg 1,300 mg PO BID 03/16/19 09/06/19 tablet,extended release atorvastatin 40 mg tablet 40 mg PO DAILY #90 tab-cap 03/16/19 09/06/19 cetirizine 10 mg tablet 10 mg PO DAILY #90 tab-cap MDD 10mg 03/16/19 09/06/19 diaper,brief,adult,disposable #132 each 03/16/19 08/22/19 ipratropium-albuterol 0.5 mg-3 3 ml INHALATION Q3H PRN #90 ml 03/16/19 09/06/19 mg(2.5 mg base)/3 mL nebulization soln magnesium citrate 125 mg capsule 250 mg PO DAILY cap 03/16/19 09/06/19 sanitary pads #20 each 03/16/19 08/22/19 calcium carb,cit ER 600 mg 1 tab PO HS #1 tab 05/20/19 09/06/19 calcium-vit D3 500 unit tablet,ext.release ranitidine HCl 150 mg capsule 150 mg PO DAILY #90 cap 07/15/19 09/06/19 aspirin 81 mg tablet,delayed 81 mg PO DAILY #90 tab 08/08/19 09/06/19 release fluticasone propionate-salmeterol 2 puff INHALATION BID #3 inhaler 08/10/19 09/06/19 230 mcg-21 mcg/actuation HFA inhaler guaifenesin 1,200 mg tablet, 1,200 mg PO BID #180 tab 08/10/19 09/06/19 extended release 12 hr simethicone 125 mg capsule 125 mg PO BID PRN #60 cap 08/10/19 09/06/19 tumeric 500 mg PO BID 08/10/19 09/06/19 amlodipine [Norvasc] 2.5 mg PO HS 09/04/19 09/06/19 metoprolol succinate 75 mg PO DAILY 09/04/19 09/06/19 Previous Rx's Medication Instructions Recorded Adult Aerosol Mask #1 ea 11/06/17 albuterol sulfate [ProAir HFA] 1 - 2 puff INHALATION Q4H PRN #2 03/19/18 puff nitroglycerin 0.4 mg sublingual 0.4 mg SUBLINGUAL PRN #30 tab-cap 09/08/18 tablet montelukast 10 mg tablet 10 mg PO HS #90 tab-cap 12/09/18 epinephrine 0.3 mg/0.3 mL 0.3 mg IM ONCE #2 pen 01/07/19 injection, auto-injector atorvastatin 40 mg tablet 40 mg PO DAILY #90 tab-cap 03/16/19 cetirizine 10 mg tablet 10 mg PO DAILY #90 tab-cap MDD 10mg 03/16/19 diaper,brief,adult,disposable #132 each 03/16/19 ipratropium-albuterol 0.5 mg-3 3 ml INHALATION Q3H PRN #90 ml 03/16/19 mg(2.5 mg base)/3 mL nebulization soln ranitidine HCl 150 mg capsule 150 mg PO DAILY #90 cap 07/15/19 aspirin 81 mg tablet,delayed 81 mg PO DAILY #90 tab 08/08/19 release fluticasone propionate-salmeterol 2 puff INHALATION BID #3 inhaler 08/10/19 230 mcg-21 mcg/actuation HFA inhaler guaifenesin 1,200 mg tablet, 1,200 mg PO BID #180 tab 08/10/19 extended release 12 hr simethicone 125 mg capsule 125 mg PO BID PRN #60 cap 08/10/19 Allergies Allergy/AdvReac Type Severity Reaction Status Date / Time Influenza Virus Vaccines Allergy Severe throat Verified 09/06/19 05:36 closed prednisone Allergy Severe throat Verified 09/06/19 05:36 swelling duloxetine HCl Allergy Intermediate sweat/throat Verified 09/06/19 05:36 [From Cymbalta] tight egg Allergy Intermediate Swelling/Ed Verified 09/06/19 05:36 shoshana Penicillins Allergy Intermediate swelling/choked Verified 09/06/19 05:36 up Sulfa (Sulfonamide Allergy Intermediate swelling Verified 09/06/19 05:36 Antibiotics) tetracycline Allergy Unknown unknown Verified 09/06/19 05:36 tramadol Allergy Verified 09/06/19 05:36 morphine AdvReac Severe HR Verified 09/06/19 05:36 dropped/BP high ciprofloxacin [From Cipro] AdvReac Intermediate AGITATION Verified 09/06/19 05:36 diclofenac AdvReac Intermediate confusion, Verified 09/06/19 05:36 night terrors, dizziness gabapentin AdvReac Intermediate Dizziness Verified 09/06/19 05:36 & Sedation hyoscyamine AdvReac Intermediate lightheaded Verified 09/06/19 05:36 lisinopril AdvReac Intermediate Uvula Verified 09/06/19 05:36 Swelling mirtazapine AdvReac Intermediate throat Verified 09/06/19 05:36 discomfort, feeling tired, nauseated nortriptyline AdvReac Intermediate Verified 09/06/19 05:36 homatropine [From Hycodan] AdvReac Mild Loopy Verified 09/06/19 05:36 hydrocodone bitartrate AdvReac Mild Loopy Verified 09/06/19 05:36 [From Hycodan] lidocaine AdvReac Mild Skin Verified 09/06/19 05:36 sensitivity/Rash trazodone AdvReac Unknown Dizzy, Verified 09/06/19 05:36 weak and hallucinations cephalexin monohydrate AdvReac ?LE Verified 09/06/19 05:36 [From Keflex] weakness nuts Allergy Intermediate Swelling/Ed Uncoded 09/06/19 05:36 shoshana peanut butter AdvReac Intermediate Swelling/Ed Uncoded 09/06/19 05:36 shoshana General DELVIN: 3 Review of Systems Constitutional Constitutional: Denies fever(s) ENT Ears, Nose, Mouth, and Throat: Reports epistaxis and Reports sinus pressure [facility] Medical History ASCVD (arteriosclerotic cardiovascular disease) Asthma (Chronic 12/31/12) Spirometry 01/07/13 Mild obstructive airway disease with significant bronchodilator response Atrial fibrillation (Chronic) CVA (cerebral vascular accident) Dyslipidemia (Chronic) Gastroesophageal reflux disease (Chronic 09/12/15) HTN (hypertension) Surgical History Coronary Stent x5 at [facility] 1990s History of section (Chronic) History of colonoscopy (Chronic) History of tubal ligation (Chronic) TOT (Incontinence sling) Social History Smoking/Tobacco Use Status: Never Alcohol Intake: never Drug use: Never Substance use type: does not use Current gender identity: female Do you feel safe at home: Yes Exam Const General: no acute distress HENMT Head: normocephalic and atraumatic Throat: posterior oropharynx normal Other: Right nares packed with rapid Rhino. No appreciable bleeding noted. No blood in the posterior oropharynx. No blood in the left nares. Minimal oozing from the right nares. Complains of discomfort and pain with palpation around the right maxillary sinus. Resp Effort & Inspection: normal respiratory effort
[2019-09-06 05:20] VITALS: BP 135/93; PULSE 95; RESP 16; TEMP 36.5; O2SAT 98
[2019-09-06] MEDS: Oxymetazolone 0.05% SPRAY 15 ML BTL (05:56)
[2019-09-06 06:21] VITALS: BP 135/93; PULSE 95; RESP 16; TEMP 36.5; O2SAT 98
== END 2019-09-06 06:21 | disposition home or self-care (01) ==
PROVIDERS: Emergency Provider Emergency Medicine; PCP Student in an Organized Health Care Education/Training Program
DX: R04.0 Epistaxis (principal); R51 Headache; I10 Essential (primary) hypertension; Z79.01 Long term (current) use of anticoagulants
CPT/HCPCS: 30901; 99282

== ENCOUNTER → 2019-10-03 14:34 | Outpatient (BNVA) | payer MEDICARE, MEDICAID, SELFPAY | PROVIDERS: PCP Student in an Organized Health Care Education/Training Program; Referring Provider Student in an Organized Health Care Education/Training Program; Visit Provider Student in an Organized Health Care Education/Training Program | DX: M25.551 Pain in right hip (principal); M25.552 Pain in left hip; M70.61 Trochanteric bursitis, right hip; M70.62 Trochanteric bursitis, left hip; M48.061 Spinal stenosis, lumbar region without neurogenic claudication; W19.XXXA Unspecified fall, initial encounter | CPT/HCPCS: 99213 ==

== ENCOUNTER 2019-10-17 13:54 | Outpatient (CLI) | payer MEDICARE, MEDICAID, SELFPAY ==
--- NOTE | 2019-10-17 13:52 | DI.RAD_ITS ---
EXAM: XR ABDOMEN FLAT PLATE INDICATION: HX OF RENAL STONES AND FLANK PAIN, Z87.442 HX URINARY CALCULI. COMPARISON: CT ABDOMEN PELVIS W from 06/22/2019 TECHNIQUE: 2D digital imaging was performed. FINDINGS: The bowel gas pattern is unremarkable. Stool and bowel gas impair visualization of the kidneys. The re is a calcification seen on the right side above the right L4 transverse process. It is in a simila r location as seen on the previous CT, which was felt to represent a phlebolith. The aorta and splen ic artery are heavily calcified. IMPRESSION: No visible urinary tract calculi.
== END 2019-10-17 14:14 ==
PROVIDERS: PCP Student in an Organized Health Care Education/Training Program; Visit Provider Nurse Practitioner Gerontology
DX: R31.9 Hematuria, unspecified (principal); Z87.442 Personal history of urinary calculi; R30.0 Dysuria
CPT/HCPCS: 81003; 99213; 74018; 87086

== ENCOUNTER 2019-10-20 06:52 | Outpatient (CLI) | payer MEDICARE, MEDICAID, SELFPAY ==
--- NOTE | 2019-10-20 08:10 | DI.US_ITS ---
EXAM: US RENAL CLINICAL HISTORY: !Error TECHNIQUE: Ultrasound performed using standard protocol. COMPARISON: CT ABDOMEN PELVIS W from 06/22/2019 US ECHOCARDIOGRAM from 08/17/2019 FINDINGS: Renal ultrasound was performed according to the usual protocol. Incidental note is made of an appare nt left adnexal septated cyst measuring about 4.5 cm greatest diameter, this presumably arises from t he left ovary. This is been noted on prior CT examinations. There are a couple of tiny echogenic foci in the right kidney which may represent nonobstructing albert l calculi. No left renal calculus identified. No hydronephrosis on either side. There is question of mild renal cortical thinning bilaterally. Urinary bladder appears intrinsically intact. Pre and postvoid urinary bladder volume 282 cc and 39 cc respectively. Ureteral jets are noted bilaterally. IMPRESSION: Possible tiny nonobstructing right renal calculi noted. No other significant findings. No evidence of urinary tract obstruction.
== END 2019-10-20 07:12 ==
PROVIDERS: PCP Student in an Organized Health Care Education/Training Program; Visit Provider Nurse Practitioner Gerontology
DX: R10.32 Left lower quadrant pain (principal); N20.0 Calculus of kidney
CPT/HCPCS: 76770; 99213

== ENCOUNTER 2020-02-03 03:37 | Outpatient (CLI) | payer MEDICARE, MEDICAID, SELFPAY ==
--- NOTE | 2020-02-03 07:00 | DI.US_ITS ---
EXAM: US RENAL CLINICAL HISTORY: monitor right kidney stones,n20.0 TECHNIQUE: Ultrasound performed using standard protocol. COMPARISON: US US RENAL from 10/20/2019 FINDINGS: Kidneys are normal size and shape. There is no evidence of hydronephrosis. There are bilateral shad owing echogenic foci of the kidneys, measuring 7 millimeters in the inferior pole of right kidney and 4 millimeters in the midpole of the left kidney. There is no evidence of hydronephrosis. Urinary bladder is unremarkable in appearance, pre and postvoid urinary bladder volume is 264 cc and 17 cc respectively. Ureteral jets were visualized bilaterally. IMPRESSION: Probable bilateral nonobstructing renal calculi. Incidental left adnexal septated cyst noted, this measures nearly 6 cm in diameter as compared to abo ut 4.5 cm in diameter on prior examination of October 20. Interval growth and adnexal mass in this age group is suspicious for malignancy. Additional evaluation with pelvic MRI and manager activities consult is siegel ggested. DATA REPOSITORY:
== END 2020-02-03 03:57 ==
PROVIDERS: PCP Student in an Organized Health Care Education/Training Program; Visit Provider Urology
DX: N20.0 Calculus of kidney (principal); N83.8 Other noninflammatory disorders of ovary, fallopian tube and broad ligament
CPT/HCPCS: 76770; 99213

== ENCOUNTER 2020-03-12 08:19 | Outpatient (CLI) | payer MEDICARE, MEDICAID, SELFPAY ==
[2020-03-13 18:28] LABS: COVID-19 RT-PCR UVMMC Result Negative (Negative)
== END 2020-03-12 08:39 ==
PROVIDERS: PCP Student in an Organized Health Care Education/Training Program; Visit Provider Urology
DX: Z03.818 Encounter for observation for suspected exposure to other biological agents ruled out (principal)
CPT/HCPCS: U0003

== ENCOUNTER 2020-03-15 06:12 | Day surgery (SDC) | payer MEDICARE, MEDICAID, SELFPAY ==
[2020-03-15 06:38] VITALS: BP 150/100; PULSE 95; RESP 18; TEMP 36.4; O2SAT 100
--- NOTE | 2020-03-15 06:50 | W.PM.HP.N ---
Date of service: 03/15/20 Time of Service: 06:51 Assessment and Plan Assessment and plan (1) Right kidney stone: Status: Acute Assessment and plan: For ESWL History of Present Illness History of Present Illness Chief Complaint: Kidney stones Narrative: This is a 79-year-old woman with a history of calcium based kidney stones. She has had stones extracted from each side. Her most recent stone was 100% calcium oxalate dihydrate. She has had a finding of nonobstructing stones in the right kidney that we have been monitoring with ultrasound every 3 months. At her last ultrasound, a right upper pole stone was no longer seen, but a right lower pole stone had increased in size and is now measured at 6 to 7 mm. She tells me that she developed significant right-sided flank pain and believes that she passed a stone. She did not see any gross hematuria. She had no fevers or chills. She had no nausea or vomiting. Review of Systems Narrative: No fevers or chills No vision change or dysphasia No diabetes or thyroid Hx COPD. No cough or hemoptysis No chest pain. Hx Atrial fibrillation Hx GERD. No hepatitis, ulcers, jaundice, diarrhea or constipation No seizures, strokes or peripheral neuropathy No bleeding disorders or anemia. Unable to tolerate anticoagulants with exception of aspirin. No gout. Requires walker for ambulation [facility] Social History Smoking/Tobacco Use Status: Never Alcohol Intake: never Drug use: Never Substance use type: does not use Current gender identity: female Do you feel safe at home: No (sometimes) Additional Social history: Pt. states she doesn't feel safe at home because of her neighbors, pt. states they're druggies, I lock my door and sit near my phone Followed up with Rabia Shen regarding this statement. DIL states she has a degree of paranoia and she always has, she lives in a very safe neighborhood, and has a number of neighbors who watch out for her and stop by to check on her as well. She has had a very tulmultuous past with her ex- who has since , where she didn't feel safe, and she has never truly gotten over that, and she also had a long-term live in boyfriend who three years ago, who was added security, so she doesn't have that anymore. ONEAL also stated that she prefers to have her house locked up when she is there all the time to feel safe, but in the same respect she feels safe enough to go for a 20 minute walk in the neighborhood with a neighbor, ONEAL states that there is some disconnect there in addition to her medical issues. Care management Tana, was informed of this statement, and will F/U PRN. Meds Home Medications and Allergies Home Medications Medication Instructions Recorded Confirmed Type multivitamin [Daily Vitamin] 1 ea PO DAILY 12/31/12 03/15/20 History melatonin-pyridoxine HCl (B6) 1 ea PO HS 12/11/15 03/15/20 History Adult Aerosol Mask #1 ea 11/06/17 01/18/20 Rx albuterol sulfate [ProAir HFA] 1 - 2 puff INHALATION Q4H PRN #2 03/19/18 03/15/20 Rx puff nitroglycerin 0.4 mg sublingual 0.4 mg SUBLINGUAL PRN #30 tab-cap 09/08/18 03/12/20 Rx tablet epinephrine 0.3 mg/0.3 mL 0.3 mg IM ONCE #2 pen 01/07/19 03/15/20 Rx injection, auto-injector acetaminophen 650 mg 1,300 mg PO BID 03/16/19 03/15/20 History tablet,extended release atorvastatin 40 mg tablet 40 mg PO DAILY #90 tab-cap 03/16/19 03/15/20 Rx cetirizine 10 mg tablet 10 mg PO DAILY #90 tab-cap MDD 10mg 03/16/19 03/15/20 Rx diaper,brief,adult,disposable #132 each 03/16/19 01/18/20 Rx ipratropium 0.5 mg-albuterol 3 mg 3 ml INHALATION Q3H PRN #90 ml 03/16/19 03/15/20 Rx (2.5 mg base)/3 mL nebulization soln magnesium citrate 125 mg capsule 250 mg PO DAILY cap 03/16/19 03/15/20 History sanitary pads #20 each 03/16/19 01/18/20 History calcium carb,cit ER 600 mg 1 tab PO HS #1 tab 05/20/19 03/15/20 History calcium-vit D3 500 unit tablet,ext.release simethicone 125 mg capsule 125 mg PO BID PRN #60 cap 08/10/19 03/15/20 Rx tumeric 500 mg PO BID 08/10/19 03/15/20 History amlodipine [Norvasc] 2.5 mg PO HS 09/04/19 03/15/20 History metoprolol succinate 75 mg PO DAILY 09/04/19 03/15/20 History aspirin 81 mg tablet,delayed 81 mg PO DAILY #90 tab 12/01/19 03/15/20 Rx release fluticasone propionate 230 2 puff INHALATION BID #3 inhaler 12/02/19 03/15/20 Rx mcg-salmeterol 21 mcg/actuation HFA inhaler montelukast 10 mg tablet 10 mg PO HS #90 tab-cap 12/02/19 03/15/20 Rx famotidine 40 mg tablet 40 mg PO DAILY #90 tab 01/18/20 03/15/20 Rx Allergies Allergy/AdvReac Type Severity Reaction Status Date / Time Influenza Virus Vaccines Allergy Severe throat Verified 03/15/20 06:52 closed prednisone Allergy Severe throat Verified 03/15/20 06:52 swelling duloxetine HCl Allergy Intermediate sweat/throat Verified 03/15/20 06:52 [From Cymbalta] tight egg Allergy Intermediate Swelling/Ed Verified 03/15/20 06:52 shoshana Penicillins Allergy Intermediate swelling/choked Verified 03/15/20 06:52 up Sulfa (Sulfonamide Allergy Intermediate swelling Verified 03/15/20 06:52 Antibiotics) tetracycline Allergy Unknown unknown Verified 03/15/20 06:52 tramadol Allergy Verified 03/15/20 06:52 morphine AdvReac Severe HR Verified 03/15/20 06:52 dropped/BP high ciprofloxacin [From Cipro] AdvReac Intermediate AGITATION Verified 03/15/20 06:52 diclofenac AdvReac Intermediate confusion, Verified 03/15/20 06:52 night terrors, dizziness gabapentin AdvReac Intermediate Dizziness Verified 03/15/20 06:52 & Sedation hyoscyamine AdvReac Intermediate lightheaded Verified 03/15/20 06:52 lisinopril AdvReac Intermediate Uvula Verified 03/15/20 06:52 Swelling mirtazapine AdvReac Intermediate throat Verified 03/15/20 06:52 discomfort, feeling tired, nauseated nortriptyline AdvReac Intermediate Verified 03/15/20 06:52 homatropine [From Hycodan] AdvReac Mild Loopy Verified 03/15/20 06:52 hydrocodone bitartrate AdvReac Mild Loopy Verified 03/15/20 06:52 [From Hycodan] lidocaine AdvReac Mild Skin Verified 03/15/20 06:52 sensitivity/Rash trazodone AdvReac Unknown Dizzy, Verified 03/15/20 06:52 weak and hallucinations cephalexin monohydrate AdvReac ?LE Verified 03/15/20 06:52 [From Keflex] weakness nuts Allergy Intermediate Swelling/Ed Uncoded 03/15/20 06:52 shoshana peanut butter AdvReac Intermediate Swelling/Ed Uncoded 03/15/20 06:52 shoshana Exam Narrative Exam Narrative: She is an elderly woman in no current distress. She appears chronically ill but not acutely ill. Vital signs are documented elsewhere Her chest wall motion is normal. She is not short of breath at rest. Cardiac exam shows an irregular fast heart beat Her abdomen is thin and soft with no mass She is awake and alert COVID-19 Screening In the past 14 days, have you traveled outside of [place]?: NO Had IN PERSON contact w/suspected or confirmed C-19 person: No
[2020-03-15] MEDS: Lactated Ringers 1,000 ML 80 ML IV (07:08)
--- NOTE | 2020-03-15 07:32 | W.PM.DSUDISC ---
Discharge Plan Disposition Patient Disposition: HOME Condition: Stable Discharge Details Reason For Visit: kidney stone Attending Provider: Hansel Call Primary Care Provider: Miguelina Tilley Home Meds and New Rx's Prescriptions: New ketorolac 10 mg tablet 10 mg PO TID PRN (Reason: pain) 5 Days Qty: 15 RF: 0 No Action tumeric 500 mg capsule 500 mg PO BID RF: 0 famotidine 40 mg tablet 40 mg PO DAILY Qty: 90 RF: 1 nitroglycerin [Nitrostat] 0.4 mg tablet, sublingual 0.4 mg Sublingual PRN Qty: 30 RF: 0 magnesium citrate 125 mg capsule 250 mg PO DAILY RF: 0 ipratropium-albuterol 0.5 mg-3 mg(2.5 mg base)/3 mL solution for nebulization 3 ml Inhalation Q3H PRN Qty: 90 RF: 4 atorvastatin 40 mg tablet 40 mg PO DAILY Qty: 90 RF: 3 cetirizine 10 mg tablet 10 mg PO DAILY MDD 10mg Qty: 90 RF: 3 (DME) Entrust Plus Briefs misc 1 ea Miscellaneous TID Qty: 132 RF: 12 (DME) sanitary pads pad See Dose Instructions .ROUTE .MEDSUPPLY Qty: 20 RF: 0 simethicone 125 mg capsule 125 mg PO BID PRN (Reason: abdominal distention) Qty: 60 RF: 3 multivitamin [Daily Vitamin] 1 EACH tablet 1 ea PO DAILY RF: 0 melatonin-pyridoxine HCl (B6) 1 EACH tablet,ext release multiphase 1 ea PO HS RF: 0 (DME) Adult Aerosol Mask 1 EACH misc 1 ea Miscellaneous DAILY Qty: 1 RF: 0 albuterol sulfate [ProAir HFA] 8.5 GM HFA aerosol inhaler 1 - 2 puff Inhalation Q4H PRN Qty: 2 RF: 4 epinephrine [EpiPen 2-Moe] 0.3 mg/0.3 mL auto-injector 0.3 mg IM ONCE Qty: 2 RF: 0 acetaminophen [Tylenol Arthritis] 650 mg tablet extended release 1,300 mg PO BID RF: 0 calcium carb and citrate-vitD3 600 mg calcium- 500 unit tablet extended release 1 tab PO HS Qty: 1 RF: 0 aspirin [Aspir-81] 81 mg tablet,delayed release (DR/EC) 81 mg PO DAILY Qty: 90 RF: 3 Advair HFA 230-21 mcg/actuation HFA aerosol inhaler 2 puff Inhalation BID Qty: 3 RF: 3 montelukast 10 mg tablet 10 mg PO HS Qty: 90 RF: 3 metoprolol succinate 50 mg tablet extended release 24 hr 75 mg PO DAILY RF: 0 amlodipine [Norvasc] 5 mg tablet 2.5 mg PO HS RF: 0 Discharge Instructions Additional Instructions: F/U 2 to 4 weeks with renal us prior to appt script for Toradol sent to pharmacy Activity:: Activity as Tolerated Shower/Bathe:: 24 hours Diet:: As Tolerated Discharge Orders Discharge Orders: Discharge Order (Routine); Ordered 03/15/20 Ordered By: Hansel Call DS: Diagnosis Discharge Diagnosis (1) Right kidney stone: Status: Acute
[2020-03-15] MEDS: Ketorolac 15 MG/ML VIAL IVP (08:56)
[2020-03-15 09:53] VITALS: BP 144/88; PULSE 85; RESP 17; TEMP 36.2; O2SAT 97
--- NOTE | 2020-03-15 09:54 | ROE_ITS ---
Date of service: 03/15/20 Time of Service: 09:55 Operative Note Operative Note DATE OF PROCEDURE: 03/15/20 PRE-OP DIAGNOSIS: Right kidney stone POST-OP DIAGNOSIS: same PROCEDURE: Right extracorporeal shockwave lithotripsy SURGEON: Hansel Call ANESTHESIA: other (General without endotracheal tube) ESTIMATED BLOOD LOSS: 0 PATHOLOGY: none sent COMPLICATIONS: None Patient was transported to: same day Patient's condition: stable Indications: This is a 79-year-old woman who has a history of kidney stones. We have been monitoring her stone burden with renal ultrasounds every 3 months. She has had some right sided pain and increasing stone burden in the right lower pole. She presents for ESWL. Procedure Description: The patient was brought to the operating room on 03/15/2020. After being given sedation, we placed her in the frog-leg position. I then passed a 16 Irish catheter through the urethra into the bladder. I collected urine directly from the catheter and sent it to the lab for culture and sensitivity. The catheter was then removed and the patient was repositioned on the lithotripter bed. The right flank was then imaged with ultrasound and with fluoroscopy. We were unable to visualize her stone fluoroscopically, but on ultrasound, the previously identified right lower pole stone was seen. We posi tioned the patient such that the stone was within the focal zone of the lithotripter. The stone was then treated with a total of 2500 shocks. We varied I have a power setting from 1-17. While monitoring the stone with ultrasound, there appeared to be excellent fragmentation. The patient tolerated the procedure well. There were no complications.
== END 2020-03-15 09:50 | disposition home or self-care (01) ==
PROVIDERS: PCP Student in an Organized Health Care Education/Training Program; Visit Provider Urology
PROC: (CPT 50590; principal; 2020-03-15 07:30)
DX: N20.0 Calculus of kidney (principal); Z87.442 Personal history of urinary calculi
CPT/HCPCS: 50590; NC; 87086; J1885; J2405; J3010

== ENCOUNTER 2020-03-23 11:17 | Emergency (ER) | payer MEDICARE, MEDICAID, SELFPAY ==
[2020-03-23] VITALS (13 sets, daily range): BP systolic 110–126; BP diastolic 61–82; PULSE 90–114; RESP 16–34; TEMP 36.6; O2SAT 97–99
--- NOTE | 2020-03-23 11:51 | ED.GENADUL_ITS ---
Discharge Plan Disposition Patient Disposition: HOME Condition: Stable Discharge Details Chief Complaint: GenMedical Clinical Impression: Abdominal pain, Kidney stone on right side Primary Care Provider: Miguelina Tilley ED Provider: Arina Araujo Cecil Meds and New Rx's Prescriptions: Continued tumeric 500 mg capsule 500 mg PO BID RF: 0 famotidine 40 mg tablet 40 mg PO DAILY Qty: 90 RF: 1 nitroglycerin [Nitrostat] 0.4 mg tablet, sublingual 0.4 mg Sublingual PRN Qty: 30 RF: 0 magnesium citrate 125 mg capsule 250 mg PO DAILY RF: 0 ipratropium-albuterol 0.5 mg-3 mg(2.5 mg base)/3 mL solution for nebulization 3 ml Inhalation Q3H PRN Qty: 90 RF: 4 atorvastatin 40 mg tablet 40 mg PO DAILY Qty: 90 RF: 3 cetirizine 10 mg tablet 10 mg PO DAILY MDD 10mg Qty: 90 RF: 3 (DME) En[employer] Plus Briefs misc 1 ea Miscellaneous TID Qty: 132 RF: 12 (DME) sanitary pads pad See Dose Instructions .ROUTE .MEDSUPPLY Qty: 20 RF: 0 simethicone 125 mg capsule 125 mg PO BID PRN (Reason: abdominal distention) Qty: 60 RF: 3 multivitamin [Daily Vitamin] 1 EACH tablet 1 ea PO DAILY RF: 0 melatonin-pyridoxine HCl (B6) 1 EACH tablet,ext release multiphase 1 ea PO HS RF: 0 (DME) Adult Aerosol Mask 1 EACH misc 1 ea Miscellaneous DAILY Qty: 1 RF: 0 albuterol sulfate [ProAir HFA] 8.5 GM HFA aerosol inhaler 1 - 2 puff Inhalation Q4H PRN Qty: 2 RF: 4 epinephrine [EpiPen 2-Moe] 0.3 mg/0.3 mL auto-injector 0.3 mg IM ONCE Qty: 2 RF: 0 acetaminophen [Tylenol Arthritis] 650 mg tablet extended release 1,300 mg PO BID RF: 0 calcium carb and citrate-vitD3 600 mg calcium- 500 unit tablet extended release 1 tab PO HS Qty: 1 RF: 0 aspirin [Aspir-81] 81 mg tablet,delayed release (DR/EC) 81 mg PO DAILY Qty: 90 RF: 3 Advair HFA 230-21 mcg/actuation HFA aerosol inhaler 2 puff Inhalation BID Qty: 3 RF: 3 montelukast 10 mg tablet 10 mg PO HS Qty: 90 RF: 3 metoprolol succinate 50 mg tablet extended release 24 hr 75 mg PO DAILY RF: 0 amlodipine [Norvasc] 5 mg tablet 2.5 mg PO HS RF: 0 Discharge Instructions Instructions: Kidney Stones (ED), Abdominal Pain (ED) Additional Instructions: Follow up with primary care provider in 3-5 days. Return to ED sooner if any worsening or concerns. Increase oral fluids. Take Tylenol as needed for pain. Take your regular medications as previously prescribed. Return for fever, worsening vomiting, worsening pain or any concerns. You are placed on a care management list to assist with possible sooner appointment with Dr. Call or PCP appointment. Referrals: Hansel Call MD [ [facility] STAFF PHYSICIAN] - Miguelina Tilley DO [Primary Care Provider] - Vero Overton MD [ CONSULTING PHYSICIAN] - Medical Decision Making 79-year-old female presents with right upper quadrant abdominal pain and right flank pain which began at 3:00 this morning. She is moderately tender to palpation on initial exam to right upper quadrant anteriorly and does have some right CVA tenderness. Associated with weakness, nausea, chills and diarrhea. She did have a lithotripsy on March 15, 2020. She is not currently on any antibi otics. She does state that she takes Tylenol 650 mg twice a day and as needed for pain. She does have a history of asthma, atrial fibrillation, coronary artery disease, dysphagia, hypertension, spinal stenosis. Patient reevaluation: Patient feels extremely better, has no complaints of pain at this time. Heart rate is 120s in atrial fibrillation. She did come in and heart rate was 90. She is up to the bedside commode assisted back to bed without difficulty. Discussed CT results and lab results. Urinalysis shows 20-50 WBCs trace leukocytes but is contaminated with squamous cell epithelials so no treatment was given at this time. 1457: Spoke with Hermelinda, patients daughter regarding patint, she is very sensitive to meds, does not wish to give her normal night meds at this time. At this time patient is stable to be discharged home, Has a cardiology appt May 21. Has Urology appt on 04/06, and PCP appt 04/13. Patient's daughter is pleasant and very knowledable. Discussed CT results and lab results with daughter, she declines antibiotics or giving her her normal night meds at this time to control her heart rate. She will attempt to get sooner appointments. Plan is to discharge. Plan is to get patient on follow-up list with case management. HPI General Date/Time Provider Initiated Documentation: 03/23/20 11:27 . Limitations to Documentation: no limitations . Information obtained by: patient and old records reviewed . HPI Narrative: 79-year-old female presents with right upper quadrant abdominal pain and right flank pain which began at 3:00 this morning. She is moderately tender to palpation on initial exam to right upper quadrant anteriorly and does have some right CVA tenderness. Associated with weakness, nausea, chills and diarrhea. She did have a lithotripsy on March 15, 2020. She is not currently on any antibiotics. She does state that she takes Tylenol 650 mg twice a day and as needed for pain. She does have a history of asthma, atrial fibrillation, coronary artery disease, dysphagia, hypertension, spinal stenosis. Related Data Home Medications Medication Instructions Recorded Confirmed multivitamin [Daily Vitamin] 1 ea PO DAILY 12/31/12 03/23/20 melatonin-pyridoxine HCl (B6) 1 ea PO HS 12/11/15 03/23/20 Adult Aerosol Mask #1 ea 11/06/17 01/18/20 albuterol sulfate [ProAir HFA] 1 - 2 puff INHALATION Q4H PRN #2 03/19/18 03/23/20 puff nitroglycerin 0.4 mg sublingual 0.4 mg SUBLINGUAL PRN #30 tab-cap 09/08/18 03/23/20 tablet epinephrine 0.3 mg/0.3 mL 0.3 mg IM ONCE #2 pen 01/07/19 03/23/20 injection, auto-injector acetaminophen 650 mg 1,300 mg PO BID 03/16/19 03/23/20 tablet,extended release atorvastatin 40 mg tablet 40 mg PO DAILY #90 tab-cap 03/16/19 03/23/20 cetirizine 10 mg tablet 10 mg PO DAILY #90 tab-cap MDD 10mg 03/16/19 03/23/20 diaper,brief,adult,disposable #132 each 03/16/19 01/18/20 ipratropium 0.5 mg-albuterol 3 mg 3 ml INHALATION Q3H PRN #90 ml 03/16/19 03/23/20 (2.5 mg base)/3 mL nebulization soln magnesium citrate 125 mg capsule 250 mg PO DAILY cap 03/16/19 03/23/20 sanitary pads #20 each 03/16/19 01/18/20 calcium carb,cit ER 600 mg 1 tab PO HS #1 tab 05/20/19 03/23/20 calcium-vit D3 500 unit tablet,ext.release simethicone 125 mg capsule 125 mg PO BID PRN #60 cap 08/10/19 03/23/20 tumeric 500 mg PO BID 08/10/19 03/23/20 amlodipine [Norvasc] 2.5 mg PO HS 09/04/19 03/23/20 metoprolol succinate 75 mg PO DAILY 09/04/19 03/23/20 aspirin 81 mg tablet,delayed 81 mg PO DAILY #90 tab 12/01/19 03/23/20 release fluticasone propionate 230 2 puff INHALATION BID #3 inhaler 12/02/19 03/23/20 mcg-salmeterol 21 mcg/actuation HFA inhaler montelukast 10 mg tablet 10 mg PO HS #90 tab-cap 12/02/19 03/23/20 famotidine 40 mg tablet 40 mg PO DAILY #90 tab 01/18/20 03/23/20 Previous Rx's Medication Instructions Recorded Adult Aerosol Mask #1 ea 11/06/17 albuterol sulfate [ProAir HFA] 1 - 2 puff INHALATION Q4H PRN #2 03/19/18 puff nitroglycerin 0.4 mg sublingual 0.4 mg SUBLINGUAL PRN #30 tab-cap 09/08/18 tablet epinephrine 0.3 mg/0.3 mL 0.3 mg IM ONCE #2 pen 01/07/19 injection, auto-injector atorvastatin 40 mg tablet 40 mg PO DAILY #90 tab-cap 03/16/19 cetirizine 10 mg tablet 10 mg PO DAILY #90 tab-cap MDD 10mg 03/16/19 diaper,brief,adult,disposable #132 each 03/16/19 ipratropium 0.5 mg-albuterol 3 mg 3 ml INHALATION Q3H PRN #90 ml 03/16/19 (2.5 mg base)/3 mL nebulization soln simethicone 125 mg capsule 125 mg PO BID PRN #60 cap 08/10/19 aspirin 81 mg tablet,delayed 81 mg PO DAILY #90 tab 12/01/19 release fluticasone propionate 230 2 puff INHALATION BID #3 inhaler 12/02/19 mcg-salmeterol 21 mcg/actuation HFA inhaler montelukast 10 mg tablet 10 mg PO HS #90 tab-cap 12/02/19 famotidine 40 mg tablet 40 mg PO DAILY #90 tab 01/18/20 Allergies Allergy/AdvReac Type Severity Reaction Status Date / Time Influenza Virus Vaccines Allergy Severe throat Verified 03/23/20 11:36 closed prednisone Allergy Severe throat Verified 03/23/20 11:36 swelling duloxetine HCl Allergy Intermediate sweat/throat Verified 03/23/20 11:36 [From Cymbalta] tight egg Allergy Intermediate Swelling/Ed Verified 03/23/20 11:36 shoshana Penicillins Allergy Intermediate swelling/choked Verified 03/23/20 11:36 up Sulfa (Sulfonamide Allergy Intermediate swelling Verified 03/23/20 11:36 Antibiotics) tetracycline Allergy Unknown unknown Verified 03/23/20 11:36 tramadol Allergy Verified 03/23/20 11:36 morphine AdvReac Severe HR Verified 03/23/20 11:36 dropped/BP high ciprofloxacin [From Cipro] AdvReac Intermediate AGITATION Verified 03/23/20 11:36 diclofenac AdvReac Intermediate confusion, Verified 03/23/20 11:36 night terrors, dizziness gabapentin AdvReac Intermediate Dizziness Verified 03/23/20 11:36 & Sedation hyoscyamine AdvReac Intermediate lightheaded Verified 03/23/20 11:36 lisinopril AdvReac Intermediate Uvula Verified 03/23/20 11:36 Swelling mirtazapine AdvReac Intermediate throat Verified 03/23/20 11:36 discomfort, feeling tired, nauseated nortriptyline AdvReac Intermediate Verified 03/23/20 11:36 homatropine [From Hycodan] AdvReac Mild Loopy Verified 03/23/20 11:36 hydrocodone bitartrate AdvReac Mild Loopy Verified 03/23/20 11:36 [From Hycodan] lidocaine AdvReac Mild Skin Verified 03/23/20 11:36 sensitivity/Rash trazodone AdvReac Unknown Dizzy, Verified 03/23/20 11:36 weak and hallucinations cephalexin monohydrate AdvReac ?LE Verified 03/23/20 11:36 [From Keflex] weakness nuts Allergy Intermediate Swelling/Ed Uncoded 03/23/20 11:36 shoshana peanut butter AdvReac Intermediate Swelling/Ed Uncoded 03/23/20 11:36 shoshana General Stated Complaint: GenMedical DELVIN: 3 Review of Systems Narrative: Constitutional: Negative for weight loss, alert and oriented, well groomed, normal body habitus, appears comfortable. HEENT: Denies trauma, headaches, blurry vision, nasal discharge, sore throat, trouble swallowing. Chest: Denies chest pain, palpitations, irregular rhythm, hypertension. Respiratory: Denies Shortness of breath, cough, hemoptysis. GI: Denies right upper abdominal pain, positive nausea no vomiting, denies diarrhea, constipation. Reports positive loose stools. : Denies dysuria, hematuria, rectal bleeding. Says she recently citrusy, right flank pain. Neuro: Denies dizziness, blurry vision, weakness, syncope, headache or facial numbness. Hematologic: Denies easy bruising, intolerance to heat or cold, hair loss. [facility] Social History Smoking/Tobacco Use Status: Never Alcohol Intake: never Drug use: Never Substance use type: does not use Current gender identity: female Do you feel safe at home: No (sometimes) Additional Social history: Pt. states she doesn't feel safe at home because of her neighbors, pt. states they're druggies, I lock my door and sit near my phone Followed up with Rabia Shen regarding this statement. DIL states she has a degree of paranoia and she always has, she lives in a very safe neighborhood, and has a number of neighbors who watch out for her and stop by to check on her as well. She has had a very tulmultuous past with her ex- who has since , where she didn't feel safe, and she has never truly gotten over that, and she also had a long-term live in boyfriend who three years ago, who was added security, so she doesn't have that anymore. ONEAL also stated that she p refers to have her house locked up when she is there all the time to feel safe, but in the same respect she feels safe enough to go for a 20 minute walk in the neighborhood with a neighbor, ONEAL states that there is some disconnect there in addition to her medical issues. Care management Tana, was informed of this statement, and will F/U PRN. Exam Narrative Exam Narrative: Constitutional: Alert and oriented x3. Appears stated age. Thin body habitus. Head: Normocephalic, no trauma. Eyes: Pupils PERRLA, Red reflex noted, EOM's intact. Eyelids symmetrical without lesions, discharge, or swelling. ENT: Bilateral TM's WNL, External ear normal to inspection, no mastoid TTP, swelling, or erythema, Nasal turbinates WNL, no nasal discharge. Normal dentition, Posterior pharynx WNL, no exudate. Chest: Irregular rate, is in A. fib with rate of 90-120, brisk S1, S2, distal pulses intact. Resp: Lungs clear to auscultation bilaterally, no wheezes, rales, or rhonchi. Musculoskeletal: Normal gait, 5/5 strength to all four extremities. Abdomen: Soft nondistended, right upper quadrant tenderness to palpation, hyperactive bowel sounds, right CVA tenderness mildly to palpation. Skin: No suspicious rashes or lesions. Capillary refill less than 2 sec. Neurologic: Cranial nerves II-XII intact. Alert and oriented x 3. DTR's intact. Hematologic/Lymphatic: No ecchymosis, no lymphadenopathy. Course Vital Signs Vital signs: Vital Signs Temperature 36.6 C 03/23/20 11:31 Pulse 103 H 03/23/20 11:31 Respiratory Rate 20 03/23/20 11:31 Blood Pressure 114/71 03/23/20 11:31 Pulse Oximetry 98 03/23/20 11:31 Temperature 36.6 C 03/23/20 11:31 Temperature Source Skin 03/23/20 11:31 Pulse 103 H 03/23/20 11:31 Respiratory Rate 20 03/23/20 11:31 Respiratory Effort 03/23/20 11:42 Blood Pressure 114/71 03/23/20 11:31 Blood Pressure Position Supine 03/23/20 11:31 Pulse Oximetry 98 03/23/20 11:31 Oxygen Delivery Method Room Air 03/23/20 11:31 Oxygen Flow Rate 0 03/23/20 11:31 Pain Level 10 03/23/20 11:31 Comment 03/23/20 11:31 Lab/Test Results Lab/Test Results: 03/23/20 11:39 Blood Blood Culture - Pending 03/23/20 11:39 Blood Blood Culture - Pending
[2020-03-23 12:09] LABS: Lactate 1.3 mmol/L (0.6-1.4)
[2020-03-23] MEDS: Normal Saline 250 ML 500 ML IV (12:09)
[2020-03-23 12:13] LABS: Abs Immature Grans 0.01 k/cumm (0.0-0.09); Absolute Basophil Count 0.01 k/cumm (0.0-0.2); Absolute Eosinophil Count 0.02 k/cumm (0.0-0.7); Absolute Lymphocyte Count 0.87 k/cumm (1.2-3.4); Absolute Monocyte Count 1.06 k/cumm (0.11-0.7); Basophils % 0.1; Eosinophils % 0.2; HCT 38.5 % (36.0-46.0); HGB 13.2 g/dL (12.0-15.5); Immature Grans % 0.1 %; Lymphocytes % 9.2; Mean Corp. HGB Concentration 34.3 g/dL (32.0-36.0); Mean Corpuscular Hemoglobin 33.8 pg (27.0-33.0); Mean Corpuscular Volume 98.5 fL (80-95); Mean Platelet Volume 10.1 fL (8.0-11.0); Monocytes % 11.2; Neutrophils % 79.2; Platelet Count 174 x1000/uL (130-400); RBC 3.91 m/cumm (4.00-5.20); RBC Distribution Width 13.5 % (11.7-14.6); White Blood Cell Count 9.47 k/cumm (4.4-10.8)
--- NOTE | 2020-03-23 12:15 | DI.CT_ITS ---
EXAM: CT ABDOMEN PELVIS WO CLINICAL HISTORY: R/O recurrent stone vs infection. TECHNIQUE: Imaging Protocol: Axial computed tomography images with coronal and sagittal reformatted images were created and reviewed. COMPARISON: CT ABD PELVIS WO CONTRAST from 11/15/[address] ABDOMEN PELVIS W from 09/23/[address] ABDOMEN PELVIS W from 06/22/2019 FINDINGS: ABDOMEN: Lung Bases: Normal where visualized. Liver: Normal density. No measurable mass. Gallbladder and biliary tract: No radiodense calculus or biliary ductal dilation. Pancreas: Normal density, no abnormal calcifications or inflammatory process. Spleen: Normal. Kidneys: Normal size, contour and axis.There is again seen a 5-6 mm calcification within the proximal right ureter. Calcification was not present on the examination from 11/15/2016. It is 1st noted on the examination from 09/23/2017 and is present on subsequent CT examinations. No definite hydronephros is is present. No masses seen. Adrenal glands: No mass is seen. Lymph nodes: Within normal limits. Abdominal Aorta: Abdominal portion non-dilated. Atherosclerosis. PELVIS: Bladder:Symmetric distention, no gross wall thickening. Bowel: No obstruction or bowel wall thickening. Colonic diverticulosis but no evidence of acute diver ticulitis. No evidence of an acute appendicitis. Peritoneal cavity: No ascites, collection or mesenteric inflammatory response Reproductive organs: Stable 4.5 cm left adnexal cyst likely ovarian. Bones: Degenerative changes. Soft Tissues: Within normal limits. IMPRESSION: Stable 5-6 mm calcification in the proximal right ureter without evidence of hydronephrosis. It is u nchanged dating back to 09/23/2017. CT urography may be considered for further evaluation. RADIATION DOSE DELIVERED: Total DLP DATA REPOSITORY: All CT scans at this facility are submitted to the National Radiology Data Registry (NRDR) Dose Index Registry (DIR) with the [employer] (ACR). RADIATION OPTIMIZATION: All CT scans at this facility use at least one of these dose optimization te chniques: automated exposure control; mA and/or kV adjustment per patient size (includes targeted exa ms where dose is matched to clinical indication); or iterative reconstruction.
[2020-03-23 12:24] LABS: ALT 19 U/L (14-59); AST 17 U/L (15-37); Alkaline Phosphatase 41 U/L (46-116); Anion Gap 7.9 mmol/L (3-11); BUN 16 mg/dL (7-18); Bilirubin, Total 1.1 mg/dL (0.2-1.0); CO2 28.1 mmol/L (21.0-32.0); CREATININE 1.09 mg/dL (0.55-1.02); Calcium 9.3 mg/dL (8.5-10.1); Chloride 101 mmol/L (98-107); Estimated GFR 48.67 (mL/min/1.73m2); Glucose 173 mg/dL (74-106); Potassium 3.9 mmol/L (3.5-5.1); Sodium 137 mmol/L (136-145)
[2020-03-23 12:43] LABS: Acetaminophen 20 ug/mL (10-30)
[2020-03-23 14:09] LABS: Bilirubin Negative (Negative); Blood Moderate (Negative); Clarity Clear (Clear); Glucose Negative (Negative); Ketones Negative (Negative); Leukocyte Esterase Small (Negative); Nitrite Negative (Negative); Specific Gravity 1.015 (1.005-1.025); Urobilinogen 0.2 EU/dL (Up TO 0.2)
--- NOTE | 2020-03-23 14:18 | DI.VRAD_ITS ---
PROCEDURE INFORMATION: Exam: CT Abdomen And Pelvis Without Contrast Exam date and time: 03/23/2020 12:49 PM Age: 79 years old Clinical indication: Abdominal pain; Patient HX: Pain, R/O stone vs infection TECHNIQUE: Imaging protocol: Computed tomography of the abdomen and pelvis without contrast. COMPARISON: 1. CT ABDOMEN PELVIS W 06/22/2019 4:[address] ABDOMEN PELVIS W 09/23/2018 1:19:[address] - ABD PELVIS WITH CONTRAST 09/18/2015 1:37:[address] - ABD PELVIS WITH CONTRAST 09/03/2015 3:06:05 PM FINDINGS: Liver: No mass. Gallbladder and bile ducts: Unremarkable. No ductal dilation. Pancreas: No acute findings. No ductal dilation. Spleen: Normal. No splenomegaly. Adrenals: Normal. No mass. Kidneys and ureters: See Retroperitoneal space finding. Stomach and bowel: No acute findings. No obstruction. No mucosal thickening. Appendix: No evidence of appendicitis. Intraperitoneal space: Unremarkable. No free air. No significant fluid collection. Retroperitoneal space: Stable right retroperitoneal calcification estimated at 5 x 6 mm along the course of the right ureter, unchanged in size or location. Small right upper pole renal calcification, possible minimal right caliectasis. No perinephric edema. Vasculature: No abdominal aortic aneurysm. Lymph nodes: No significant adenopathy. Bladder: Unremarkable as visualized. Reproductive: 5 cm left ovarian cyst, unchanged. Bones/joints: No acute findings. Soft tissues: Unremarkable. IMPRESSION: Findings consistent with nonobstructing proximal right ureteral calculus, unchanged in location. Recommend follow-up contrast-enhanced study and delayed images for further evaluation if indicated. Dictated and Authenticated by: Benny Felton MD. Ordering:ALCON Santa MD
[2020-03-23 14:21] LABS: Epithelial Cells Moderate HPF (Negative)
[2020-03-23 14:22] LABS: Bacteria Moderate HPF (Negative); C & S Indicated? No/Sq. Contamination; Casts Negative LPF (Negative); Crystals Negative HPF (Negative); Mucus Negative (Negative); Other Cells Few Renal (Negative)
--- NOTE | 2020-03-23 19:02 | NUR.NOTE ---
REFERRED TO PCP FOR A SOONER APPOINTMENT Nursing Note:
== END 2020-03-23 15:15 | disposition home or self-care (01) ==
PROVIDERS: Emergency Provider Registered Nurse Emergency; PCP Student in an Organized Health Care Education/Training Program
DX: R10.11 Right upper quadrant pain (principal); R54 Age-related physical debility; N20.0 Calculus of kidney; I48.91 Unspecified atrial fibrillation; I10 Essential (primary) hypertension
CPT/HCPCS: 36415; 80053; 87040; 96360; 96361; 99285; 74176; 80329; 81003; 81015; 83605; 85025; 99284

== ENCOUNTER 2020-04-06 03:46 | Outpatient (CLI) | payer MEDICARE, MEDICAID, SELFPAY ==
--- NOTE | 2020-04-06 06:30 | DI.US_ITS ---
EXAM: US RENAL CLINICAL HISTORY: monitor stone after ESWL,RT KIDNEY STONE,N20.0 TECHNIQUE: Ultrasound performed using standard protocol. COMPARISON: US US RENAL from 02/03/[address] ABDOMEN PELVIS WO from 03/23/2020 FINDINGS: The kidneys are normal in size and shape. There is no evidence of hydronephrosis. No intrarenal luanne cification seen. There is calcification in the left renal hilum, this correlates with arterial calci fication identified on recent CT. A proximal right ureteral calculus seen on prior CT is not appreci ated on this examination but would not be expected to be visualized on ultrasound. Urinary bladder is grossly unremarkable in appearance with pre and postvoid volume measurements 39 cc and 13 cc respectively. There are bilateral ureteral jets visualized. Incidental note is made of previously described left ovarian septated cyst, this is increased in size in comparison with prior studies, now measuring up to about 53 millimeters in diameter. Possibility of neoplastic disease not excluded. Biopsy should be considered to evaluate the possibility of neop lasm. IMPRESSION: No evidence of urinary tract obstruction. Interval increase in size of previously noted septated left ovarian cyst cystic mass, biopsy recommen ded due to increase in size in this postmenopausal patient. DATA REPOSITORY:
== END 2020-04-06 04:06 ==
PROVIDERS: PCP Student in an Organized Health Care Education/Training Program; Visit Provider Urology
DX: N20.0 Calculus of kidney (principal); N83.202 Unspecified ovarian cyst, left side; N95.1 Menopausal and female climacteric states; N20.1 Calculus of ureter
CPT/HCPCS: 76770; 99213

== ENCOUNTER 2020-05-15 09:31 | Inpatient (IN) | payer MEDICARE, MEDICAID, SELFPAY ==
[2020-05-15] VITALS (81 sets, daily range): BP systolic 108–175; BP diastolic 67–121; PULSE 65–149; RESP 14–30; TEMP 36.1–37.2; O2SAT 88–99
--- NOTE | 2020-05-15 09:39 | RT.EKG_ITS ---
APPROVED REPORT Exam: Resting ECG Patient Location: E HR:152 bpm ECG Measurements Heart Rate 152 AXIS WV [id number] P [id number] QRSd 82 QRS -21 QT 312 T 178 QTc 494 Conclusion Atrial fibrillation with rapid V-rate...A-rate 373 Repolarization abnormality, prob rate related...ST dep, T neg, tachycardia
--- NOTE | 2020-05-15 09:45 | DI.RAD_ITS ---
EXAM: XR PORTABLE CHEST AP CLINICAL HISTORY: rapid afib TECHNIQUE: COMPARISON: CR ABD FLAT UPRIGHT PA CHEST from 09/03/2015 FINDINGS: Portable AP chest was obtained. Heart is mildly enlarged. There is obscuration of the diaphragm irma aterally raising the possibility of bilateral pleural effusions. Mild prominence of pulmonary inters titial markings is noted in the lower lobes and perihilar areas particularly. IMPRESSION: Findings suggestive of mild CHF. Appropriate follow-up films requested. RADIATION DOSE DELIVERED: Total DLP
--- NOTE | 2020-05-15 10:10 | W.ED.GENAD ---
Discharge Plan Discharge Details Chief Complaint: Chest Pain Primary Care Provider: Miguelina Tilley ED Provider: Girma Jules Home Meds and New Rx's Prescriptions: No Action tumeric 500 mg capsule 500 mg PO BID RF: 0 albuterol sulfate [ProAir HFA] 90 mcg/actuation HFA aerosol inhaler 1 - 2 puff Inhalation Q4H PRN Qty: 2 RF: 4 atorvastatin 40 mg tablet 40 mg PO DAILY Qty: 90 RF: 3 calcium carb and citrate-vitD3 600 mg calcium- 500 unit tablet extended release 1 tab PO BID Qty: 180 RF: 3 epinephrine [EpiPen 2-Moe] 0.3 mg/0.3 mL auto-injector 0.3 mg IM ONCE Qty: 2 RF: 0 famotidine 40 mg tablet 40 mg PO DAILY Qty: 90 RF: 1 ipratropium-albuterol 0.5 mg-3 mg(2.5 mg base)/3 mL solution for nebulization 3 ml Inhalation Q3H PRN Qty: 90 RF: 4 metoprolol succinate 50 mg tablet extended release 24 hr 50 mg PO BID RF: 0 cetirizine 10 mg tablet 10 mg PO DAILY MDD 10mg Qty: 90 RF: 3 nitroglycerin [Nitrostat] 0.4 mg tablet, sublingual 0.4 mg Sublingual PRN Qty: 30 RF: 0 Mucinex 1,200 mg tablet extended release 12hr 1,200 mg PO BID Qty: 60 RF: 3 Protein Powder, Egg/Nut FREE 1 oz PO BID Qty: 1 RF: 0 magnesium citrate 125 mg capsule 250 mg PO DAILY RF: 0 (DME) Entrust Plus Briefs misc 1 ea Miscellaneous TID Qty: 132 RF: 12 (DME) sanitary pads pad See Dose Instructions .ROUTE .MEDSUPPLY Qty: 20 RF: 0 simethicone 125 mg capsule 125 mg PO BID PRN (Reason: abdominal distention) Qty: 60 RF: 3 multivitamin [Daily Vitamin] 1 EACH tablet 1 ea PO DAILY RF: 0 melatonin-pyridoxine HCl (B6) 1 EACH tablet,ext release multiphase 1 ea PO HS RF: 0 (DME) Adult Aerosol Mask 1 EACH misc 1 ea Miscellaneous DAILY Qty: 1 RF: 0 acetaminophen [Tylenol Arthritis] 650 mg tablet extended release 1,300 mg PO BID RF: 0 aspirin [Aspir-81] 81 mg tablet,delayed release (DR/EC) 81 mg PO DAILY Qty: 90 RF: 3 Advair HFA 230-21 mcg/actuation HFA aerosol inhaler 2 puff Inhalation BID Qty: 3 RF: 3 montelukast 10 mg tablet 10 mg PO HS Qty: 90 RF: 3 alum-mag hydroxide-simeth [Mylanta Maximum Strength] 400-400-40 mg/5 mL Suspension 15 ml PO TID PRNRF: 0 Medical Decision Making 79-year-old female presents from home with sensation of pounding in her chest over 1-1/2 days time. Associated with weakness. She does note a dry cough but no travel, known sick contacts, nor a fever or production of sputum. She has a history of A. fib, ASCVD, currently taking a baby aspirin, metoprolol (Eliquis has been discontinued due to epistaxis). She arrives to the ED pleasant and alert. She is somewhat hypertensive 175/117 and is in rapid A. fib with a pulse of 120-140. She is afebrile and otherwise well-appearing. Her exam is notable for rapid A. fib and mild tenderness in the epigastrium. Differential diagnosis includes rapid atrial fibrillation, gastritis, pancreatitis. Given her sinus pressure, elevated blood pressure, additional broad differential diagnosis considered. Records reviewed which note telehealth visit from March stating calcium channel devon had been discontinued. Patient IV access established, given 500 cc fluid bolus, increased AV federico blockade with metoprolol 5 mg x 2. Referred for laboratory testing, chest x-ray, CT scan of head and abdomen. Chest x-ray: Heart mildly enlarged, possible bilateral pleural effusions, prominent interstitial markings. Labs reveal a significantly high B[place] 9820. Initial troponin negative, lipase negative. Note of slightly low magnesium which was supplemented. Remainder of diagnostics: CT head without acute findings, CT abdomen notes pleural efusions, calcifications, ? gastritis, prev noted renal calculus, L adnexa cyst - see formal report. After standing from wheelchair to use the bathroom, the patient spiked her heart rate to greater than 160. She was given 10 mg of diltiazem with improvement of her pulse to 79. She does have mild hypoxia with room air sats that will drift down to 90% on room air. She was placed on supplemental oxygen as needed. She was given 10 mg of IV Lasix for initiation of diuresis. No recent note of echocardiogram. She does have a history of atherosclerotic coronary vascular disease. I feel she is best served by admission for diuresis, measurements of rate control, further re-stratification for ischemic event. ECG Data Attestation: I personally reviewed and interpreted this ECG (s) as follows: Interpretation: Atrial fibrillation with a ventricular rate approximately 150, the QRS is narrow, there is ST segment depressions/rate related repolarization abnormalities in the lateral leads. HPI General Mode of arrival: ambulatory. Date/Time Provider Initiated Documentation: 05/15/20 09:39. Limitations to Documentation: no limitations. Information obtained by: patient. History of Present Illness 79 year old F presents to the emergency department with the chief complaint of Chest pounding for 2 days, described as moderate, and is localized to the chest. Patient neck. Patient started experiencing this day(s) and it has been intermittent. No relieving factors improve symptom(s), No exacerbating factors reported . Patient notes loss of appetite and other (Feels sinus pressure. Had dry cough.). Patient did receive the following treatments prior to arrival, none Related Data Home Medications Medication Instructions Recorded Confirmed multivitamin [Daily Vitamin] 1 ea PO DAILY 12/31/12 05/15/20 melatonin-pyridoxine HCl (B6) 1 ea PO HS 12/11/15 05/15/20 Adult Aerosol Mask #1 ea 11/06/17 05/11/20 acetaminophen 650 mg 1,300 mg PO BID 03/16/19 05/15/20 tablet,extended release diaper,brief,adult,disposable #132 each 03/16/19 05/11/20 magnesium citrate 125 mg capsule 250 mg PO DAILY cap 03/16/19 05/15/20 sanitary pads #20 each 03/16/19 05/11/20 simethicone 125 mg capsule 125 mg PO BID PRN #60 cap 08/10/19 05/15/20 tumeric 500 mg PO BID 08/10/19 05/15/20 aspirin 81 mg tablet,delayed 81 mg PO DAILY #90 tab 12/01/19 05/15/20 release fluticasone propionate 230 2 puff INHALATION BID #3 inhaler 12/02/19 05/15/20 mcg-salmeterol 21 mcg/actuation HFA inhaler montelukast 10 mg tablet 10 mg PO HS #90 tab-cap 12/02/19 05/15/20 albuterol sulfate 90 mcg/actuation 1 - 2 puff INHALATION Q4H PRN #2 04/14/20 05/15/20 aerosol inhaler puff atorvastatin 40 mg tablet 40 mg PO DAILY #90 tab-cap 04/14/20 05/15/20 calcium carb,cit ER 600 mg 1 tab PO BID #180 tab 04/14/20 05/15/20 calcium-vit D3 500 unit tablet,ext.release epinephrine 0.3 mg/0.3 mL 0.3 mg IM ONCE #2 pen 04/14/20 05/15/20 injection, auto-injector famotidine 40 mg tablet 40 mg PO DAILY #90 tab 04/14/20 05/15/20 ipratropium 0.5 mg-albuterol 3 mg 3 ml INHALATION Q3H PRN #90 ml 04/14/20 05/15/20 (2.5 mg base)/3 mL nebulization soln metoprolol succinate 50 mg 50 mg PO BID tab 04/14/20 05/15/20 tablet,extended release 24 hr Protein Powder, Egg/Nut FREE 1 oz PO BID #1 each 05/11/20 05/15/20 cetirizine 10 mg tablet 10 mg PO DAILY #90 tab-cap MDD 10mg 05/11/20 05/15/20 guaifenesin 1,200 mg tablet, 1,200 mg PO BID #60 tab 05/11/20 05/15/20 extended release 12 hr nitroglycerin 0.4 mg sublingual 0.4 mg SUBLINGUAL PRN #30 tab-cap 05/11/20 05/15/20 tablet alum-mag hydroxide-simeth [Mylanta 15 ml PO TID PRN 05/15/20 05/15/20 Maximum Strength] Previous Rx's Medication Instructions Recorded Adult Aerosol Mask #1 ea 11/06/17 diaper,brief,adult,disposable #132 each 03/16/19 simethicone 125 mg capsule 125 mg PO BID PRN #60 cap 08/10/19 aspirin 81 mg tablet,delayed 81 mg PO DAILY #90 tab 12/01/19 release fluticasone propionate 230 2 puff INHALATION BID #3 inhaler 12/02/19 mcg-salmeterol 21 mcg/actuation HFA inhaler montelukast 10 mg tablet 10 mg PO HS #90 tab-cap 12/02/19 albuterol sulfate 90 mcg/actuation 1 - 2 puff INHALATION Q4H PRN #2 04/14/20 aerosol inhaler puff atorvastatin 40 mg tablet 40 mg PO DAILY #90 tab-cap 04/14/20 calcium carb,cit ER 600 mg 1 tab PO BID #180 tab 04/14/20 calcium-vit D3 500 unit tablet,ext.release epinephrine 0.3 mg/0.3 mL 0.3 mg IM ONCE #2 pen 04/14/20 injection, auto-injector famotidine 40 mg tablet 40 mg PO DAILY #90 tab 04/14/20 ipratropium 0.5 mg-albuterol 3 mg 3 ml INHALATION Q3H PRN #90 ml 04/14/20 (2.5 mg base)/3 mL nebulization soln Protein Powder, Egg/Nut FREE 1 oz PO BID #1 each 05/11/20 cetirizine 10 mg tablet 10 mg PO DAILY #90 tab-cap MDD 10mg 05/11/20 guaifenesin 1,200 mg tablet, 1,200 mg PO BID #60 tab 05/11/20 extended release 12 hr nitroglycerin 0.4 mg sublingual 0.4 mg SUBLINGUAL PRN #30 tab-cap 05/11/20 tablet Allergies Allergy/AdvReac Type Severity Reaction Status Date / Time Influenza Virus Vaccines Allergy Severe throat Verified 05/15/20 09:45 closed prednisone Allergy Severe throat Verified 05/15/20 09:45 swelling duloxetine HCl Allergy Intermediate sweat/throat Verified 05/15/20 09:45 [From Cymbalta] tight egg Allergy Intermediate Swelling/Ed Verified 05/15/20 09:45 shoshana Penicillins Allergy Intermediate swelling/choked Verified 05/15/20 09:45 up Sulfa (Sulfonamide Allergy Intermediate swelling Verified 05/15/20 09:45 Antibiotics) tetracycline Allergy Unknown unknown Verified 05/15/20 09:45 tramadol Allergy Verified 05/15/20 09:45 morphine AdvReac Severe HR Verified 05/15/20 09:45 dropped/BP high ciprofloxacin [From Cipro] AdvReac Intermediate AGITATION Verified 05/15/20 09:45 diclofenac AdvReac Intermediate confusion, Verified 05/15/20 09:45 night terrors, dizziness gabapentin AdvReac Intermediate Dizziness Verified 05/15/20 09:45 & Sedation hyoscyamine AdvReac Intermediate lightheaded Verified 05/15/20 09:45 lisinopril AdvReac Intermediate Uvula Verified 05/15/20 09:45 Swelling mirtazapine AdvReac Intermediate throat Verified 05/15/20 09:45 discomfort, feeling tired, nauseated nortriptyline AdvReac Intermediate Verified 05/15/20 09:45 homatropine [From Hycodan] AdvReac Mild Loopy Verified 05/15/20 09:45 hydrocodone bitartrate AdvReac Mild Loopy Verified 05/15/20 09:45 [From Hycodan] lidocaine AdvReac Mild Skin Verified 05/15/20 09:45 sensitivity/Rash trazodone AdvReac Unknown Dizzy, Verified 05/15/20 09:45 weak and hallucinations cephalexin monohydrate AdvReac ?LE Verified 05/15/20 09:45 [From Keflex] weakness nuts Allergy Intermediate Swelling/Ed Uncoded 05/15/20 09:45 shoshana peanut butter AdvReac Intermediate Swelling/Ed Uncoded 05/15/20 09:45 shoshana General Stated Complaint: Chest Pain DELVIN: 2 Review of Systems Narrative: History of Pamela morales, not currently anticoagulated, lives alone with dog with her son close by. No syncope. Does feel weakness. 8 systems reviewed and otherwise negative. See HPI [facility] Medical History Anaphylaxis (Acute) Recent closing of throat, presume nut in premade soup. Hx anaphylxs and allergic rxns. ASCVD (arteriosclerotic cardiovascular disease) Asthma (Chronic 12/31/12) Spirometry 01/07/13 Mild obstructive airway disease with significant bronchodilator response Atrial fibrillation (Chronic) CVA (cerebral vascular accident) Dyslipidemia (Chronic) Gastroesophageal reflux disease (Chronic 09/12/15) HTN (hypertension) Lesion of skin of face (Acute) Nonhealing lesion, rt cheek. Hx seeing Dr. Valderrama. Ovarian cyst, complex (Acute) Left septated ov cyst .. Est 1cm 6-month growth. 53mm (03/2020) <-- 6 (01/2020) cm <-- 4.5 cm (09/2019) per US. Surgical History Coronary Stent x5 at [facility] 1990s History of section (Chronic) History of colonoscopy (Chronic) History of tubal ligation (Chronic) TOT (Incontinence sling) Social History Smoking/Tobacco Use Status: Never Alcohol Intake: never Drug use: Never Substance use type: does not use Current gender identity: female Do you feel safe at home: No (sometimes) Additional Social history: Pt. states she doesn't feel safe at home because of her neighbors, pt. states they're druggies, I lock my door and sit near my phone Followed up with Rabia Shen regarding this statement. ONEAL states she has a degree of paranoia and she always has, she lives in a very safe neighborhood, and has a number of neighbors who watch out for her and stop by to check on her as well. She has had a very tulmultuous past with her ex- who has since , where she didn't feel safe, and she has never truly gotten over that, and she also had a long-term live in boyfriend who three years ago, who was added security, so she doesn't have that anymore. ONEAL also stated that she prefers to have her house locked up when she is there all the time to feel safe, but in the same respect she feels safe enough to go for a 20 minute walk in the neighborhood with a neighbor, ONEAL states that there is some disconnect there in addition to her medical issues. Care management Tana, was informed of this statement, and will F/U PRN. Exam Narrative Exam Narrative: GEN: awake, alert, oriented 3. Pleasant, well groomed, interactive. HEAD: Normocephalic, atraumatic ENT: Mucous membranes moist, oropharynx unremarkable, External ear exam unremarkable EYES: PERRL, EOMI NECK: Full ROM, no BHAKTI, no menigismus CHEST/RESP: Nontender, clear to auscultation bilateral with question rales at bases CARDIOVASCULAR: Tachycardic, irregularly irregular, no murmur, rub gisselle. 2+ Rad pulse bilateral ABDOMEN: Soft, tender in the epigastrium, no mass. +Bowel sounds EXT: Full ROM, no edema, no rash Neuro: Grossly normal neurologic exam, conversant, interactive. Psych: Speech fluent, thoughts congruent, affect normal Course Vital Signs Vital signs: Vital Signs Temperature 36.1 C L 05/15/20 09:40 Pulse 146 H 05/15/20 09:40 Respiratory Rate 23 05/15/20 09:40 Blood Pressure 175/117 H 05/15/20 09:40 Temperature 36.1 C L 05/15/20 09:40 Temperature Source Skin 05/15/20 09:40 Pulse 146 H 05/15/20 09:40 Respiratory Rate 23 05/15/20 09:40 Respiratory Effort Non-Labored 05/15/20 10:01 Blood Pressure 175/117 H 05/15/20 09:40 Blood Pressure Position Sitting 05/15/20 09:40 Oxygen Delivery Method Room Air 05/15/20 09:40 Oxygen Flow Rate 0 05/15/20 09:40
[2020-05-15] MEDS: Metoprolol 5 MG/5 ML VIAL IVP (10:14)
[2020-05-15 10:15] LABS: Abs Immature Grans 0.03 10^3/uL (0.0-0.06); Absolute Basophil Count 0.03 10^3/uL (0.0-0.2); Absolute Eosinophil Count 0.05 10^3/uL (0.0-0.7); Absolute Lymphocyte Count 1.12 10^3/uL (1.2-3.4); Absolute Monocyte Count 0.61 10^3/uL (0.1-0.8); Absolute Neutrophil Count 5.53 10^3/uL (1.2-6.7); Basophils % 0.4; Eosinophils % 0.7; HCT 35.2 % (36.0-46.0); HGB 11.9 g/dL (11.2-15.7); Immature Grans % 0.4; Lymphocytes % 15.2; MCH 32.8 pg (27.0-33.0); MCHC 33.8 % (32.0-36.0); Monocytes % 8.3; Nucleated RBC 0 %; Platelet Count 190 10^3/uL (130-400); RBC 3.63 10^6/uL (3.93-5.22); RDW 13.7 % (11.7-14.6); WBC 7.37 10^3/uL (4.4-10.8)
[2020-05-15] MEDS: Normal Saline 500 ML IV (10:21)
[2020-05-15 10:30] LABS: INR 1.1 (0.9-1.1); PTT Activated 23.6 sec (21.0-31.4); Prothrombin Time 11.3 sec (9.3-11.0)
[2020-05-15] MEDS: Metoprolol 5 MG/5 ML VIAL (10:36)
[2020-05-15 10:43] LABS: Lipase 35 U/L (73-393)
--- NOTE | 2020-05-15 10:45 | DI.CT_ITS ---
EXAM: CT HEAD WO CLINICAL HISTORY: frontal pressure (sinus), HTN TECHNIQUE: COMPARISON: No exams were available for comparison FINDINGS: There is moderate generalized cerebral atrophy. There are areas of decreased attenuation involving r ight basal ganglia and left occipital lobe consistent with old infarcts. There is no evidence of acu te intracranial hemorrhage, mass effect, or midline shift. The orbital and temporal bone structures appear intact. Visualized mastoid air cells and paranasal sinuses appear clear. IMPRESSION: No evidence of acute intracranial process. RADIATION DOSE DELIVERED: 1,245.56mGy.cm Total DLP
--- NOTE | 2020-05-15 10:46 | DI.CT_ITS ---
EXAM: CT ABDOMEN PELVIS W CLINICAL HISTORY: epigastric pain,rapid afib. TECHNIQUE: COMPARISON: CT CT ABDOMEN PELVIS WO from 03/23/2020 CR XR PORTABLE CHEST AP from 05/15/2020 FINDINGS: CT examination of the abdomen and pelvis was performed with intravenous infusion of 66 cc of Omnipaqu e 350. Note is made large bilateral pleural effusions and mild dependent bilateral pulmonary edema c onsistent with CHF. There are extensive coronary artery calcifications. There are extensive calcifi cations of thoracic aorta and major visceral vessels, probable high-grade stenosis right renal artery proximally. Spleen and liver are grossly unremarkable. Pancreas appears intact although atrophic. Gastric wall is questionably thickened, correlate clinically regarding any possibility of gastritis. Gallbladder and bile ducts are CT normal. No abdominal or pelvic adenopathy. No significant abdominal wall hernia. Appendix is not specifically visualized but there is no evidence of appendicitis or diverticulitis. No evidence of bowel obstruction. Left adnexal low-attenuation lesion again noted consistent with septated cyst as seen on multiple tiff or studies, this shows again interval increase in size now measuring 5.8 cm in diameter. IMPRESSION: Bilateral pleural effusions and dependent pulmonary edema consistent with CHF. Possible gastric wall thickening, correlate clinically with possibility of gastritis. Interval increase in size of left adnexal mass previously noted to represent a septated cyst on ultra sound. Correlation with biopsy should be considered. RADIATION DOSE DELIVERED: Total DLP
[2020-05-15 10:51] LABS: ALT 23 U/L (14-59); AST 17 U/L (15-37); Albumin 3.8 g/dL (3.4-5.0); Alkaline Phosphatase 48 U/L (46-116); Anion Gap 6.3 mmol/L (3-11); BUN 12 mg/dL (7-18); Bilirubin, Total 1.1 mg/dL (0.2-1.0); CO2 26.7 mmol/L (21.0-32.0); CREATININE 0.78 mg/dL (0.55-1.02); Calcium 9.4 mg/dL (8.5-10.1); Chloride 103 mmol/L (98-107); Glucose 151 mg/dL (74-106); Magnesium 1.6 mg/dL (1.8-2.4); NT-proBNP 9820 pg/mL (<300); Potassium 3.4 mmol/L (3.5-5.1); Sodium 136 mmol/L (136-145); Total Protein 6.6 g/dL (6.4-8.2); Troponin I < 0.05 ng/mL (<0.06)
--- NOTE | 2020-05-15 11:15 | RT.EKG_ITS ---
APPROVED REPORT Exam: Resting ECG Patient Location: E HR:107 bpm ECG Measurements Heart Rate 107 AXIS DE [id number] P [id number] QRSd 85 QRS -31 QT 378 T [id number] QTc 504 Conclusion Atrial fibrillation, rate 107, improved lateral st depr
[2020-05-15 11:20] LABS: Bilirubin Negative (Negative); Blood Trace-intact (Negative); Clarity Clear (Clear); Glucose Negative (Negative); Ketones Negative (Negative); Leukocyte Esterase Trace (Negative); Nitrite Negative (Negative); Urobilinogen 0.2 EU/dL (Up TO 0.2)
[2020-05-15] MEDS: dilTIAZem 25 MG/5 ML VIAL 10 MG IVP (11:27)
[2020-05-15 11:31] LABS: Bacteria Rare HPF (Negative); C & S Indicated? No; Casts 0-2 Hyaline LPF (Negative); Crystals Negative HPF (Negative); Epithelial Cells Few HPF (Negative); Mucus Negative (Negative); RBC 0-2 HPF (0-2)
[2020-05-15] MEDS: MAGNESIUM SULFATE 1 GM/100 ML BAG IVPB (11:39)
[2020-05-15] MEDS: Furosemide 20 MG/2 ML VIAL 10 MG IVP (12:08)
--- NOTE | 2020-05-15 12:54 | NUR.NOTE ---
Nursing Note: Spoke to patients daughter in law Hermelinda Harris via telephone who is involved in patients care and helps with medications. Hermelinda relays that patient has noted cognitive issues that's not formerly diagnosed yet. Has a hard time remembering to use her walker, lives alone with frequent family close by who checks in. Patient is very sensitive to medications, only able to tolerate acetaminophen or ketorolac for pain. Hermelinda is a nurse and would like to be included in all discharge planning and medication changes, as she helps with her medications at home. She states she can be reached any time day or night at [phone]
[2020-05-15] MEDS: Omnipaque 350 MG/ML 100 ML BTL 66 ML IJ (13:04)
[2020-05-15 13:51] LABS: Troponin I < 0.05 ng/mL (<0.06)
[2020-05-15] MEDS: dilTIAZem 125 MG in Normal Saline 100 ML IV (14:00)
--- NOTE | 2020-05-15 16:02 | HPE_ITS ---
Date of service: 05/15/20 Time of Service: 16:02 Assessment and Plan Assessment and plan (1) Atrial fibrillation with RVR: Status: Acute Assessment and plan: Control her A. fib rate with IV diltiazem and or oral metoprolol. Patient has been placed on Lovenox although it sounds like long- term she is not a good candidate for anticoagulation between her dementia and her prior epistaxis which had required cauterization. (2) Heart failure with reduced ejection fraction due to cardiomyopathy: Status: Acute Assessment and plan: Patient is clinically in acute congestive heart failure with an exacerbation of her cardiomyopathy precipitated by her rapid atrial fibrillation and valvular heart disease. proBNP is nearly 10,000 and her chest x-ray as well as her [id number] ultrasound demonstrate bilateral pleural effusions and bilateral B-lines consistent with CHF. For now we will diurese her with a Lasix drip get her atrial fibrillation rate under control and cycle her troponin levels to rule out acute coronary event. (3) Coronary artery disease: Status: Acute Assessment and plan: While her EKG demonstrates some lateral ST changes this may be rate related ischemic changes so far her troponins are negative and she is not currently having any chest pressure or heaviness. She is actually feeling somewhat better since her rates been controlled. We will continue to cycle her troponin levels and check an echocardiogram in the morning. Given her comorbidities including her dementia I am not sure she would be a good candidate for revascularization. Qualifiers: Coronary Disease-Associated Artery/Lesion type: [place] artery [place] vs. transplanted heart: [place] heart Associated angina: without angina Qual ified Code(s): I25.10 - Atherosclerotic heart disease of [place] coronary artery without angina pectoris (4) Gastroesophageal reflux disease: Status: Chronic Assessment and plan: Continue her home dose of Pepcid. (5) Asthma: Status: Chronic Assessment and plan: Continue her montelukast may use an aerosolized bronchodilator PRN although I think I will use Xopenex at a low dose rather than her albuterol in order to prevent exacerbation of her A. fib. Presently she does not seem to need a bronchodilator as she is not acutely wheezing Qualifiers: Asthma severity: moderate Asthma persistence: persistent Asthma complication type: uncomplicated Qualified Code(s): J45.40 - Moderate persistent asthma, uncomplicated History of Present Illness History of Present Illness Chief Complaint: palpitations, CP Narrative: 79-year-old female with history of chronic atrial fibrillation, p revious CVA, GERD, hypertension, coronary artery disease status post previous coronary stent, history of cognitive memory impairment, nephrolithiasis, asthma presents to the emergency department today with symptoms of shortness of breath that is been going on for at least several days. She recently saw her PCP for follow-up of an alleged anaphylactic type reaction which she had acute dyspnea that she thought was secondary to some knots in a premade soup for which she used her nebulizers with some relief but incomplete relief. On today's visit she was noting a sensation of pounding in her chest along with generalized weakness and shortness of breath. Upon arrival to emergency department she was in rapid atrial fibrillation with a heart rate in the 120s-140s and hypertensive with blood pressure 175/117. EKG confirmed that she was in rapid atrial fibrillation and she was given a 500 cc bolus of fluid and given metoprolol 5 mg x 2 doses intravenously with no resulting decrease her heart rate so she was given diltiazem 10 mg with a subsequent decline her pulse to 79 bpm she was noted to be mildly hypoxemic with oxygen saturation of 90% on room air was given supplemental oxygen. With a chest x-ray confirmed cardiomegaly and bilateral pleural effusions and increased interstitial markings and her proBNP was elevated at 9800 she was subsequently given IV Lasix met 10 mg. Initial t roponin level was negative. EKG demonstrated atrial fibrillation at a rate of [address] depression in limb lead I, and V4 through V6. She had some occasional PVCs follow-up ECG showed her rate was down to 107 bpm still atrial fibrillation still with persistent lateral ST depression. Electrolytes demonstrated low magnesium of 1.6 and potassium 3.4. Repeat troponin was also negative. When the patient try to get up and ambulate within the ER department she went back into rapid atrial fibrillation and required diltiazem drip. She is now admitted to the intensive care unit on a diltiazem drip at 5 mg an hour and a Lasix drip to treat her heart failure. Review of her cardiology consult notes from April 11, 2020 reveals that she has coronary artery disease with a remote PCI although the specific vessel does not mention. He also indicates she had previous cardiac surgery in 2009 with a Maze and left atrial appendage excision. She has a cardiomyopathy with a left ventricular ejection fraction 45 to 50% and a sending aortic aneurysm of 40 mm as of 2019. During her cardiology visit from April 11, 2020 they recommend continued aspirin and statin therapy but she is no longer on anticoagulation because of recurrent nosebleeds. Her metoprolol extended release was increased to 50 mg twice a day because of chronic atrial fibrillation. Because of the increase in metoprolol her amlodipine was discontinued at that visit. She was seen by Dr. Overton on April 11, 2020 at [facility]. Patient is planning to transfer over to [facility] cardiology with Dr. Granados. Also note on her last echocardiogram from August 17, 2019 she has significant valvular heart disease including moderate mitral regurgitation and moderate tricuspid regurgitation. Review of Systems All systems reviewed & are unremarkable except as noted in HPI and below [facility] Medical History (Updated 05/15/20 @ 17:19 by Wilfrid Villareal) Anaphylaxis (Acute) Recent closing of throat, presume nut in premade soup. Hx anaphylxs and allergic rxns. ASCVD (arteriosclerotic cardiovascular disease) Asthma (Chronic 12/31/12) Spirometry 01/07/13 Mild obstructive airway disease with significant bronchodilator response Atrial fibrillation (Chronic) CVA (cerebral vascular accident) Dyslipidemia (Chronic) Gastroesophageal reflux disease (Chronic 09/12/15) History of cardiomyopathy (Acute) Per echocardiogram 08/17/2019-normal LV size, mildly decreased LV systolic function with normal LV wall thickness with slight sigmoid septum. Normal segmental wall motion. LVEF 45-50%. RV systolic function low normal but normal size. Moderately dilated left atrium, moderately dilated right atrium, thickened aortic valve without stenosis and no aortic insufficiency. Mild MAC with moderate mitral regurgitation and no mitral valve stenosis. Moderate tricuspid regurgitation. RVSP 28-34 mm. Ascending aorta mild to moderately dilated 4 cm. HTN (hypertension) Lesion of skin of face (Acute) Nonhealing lesion, rt cheek. Hx seeing Dr. Valderrama. Ovarian cyst, complex (Acute) Left septated ov cyst .. Est 1cm 6-month growth. 53mm (03/2020) <-- 6 (01/2020) cm <-- 4.5 cm (09/2019) per US. Surgical History Coronary Stent x5 at [facility] 1990s History of section (Chronic) History of colonoscopy (Chronic) History of tubal ligation (Chronic) TOT (Incontinence sling) Social History Smoking/Tobacco Use Status: Never Alcohol Intake: never Drug use: Never Substance use type: does not use Current gender identity: female Do you feel safe at home: No (sometimes) Additional Social history: Pt. states she doesn't feel safe at home because of her neighbors, pt. states they're druggies, I lock my door and sit near my phone Followed up with Rabia Shen regarding this statement. ONEAL states she has a degree of paranoia and she always has, she lives in a very safe neighborhood, and has a number of neighbors who watch out for her and stop by to check on her as well. She has had a very tulmultuous past with her ex- who has since , where she didn't feel safe, and she has never truly gotten over that, and she also had a long-term live in boyfriend who three years ago, who was added security, so she doesn't have that anymore. ONEAL also stated that she p refers to have her house locked up when she is there all the time to feel safe, but in the same respect she feels safe enough to go for a 20 minute walk in the neighborhood with a neighbor, ONEAL states that there is some disconnect there in addition to her medical issues. Care management Tana, was informed of this statement, and will F/U PRN. Meds Home Medications and Allergies Home Medications Medication Instructions Recorded Confirmed Type multivitamin [Daily Vitamin] 1 ea PO DAILY 12/31/12 05/15/20 History melatonin-pyridoxine HCl (B6) 1 ea PO HS 12/11/15 05/15/20 History Adult Aerosol Mask #1 ea 11/06/17 05/11/20 Rx acetaminophen 650 mg 1,300 mg PO BID 03/16/19 05/15/20 History tablet,extended release diaper,brief,adult,disposable #132 each 03/16/19 05/11/20 Rx magnesium citrate 125 mg capsule 250 mg PO DAILY cap 03/16/19 05/15/20 History sanitary pads #20 each 03/16/19 05/11/20 History simethicone 125 mg capsule 125 mg PO BID PRN #60 cap 08/10/19 05/15/20 Rx tumeric 500 mg PO BID 08/10/19 05/15/20 History aspirin 81 mg tablet,delayed 81 mg PO DAILY #90 tab 12/01/19 05/15/20 Rx release fluticasone propionate 230 2 puff INHALATION BID #3 inhaler 12/02/19 05/15/20 Rx mcg-salmeterol 21 mcg/actuation HFA inhaler montelukast 10 mg tablet 10 mg PO HS #90 tab-cap 12/02/19 05/15/20 Rx albuterol sulfate 90 mcg/actuation 1 - 2 puff INHALATION Q4H PRN #2 04/14/20 05/15/20 Rx aerosol inhaler puff atorvastatin 40 mg tablet 40 mg PO DAILY #90 tab-cap 04/14/20 05/15/20 Rx calcium carb,cit ER 600 mg 1 tab PO BID #180 tab 04/14/20 05/15/20 Rx calcium-vit D3 500 unit tablet,ext.release epinephrine 0.3 mg/0.3 mL 0.3 mg IM ONCE #2 pen 04/14/20 05/15/20 Rx injection, auto-injector famotidine 40 mg tablet 40 mg PO DAILY #90 tab 04/14/20 05/15/20 Rx ipratropium 0.5 mg-albuterol 3 mg 3 ml INHALATION Q3H PRN #90 ml 04/14/20 05/15/20 Rx (2.5 mg base)/3 mL nebulization soln metoprolol succinate 50 mg 50 mg PO BID tab 04/14/20 05/15/20 History tablet,extended release 24 hr Protein Powder, Egg/Nut FREE 1 oz PO BID #1 each 05/11/20 05/15/20 Rx cetirizine 10 mg tablet 10 mg PO DAILY #90 tab-cap MDD 10mg 05/11/20 05/15/20 Rx guaifenesin 1,200 mg tablet, 1,200 mg PO BID #60 tab 05/11/20 05/15/20 Rx extended release 12 hr nitroglycerin 0.4 mg sublingual 0.4 mg SUBLINGUAL PRN #30 tab-cap 05/11/20 05/15/20 Rx tablet alum-mag hydroxide-simeth [Mylanta 15 ml PO TID PRN 05/15/20 05/15/20 History Maximum Strength] Allergies Allergy/AdvReac Type Severity Reaction Status Date / Time Influenza Virus Vaccines Allergy Severe throat Verified 05/15/20 09:45 closed prednisone Allergy Severe throat Verified 05/15/20 09:45 swelling duloxetine HCl Allergy Intermediate sweat/throat Verified 05/15/20 09:45 [From Cymbalta] tight egg Allergy Intermediate Swelling/Ed Verified 05/15/20 09:45 shoshana Penicillins Allergy Intermediate swelling/choked Verified 05/15/20 09:45 up Sulfa (Sulfonamide Allergy Intermediate swelling Verified 05/15/20 09:45 Antibiotics) tetracycline Allergy Unknown unknown Verified 05/15/20 09:45 tramadol Allergy Verified 05/15/20 09:45 morphine AdvReac Severe HR Verified 05/15/20 09:45 dropped/BP high ciprofloxacin [From Cipro] AdvReac Intermediate AGITATION Verified 05/15/20 09:45 diclofenac AdvReac Intermediate confusion, Verified 05/15/20 09:45 night terrors, dizziness gabapentin AdvReac Intermediate Dizziness Verified 05/15/20 09:45 & Sedation hyoscyamine AdvReac Intermediate lightheaded Verified 05/15/20 09:45 lisinopril AdvReac Intermediate Uvula Verified 05/15/20 09:45 Swelling mirtazapine AdvReac Intermediate throat Verified 05/15/20 09:45 discomfort, feeling tired, nauseated nortriptyline AdvReac Intermediate Verified 05/15/20 09:45 homatropine [From Hycodan] AdvReac Mild Loopy Verified 05/15/20 09:45 hydrocodone bitartrate AdvReac Mild Loopy Verified 05/15/20 09:45 [From Hycodan] lidocaine AdvReac Mild Skin Verified 05/15/20 09:45 sensitivity/Rash trazodone AdvReac Unknown Dizzy, Verified 05/15/20 09:45 weak and hallucinations cephalexin monohydrate AdvReac ?LE Verified 05/15/20 09:45 [From Keflex] weakness nuts Allergy Intermediate Swelling/Ed Uncoded 05/15/20 09:45 shoshana peanut butter AdvReac Intermediate Swelling/Ed Uncoded 05/15/20 09:45 shoshana Exam Narrative Exam Narrative: Thin elderly female in no acute distress. Not using accessory respiratory muscles. She is alert she is oriented to person and place questionable orientation to time. She seems to be mildly confused. HEENT unremarkable. Neck is supple no overt JVD no thyromegaly Lungs with bibasilar rales no wheezes or rhonchi at Heart is irregularly irregular but controlled rate with a murmur over the apex holosystolic Abdomen scaphoid soft and nontender no palpable masses no bruits Lower extremities without peripheral cyanosis or edema she has normal pedal pulses. Neurologic exam patient is mildly confused seems to be focused on getting home to her pug dog [place], she has normal range of motion normal facial mimetic muscle movement normal extraocular motion no facial asymmetry normal strength in both upper and lower extremities. Sensation intact light touch Results Labs Result diagrams: 05/15/20 09:45 05/15/20 09:45 Labs: Laboratory Results - last 24 hr 05/15/20 05/15/20 05/15/20 09:45 09:45 09:45 WBC 7.37 RBC 3.63 L Hgb 11.9 Hct 35.2 L MCV 97.0 H MCH 32.8 MCHC 33.8 RDW 13.7 Plt Count 190 MPV 11.0 Immature Gran % 0.4 Neutrophils % 75.0 Lymphocytes % 15.2 Monocytes % 8.3 Eosinophils % 0.7 Basophils % 0.4 Nucleated RBC % 0 Absolute Neutrophils 5.53 Absolute Lymphocytes 1.12 L Absolute Monocytes 0.61 Absolute Eosinophils 0.05 Absolute Basophils 0.03 PT 11.3 H INR 1.1 APTT 23.6 Sodium 136 Potassium 3.4 L Chloride 103 Carbon Dioxide 26.7 Anion Gap 6.3 BUN 12 Creatinine 0.78 Estimated GFR/1.73 m2 >= 60.00 Glucose 151 H Calcium 9.4 Magnesium 1.6 L Total Bilirubin 1.1 H AST 17 ALT 23 Alkaline Phosphatase 48 Troponin I < 0.05 NT-Pro-B Natriuret Pep 9820 H Total Protein 6.6 Albumin 3.8 Lipase Urine Color Urine Clarity Urine pH Ur Specific [place] Urine Protein Urine Ketones Urine Blood Urine Nitrite Urine Bilirubin Urine Urobilinogen Ur Leukocyte Esterase Urine RBC Urine WBC Ur Epithelial Cells Urine Crystals Urine Bacteria Urine Casts Urine Mucus Ur Culture Indicated? Urine Glucose 05/15/20 05/15/20 05/15/20 09:45 11:05 13:30 WBC RBC Hgb Hct MCV MCH MCHC RDW Plt Count MPV Immature Gran % Neutrophils % Lymphocytes % Monocytes % Eosinophils % Basophils % Nucleated RBC % Absolute Neutrophils Absolute Lymphocytes Absolute Monocytes Absolute Eosinophils Absolute Basophils PT INR APTT Sodium Potassium Chloride Carbon Dioxide Anion Gap BUN Creatinine Estimated GFR/1.73 m2 Glucose Calcium Magnesium Total Bilirubin AST ALT Alkaline Phosphatase Troponin I < 0.05 NT-Pro-B Natriuret Pep Total Protein Albumin Lipase 35 Urine Color Yellow Urine Clarity Clear Urine pH 7.0 Ur Specific [place] 1.020 Urine Protein Trace H Urine Ketones Negative Urine Blood Trace-intact H Urine Nitrite Negative Urine Bilirubin Negative Urine Urobilinogen 0.2 Ur Leukocyte Esterase Trace H Urine RBC 0-2 Urine WBC 3-5 Ur Epithelial Cells Few Urine Crystals Negative Urine Bacteria Rare Urine Casts 0-2 hyaline Urine Mucus Negative Ur Culture Indicated? No Urine Glucose Negative Last Vital Signs Temp 37.2 C 05/15/20 14:57 Pulse 65 05/15/20 15:31 Resp 24 05/15/20 15:31 BP 129/90 05/15/20 15:31 Pulse Ox 98 05/15/20 15:31 COVID-19 Screening Have you,or household,traveled outside [place] in last 14 days?: NO Had IN PERSON contact w/suspected or confirmed C-19 person: No
[2020-05-15] MEDS: Potassium Chloride 20 MEQ TABCR 40 MEQ PO (16:03)
[2020-05-15] MEDS: Normal Saline Flush 10 ML SYR IVP (16:03)
[2020-05-15] MEDS: Enoxaparin 40 MG/0.4 ML SYR SC (16:19)
[2020-05-15] MEDS: Normal Saline 500 ML 10 ML IV (17:15)
[2020-05-15 18:34] LABS: Troponin I 0.08 ng/mL (<0.06)
[2020-05-15] MEDS: Potassium Chloride Liquid 20 MEQ PKT PO (20:14)
[2020-05-15] MEDS: Metoprolol CR 50 MG TABCR PO (20:14)
[2020-05-15] MEDS: Magnesium Oxide 400 MG TAB 800 MG PO (20:15)
[2020-05-15] MEDS: Calcium 600mg/Vit D 200U TAB 1 TAB PO (20:15)
[2020-05-15] MEDS: Montelukast 10 MG TAB PO (21:41)
[2020-05-15] MEDS: Melatonin 3 MG TAB 9 MG PO (21:42)
[2020-05-15 22:01] LABS: Troponin I 0.07 ng/mL (<0.06)
[2020-05-16] VITALS (61 sets, daily range): BP systolic 111–149; BP diastolic 59–101; PULSE 68–126; RESP 15–32; TEMP 36.3–37.5; O2SAT 91–99
[2020-05-16] MEDS: Enoxaparin 40 MG/0.4 ML SYR SC ×2 (04:17→09:56)
[2020-05-16] MEDS: Potassium Chloride Liquid 20 MEQ PKT PO ×4 (08:13→19:13)
[2020-05-16] MEDS: Magnesium Oxide 400 MG TAB 800 MG PO ×2 (08:15→19:13)
[2020-05-16 08:16] LABS: Abs Immature Grans 0.03 10^3/uL (0.0-0.06); Absolute Basophil Count 0.02 10^3/uL (0.0-0.2); Absolute Eosinophil Count 0.13 10^3/uL (0.0-0.7); Absolute Lymphocyte Count 1.33 10^3/uL (1.2-3.4); Absolute Monocyte Count 0.72 10^3/uL (0.1-0.8); Absolute Neutrophil Count 4.12 10^3/uL (1.2-6.7); Basophils % 0.3; HCT 36.2 % (36.0-46.0); HGB 12.3 g/dL (11.2-15.7); Immature Grans % 0.5; Lymphocytes % 20.9; MCH 32.9 pg (27.0-33.0); MCV 96.8 fL (80-95); MPV 11.1 fL (8.0-11.0); Monocytes % 11.3; Nucleated RBC 0 %; Platelet Count 185 10^3/uL (130-400); RBC 3.74 10^6/uL (3.93-5.22); RDW 13.9 % (11.7-14.6); RDW-SD 48.9 fL; WBC 6.35 10^3/uL (4.4-10.8)
[2020-05-16] MEDS: Aspirin E.C. 81 MG TABEC PO (08:16)
[2020-05-16] MEDS: Cetirizine 10 MG TAB PO (08:16)
[2020-05-16] MEDS: Metoprolol CR 100 MG TABCR PO ×2 (08:16→19:13)
[2020-05-16] MEDS: Famotidine 20 MG TAB PO (08:16)
[2020-05-16] MEDS: Calcium 600mg/Vit D 200U TAB 1 TAB PO ×2 (08:16→19:13)
[2020-05-16] MEDS: Losartan 25 MG TAB PO (08:17)
[2020-05-16] MEDS: Multivitamin TAB 1 TAB PO (08:19)
[2020-05-16] MEDS: Atorvastatin 40 MG TAB PO (08:19)
--- NOTE | 2020-05-16 08:25 | INITIAL_ITS ---
- If Service Date Differs Date of service: 05/16/20 Time of Service: 08:25 Care Management Initial Assess REASON FOR HOSPITALIZATION:: Afib, CHF PAST MEDICAL HISTORY/PAST SURGICAL HISTORY:: Asthma, atrial fib, anaphylaxis to nuts, CVA, dyslipemia, GERD, cardiomyopathy, HTN, skin lesion face, ovarian cyst. Surgical hx: cardiac stent, csection, tubal ligation, bladder sling. PREVIOUS FUNCTIONAL STATUS/SOCIAL/FAMILY SUPPORTS:: Ellen lives alone in [place], [place] she states she has several brothers and sisters. Her son and daughter in law live within two miles from the home, they provider her transportion to and from appointments. She states she has a walker at home and home health services that assist. CURRENT FUNCTIONAL STATUS:: Ellen is engaged she smiles often during assessment, she does appear confused about her LOS here at the hospital she believes she has been here for 5 days. She states she is feeling better she has been changed to oral medications anticipate she will transition to acute level of care from ICU. CM will contact her daughter in law to determined level of care outside the hospital and community supports. ADVANCE DIRECTIVES:: On file [employer] and Dm are listed agents Has patient been provided with info about the portal/API?: Yes Did the patient sign up for the portal?: No CODE STATUS:: Full Code INSURANCE COVERAGE / FINANCIAL ISSUES:: Medicare and Medicaid CURRENT HOME/COMMUNITY SERVICES/EQUIPMENT:: [facility] care moderate needs, home making services she may need home health nursing. She does have a FWW. PRIMARY CARE PHYSICIAN:: Miguelina Tilley POTENTIAL DISCHARGE NEEDS:: Follow up with primary care she may need new home health services for nursing r/t new mediations, prevention and early intervention r/t afib and CHF. PATIENT/FAMILY EDUCATION NEEDS:: Discharge education, limitations and follow up plan of care including ask me three and self management. Family should be involved in teaching. ANTICIPATED BARRIERS TO DISCHARGE:: None indentified TRANSPORTATION:: Via private car with family PLAN:: Ellen will be discharged home when medically ready anticipate new home health services for nursing. CM will continue to assess for discharge needs anticipate Ellen will be discharged in the next 48 hours providing she continues to improve.
--- NOTE | 2020-05-16 08:28 | W.PM.PROGNOT ---
Date of Service Date of service: 05/16/20 Time of Service: 08:29 Assessment and Plan Assessment and plan (1) Atrial fibrillation with RVR: Status: Acute Assessment and plan: Will wean off diltiazem drip and titrate her Toprol-XL dose. Can use IV Lopressor on a as needed basis if she has a sustained heart rate of 120 or greater. Patient is not a candidate for long-term anticoagulation therefore I will decrease her enoxaparin to 40 mg for DVT prophylaxis. Continue low-dose aspirin. Check an echocardiogram to evaluate LV and RV function. (2) Heart failure with reduced ejection fraction due to cardiomyopathy: Status: Acute Assessment and plan: Clinically the patient presented in acute congestive heart failure secondary to her underlying valvular heart disease and baseline cardiomyopathy exacerbated by her rapid atrial fibrillation. Goal is for improved heart rate control. She may need some oral diltiazem as well as her Toprol-XL. (3) Coronary artery disease: Status: Acute Assessment and plan: Peak troponin was 0.08 with the last level down to 0.07. Levels did not reach the threshold for myocardial injury. Patient has no symptoms of chest pain or pressure at this time. Will check echocardiogram to evaluate for any new regional wall motion abnormalities. Qualifiers: Coronary Disease-Associated Artery/Lesion type: [place] artery [place] vs. transplanted heart: [place] heart Associated angina: without angina Qualified Code(s): I25.10 - Atherosclerotic heart disease of [place] coronary artery without angina pectoris (4) Gastroesophageal reflux disease: Status: Chronic Assessment and plan: Continue her home dose of Pepcid. (5) Asthma: Status: Chronic Assessment and plan: Continue her montelukast. DC albuterol. Can use Xopenex on a as needed basis which is less likely to cause tachycardia. Clinically she does not seem to be having any asthma exacerbation. I think her adventitious lung sounds are secondary to her CHF. Qualifiers: Asthma severity: moderate Asthma persistence: persistent Asthma complication type: uncomplicated Qualified Code(s): J45.40 - Moderate persistent asthma, uncomplicated Subjective Subjective Interval history since last seen: Patient had some sundowning last night but seems to be much more mentally alert and appropriate this morning. She denies any chest pain or pressure or dyspnea although she has a dry cough. Atrial fibrillation rate is much better controlled this morning running in the 70s to 80s although with activity heart rate will get up into the low 100s. Diltiazem drip is now down to 2.5 mg an hour. I am to switch her over to her long-acting Toprol-XL with titration of the dose. She diuresed over 4 L last night on the furosemide drip. I meant discontinue the IV furosemide drip and put her on program dose of furosemide. Her labs and her echocardiogram are pending at this time. If we can keep her rate controlled today I will plan on discharging her home tomorrow assuming that we have her adequately diuresed and she is euvolemic. Exam Narrative Exam Narrative: Elderly female lying in semi-santos position in bed in no distress. She seems to be alert and oriented Lungs reveal bibasilar rales and some scattered bilateral rhonchi. Heart is irregularly irregular with a systolic murmur over the apex Abdomen scaphoid nontender Extremities without edema Objective Objective Clinical Data: Abnormal lab results 05/15/20 05/15/20 05/15/20 Range/Units 09:45 09:45 09:45 RBC 3.63 L (3.93-5.22) 10^6/uL Hct 35.2 L (36.0-46.0) % MCV 97.0 H (80-95) fL MPV (8.0-11.0) fL Absolute Lymphocytes 1.12 L (1.2-3.4) 10^3/uL PT 11.3 H (9.3-11.0) sec Potassium 3.4 L (3.5-5.1) mmol/L Glucose 151 H (74-106) mg/dL Magnesium 1.6 L (1.8-2.4) mg/dL Total Bilirubin 1.1 H (0.2-1.0) mg/dL Troponin I (<0.06) ng/mL NT-Pro-B Natriuret Pep 9820 H (<300) pg/mL Urine Protein (Negative) mg/dL Urine Blood (Negative) Ur Leukocyte Esterase (Negative) 05/15/20 05/15/20 05/16/20 Range/Units 11:05 17:31 07:40 RBC 3.74 L (3.93-5.22) 10^6/uL Hct (36.0-46.0) % MCV 96.8 H (80-95) fL MPV 11.1 H (8.0-11.0) fL Absolute Lymphocytes (1.2-3.4) 10^3/uL PT (9.3-11.0) sec Potassium (3.5-5.1) mmol/L Glucose (74-106) mg/dL Magnesium (1.8-2.4) mg/dL Total Bilirubin (0.2-1.0) mg/dL Troponin I 0.08 H* (<0.06) ng/mL NT-Pro-B Natriuret Pep (<300) pg/mL Urine Protein Trace H (Negative) mg/dL Urine Blood Trace-intact H (Negative) Ur Leukocyte Esterase Trace H (Negative) Vital Signs Temperature 36.8 C 05/16/20 08:02 Temperature Source Temporal Artery Scan 05/16/20 08:02 Pulse 93 H 05/16/20 07:01 Pulse 94 H 05/16/20 07:01 Respiratory Rate 20 05/16/20 07:01 Respiratory Effort Non-Labored 05/16/20 04:04 Respiratory Depth Normal 05/16/20 04:04 Respiratory Pattern Normal 05/16/20 04:04 Blood Pressure 149/85 H 05/16/20 07:01 Blood Pressure Mean 101 05/16/20 07:01 Blood Pressure Position Supine 05/16/20 08:02 Pulse Oximetry 98 05/16/20 08:13 Oxygen Delivery Method Nasal Cannula 05/16/20 08:13 Oxygen Flow Rate 1 05/16/20 08:13 Pain Level 0 05/16/20 08:02 Comment 05/15/20 10:34 Intake & Output 05/15/20 05/15/20 05/16/20 11:59 23:59 11:59 Intake Total 510 / 920 410 / 920 189.083 / 189.083 Output Total 3330 / 3530 1999 Balance 510 / -2610 -2920 / -2610 -1810.917 / -1810.917 Weight 46.1 kg 44.3 kg 43.3 kg Intake: IV 510 / 620 110 / 620 69.083 / 69.083 Oral 300 / 300 120 / 120 Output: Urine 3330 / 3530 1999 Other: Urine Color Pale Pale Yellow Yellow Urine Appearance Clear Clear Urine Odor None Comment pt has indwelling jaramillo cath draining clear pale yellow urine pt has indwelling jaramillo cath draining clear pale yellow urine Voiding Methods Indwelling Catheter # Voids 1 Laboratory Results WBC 6.35 10^3/uL (4.4-10.8) 05/16/20 07:40 RBC 3.74 10^6/uL (3.93-5.22) L 05/16/20 07:40 Hgb 12.3 g/dL (11.2-15.7) 05/16/20 07:40 Hct 36.2 % (36.0-46.0) 05/16/20 07:40 MCV 96.8 fL (80-95) H 05/16/20 07:40 MCH 32.9 pg (27.0-33.0) 05/16/20 07:40 MCHC 34.0 % (32.0-36.0) 05/16/20 07:40 RDW 13.9 % (11.7-14.6) 05/16/20 07:40 Plt Count 185 10^3/uL (130-400) 05/16/20 07:40 MPV 11.1 fL (8.0-11.0) H 05/16/20 07:40 Immature Gran % 0.5 05/16/20 07:40 Neutrophils % 65.0 05/16/20 07:40 Lymphocytes % 20.9 05/16/20 07:40 Monocytes % 11.3 05/16/20 07:40 Eosinophils % 2.0 05/16/20 07:40 Basophils % 0.3 05/16/20 07:40 Nucleated RBC % 0 % 05/16/20 07:40 Absolute Neutrophils 4.12 10^3/uL (1.2-6.7) 05/16/20 07:40 Absolute Lymphocytes 1.33 10^3/uL (1.2-3.4) 05/16/20 07:40 Absolute Monocytes 0.72 10^3/uL (0.1-0.8) 05/16/20 07:40 Absolute Eosinophils 0.13 10^3/uL (0.0-0.7) 05/16/20 07:40 Absolute Basophils 0.02 10^3/uL (0.0-0.2) 05/16/20 07:40 PT 11.3 sec (9.3-11.0) H 05/15/20 09:45 INR 1.1 (0.9-1.1) 05/15/20 09:45 APTT 23.6 sec (21.0-31.4) 05/15/20 09:45 Sodium 136 mmol/L (136-145) 05/15/20 09:45 Potassium 3.4 mmol/L (3.5-5.1) L 05/15/20 09:45 Chloride 103 mmol/L (98-107) 05/15/20 09:45 Carbon Dioxide 26.7 mmol/L (21.0-32.0) 05/15/20 09:45 Anion Gap 6.3 mmol/L (3-11) 05/15/20 09:45 BUN 12 mg/dL (7-18) 05/15/20 09:45 Creatinine 0.78 mg/dL (0.55-1.02) 05/15/20 09:45 Estimated GFR/1.73 m2 >= 60.00 (mL/min/1.73m2) 05/15/20 09:45 Glucose 151 mg/dL (74-106) H 05/15/20 09:45 Calcium 9.4 mg/dL (8.5-10.1) 05/15/20 09:45 Magnesium 1.6 mg/dL (1.8-2.4) L 05/15/20 09:45 Total Bilirubin 1.1 mg/dL (0.2-1.0) H 05/15/20 09:45 AST 17 U/L (15-37) 05/15/20 09:45 ALT 23 U/L (14-59) 05/15/20 09:45 Alkaline Phosphatase 48 U/L (46-116) 05/15/20 09:45 Troponin I 0.07 ng/mL (<0.06) 05/15/20 21:32 NT-Pro-B Natriuret Pep 9820 pg/mL (<300) H 05/15/20 09:45 Total Protein 6.6 g/dL (6.4-8.2) 05/15/20 09:45 Albumin 3.8 g/dL (3.4-5.0) 05/15/20 09:45 Lipase 35 U/L (73-393) 05/15/20 09:45 Urine Color Yellow (Yellow) 05/15/20 11:05 Urine Clarity Clear (Clear) 05/15/20 11:05 Urine pH 7.0 (5-8) 05/15/20 11:05 Ur Specific [place] 1.020 (1.005-1.025) 05/15/20 11:05 Urine Protein Trace mg/dL (Negative) H 05/15/20 11:05 Urine Ketones Negative mg/dL (Negative) 05/15/20 11:05 Urine Blood Trace-intact (Negative) H 05/15/20 11:05 Urine Nitrite Negative (Negative) 05/15/20 11:05 Urine Bilirubin Negative (Negative) 05/15/20 11:05 Urine Urobilinogen 0.2 EU/dL (Up TO 0.2) 05/15/20 11:05 Ur Leukocyte Esterase Trace (Negative) H 05/15/20 11:05 Urine RBC 0-2 HPF (0-2) 05/15/20 11:05 Urine WBC 3-5 HPF (0-5) 05/15/20 11:05 Ur Epithelial Cells Few HPF (Negative) 05/15/20 11:05 Urine Crystals Negative HPF (Negative) 05/15/20 11:05 Urine Bacteria Rare HPF (Negative) 05/15/20 11:05 Urine Casts 0-2 hyaline LPF (Negative) 05/15/20 11:05 Urine Mucus Negative (Negative) 05/15/20 11:05 Ur Culture Indicated? No 05/15/20 11:05 Urine Glucose Negative mg/dL (Negative) 05/15/20 11:05
[2020-05-16 08:40] LABS: ALT 22 U/L (14-59); AST 16 U/L (15-37); Albumin 3.7 g/dL (3.4-5.0); Alkaline Phosphatase 47 U/L (46-116); Anion Gap 3.7 mmol/L (3-11); BUN 10 mg/dL (7-18); Bilirubin, Total 1.1 mg/dL (0.2-1.0); CO2 32.3 mmol/L (21.0-32.0); CREATININE 0.82 mg/dL (0.55-1.02); Calcium 8.8 mg/dL (8.5-10.1); Calculated LDL 36 mg/dL (<100); Chloride 102 mmol/L (98-107); Cholesterol 85 mg/dL (<200); Glucose 121 mg/dL (74-106); HDL Cholesterol 36 mg/dL (40-60); Magnesium 1.7 mg/dL (1.8-2.4); Potassium 3.1 mmol/L (3.5-5.1); Sodium 138 mmol/L (136-145); TSH (W/Ref FT4) 1.19 uIU/mL (0.36-3.74); Total Protein 6.7 g/dL (6.4-8.2); Triglyceride 68 mg/dL (<150)
[2020-05-16 09:00] LABS: Hemoglobin A1C 5.7 % (3.8-5.6)
[2020-05-16] MEDS: Furosemide 40 MG TAB PO ×2 (09:10→15:40)
[2020-05-16 09:13] LABS: COVID-19 RT-PCR UVMMC Result Negative (Negative)
[2020-05-16] MEDS: Normal Saline Flush 10 ML SYR IVP (09:57)
--- NOTE | 2020-05-16 12:04 | PHA.REVIEW ---
Pharmacy Admission Review - Admission Clinical Review (Last Updated 05/15/20 @ 17:15 by Wilfrid Villareal) Heart failure with reduced ejection fraction due to cardiomyopathy (Acute) Atrial fibrillation with RVR (Acute) Acute CHF (congestive heart failure) (Acute) Coronary artery disease (Acute 04/05/14) Influenza Virus Vaccines Allergy (Severe, Verified 05/15/20 09:45) throat closed prednisone Allergy (Severe, Verified 05/15/20 09:45) throat swelling duloxetine HCl [From Cymbalta] Allergy (Intermediate, Verified 05/15/20 09:45) sweat/throat tight egg Allergy (Intermediate, Verified 05/15/20 09:45) Swelling/Edema Penicillins Allergy (Intermediate, Verified 05/15/20 09:45) swelling/choked up Sulfa (Sulfonamide Antibiotics) Allergy (Intermediate, Verified 05/15/20 09:45) swelling tetracycline Allergy (Unknown, Verified 05/15/20 09:45) unknown tramadol Allergy (Verified 05/15/20 09:45) morphine Adverse Reaction (Severe, Verified 05/15/20 09:45) HR dropped/BP high ciprofloxacin [From Cipro] Adverse Reaction (Intermediate, Verified 05/15/20 09:45) AGITATION diclofenac Adverse Reaction (Intermediate, Verified 05/15/20 09:45) confusion, night terrors, dizziness gabapentin Adverse Reaction (Intermediate, Verified 05/15/20 09:45) Dizziness & Sedation hyoscyamine Adverse Reaction (Intermediate, Verified 05/15/20 09:45) lightheaded lisinopril Adverse Reaction (Intermediate, Verified 05/15/20 09:45) Uvula Swelling mirtazapine Adverse Reaction (Intermediate, Verified 05/15/20 09:45) throat discomfort, feeling tired, nauseated nortriptyline Adverse Reaction (Intermediate, Verified 05/15/20 09:45) homatropine [From Hycodan] Adverse Reaction (Mild, Verified 05/15/20 09:45) Loopy hydrocodone bitartrate [From Hycodan] Adverse Reaction (Mild, Verified 05/15/20 09:45) Loopy lidocaine Adverse Reaction (Mild, Verified 05/15/20 09:45) Skin sensitivity/Rash trazodone Adverse Reaction (Unknown, Verified 05/15/20 09:45) Dizzy, weak and hallucinations cephalexin monohydrate [From Keflex] Adverse Reaction (Verified 05/15/20 09:45) ?LE weakness nuts Allergy (Intermediate, Uncoded 05/15/20 09:45) Swelling/Edema peanut butter Adverse Reaction (Intermediate, Uncoded 05/15/20 09:45) Swelling/Edema Height 4 ft 11 in Weight 43.3 kg - Comments Comments/Follow Ups: Furosemide gtt weaned completely, PO ordered; diltiazem gtt being weaned, PO ordered -- if rate remains control today then DC home tomorrow - Renal Dosing Renal Dosing: BUN 10 mg/dL (7-18) 05/16/20 07:40 Creatinine 0.82 mg/dL (0.55-1.02) 05/16/20 07:40 Medications needing adjustments: Reviewed - Anticoagulation Anticoagulation: Hgb 12.3 g/dL (11.2-15.7) 05/16/20 07:40 Hct 36.2 % (36.0-46.0) 05/16/20 07:40 Plt Count 185 10^3/uL (130-400) 05/16/20 07:40 INR 1.1 (0.9-1.1) 05/15/20 09:45 Creatinine 0.82 mg/dL (0.55-1.02) 05/16/20 07:40 DVT Prohphylaxis: Reviewed Medications: Enoxaparin Therapeutic Anticoagulation: Reviewed Medications: Aspirin (Despite afib, pt is not a candidate for care home anticoagulation -- lmwh was changed from BID to q24h for dvt prophlaxis only) - Opiate Usage Evaluate Pain Scale/Pains Meds: N/A - Relevant Labs Sodium 138 mmol/L (136-145) 05/16/20 07:40 Potassium 3.1 mmol/L (3.5-5.1) L 05/16/20 07:40 Chloride 102 mmol/L (98-107) 05/16/20 07:40 Magnesium 1.7 mg/dL (1.8-2.4) L 05/16/20 07:40 Electrolytes, C-Reactive P, ESR: Reviewed (Potassium 20 meq PO QID started yesterday @1999) - DM Control DM Control: Glucose 121 mg/dL (74-106) H 05/16/20 07:40 Hemoglobin A1c 5.7 % (3.8-5.6) H 05/16/20 07:40 Insulin Dosing: Reviewed - Heart Failure/LA Heart Failure/LA: Troponin I 0.07 ng/mL (<0.06) 05/15/20 21:32 NT-Pro-B Natriuret Pep 9820 pg/mL (<300) H 05/15/20 09:45 EF%, DIANA's, B-Blockers, Diuretics: Reviewed - BP Control BP Control: Blood Pressure [Left Arm] 139/71 Blood Pressure 124/83 Blood Pressure 119/94 Blood Pressure 120/68 Blood Pressure 122/79 Blood Pressure 149/85 Blood Pressure 132/79 Blood Pressure 140/83 Blood Pressure 134/81 Blood Pressure 138/101 Blood Pressure 140/100 Blood Pressure 146/94 Blood Pressure 133/97 Blood Pressure 137/93 If elevated: Reviewed - Qtc Review If Elevated: Reviewed (QTc 494) List meds needing interventions: Current meds ok - watch for addition of meds that could prolong QT interval - Home Meds Home Med List reviewed: Reviewed - Current meds Current Medication Order Review: Reviewed
[2020-05-16] MEDS: Acetaminophen 325 MG TAB PO (19:13)
[2020-05-16] MEDS: Montelukast 10 MG TAB PO (22:20)
[2020-05-16] MEDS: Melatonin 3 MG TAB 9 MG PO (22:21)
[2020-05-16] MEDS: Metoprolol 5 MG/5 ML VIAL IVP (22:31)
[2020-05-17] VITALS (26 sets, daily range): BP systolic 95–140; BP diastolic 56–99; PULSE 57–150; RESP 13–33; TEMP 36; O2SAT 91–99
[2020-05-17] MEDS: Metoprolol 5 MG/5 ML VIAL IVP (04:32)
[2020-05-17] MEDS: Normal Saline Flush 10 ML SYR IVP ×2 (04:34→11:55)
[2020-05-17 06:56] LABS: Anion Gap 8.5 mmol/L (3-11); BUN 20 mg/dL (7-18); CO2 29.5 mmol/L (21.0-32.0); CREATININE 1.06 mg/dL (0.55-1.02); Calcium 9.3 mg/dL (8.5-10.1); Chloride 102 mmol/L (98-107); Estimated GFR 50.27 (mL/min/1.73m2); Glucose 133 mg/dL (74-106); NT-proBNP 2394 pg/mL (<300); Potassium 4.4 mmol/L (3.5-5.1); Sodium 140 mmol/L (136-145)
--- NOTE | 2020-05-17 08:03 | PGE_ITS ---
Date of Service Date of service: 05/17/20 Time of Service: 08:04 Assessment and Plan Assessment and plan (1) Atrial fibrillation with RVR: Status: Acute Assessment and plan: Continue Toprol-XL 100 mg twice a day. I do not think she has enough blood pressure to titrate this dose any higher. Will add diltiazem 60 mg p.o. 3 times daily and titrate the dose to manage her heart rate. (2) Heart failure with reduced ejection fraction due to cardiomyopathy: Status: Acute Assessment and plan: Clinically patient seems to be improved from CHF standpoint she is not dyspneic and not hypoxemic. Lungs are clear today. We will recheck her BMP this morning to assess her electrolytes and BUN and creatinine. We will repeat her proBNP tomorrow prior to discharge. We will titrate her diltiazem for rate control first and if she has adequate blood pressure we can titrate her losartan dose. Continue furosemide orally. Continue potassium supplementation. Currently getting 20 mEq 4 times a day and furosemide 40 mg twice a day. Depending on her electrolytes and BUN and creatinine may need to adjust the dose downward. (3) Coronary artery disease: Status: Acute Assessment and plan: Patient's troponin level peaked at 0.08 and is since come back down. I think she had some rate related ischemia. Echocardiogram shows mild LV dysfunction with an ejection fraction of 45% which is similar to her findings last year however she has diffuse wall motion abnormalities on her current echo demonstrates diffuse hypokinesis in all wall segments. I think once she is out of CHF and her A. fib is well controlled if she wants to pursue further evaluation she could have an outpatient stress MPI Lexiscan study. I am not sure that she would pursue a cardiac cath even if the stress test is abnormal however stress test can help guide medical management such as addition of nitrates or Plavix. Qualifiers: Coronary Disease-Associated Artery/Lesion type: [place] artery [place] vs. transplanted heart: [place] heart Associated angina: without angina Qualified Code(s): I25.10 - Atherosclerotic heart disease of [place] coronary artery without angina pectoris (4) Gastroesophageal reflux disease: Status: Chronic Assessment and plan: Continue her home dose of Pepcid. (5) Asthma: Status: Chronic Assessment and plan: Continue her montelukast. DC albuterol. Can use Xopenex on a as needed basis which is less likely to cause tachycardia. Clinically she does not seem to be having any asthma exacerbation. I think her adventitious lung sounds are secondary to her CHF. The fact that her a dventitious lung sounds have cleared up with diuresis confirms my suspicions that her lung sounds were all from CHF and not from her asthma. At present time she does not require inhaled bronchodilators. Qualifiers: Asthma severity: moderate Asthma persistence: persistent Asthma complication type: uncomplicated Qualified Code(s): J45.40 - Moderate persistent asthma, uncomplicated (6) DVT prophylaxis: Status: Acute Assessment and plan: Currently on enoxaparin 40 mg subcutaneously daily. Patient does not want long-term anticoagulation and had complications with nosebleeds while on apixaban. (7) Discharge planning issues: Status: Acute Assessment and plan: Discharge home once her A. fib rate is well controlled. Hopefully will occur within the next 24 hours. Patient will need follow-up with visiting nurse to help her manage her medications and educate her regarding her A. fib and CHF. I do not think she needs physical therapy services but will see how she does with activity today. Subjective Subjective Interval history since last seen: Patient remains in atrial fibrillation with variable rate control. At rest her heart rate has been in the high 90s to low 100s. Last night her heart rate got up into the 150s briefly but did require IV Lopressor. She denies any chest pain or chest pressure or shortness of breath. Patient is asking if she can go home today. I explained her that we need to get her atrial fibrillation rate under better control or she will just end up back in the hospital again. With respect to her CHF she is diuresed quite well and is now on oral Lasix. She is not hypoxemic and not short of breath. I titrated her Toprol-XL dose up to 100 mg twice a day and started on losartan to help with her heart failure. Today I am can add diltiazem 60 mg 3 times daily and titrate the dose for rate control. Once I found the correct dose for controlling her heart rate I will switch her over to a long-acting diltiazem. I explained her that she may not be able to get to go home today but may have to wait another day while we titrate the medicine. Exam Narrative Exam Narrative: Elderly female alert and oriented no respiratory distress not tachypneic. Lungs are clear to auscultation Heart is irregularly irregular and slightly fast rate in the low 100s per monitor, soft systolic murmur over the apex. No thrill heave or gallop Abdomen soft nontender scaphoid Extremities without edema. Objective Objective Clinical Data: Abnormal lab results 05/16/20 05/16/20 05/16/20 Range/Units 07:40 07:40 07:40 RBC (3.93-5.22) 10^6/uL MCV (80-95) fL MPV (8.0-11.0) fL Potassium 3.1 L (3.5-5.1) mmol/L Carbon Dioxide 32.3 H (21.0-32.0) mmol/L BUN (7-18) mg/dL Creatinine (0.55-1.02) mg/dL Glucose 121 H (74-106) mg/dL Hemoglobin A1c 5.7 H (3.8-5.6) % Magnesium 1.7 L (1.8-2.4) mg/dL Total Bilirubin 1.1 H (0.2-1.0) mg/dL NT-Pro-B Natriuret Pep (<300) pg/mL HDL Cholesterol 36 L (40-60) mg/dL 05/16/20 05/17/20 Range/Units 07:40 06:03 RBC 3.74 L (3.93-5.22) 10^6/uL MCV 96.8 H (80-95) fL MPV 11.1 H (8.0-11.0) fL Potassium (3.5-5.1) mmol/L Carbon Dioxide (21.0-32.0) mmol/L BUN 20 H D (7-18) mg/dL Creatinine 1.06 H (0.55-1.02) mg/dL Glucose 133 H (74-106) mg/dL Hemoglobin A1c (3.8-5.6) % Magnesium (1.8-2.4) mg/dL Total Bilirubin (0.2-1.0) mg/dL NT-Pro-B Natriuret Pep 2394 H (<300) pg/mL HDL Cholesterol (40-60) mg/dL Vital Signs Temperature 36.5 C 05/16/20 19:30 Temperature Source Temporal Artery Scan 05/16/20 19:30 Pulse 94 H 05/17/20 07:27 Pulse 116 H 05/17/20 07:27 Respiratory Rate 25 H 05/17/20 07:27 Respiratory Effort 05/17/20 00:44 Respiratory Depth Normal 05/17/20 00:44 Respiratory Pattern Normal 05/17/20 00:44 Blood Pressure 140/96 H 05/17/20 07:27 Blood Pressure Mean 108 05/17/20 07:27 Blood Pressure Position Supine 05/16/20 15:35 Pulse Oximetry 95 05/17/20 07:27 Oxygen Delivery Method Room Air 05/16/20 19:30 Oxygen Flow Rate 0 05/16/20 19:30 Pain Level 8 05/16/20 19:30 Comment 05/16/20 19:30 Intake & Output 05/16/20 05/16/20 05/17/20 11:59 23:59 11:59 Intake Total 920.750 / 1810.750 890 / 1810.750 200 / 200 Output Total 2350 / 3125 775 / 3125 600 / 600 Balance -1429.250 / -1314.250 115 / -1314.250 -400 / -400 Weight 43.3 kg 43.3 kg Intake: IV 260.750 / 260.750 Oral 660 / 1550 890 / 1550 200 / 200 Output: Urine 2350 / 3125 775 / 3125 600 / 600 Other: Urine Color Pale Yellow Yellow Yellow Urine Appearance Clear Clear Clear Urine Odor None Normal Comment Jaramillo catheter intact and draining pale clear yellow urine. first viod post jaramillo removal. Voiding Methods Bedside Commode Bedside Commode Laboratory Results WBC 6.35 10^3/uL (4.4-10.8) 05/16/20 07:40 RBC 3.74 10^6/uL (3.93-5.22) L 05/16/20 07:40 Hgb 12.3 g/dL (11.2-15.7) 05/16/20 07:40 Hct 36.2 % (36.0-46.0) 05/16/20 07:40 MCV 96.8 fL (80-95) H 05/16/20 07:40 MCH 32.9 pg (27.0-33.0) 05/16/20 07:40 MCHC 34.0 % (32.0-36.0) 05/16/20 07:40 RDW 13.9 % (11.7-14.6) 05/16/20 07:40 Plt Count 185 10^3/uL (130-400) 05/16/20 07:40 MPV 11.1 fL (8.0-11.0) H 05/16/20 07:40 Immature Gran % 0.5 05/16/20 07:40 Neutrophils % 65.0 05/16/20 07:40 Lymphocytes % 20.9 05/16/20 07:40 Monocytes % 11.3 05/16/20 07:40 Eosinophils % 2.0 05/16/20 07:40 Basophils % 0.3 05/16/20 07:40 Nucleated RBC % 0 % 05/16/20 07:40 Absolute Neutrophils 4.12 10^3/uL (1.2-6.7) 05/16/20 07:40 Absolute Lymphocytes 1.33 10^3/uL (1.2-3.4) 05/16/20 07:40 Absolute Monocytes 0.72 10^3/uL (0.1-0.8) 05/16/20 07:40 Absolute Eosinophils 0.13 10^3/uL (0.0-0.7) 05/16/20 07:40 Absolute Basophils 0.02 10^3/uL (0.0-0.2) 05/16/20 07:40 PT 11.3 sec (9.3-11.0) H 05/15/20 09:45 INR 1.1 (0.9-1.1) 05/15/20 09:45 APTT 23.6 sec (21.0-31.4) 05/15/20 09:45 Sodium 140 mmol/L (136-145) 05/17/20 06:03 Potassium 4.4 mmol/L (3.5-5.1) D 05/17/20 06:03 Chloride 102 mmol/L (98-107) 05/17/20 06:03 Carbon Dioxide 29.5 mmol/L (21.0-32.0) 05/17/20 06:03 Anion Gap 8.5 mmol/L (3-11) 05/17/20 06:03 BUN 20 mg/dL (7-18) H D 05/17/20 06:03 Creatinine 1.06 mg/dL (0.55-1.02) H 05/17/20 06:03 Estimated GFR/1.73 m2 50.27 (mL/min/1.73m2) 05/17/20 06:03 Glucose 133 mg/dL (74-106) H 05/17/20 06:03 Hemoglobin A1c 5.7 % (3.8-5.6) H 05/16/20 07:40 Calcium 9.3 mg/dL (8.5-10.1) 05/17/20 06:03 Magnesium 2.0 mg/dL (1.8-2.4) 05/17/20 06:03 Total Bilirubin 1.1 mg/dL (0.2-1.0) H 05/16/20 07:40 AST 16 U/L (15-37) 05/16/20 07:40 ALT 22 U/L (14-59) 05/16/20 07:40 Alkaline Phosphatase 47 U/L (46-116) 05/16/20 07:40 Troponin I 0.07 ng/mL (<0.06) 05/15/20 21:32 NT-Pro-B Natriuret Pep 2394 pg/mL (<300) H 05/17/20 06:03 Total Protein 6.7 g/dL (6.4-8.2) 05/16/20 07:40 Albumin 3.7 g/dL (3.4-5.0) 05/16/20 07:40 Triglycerides 68 mg/dL (<150) 05/16/20 07:40 Total Cholesterol 85 mg/dL (<200) 05/16/20 07:40 LDL Cholesterol, Calc 36 mg/dL (<100) 05/16/20 07:40 HDL Cholesterol 36 mg/dL (40-60) L 05/16/20 07:40 Lipase 35 U/L (73-393) 05/15/20 09:45 TSH 1.19 uIU/mL (0.36-3.74) 05/16/20 07:40 Urine Color Yellow (Yellow) 05/15/20 11:05 Urine Clarity Clear (Clear) 05/15/20 11:05 Urine pH 7.0 (5-8) 05/15/20 11:05 Ur Specific [place] 1.020 (1.005-1.025) 05/15/20 11:05 Urine Protein Trace mg/dL (Negative) H 05/15/20 11:05 Urine Ketones Negative mg/dL (Negative) 05/15/20 11:05 Urine Blood Trace-intact (Negative) H 05/15/20 11:05 Urine Nitrite Negative (Negative) 05/15/20 11:05 Urine Bilirubin Negative (Negative) 05/15/20 11:05 Urine Urobilinogen 0.2 EU/dL (Up TO 0.2) 05/15/20 11:05 Ur Leukocyte Esterase Trace (Negative) H 05/15/20 11:05 Urine RBC 0-2 HPF (0-2) 05/15/20 11:05 Urine WBC 3-5 HPF (0-5) 05/15/20 11:05 Ur Epithelial Cells Few HPF (Negative) 05/15/20 11:05 Urine Crystals Negative HPF (Negative) 05/15/20 11:05 Urine Bacteria Rare HPF (Negative) 05/15/20 11:05 Urine Casts 0-2 hyaline LPF (Negative) 05/15/20 11:05 Urine Mucus Negative (Negative) 05/15/20 11:05 Ur Culture Indicated? No 05/15/20 11:05 Urine Glucose Negative mg/dL (Negative) 05/15/20 11:05 COVID-19 PCR Negative (Negative) 05/15/20 14:15 Nasopharyn COVID-19 PCR Not Applicable 05/15/20 14:15 Ref Test Perform Site [facility] lab 05/15/20 14:15 Reviewed Pertinent PMH: Yes Objective Narrative Objective Narrative: Echocardiogram performed 05/16/2020 demonstrated mild left ventricular dysfunction with global hypokinesis and a LVEF of 45% with mild mitral regurgitation mild to moderate tricuspid regurgitation with normal RV size and function. There is mild left atrial enlargement.
--- NOTE | 2020-05-17 08:39 | PDOC.CMPRO ---
- If Service Date Differs Date of service: 05/17/20 Time of Service: 08:40 Care Management Progress Note S/O:Ellen is alert and engaged she was hopeful to return home today however she continues to need medication adjustment for afib and CHF. JAIMEE reviewed the plan with Hermelinda COMBS) over the phone she would like Ellen's medication to be no more than twice a day which Ellen does well with. She states that Ellen does get symptomatic when her blood pressure is low, MD is aware and making appropriate medication changes. Prior to discharge education should be given to the patient and her daughter in law as she does her medications in the home. Ellen prefers not to have home health services and feels that her daughter in law can provide the information related to medications and CHF teaching. A:Ellen is a 79 year old female admitted with afib, and chf P:Ellen will be discharged home when medically ready. She has declined new home health services. Her daughter in law will transport her home at time of discharge.
[2020-05-17] MEDS: Losartan 25 MG TAB PO (09:09)
[2020-05-17] MEDS: Furosemide 40 MG TAB PO (09:11)
[2020-05-17] MEDS: dilTIAZem 60 MG TAB PO (09:11)
[2020-05-17] MEDS: Atorvastatin 40 MG TAB PO (09:12)
[2020-05-17] MEDS: Metoprolol CR 100 MG TABCR PO (09:13)
[2020-05-17] MEDS: Famotidine 20 MG TAB PO (09:13)
[2020-05-17] MEDS: Aspirin E.C. 81 MG TABEC PO (09:14)
[2020-05-17] MEDS: Multivitamin TAB 1 TAB PO (09:14)
[2020-05-17] MEDS: Calcium 600mg/Vit D 200U TAB 1 TAB PO ×2 (09:14→19:31)
[2020-05-17] MEDS: Cetirizine 10 MG TAB PO (09:15)
[2020-05-17] MEDS: Potassium Chloride Liquid 20 MEQ PKT PO (09:15)
[2020-05-17] MEDS: Magnesium Oxide 400 MG TAB 800 MG PO ×2 (09:15→19:31)
[2020-05-17] MEDS: Enoxaparin 40 MG/0.4 ML SYR SC (10:08)
--- NOTE | 2020-05-17 10:55 | W.NUTCONSULT ---
Date of service: 05/17/20 Time of Service: 10:55 Nutritional Consult ASSESSMENT: 79 year old female admitted with CHF. 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 Following Heart Healthy Diet, 1500 ml fluid restriction, receives ensure BID(100% completion), poor po intake of meals (25%). At risk for nutritional decline in view of low BMI and significant weight loss in last 6 months. Estimated Needs: 1075 - 1300 kcal, 40-51 g protein, 1500 ml fluid. Average nutrient intake with ensure BID is 1500 kcal, 40 grams of protein meeting 100% nutrient and fluid intake with ensure supplementation BID. NUTRITIONAL DIAGNOSIS: severe malnutrition in context of chronic illness as evidenced by > 10% weight loss in last 6 months due to decreased po intake INTERVENTION: Heart healthy diet with Ensure BID CDM to work with pt daily for optimal nutrient intake MONITORING AND EVALUATION: po intake, labs, weight Time Spent in Nutritional Counseling and Treatment: 5 min spent face to face
--- NOTE | 2020-05-17 11:14 | IN_ITS ---
Date of service: 05/17/20 Time of Service: 10:00 PT Notes Visit Reasons: AFIB W/RVR, CHF Inpatient Physical Therapy Evaluation Date: 05/17/2020 Referring Doctor: Gato Villareal MD PT Orders: PT CONSULT: Eval and treat Precautions: standard Patient Profile/Admitting Diagnosis: 79-year-old female admitted to the ICU for complications of CHF, and consequential deconditioning. She has been referred for physical therapy evaluation, to determine if safe for return home. PMHX: Medical History (Updated 05/15/20 @ 17:19 by Wilfrid Villareal) Anaphylaxis (Acute) Recent closing of throat, presume nut in premade soup. Hx anaphylxs and allergic rxns. ASCVD (arteriosclerotic cardiovascular disease) Asthma (Chronic 12/31/12) Spirometry 01/07/13 Mild obstructive airway disease with significant bronchodilator response Atrial fibrillation (Chronic) CVA (cerebral vascular accident) Dyslipidemia (Chronic) Gastroesophageal reflux disease (Chronic 09/12/15) History of cardiomyopathy (Acute) Per echocardiogram 08/17/2019-normal LV size, mildly decreased LV systolic function with normal LV wall thickness with slight sigmoid septum. Normal segmental wall motion. LVEF 45-50%. RV systolic function low normal but normal size. Moderately dilated left atrium, moderately dilated right atrium, thickened aortic valve without stenosis and no aortic insufficiency. Mild MAC with moderate mitral regurgitation and no mitral valve stenosis. Moderate tricuspid regurgitation. RVSP 28-34 mm. Ascending aorta mild to moderately dilated 4 cm. HTN (hypertension) Lesion of skin of face (Acute) Nonhealing lesion, rt cheek. Hx seeing Dr. Valderrama. Ovarian cyst, complex (Acute) Left septated ov cyst .. Est 1cm 6-month growth. 53mm (03/2020) <-- 6 (01/2020) cm <-- 4.5 cm (09/2019) per US. Surgical History Coronary Stent x5 at [facility] 1990s History of section (Chronic) History of colonoscopy (Chronic) History of tubal ligation (Chronic) TOT (Incontinence sling) Social History/Home Situation: Patient reports that she lives independently, in a private home. She does have a sister from [facility], who can come stay with her for a few days upon her discharge. Her home is all on 1 floor, she has 1 step to enter, and a ramp. Current Functional Limitations: Poor tolerance to lengthy weightbearing or ambulation activities, under household distance due to heart rate increase in shortness of breath Equipment Owned/DME: Walker, SPC. Patient primarily utilizes a SPC around her home, utilizing a walker for longer distances. Subjective: Denying any pain, just generally fatigued and tired. Objective: General Observation: Lying in hospital bed, 45 degree incline. She has a BP cuff right arm, telemetry is attached. Her color is good Mental Status: A&Ox3 Pain: None Vital Signs: In bed pre-treatment: BP is 118/68, HR 78 Sitting at edge of bed: BP 113/77, HR 84 Standing: BP 101/61, HR 72 Post 10 feet of ambulation, HR increases to 169, so we defer continued ambulation With return to bed: BP 98/69, HR 75. ROM: Right Upper Extremity: WFL Left Upper Extremity: WFL Right Lower Extremity: WFL Left Lower Extremity: WFL Strength: Right Upper Extremity: Grossly 4/5 Left Upper Extremity: Grossly 4/5 Right Lower Extremity: Grossly 4/5 Left Lower Extremity: Grossly 4/5 Sensation: Intact throughout extremities Bed Mobility/Transfers: Met with bed mobility Supervision required for sit to stand, stand to sit with walker Supervision with ambulation x10 feet with walker Gait: Supervision, RW, steady. Utilizes a short stride length, wide base of support. Produces increased heart rate with short distance of 10 feet. Balance: Static Sitting: Good Dynamic Sitting: Good Static Standing: Good Dynamic Standing: Fair Stage IV balance test: Passes first stages, loses balance on third stage Special Tests: Mobility Limitations Standardized Measure [facility] AM-PAC 6 clicks Basic Mobility Inpatient Short Form: Raw Score: 21 Informed Consent/Education: Patient instructed in purpose of PT consult and plan of care. Assessment: Patient is a 79 year old female referred to physical therapy services with the diagnosis of CHF. Patient presents with clinical signs and symptoms consistent with poor tolerance to functional activity due to high heart rate consistent with CHF diagnosis. Impairments: 21 AMPAC score, mobile extremity weakness, uncontrolled heart rate with a negative response to physical activity. Functional rotations: Requiring supervision with functional ambulation, unable to ambulate household distance due to heart rate increase in shortness of breath, balance impairment making her unsteady for independent living. She will require longer hospital stay to improve her balance, and improve her tolerance to physical activity. She will require supervision upon return home, with home health physical therapy services being appropriate to improve her overall physical condition and balance to return to premorbid level of function. Patient is assessed as a High 14415 complexity based on the following: History: See comorbidities Examination: See above impairments and functional limitations Presentation: Unstable Decision Making: Moderate Goals: Goals X1 week, all to be achieved with stable vitals 1. Supine-Sit independent 2. Sit-Supine independent 3. Sit-Stand independent 4. Stand-Sit independent 5. Bed-Chair independent 6. Chair-Bed independent 7. Gait household distance of 40 feet with rolling walker, supervision 8. One-step, supervision 9. Independent with home exercise program 10. Balance passes stage III, of stage IV balance test. Plan of Care/Treatment Plan: 1-2x/day, 7 days/week x 1 week. Plan of care has been reviewed with the CORRIDOR REDEVELOPMENT MANAGER providing the service under Physical Therapy direction. Initiate Physical Therapy intervention for strengthening, bed mobility, transfers, gait, stairs, balance training, use of assistive device. DISCHARGE RECOMMENDATIONS: Home health PT services, supervision of family or caregiver TREATMENT CODE/TIME: 59512, 30 minutes
[2020-05-17 11:16] LABS: Anion Gap 6.6 mmol/L (3-11); BUN 25 mg/dL (7-18); CO2 30.4 mmol/L (21.0-32.0); CREATININE 1.21 mg/dL (0.55-1.02); Calcium 9.5 mg/dL (8.5-10.1); Chloride 103 mmol/L (98-107); Estimated GFR 43.15 (mL/min/1.73m2); Glucose 135 mg/dL (74-106); Potassium 4.7 mmol/L (3.5-5.1); Sodium 140 mmol/L (136-145)
--- NOTE | 2020-05-17 13:53 | NUR.NOTE ---
Nursing Note: 13:45 Re-assessed left foot due to clipboard being inadvertently dropped from this RN's scrub pocket on to patients left foot while squatting down to position patients feet on foot stool while sitting in chair at 08:05. No visible injury, with palpation Pt reports, it is a little sore. Full range of motion is present. Pt has been up ambulating with full weight bearing with no complaints.
--- NOTE | 2020-05-17 14:03 | PT.INTREAT ---
Date of service: 05/17/20 Time of Service: 13:30 PT Notes Visit Reasons: AFIB W/RVR, CHF Inpatient Physical Therapy Treatment Note [facility] Date: 05/17/2020 SUBJECTIVE: Nsg states that she just went for a walk and got her back into bed. She reports that she did much better than she did this am. OBJECTIVE: [] Held on ambulation as she just went with nsg. see her note for details. THEREX: completed a global strength and stabilization routine while in bed, see flowsheet for details. ASSESSMENT: tolerated session well. HR stayed under 82 bpm. Pt reported her felt exercised after session. PLAN: will continue to progress following PT POC. TREATMENT CODE/TIME: 15 min. [id number].
[2020-05-17] MEDS: Normal Saline 100 ML IV (15:06)
[2020-05-17] MEDS: Melatonin 3 MG TAB 9 MG PO (21:22)
[2020-05-17] MEDS: Montelukast 10 MG TAB PO (21:22)
[2020-05-17] MEDS: dilTIAZem CD 120 MG CAPCR PO (21:22)
[2020-05-18] VITALS (11 sets, daily range): BP systolic 105–156; BP diastolic 67–98; PULSE 78–124; RESP 14–30; TEMP 37.2; O2SAT 95–97
[2020-05-18 06:58] LABS: Anion Gap 7.4 mmol/L (3-11); BUN 22 mg/dL (7-18); CO2 29.6 mmol/L (21.0-32.0); CREATININE 0.89 mg/dL (0.55-1.02); Calcium 9.5 mg/dL (8.5-10.1); Chloride 102 mmol/L (98-107); Glucose 114 mg/dL (74-106); NT-proBNP 2397 pg/mL (<300); Sodium 139 mmol/L (136-145)
[2020-05-18] MEDS: Metoprolol CR 100 MG TABCR PO (07:47)
[2020-05-18] MEDS: Furosemide 20 MG TAB PO (07:48)
[2020-05-18] MEDS: Magnesium Oxide 400 MG TAB 800 MG PO (07:48)
[2020-05-18] MEDS: Famotidine 20 MG TAB PO (07:48)
[2020-05-18] MEDS: Cetirizine 10 MG TAB PO (07:48)
[2020-05-18] MEDS: Multivitamin TAB 1 TAB PO (07:49)
[2020-05-18] MEDS: Losartan 25 MG TAB PO (07:49)
[2020-05-18] MEDS: Calcium 600mg/Vit D 200U TAB 1 TAB PO (07:49)
[2020-05-18] MEDS: Aspirin E.C. 81 MG TABEC PO (07:50)
[2020-05-18] MEDS: Atorvastatin 40 MG TAB PO (07:50)
[2020-05-18] MEDS: Normal Saline Flush 10 ML SYR IVP (08:00)
--- NOTE | 2020-05-18 08:50 | PDOC.CMDIS ---
- If Service Date Differs Date of service: 05/18/20 Time of Service: 08:50 LACE Index Scoring Tool - Questions: Length of Stay (in days): 3 Acuity (Admit via E.D.?): Yes Comorbidities: Previous M.I., Cerebrovascular Disease, Congestive Heart Failure E.D. Visits: 5 - Answers: Total Score: 15 Risk of Readmission: High Risk Care Management Discharge Reason for Hospitalization: Afib, CHF Discharge Plan: Ellen is being discharged home today with her daughter in law Hermelinda. She will continue to monitor Ellen at home and assist with medications. Hermelinda will scheduled all follow up appointment for Ellen with primary care and speciality. Ellen has declined home health services at this time. JAIMEE has requested all hard copy of presciptions to be given to family. JAIMEE reviewed the discharged plan with Hermelinda over the phone, she will plan to be here between 1130 and 1200. Patient/Family Education Needs: Discharge instructions, limitations and follow up plan of care including ask me three and self management with daughter in law present.
[2020-05-18] MEDS: Enoxaparin 40 MG/0.4 ML SYR SC (10:09)
--- NOTE | 2020-05-18 11:46 | PT.INTREAT ---
Date of service: 05/18/20 Time of Service: 08:05 PT Notes Visit Reasons: AFIB W/RVR, CHF Date: 05/18/2020 SUBJECTIVE: Patient states that things are going okay and she believes that she may be going home soon. OBJECTIVE: THEREX: completed a global strength and stabilization routine while in bed, see flowsheet for details. Added marching in place ASSESSMENT: tolerated session well. HR stayed under 128 bpm. Pt reported her felt exercised after session. PLAN: will continue to progress following PT POC. TREATMENT CODE/TIME: 15 min. [id number]. Time of treatment 8:05
--- NOTE | 2020-05-18 12:33 | DSE_ITS ---
Date of service: 05/18/20 Time of Service: 12:34 DS: Diagnosis Discharge Diagnosis (1) Atrial fibrillation with RVR: Status: Acute (2) Acute on chronic systolic CHF (congestive heart failure): Status: Acute (3) Coronary artery disease: Status: Chronic (4) Gastroesophageal reflux disease: Status: Chronic (5) Asthma: Status: Chronic (6) Adnexal mass: Status: Chronic (7) Pulmonary hypertension: Status: Chronic (8) COVID-19 ruled out by laboratory testing: Status: Acute Discharge Plan Disposition Patient Disposition: HOME Condition: Stable Discharge Details Chief Complaint: Chest Pain Clinical Impression: Atrial fibrillation with RVR, Acute CHF (congestive heart failure) Reason For Visit: AFIB W/RVR, CHF Admit Date/Time: 05/15/20 13:45 Admit Provider: Wilfrid Villareal Attending Provider: Wilfrid Villareal Primary Care Provider: Miguelina Tilley ED Provider: Girma Jules Hospital Course Hospital Course: Ms Willard is a 79 year old female with PMHx of chronic Afib, not on anticoagulation, chronic systolic CHF/cardiomyopathy, as well as CAD, hypertension and hyperlipidemia, who was admitted to [facility] ICU under hospitalist service on 05/15/2020 with rapid Afib and acute exacerbation of her chronic systolic CHF. She was initiated on cardizem and lasix drips and maintained on her home metoprolol succinate. When her heart rate became better controlled, she was weaned off of cardizem drip and transitioned to oral rapid acting cardizem, now switched to 120 mg Q HS. Her metoprolol succinate was switched to 100 mg in the am to simplify therapy. The patient was transferred to [facility] status on 05/16/2020. On 05/17/2020, she became slightly orthostatic and required gentle IVF, but lasix is being resumed at 20 mg PO daily today. Losartan was added to her regimen as well. Ms Willard is no longer orthostatic and is ready for discharge home today. She would benefit from an outpatient Zio patch monitor. Care for patient as well as completion of her discharge summary on day of discharge took 40 minutes. Home Meds and New Rx's Prescriptions: New metoprolol succinate 100 mg Tablet Extended Release 24 Hr 100 mg PO DAILY Qty: 30 RF: 0 losartan 25 mg Tablet 25 mg PO DAILY Qty: 30 RF: 0 diltiazem HCl 120 mg Capsule,Extended Release 24hr 120 mg PO HS Qty: 30 RF: 0 furosemide 20 mg Tablet 20 mg PO DAILY Qty: 10 RF: 0 Continued tumeric 500 mg capsule 500 mg PO BID RF: 0 albuterol sulfate [ProAir HFA] 90 mcg/actuation HFA aerosol inhaler 1 - 2 puff Inhalation Q4H PRN Qty: 2 RF: 4 atorvastatin 40 mg tablet 40 mg PO DAILY Qty: 90 RF: 3 calcium carb and citrate-vitD3 600 mg calcium- 500 unit tablet extended release 1 tab PO BID Qty: 180 RF: 3 epinephrine [EpiPen 2-Moe] 0.3 mg/0.3 mL auto-injector 0.3 mg IM ONCE Qty: 2 RF: 0 famotidine 40 mg tablet 40 mg PO DAILY Qty: 90 RF: 1 ipratropium-albuterol 0.5 mg-3 mg(2.5 mg base)/3 mL solution for nebulization 3 ml Inhalation Q3H PRN Qty: 90 RF: 4 cetirizine 10 mg tablet 10 mg PO DAILY MDD 10mg Qty: 90 RF: 3 nitroglycerin [Nitrostat] 0.4 mg tablet, sublingual 0.4 mg Sublingual PRN Qty: 30 RF: 0 Mucinex 1,200 mg tablet extended release 12hr 1,200 mg PO BID Qty: 60 RF: 3 Protein Powder, Egg/Nut FREE 1 oz PO BID Qty: 1 RF: 0 magnesium citrate 125 mg capsule 250 mg PO DAILY RF: 0 (DME) Entrust Plus Briefs misc 1 ea Miscellaneous TID Qty: 132 RF: 12 (DME) sanitary pads pad See Dose Instructions .ROUTE .MEDSUPPLY Qty: 20 RF: 0 simethicone 125 mg capsule 125 mg PO BID PRN (Reason: abdominal distention) Qty: 60 RF: 3 multivitamin [Daily Vitamin] 1 EACH tablet 1 ea PO DAILY RF: 0 melatonin-pyridoxine HCl (B6) 1 EACH tablet,ext release multiphase 1 ea PO HS RF: 0 (DME) Adult Aerosol Mask 1 EACH misc 1 ea Miscellaneous DAILY Qty: 1 RF: 0 acetaminophen [Tylenol Arthritis] 650 mg tablet extended release 1,300 mg PO BID RF: 0 aspirin [Aspir-81] 81 mg tablet,delayed release (DR/EC) 81 mg PO DAILY Qty: 90 RF: 3 Advair HFA 230-21 mcg/actuation HFA aerosol inhaler 2 puff Inhalation BID Qty: 3 RF: 3 montelukast 10 mg tablet 10 mg PO HS Qty: 90 RF: 3 alum-mag hydroxide-simeth [Mylanta Maximum Strength] 400-400-40 mg/5 mL Suspension 15 ml PO TID PRNRF: 0 Discontinued metoprolol succinate 50 mg tablet extended release 24 hr 50 mg PO BID RF: 0 Discharge Instructions Instructions: Metoprolol (By mouth), Furosemide (By mouth), Losartan (By mouth), Heart Failure (DC), A-fib (Atrial Fibrillation) (DC) Additional Instructions: Return to the hospital with any fever, bleeding, dizziness, palpitations, chest pain, or shortness of breath. Follow up with PCP within 1 week. PCP is to set you up with a Zio patch (heart monitor). Follow up with cardiology. Weigh yourself daily and inform your MD if you have gained greater than 3 lbs in 3 days. Similarly, call your MD if you feel thirsty and dizzy as you may not need to be on daily furosemide at that point. Referrals: CLINICAL SYSTEMS EDUCATOR,[facility] [OTHER] - Bessie Thorpe MD [ [facility] STAFF PHYSICIAN] - Miguelina Tilley DO [Primary Care Provider] - Activity:: Activity as Tolerated Equipment/Supplies:: No Equipment Needed Diet:: Low Sodium Discharge Orders Discharge Orders: Discharge Order (Routine); Ordered 05/18/20 Ordered By: Ellen Luu DS: Summary Status at Discharge Functional status at discharge: independent ambulation Overall status at discharge: patient is back to baseline Mental Status: mental status grossly normal Speech and Movement: speech and movement normal Mood: congruent mood Affect: normal affect Exam Narrative Exam Narrative: General: Pleasant elderly female, A&Ox2, cooperative, looks well HEENT: EOMI, MMM Heart: irregularly irregular rhythm, no m/r/g Lungs: CTAB Abdomen: soft, nontender, nondistended Extremities: no edema BLEs, trace bilateral pedal pulses Psych Mental Status: mental status grossly normal Speech and Movement: speech and movement normal Mood: congruent mood Affect: normal affect DS: Data Vitals/I&O Vitals and I&O: Vital Signs Temperature 37.2 C 05/18/20 07:55 Temperature Source Temporal Artery Scan 05/18/20 07:55 Pulse 84 05/18/20 11:13 Pulse Rhythm Irregular 05/18/20 09:13 Pulse 124 H 05/18/20 07:51 Respiratory Rate 23 05/18/20 11:13 Respiratory Effort Non-Labored 05/18/20 09:13 Respiratory Depth Normal 05/18/20 09:13 Respiratory Pattern Normal 05/18/20 09:13 Blood Pressure 119/68 05/18/20 11:13 Blood Pressure Mean 99 05/18/20 07:51 Blood Pressure Position Supine 05/16/20 15:35 Pulse Oximetry 95 05/18/20 11:13 Oxygen Delivery Method Room Air 05/18/20 07:48 Oxygen Flow Rate 0 05/18/20 07:48 Pain Level 8 05/16/20 19:30 Comment 05/16/20 19:30 Intake & Output 05/17/20 05/18/20 05/18/20 23:59 11:59 23:59 Intake Total 274.167 / 951.167 Output Total 1150 / 1750 730 / 730 Balance -875.833 / -798.833 -730 / -730 Weight 42.8 kg Intake: IV 4.167 / 4.167 Oral 270 / 947 Output: Urine 1150 / 1750 730 / 730 Other: Urine Color Yellow Yellow Urine Appearance Clear Clear Urine Odor None Normal Stool Size Small Stool Characteristics Brown Voiding Methods Bedside Commode Bedside Commode Data Completed and Pending Completed studies during hospitalization [Text1]: CXR 05/15/2020: Findings suggestive of mild CHF. Head CT 05/15/2020: No evidence of acute intracranial process. CT abdomine/pelvis w/o contrast 05/15/2020: Bilateral pleural effusions and dependent pulmonary edema consistent with CHF. Possible gastric wall thickening, correlate clinically with possibility of gastritis. Interval increase in size of left adnexal mass previously noted to represent a septated cyst on ultrasound. Correlation with biopsy should be considered. Echo: Wall motion Left Ventricle The left ventricle is normal size. Left ventricular systolic function is mildly decreased. There is normal left ventricular wall thickness. There is global hypokinesis of the left ventricle. There is no ventricular septal defect visualized. LVEF is 45%. Right Ventricle The right ventricle is normal size. The right ventricular systolic function is normal. The RVSP is 37.4 mmHg. Atria Left atrium is borderline dilated. The right atrium size is normal. The interatrial septum is intact with no evidence for an atrial septal defect. Aortic Valve The Aortic valve is sclerotic. Aortic valve is trileaflet. There is no aortic valvular stenosis. No aortic regurgitation is present. Mitral Valve Mild mitral annular calcification. No evidence of mitral valve stenosis. Moderate mitral regurgitation. Tricuspid Valve The tricuspid valve is normal in structure. There is no tricuspid valve stenosis. Moderate tricuspid regurgitation. Pulmonic Valve The pulmonary valve is normal in structure. There is no pulmonic valvular stenosis. Trace pulmonic regurgitation. Great Vessels The aortic root is normal in size. The ascending aorta is moderately dilated. Aortic arch is normal in caliber. IVC is normal in size and collapses >50% with inspiration. Pericardium There is no pericardial effusion. Labs on day of discharge: Labs from last 24 hours 05/18/20 06:05 Sodium 139 Potassium 4.0 Chloride 102 Carbon Dioxide 29.6 Anion Gap 7.4 BUN 22 H Creatinine 0.89 Estimated GFR/1.73 m2 >= 60.00 Glucose 114 H Calcium 9.5 NT-Pro-B Natriuret Pep 2397 H [facility] Medical History (Updated 05/18/20 @ 12:59 by Ellen Luu MD) Anaphylaxis (Acute) Recent closing of throat, presume nut in premade soup. Hx anaphylxs and allergic rxns. ASCVD (arteriosclerotic cardiovascular disease) Asthma (Chronic 12/31/12) Spirometry 01/07/13 Mild obstructive airway disease with significant bronchodilator response Atrial fibrillation (Chronic) CVA (cerebral vascular accident) Dyslipidemia (Chronic) Gastroesophageal reflux disease (Chronic 09/12/15) History of cardiomyopathy (Acute) Per echocardiogram 08/17/2019-normal LV size, mildly decreased LV systolic function with normal LV wall thickness with slight sigmoid septum. Normal segmental wall motion. LVEF 45-50%. RV systolic function low normal but normal size. Moderately dilated left atrium, moderately dilated right atrium, thickened aortic valve without stenosis and no aortic insufficiency. Mild MAC with moderate mitral regurgitation and no mitral valve stenosis. Moderate tricuspid regurgitation. RVSP 28-34 mm. Ascending aorta mild to moderately dilated 4 cm. HTN (hypertension) Lesion of skin of face (Acute) Nonhealing lesion, rt cheek. Hx seeing Dr. Valderrama. Ovarian cyst, complex (Acute) Left septated ov cyst .. Est 1cm 6-month growth. 53mm (03/2020) <-- 6 (01/2020) cm <-- 4.5 cm (09/2019) per US. Surgical History Coronary Stent x5 at [facility] 1990s History of section (Chronic) History of colonoscopy (Chronic) History of tubal ligation (Chronic) TOT (Incontinence sling) Social History Smoking/Tobacco Use Status: Never Alcohol Intake: never Drug use: Never Substance use type: does not use Current gender identity: female Do you feel safe at home: No (sometimes) Additional Social history: Pt. states she doesn't feel safe at home because of her neighbors, pt. states they're druggies, I lock my door and sit near my phone Followed up with Rabia Shen regarding this statement. ONEAL states she has a degree of paranoia and she always has, she lives in a very safe neighborhood, and has a number of neighbors who watch out for her and stop by to check on her as well. She has had a very tulmultuous past with her ex- who has since , where she didn't feel safe, and she has never truly gotten over that, and she also had a long-term live in boyfriend who three years ago, who was added security, so she doesn't have that anymore. ONEAL also stated that she prefers to have her house locked up when she is there all the time to feel safe, but in the same respect she feels safe enough to go for a 20 minute walk in the neighborhood with a neighbor, ONEAL states that there is some disconnect there in addition to her medical issues. Care management Tana, was informed of this statement, and will F/U PRN.
--- NOTE | 2020-05-22 09:01 | PT.INDS ---
Date of service: 05/22/20 PT Notes Visit Reasons: AFIB W/RVR, CHF Inpatient Physical Therapy Discharge Summary Dates: 05/22/2020 Dates of Service: 05/17/2020 through 05/18/2020 This is a clinical summary of care provided on the duration of dates listed above. No charge was made in the completion of this documentation. Referring Doctor: Gato Villareal MD PT Orders: PT CONSULT: Eval and treat Precautions: standard Patient Profile/Admitting Diagnosis: 79-year-old female admitted to the ICU for complications of CHF, and consequential deconditioning. She has been referred for physical therapy evaluation, to determine if safe for return home. PMHX: Medical History (Updated 05/15/20 @ 17:19 by Wilfrid Villareal) Anaphylaxis (Acute) Recent closing of throat, presume nut in premade soup. Hx anaphylxs and allergic rxns. ASCVD (arteriosclerotic cardiovascular disease) Asthma (Chronic 12/31/12) Spirometry 01/07/13 Mild obstructive airway disease with significant bronchodilator response Atrial fibrillation (Chronic) CVA (cerebral vascular accident) Dyslipidemia (Chronic) Gastroesophageal reflux disease (Chronic 09/12/15) History of cardiomyopathy (Acute) Per echocardiogram 08/17/2019-normal LV size, mildly decreased LV systolic function with normal LV wall thickness with slight sigmoid septum. Normal segmental wall motion. LVEF 45-50%. RV systolic function low normal but normal size. Moderately dilated left atrium, moderately dilated right atrium, thickened aortic valve without stenosis and no aortic insufficiency. Mild MAC with moderate mitral regurgitation and no mitral valve stenosis. Moderate tricuspid regurgitation. RVSP 28-34 mm. Ascending aorta mild to moderately dilated 4 cm. HTN (hypertension) Lesion of skin of face (Acute) Nonhealing lesion, rt cheek. Hx seeing Dr. Valderrama. Ovarian cyst, complex (Acute) Left septated ov cyst .. Est 1cm 6-month growth. 53mm (03/2020) <-- 6 (01/2020) cm <-- 4.5 cm (09/2019) per US. Surgical History Coronary Stent x5 at [facility] 1990s History of section (Chronic) History of colonoscopy (Chronic) History of tubal ligation (Chronic) TOT (Incontinence sling) Social History/Home Situation: Patient reports that she lives independently, in a private home. She does have a sister from [facility], who can come stay with her for a few days upon her discharge. Her home is all on 1 floor, she has 1 step to enter, and a ramp. Equipment Owned/DME: Walker, SPC. Patient primarily utilizes a SPC around her home, utilizing a walker for longer distances. Subjective: NT. See most recent DRY CLEANER APPRENTICE notes. Objective: General Observation: NT. See most recent DRY CLEANER APPRENTICE notes. Mental Status: NT. See most recent DRY CLEANER APPRENTICE notes. Pain: None ROM: Right Upper Extremity: WFL Left Upper Extremity: WFL Right Lower Extremity: WFL Left Lower Extremity: WFL Strength: Right Upper Extremity: Grossly 4/5 Left Upper Extremity: Grossly 4/5 Right Lower Extremity: Grossly 4/5 Left Lower Extremity: Grossly 4/5 Sensation: Intact throughout extremities Bed Mobility/Transfers: Independent for all bed mobility and supervision for all transfers Gait: 10 feet with FWW supervision. Balance: Static Sitting: Good Dynamic Sitting: Good Static Standing: Good Dynamic Standing: Fair Stage IV balance test: Passes first stages, loses balance on third stage Assessment: Ellen demonstrated improved functional outcomes from this episode of care as indicated below. She will continue to benefit from HH PT to reach highest mobility level. Goals: Goals X1 week, all to be achieved with stable vitals 1. Supine-Sit independent MET 2. Sit-Supine independent MET 3. Sit-Stand independent NOT MET 4. Stand-Sit independent NOT MET 5. Bed-Chair independent NOT MET 6. Chair-Bed independent NOT MET 7. Gait household distance of 40 feet with rolling walker, supervision NOT MET 8. One-step, supervision NOT MET 9. Independent with home exercise program NOT MET 10. Balance passes stage III, of stage IV balance test. NOT MET DISCHARGE RECOMMENDATIONS: Home health PT services, supervision of family or caregiver TREATMENT CODE/TIME: MO Thank you for the opportunity to participate in the care of this patient. Arianna Fraser PT, DPT, CLT [facility] [place], [place]
== END 2020-05-18 13:30 | disposition home or self-care (01) | DRG 292 ==
LOC: ER 14:00 → ICU 14:34
PROVIDERS: Family Medicine; Admitting Provider Internal Medicine; Emergency Provider Emergency Medicine; PCP Student in an Organized Health Care Education/Training Program; Visit Provider Internal Medicine
DX: I11.0 Hypertensive heart disease with heart failure (principal); I48.20 Chronic atrial fibrillation, unspecified; I50.23 Acute on chronic systolic (congestive) heart failure; K21.9 Gastro-esophageal reflux disease without esophagitis; I42.9 Cardiomyopathy, unspecified; F03.90 Unspecified dementia, unspecified severity, without behavioral disturbance, psychotic disturbance, mood disturbance, and anxiety; J45.40 Moderate persistent asthma, uncomplicated; Z86.73 Personal history of transient ischemic attack (TIA), and cerebral infarction without residual deficits; Z95.5 Presence of coronary angioplasty implant and graft; I27.20 Pulmonary hypertension, unspecified; Z11.59 Encounter for screening for other viral diseases; N83.292 Other ovarian cyst, left side
CPT/HCPCS: 36410; 36415; 51702; 80048; 80053; 80061; 83690; 93005; 94640; 96361; 96365; 96367; 96375; 96376; 97110; 97163; 99223; 99233; 99239; 99285; J1650; U0003; 70450; 71045; 74177; 81003; 81015; 83036; 83735; 83880; 84443; 84484; 85025; 85610; 85730; 93010; 93306; J1940; J1941; J3475; J3490

== ENCOUNTER → 2020-05-24 09:36 | Outpatient (BNVA) | payer MEDICARE, MEDICAID, SELFPAY | PROVIDERS: PCP Student in an Organized Health Care Education/Training Program; Referring Provider Student in an Organized Health Care Education/Training Program; Visit Provider Internal Medicine Cardiovascular Disease | DX: I50.23 Acute on chronic systolic (congestive) heart failure (principal); I48.21 Permanent atrial fibrillation; I25.10 Atherosclerotic heart disease of native coronary artery without angina pectoris; I11.0 Hypertensive heart disease with heart failure | CPT/HCPCS: 99203; 99214 ==

== ENCOUNTER 2020-05-31 03:02 | Outpatient (CLI) | payer MEDICARE, MEDICAID, SELFPAY ==
[2020-05-31 10:18] LABS: HCT 38.1 % (36.0-46.0); HGB 12.4 g/dL (11.2-15.7); MCH 32.9 pg (27.0-33.0); MCHC 32.5 % (32.0-36.0); MCV 101.1 fL (80-95); MPV 10.2 fL (8.0-11.0); Platelet Count 199 10^3/uL (130-400); RBC 3.77 10^6/uL (3.93-5.22); RDW 14.1 % (11.7-14.6); WBC 4.64 10^3/uL (4.4-10.8)
[2020-05-31 10:50] LABS: ALT 31 U/L (14-59); AST 19 U/L (15-37); Albumin 3.9 g/dL (3.4-5.0); Alkaline Phosphatase 59 U/L (46-116); Anion Gap 5.6 mmol/L (3-11); BUN 24 mg/dL (7-18); Bilirubin, Total 0.7 mg/dL (0.2-1.0); CO2 30.4 mmol/L (21.0-32.0); CREATININE 0.95 mg/dL (0.55-1.02); Calcium 9.3 mg/dL (8.5-10.1); Chloride 105 mmol/L (98-107); Estimated GFR 57.04 (mL/min/1.73m2); Glucose 94 mg/dL (74-106); Sodium 141 mmol/L (136-145); Total Protein 6.5 g/dL (6.4-8.2)
== END 2020-05-31 03:22 ==
PROVIDERS: PCP Student in an Organized Health Care Education/Training Program; Visit Provider Student in an Organized Health Care Education/Training Program
DX: E87.6 Hypokalemia (principal); E83.42 Hypomagnesemia; I50.20 Unspecified systolic (congestive) heart failure; E86.0 Dehydration; I42.9 Cardiomyopathy, unspecified; N20.0 Calculus of kidney
CPT/HCPCS: 36415; 80053; 85027; 83735

== ENCOUNTER 2020-06-29 03:50 | Outpatient (CLI) | payer MEDICARE, MEDICAID, SELFPAY ==
--- NOTE | 2020-06-29 06:15 | DI.US_ITS ---
EXAM: US RENAL CLINICAL HISTORY: monitor known stone burden,calculus of prox rt ureter,n20.1 TECHNIQUE: Ultrasound performed using standard protocol. COMPARISON: CT CT ABDOMEN PELVIS W from 05/15/2020 US US ECHOCARDIOGRAM from 05/16/2020 FINDINGS: Renal ultrasound was performed according to the usual protocol. Note is again made of a previously d escribed left ovarian complex mass, as seen on previous examinations. Biopsy recommended if clinical ly appropriate. Kidneys are normal in size and shape. There is no evidence of hydronephrosis. There is an echogenic focus in the right renal midpole without significant posterior acoustic shadowing, calcification not excluded but no calcification was identified on recent CT of May 15.. No other findings suspic ious for nephrolithiasis seen. There are ureteral jets noted in the urinary bladder bilaterally. Bl adder volume 23 cc. IMPRESSION: No evidence of urinary tract obstruction. Possible 4 millimeter right midpole renal calculus, hakeem singleton, recent CT of May 15 showed no stone at this site. DATA REPOSITORY:
== END 2020-06-29 04:10 ==
PROVIDERS: PCP Student in an Organized Health Care Education/Training Program; Visit Provider Urology
DX: N20.1 Calculus of ureter (principal); N20.0 Calculus of kidney; I10 Essential (primary) hypertension
CPT/HCPCS: 76770; 99213

== ENCOUNTER 2020-06-29 11:04 | Outpatient (REF) | payer MEDICARE, MEDICAID, SELFPAY ==
[2020-07-02 11:56] LABS: CA 125 18 U/mL (<30)
== END 2020-06-29 11:24 ==
LOC: LBN 11:04
PROVIDERS: PCP Student in an Organized Health Care Education/Training Program; Visit Provider Obstetrics & Gynecology
DX: R19.09 Other intra-abdominal and pelvic swelling, mass and lump (principal); N83.292 Other ovarian cyst, left side
CPT/HCPCS: 86304

== ENCOUNTER → 2020-08-24 10:27 | Outpatient (BNVA) | payer MEDICARE, MEDICAID, SELFPAY | PROVIDERS: PCP Student in an Organized Health Care Education/Training Program; Referring Provider Student in an Organized Health Care Education/Training Program; Visit Provider Internal Medicine Cardiovascular Disease | DX: I25.10 Atherosclerotic heart disease of native coronary artery without angina pectoris (principal); I50.20 Unspecified systolic (congestive) heart failure; I42.9 Cardiomyopathy, unspecified; I48.91 Unspecified atrial fibrillation; I11.0 Hypertensive heart disease with heart failure | CPT/HCPCS: 99214 ==

== ENCOUNTER → 2020-10-08 09:46 | Outpatient (BNVA) | payer MEDICARE, MEDICAID, SELFPAY | PROVIDERS: PCP Student in an Organized Health Care Education/Training Program; Referring Provider Otolaryngology; Visit Provider Psychiatry & Neurology Neurology | DX: R20.0 Anesthesia of skin (principal); H57.13 Ocular pain, bilateral; I11.0 Hypertensive heart disease with heart failure; I50.9 Heart failure, unspecified | CPT/HCPCS: 99215; G2212 ==

== ENCOUNTER 2020-10-22 08:51 | Day surgery (SDC) | payer MEDICARE, MEDICAID, SELFPAY ==
[2020-10-22 08:58] VITALS: BP 161/110; PULSE 89; RESP 17; TEMP 36; O2SAT 99
[2020-10-22] MEDS: Tropicam./Phenyleph. (1/2.5%) 5 ML BTL OD ×3 (09:24→09:39)
[2020-10-22] MEDS: Balanced Salt Soln.-PLUS 500 ML BAG (10:31)
[2020-10-22] MEDS: Lidocaine 1% Pres-Free 5 ML VIAL (10:31)
[2020-10-22] MEDS: Duovisc Viscoelastic System EACH 1 EACH (10:33)
[2020-10-22] MEDS: Lidocaine 2% Jelly 6 ML SYR (10:33)
[2020-10-22] MEDS: Povidone-Iodine Ophth 30 ML BTL (10:34)
[2020-10-22] MEDS: Tetracaine 0.5% 4 ML BTL OD (10:34)
--- NOTE | 2020-10-22 10:59 | PDOC.DSDIS_ITS ---
Discharge Plan Disposition Patient Disposition: HOME Condition: Good Discharge Details Attending Provider: Roberto Elliott Primary Care Provider: Miguelina Tilley Home Meds and New Rx's Prescriptions: No Action tumeric 500 mg capsule 500 mg PO BID RF: 0 atorvastatin 40 mg tablet 40 mg PO DAILY Qty: 90 RF: 3 calcium carb and citrate-vitD3 600 mg calcium- 500 unit tablet extended rele ase 1 tab PO BID Qty: 180 RF: 3 epinephrine [EpiPen 2-Moe] 0.3 mg/0.3 mL auto-injector 0.3 mg IM ONCE Qty: 2 RF: 0 famotidine 40 mg tablet 40 mg PO DAILY Qty: 90 RF: 1 ipratropium-albuterol 0.5 mg-3 mg(2.5 mg base)/3 mL solution for nebulization 3 ml Inhalation Q3H PRN Qty: 90 RF: 4 cetirizine 10 mg tablet 10 mg PO DAILY MDD 10mg Qty: 90 RF: 3 nitroglycerin [Nitrostat] 0.4 mg tablet, sublingual 0.4 mg Sublingual PRN Qty: 30 RF: 0 Protein Powder, Egg/Nut FREE 1 oz PO BID Qty: 1 RF: 0 levalbuterol HCl 0.31 mg/3 mL solution for nebulization IH RF: 0 levalbuterol tartrate 45 mcg/actuation HFA aerosol inhaler 2 inh IH Q6H Qty: 15 RF: 1 magnesium citrate 125 mg capsule 250 mg PO DAILY RF: 0 (DME) Entrust Plus Briefs misc 1 ea Miscellaneous TID Qty: 132 RF: 12 (DME) sanitary pads pad See Dose Instructions .ROUTE .MEDSUPPLY Qty: 20 RF: 0 simethicone 125 mg capsule 125 mg PO BID PRN (Reason: abdominal distention) Qty: 60 RF: 3 multivitamin [Daily Vitamin] 1 EACH tablet 1 ea PO DAILY RF: 0 melatonin-pyridoxine HCl (B6) 1 EACH tablet,ext release multiphase 1 ea PO HS RF: 0 (DME) Adult Aerosol Mask 1 EACH misc 1 ea Miscellaneous DAILY Qty: 1 RF: 0 acetaminophen [Tylenol Arthritis] 650 mg tablet extended release 1,300 mg PO BID RF: 0 aspirin [Aspir-81] 81 mg tablet,delayed release (DR/EC) 81 mg PO DAILY Qty: 90 RF: 3 Advair HFA 230-21 mcg/actuation HFA aerosol inhaler 2 puff Inhalation BID Qty: 3 RF: 3 montelukast 10 mg tablet 10 mg PO HS Qty: 90 RF: 3 Boost High Protein 0.06 gram- 1 kcal/mL liquid See Rx Instructions PO .COMPLEX Qty: 6399 RF: 3 diltiazem HCl 120 mg capsule,extended release 24hr 120 mg PO HS Qty: 90 RF: 6 losartan 25 mg tablet 25 mg PO DAILY Qty: 90 RF: 6 alum-mag hydroxide-simeth [Mylanta Maximum Strength] 400-400-40 mg/5 mL Suspension 15 ml PO TID PRNRF: 0 metoprolol succinate 100 mg Tablet Extended Release 24 Hr 100 mg PO DAILY Qty: 30 RF: 0 furosemide 20 mg Tablet 20 mg PO DAILY Qty: 10 RF: 0 Discharge Instructions Stand Alone Forms: Post-op Topical Cataract Discharge Orders Discharge Orders: Discharge Order (Routine); Ordered 10/22/20 Ordered By: Roberto Elliott DS: Diagnosis Discharge Diagnosis (1) Capsular glaucoma with pseudoexfoliation of lens, right eye, moderate stage: Status: Chronic (2) Nuclear sclerotic cataract of right eye: Status: Resolved (3) Cortical cataract of right eye: Status: Resolved
--- NOTE | 2020-10-22 11:00 | ROE_ITS ---
Date of service: 10/22/20 Time of Service: 11:00 Operative Note Operative Note DATE OF PROCEDURE: 10/22/20 PRE-OP DIAGNOSIS: Nuclear/cortical cataract, right eye POST-OP DIAGNOSIS: same PROCEDURE: Cataract extraction using phacoemulsification with intraocular lens implant, right eye SURGEON: Roberto Elliott ANESTHESIA: MAC and local (sub-tenon's anesthetic infiltration) ESTIMATED BLOOD LOSS: 0 PATHOLOGY: none sent COMPLICATIONS: None Patient was transported to: same day Patient's condition: stable Implants: Tim and Tim Vision / [employer] Tecnis ZCB00 intraocular lens Indications: Progressive decreased vision due to cataract, right eye Procedure Description: CATARACT SURGERY OPERATIVE REPORT PREOPERATIVE DIAGNOSIS: Nuclear/cortical cataract, right eye Pseudoexfoliation glaucoma, right eye, mild stage POSTOPERATIVE DIAGNOSIS: Same OPERATION: Cataract extraction using phacoemulsification with posterior chamber intraocular lens implant, right eye. IOL: IOL Telescope Repairer/Model: [employer] Vision / TIMI Tecnis ZCB00 IOL Power: + 22.0 diopters IOL Serial Number: [id number] Optic Diameter: 6.0mm Haptic/Overall Diameter: 13.0mm PHACO INFO: Mansoor [employer] Vision System with OZil and Active Fluidics Cumulative Dispersed Energy (CDE): 6.21 seconds seconds SURGEON: Roberto Elliott MD, CB ANESTHESIA: Monitored Anesthesia Care (MAC), with local sub-tenon's anesthetic infiltration COMPLICATIONS: None SPECIMENS: None INDICATIONS FOR PROCEDURE: Patient is a 79-year-old lady with history of pseudoexfoliation glaucoma of the right eye she has complex medical history with 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 She also has a right homonymous visual field defect. The option of cataract surgery was offered to the patient and she wished to proceed. PROCEDURE: The correct surgical eye was identified and marked as the right eye and the pupil was dilated in the preoperative area using mydriatics and cycloplegics. The dilated pupil size was 6.0 mm. No oral sedation was given. The patient was brought to the operating room where cardiopulmonary monitoring was instituted and surgical time-out was performed, confirming the correct operative eye and IOL power. Topical anesthesia was administered and ophthalmic povidone-iodine 5% was instilled into the conjunctival fornices. Lidocaine gel was applied to the cornea and the lexus-ocular area was prepped with Betadine 10% solution and draped in the usual sterile fashion for intraocular surgery, including an aperture drape. A Tegaderm transparent film dressing was cut in half and used to cover the lashes and lid margins. Care was taken to sequester the lashes and lid margins under the Tegaderm dressing. A lid speculum was placed between the lids of the operative eye and the Mario-Jin operating microscope was maneuvered into position. Sarah scissors were then used to make a conjunctival buttonhole approximately 6mm posterior to the limbus in the inferonasal quadrant. Blunt dissection was carried out to expose bare sclera, and a blunt-tipped sub-tenon?s anesthesia cannula was introduced and passed posteriorly along the globe where non- preserved plain lidocaine was injected into posterior sub-Tenon?s space. A sideport knife was used to make a paracentesis port inferiortemporally. Intraocular phenylephrine/lidocaine was injected into the anterior chamber. The anterior chamber was then filled with viscoelastic. A 2.4mm keratome knife was used to create a half-thickness groove at the limbus and then to construct a three-plane near-clear corneal tunnel extending 2.0mm into clear cornea in the superiortemporal position. . A flap was raised on the anterior capsule and capsulorhexis forceps were used to complete a continuous curvilinear capsulorhexis of 5.0 mm. Balanced salt solution was then used to perform cortical cleaving hydrodissection and nuclear hydrodelineation until the lens could be freely rotated within the capsular bag. The lens nucleus was then disassembled and removed within the capsular bag and iris plane using phacoemulsification. Residual cortical material was removed using the I/A handpiece. The posterior capsule was carefully polished to remove as much residual lens epithelial cells as safely possible. The capsular bag was then inflated and the anterior chamber deepened with viscoelastic. The lens implant described above was inserted into the capsular bag using the TIMI [place] Injector. A Kuglen hook was used to dial the IOL into position. Residual viscoelastic was then removed first from posterior to the IOL, then from the anterior chamber using the I/A handpiece. The lens implant was noted to center nicely within the capsular bag. The incisions were stromally hydrated, and the anterior chamber was reformed using BSS. Then 0.5cc of moxifloxacin 1.0mg/ml were injected into the capsular bag and anterior chamber. The incisions were checked with a Weck spear and found to be secure. Several drops of ophthalmic povidone-iodine 5% were then applied to the eye followed by two drops of Imprimis combination prednisolone/moxifloxacin/nepafenac solution. The drapes were removed and a clear plastic protective eye shield was placed over the eye. The patient was then returned to Same Day Surgery in stable condition.
== END 2020-10-22 11:30 | disposition home or self-care (01) ==
PROVIDERS: PCP Student in an Organized Health Care Education/Training Program; Visit Provider Ophthalmology
PROC: (CPT 66984; principal; 2020-10-22 11:30)
DX: H25.11 Age-related nuclear cataract, right eye (principal); H25.011 Cortical age-related cataract, right eye; H40.1412 Capsular glaucoma with pseudoexfoliation of lens, right eye, moderate stage
CPT/HCPCS: 66984; V2632

== ENCOUNTER 2020-11-05 07:05 | Day surgery (SDC) | payer MEDICARE, MEDICAID, SELFPAY ==
[2020-11-05] VITALS (14 sets, daily range): BP systolic 142–163; BP diastolic 86–115; PULSE 99–114; RESP 15–23; TEMP 36–36.8; O2SAT 97–99
[2020-11-05] MEDS: Tropicam./Phenyleph. (1/2.5%) 5 ML BTL OS ×3 (07:35→07:45)
[2020-11-05] MEDS: Povidone-Iodine Ophth 30 ML BTL ×2 (08:10→10:46)
[2020-11-05] MEDS: Tetracaine 0.5% 4 ML BTL OS (08:10)
[2020-11-05] MEDS: Lidocaine 2% Jelly 6 ML SYR ×2 (08:10→10:45)
[2020-11-05] MEDS: Normal Saline 250 ML 30 ML IV (08:20)
[2020-11-05] MEDS: dilTIAZem CD 120 MG CAPCR PO (08:57)
[2020-11-05] MEDS: Balanced Salt Soln.-PLUS 500 ML BAG (10:44)
[2020-11-05] MEDS: Duovisc Viscoelastic System EACH 1 EACH (10:44)
[2020-11-05] MEDS: Lidocaine 1% Pres-Free 5 ML VIAL (10:44)
[2020-11-05] MEDS: Tetracaine 0.5% 4 ML BTL (10:46)
[2020-11-05] MEDS: Trypan Blue 0.06% 0.5 ML SYR (10:48)
--- NOTE | 2020-11-05 11:05 | PDOC.DSDIS_ITS ---
Discharge Plan Disposition Patient Disposition: HOME Condition: Good Discharge Details Attending Provider: Roberto Elliott Primary Care Provider: Miguelina Tilley Home Meds and New Rx's Prescriptions: No Action tumeric 500 mg capsule 500 mg PO BID RF: 0 atorvastatin 40 mg tablet 40 mg PO DAILY Qty: 90 RF: 3 calcium carb and citrate-vitD3 600 mg calcium- 500 unit tablet extended rele ase 1 tab PO BID Qty: 180 RF: 3 epinephrine [EpiPen 2-Moe] 0.3 mg/0.3 mL auto-injector 0.3 mg IM ONCE Qty: 2 RF: 0 famotidine 40 mg tablet 40 mg PO DAILY Qty: 90 RF: 1 ipratropium-albuterol 0.5 mg-3 mg(2.5 mg base)/3 mL solution for nebulization 3 ml Inhalation Q3H PRN Qty: 90 RF: 4 cetirizine 10 mg tablet 10 mg PO DAILY MDD 10mg Qty: 90 RF: 3 nitroglycerin [Nitrostat] 0.4 mg tablet, sublingual 0.4 mg Sublingual PRN Qty: 30 RF: 0 Protein Powder, Egg/Nut FREE 1 oz PO BID Qty: 1 RF: 0 levalbuterol HCl 0.31 mg/3 mL solution for nebulization IH RF: 0 levalbuterol tartrate 45 mcg/actuation HFA aerosol inhaler 2 inh IH Q6H Qty: 15 RF: 1 magnesium citrate 125 mg capsule 250 mg PO DAILY RF: 0 (DME) Entrust Plus Briefs misc 1 ea Miscellaneous TID Qty: 132 RF: 12 (DME) sanitary pads pad See Dose Instructions .ROUTE .MEDSUPPLY Qty: 20 RF: 0 simethicone 125 mg capsule 125 mg PO BID PRN (Reason: abdominal distention) Qty: 60 RF: 3 multivitamin [Daily Vitamin] 1 EACH tablet 1 ea PO DAILY RF: 0 melatonin-pyridoxine HCl (B6) 1 EACH tablet,ext release multiphase 1 ea PO HS RF: 0 (DME) Adult Aerosol Mask 1 EACH misc 1 ea Miscellaneous DAILY Qty: 1 RF: 0 acetaminophen [Tylenol Arthritis] 650 mg tablet extended release 1,300 mg PO BID RF: 0 aspirin [Aspir-81] 81 mg tablet,delayed release (DR/EC) 81 mg PO DAILY Qty: 90 RF: 3 Advair HFA 230-21 mcg/actuation HFA aerosol inhaler 2 puff Inhalation BID Qty: 3 RF: 3 montelukast 10 mg tablet 10 mg PO HS Qty: 90 RF: 3 Boost High Protein 0.06 gram- 1 kcal/mL liquid See Rx Instructions PO .COMPLEX Qty: 6399 RF: 3 diltiazem HCl 120 mg capsule,extended release 24hr 120 mg PO HS Qty: 90 RF: 6 losartan 25 mg tablet 25 mg PO DAILY Qty: 90 RF: 6 alum-mag hydroxide-simeth [Mylanta Maximum Strength] 400-400-40 mg/5 mL Suspension 15 ml PO TID PRNRF: 0 metoprolol succinate 100 mg Tablet Extended Release 24 Hr 100 mg PO DAILY Qty: 30 RF: 0 furosemide 20 mg Tablet 20 mg PO DAILY Qty: 10 RF: 0 Discharge Instructions Stand Alone Forms: Post-op Topical Cataract, Karen Alford (DSU) Discharge Orders Discharge Orders: Discharge Order (Routine); Ordered 11/05/20 Ordered By: Roberto Elliott DS: Diagnosis Discharge Diagnosis (1) Cortical cataract of left eye: Status: Chronic (2) Nuclear sclerotic cataract of left eye: Status: Resolved (3) Pseudoexfoliative glaucoma, left eye, moderate stage: Status: Resolved
--- NOTE | 2020-11-05 11:07 | W.PM.OP ---
Date of service: 11/05/20 Time of Service: 11:08 Operative Note Operative Note DATE OF PROCEDURE: 11/05/20 PRE-OP DIAGNOSIS: Nuclear/cortical cataract, left eye PROCEDURE: Cataract extraction using phacoemulsification with intraocular lens implant, left eye, with pupillary dilation using Malyugin Ring and capsular staining using Vision Blue SURGEON: Roberto Elliott Refer to Anesthesia Record ESTIMATED BLOOD LOSS: 0 PATHOLOGY: none sent COMPLICATIONS: None Patient was transported to: same day Patient's condition: stable Implants: Tim and Tim / [employer] Tecnis ZCB00 Indications: Progressive decreased vision due to cataract, left eye Procedure Description: CATARACT SURGERY OPERATIVE REPORT PREOPERATIVE DIAGNOSIS: 1. Nuclear/cortical cataract, left eye 2. Poorly dilating pupil, left eye 3. Poor red reflex, left eye POSTOPERATIVE DIAGNOSIS: Same OPERATION: 1. Cataract extraction using phacoemulsification with posterior chamber intraocular lens implant, left eye. 2. Pupillary dilation and iris stabilization using Malyugin Ring 3. Capsular staining with VIsion Blue IOL: IOL Director Of [employer] Recreation/Model: Tim & Tim / TIMI Tecnis ZCB00 IOL Power: + 21.5 diopters IOL Serial Number: [id number] Optic Diameter: 6.0mm Haptic/Overall Diameter: 13.0mm PHACO INFO: Mansoor [employer] Vision System with OZil and Active Fluidics Cumulative Dispersed Energy (CDE): 6.25 seconds SURGEON: Roberto Elliott MD, CB ANESTHESIA: Monitored Anesthesia Care (MAC), with local sub-tenon's anesthetic infiltration COMPLICATIONS: None SPECIMENS: None INDICATIONS FOR PROCEDURE: Patient is a 80-year-old lady with history of pseudoexfoliation glaucoma in both eyes, moderate stage, treated with Combigan. She now presents with significant cataract of the left eye. She has already undergone cataract surgery of the right eye. Of note, the patient surgery in the left eye was delayed earlier this morning due to atrial fibrillation with rapid ventricular response. After IV metoprolol and oral medication, her heart rate came down, and she is now ready for surgery. PROCEDURE: The correct surgical eye was identified and marked as the left eye and the pupil was dilated in the preoperative area using mydriatics, cycloplegics, and NSAIDS (except in aspirin allergic patients). The dilated pupil size was 5.0 mm. No oral sedation was given. The patient was brought to the operating room where cardiopulmonary monitoring was instituted and surgical time-out was performed, confirming the correct operative eye and IOL power. Topical anesthesia was administered and ophthalmic povidone-iodine 5% was instilled into the conjunctival fornices. Lidocaine gel was applied to the cornea and the lexus-ocular area was prepped with Betadine 10% solution and draped in the usual sterile fashion for intraocular surgery, including an aperture drape. A Tegaderm transparent film dressing was cut in half and used to cover the lashes and lid margins. Care was taken to sequester the lashes and lid margins under the Tegaderm dressing. A lid speculum was placed between the lids of the operative eye and the Mario-Jin operating microscope was maneuvered into position. Central corneal epithelium was noted to be very rough and irregular, obscuring a clear view of the anterior capsule and anterior chamber. Sarah scissors were then used to make a conjunctival buttonhole approximately 6mm posterior to the limbus in the inferonasal quadrant. Blunt dissection was carried out to expose bare sclera, and a blunt-tipped sub-tenon?s anesthesia cannula was introduced and passed posteriorly along the globe where non-preserved plain lidocaine was injected into posterior sub-Tenon?s space. A sideport knife was used to make a paracentesis port superiorly/superiortemporally. Intraocular phenylephrine/lidocaine was injected into the anterior chamber. Air was then injected into anterior chamber, followed by Vision Blue, which was painted over the anterior capsule and then irrigated out with BSS. The anterior chamber was then filled with viscoelastic. A 2.4mm keratome knife was used to create a half-thickness groove at the limbus and then to construct a three-plane near-clear corneal tunnel extending 2.0mm into clear cornea temporally. A 7.0 mm Malyugin Ring was then inserted into the pupillary space and engaged with the Kuglen hook. A flap was raised on the anterior capsule and capsulorhexis forceps were used to complete a continuous curvilinear capsulorhexis of 5.5 mm. Balanced salt solution was then used to perform cortical cleaving hydrodissection and nuclear hydrodelineation until the lens could be freely rotated within the capsular bag. The lens nucleus was then disassembled and removed within the capsular bag and iris plane using phacoemulsification. Residual cortical material was removed using the 45-degree angled silicone I/A tip with 0.3mm port. The posterior capsule was carefully polished to remove as much residual lens epithelial cells as safely possible. The capsular bag was then inflated and the anterior chamber deepened with viscoelastic. The lens implant described above was inserted into the capsular bag using the TIMI [place] Injector. A Kuglen hook was used to dial the IOL into position. The Malyugin Ring was removed in the reverse order of its insertion. Residual viscoelastic was then removed first from posterior to the IOL, then from the anterior chamber using the I/A handpiece. The lens implant was noted to center nicely within the capsular bag. The incisions were stromally hydrated, and the anterior chamber was reformed using BSS. Then 0.5cc of moxifloxacin 1.0mg/ml were injected into the capsular bag and anterior chamber. The incisions were checked with a Weck spear and found to be secure. Several drops of ophthalmic povidone-iodine 5% were then applied to the eye followed by two drops of Imprimis combination prednisolone/moxifloxacin/nepafenac solution. The drapes were removed and a clear plastic protective eye shield was placed over the eye. The patient was then returned to Same Day Surgery in stable condition.
--- NOTE | 2020-11-05 13:52 | ANES_ITS ---
Date of service: 11/05/20 Time of Service: 13:52 Anesthesia Note Report Anesthesia Note: Followed up with patient via the telephone this afternoon. Patient was educated about not taking additional dose of Diltiazem ER when she returned home, but did take all of her pills by mistake when she turned home. Patient and sister, Radha, were educated to take patient's blood pressure and document. Patient has follow up with home health on Thursday and encouraged to reach out to PCP regarding blood pressure and rate control of her atrial fibrillation. Patient and sister verbalize understanding of recommendations. I spoke with [facility] pharmacist regarding the additional dose of medication, and agreed with plan to monitor via blood pressure.
== END 2020-11-05 11:37 | disposition home or self-care (01) ==
PROVIDERS: PCP Student in an Organized Health Care Education/Training Program; Visit Provider Ophthalmology
PROC: (CPT 66982; principal; 2020-11-05 08:30)
DX: H25.012 Cortical age-related cataract, left eye (principal); H25.12 Age-related nuclear cataract, left eye; H40.1422 Capsular glaucoma with pseudoexfoliation of lens, left eye, moderate stage; H57.09 Other anomalies of pupillary function; H35.89 Other specified retinal disorders; I48.91 Unspecified atrial fibrillation; J45.909 Unspecified asthma, uncomplicated; K21.9 Gastro-esophageal reflux disease without esophagitis
CPT/HCPCS: 66982; V2632

== ENCOUNTER → 2020-12-10 10:41 | Outpatient (BNVA) | payer MEDICARE, MEDICAID, SELFPAY | PROVIDERS: PCP Student in an Organized Health Care Education/Training Program; Referring Provider Student in an Organized Health Care Education/Training Program; Visit Provider Psychiatry & Neurology Neurology | DX: R20.0 Anesthesia of skin (principal); I72.8 Aneurysm of other specified arteries; I10 Essential (primary) hypertension | CPT/HCPCS: 99215 ==

== ENCOUNTER → 2020-12-31 11:15 | Outpatient (BNVA) | payer MEDICARE, MEDICAID, SELFPAY | PROVIDERS: PCP Student in an Organized Health Care Education/Training Program; Referring Provider Student in an Organized Health Care Education/Training Program; Visit Provider Internal Medicine Cardiovascular Disease | DX: I50.20 Unspecified systolic (congestive) heart failure (principal); I42.9 Cardiomyopathy, unspecified; I48.11 Longstanding persistent atrial fibrillation; I25.10 Atherosclerotic heart disease of native coronary artery without angina pectoris | CPT/HCPCS: 99213 ==

== ENCOUNTER 2021-01-01 02:16 | Outpatient (CLI) | payer MEDICARE, MEDICAID, SELFPAY ==
--- NOTE | 2021-01-01 06:30 | DI.US_ITS ---
EXAM: US RENAL CLINICAL HISTORY: monitor stone,rt kidney stone, n20.0. TECHNIQUE: Luna scale, color and spectral Doppler were used. COMPARISON: CT CT ABDOMEN PELVIS W from 05/15/[address] ABDOMEN PELVIS W from 05/15/2020 US US RENAL from 06/29/2020 FINDINGS: Renal size in cm: Right: 9.4. Left: 10.2. Echogenicity: Normal. Hydronephrosis: No. Cyst or mass: No. Nephrolithiasis: Bilateral echogenic foci in the kidneys. The largest on the right measures 4.1 mm. The largest on the left measures 6 mm. These may represent nonobstructing stones. CT scan from 04/22 does show vascular calcification particularly in the left kidney. Other findings: There is again seen a complex left ovarian cystic lesion. This is been present on tiff or examinations. It appears grossly unchanged. The cyst measures 4.7 x 2.9 x 5.4 cm. There is normal blood flow seen to the left ovary. Bladder:Inadequately distended for proper evaluation. Ureteral jets: Right: Not visualized on this examination. Left: Visualized and unremarkable. Prevoid vol:20 cc Postvoid vol:19 cc Renal color flow: Symmetric and within normal limits. IMPRESSION: 1. Several bilateral echogenic foci in the kidneys. These may represent nonobstructing stones. A albert l colic CT should be considered for further evaluation. No evidence of hydronephrosis. 2. Stable multi-cystic left ovarian lesion. 3. Incompletely distended urinary bladder limiting sonographic evaluation. DATA REPOSITORY:
== END 2021-01-01 02:36 ==
PROVIDERS: PCP Student in an Organized Health Care Education/Training Program; Visit Provider Urology
DX: R10.9 Unspecified abdominal pain (principal); Z87.442 Personal history of urinary calculi; N83.292 Other ovarian cyst, left side
CPT/HCPCS: 76770; 99213

== ENCOUNTER → 2021-02-21 12:17 | Outpatient (BNVA) | payer MEDICARE, MEDICAID, SELFPAY | PROVIDERS: PCP Student in an Organized Health Care Education/Training Program; Visit Provider Psychiatry & Neurology Neurology | DX: I48.11 Longstanding persistent atrial fibrillation (principal); I63.9 Cerebral infarction, unspecified; I72.9 Aneurysm of unspecified site; G62.9 Polyneuropathy, unspecified; R41.3 Other amnesia | CPT/HCPCS: 99213 ==

== ENCOUNTER 2021-02-26 02:36 | Outpatient (CLI) | payer MEDICARE, MEDICAID, SELFPAY ==
--- NOTE | 2021-02-26 07:45 | DI.CT_ITS ---
Exam(s) CT BRAIN CTA EXAM: CT BRAIN CTA CLINICAL HISTORY: ?aneurysm seen on open brain MRI,i72.9. TECHNIQUE: Imaging Protocol: Axial CT angiography was performed with multi-slice acquisition and mu lti-planar and/or 3D reconstructions. CONTRAST MATERIAL: Intravenous: Omnipaque 350 Contrast volume:85 mL COMPARISON: CT CT ABDOMEN PELVIS W from 05/15/2020 MR MRI BRAIN W/WO from 11/15/2020 FINDINGS: CT Head W/O and W: Ventricles and Extra axial spaces: Normal in size and morphology for the patient's age. Hemorrhage: None. Cerebral parenchyma: There is no evidence of an acute territorial infarct. There are areas of decrea sed attenuation in the white matter most consistent with chronic microvascular ischemic disease. The re is an old lacunar infarct in the right basal ganglia. There is an area of encephalomalacia involv ing the left occipital lobe. Midline shift: None. Brainstem/Cerebellum: Normal. Calvarium: Normal. Visualized Paranasal sinuses/Mastoids: Clear. Soft Tissues: Unremarkable. Enhancement: No suspicious enhancement. CTA Brain W: Internal Carotid Arteries: Moderate severe atherosclerosis is present bilaterally. Petrous: Normal. Cavernous: Normal. Cerebral: There is mild aneurysmal dilatation of the supraclinoid right internal carotid artery criselda red to the left. (Series 14, image 28). The base measures approximately 4 mm. Anterior Cerebral Arteries: Right: No aneurysm, occlusion or significant stenosis. Left: No aneurysm, occlusion or significant stenosis. Middle Cerebral Arteries: Right: No aneurysm, occlusion or significant stenosis. Left: No aneurysm, occlusion or significant stenosis. Posterior cerebral Arteries: Right: No aneurysm, occlusion or significant stenosis. There is calcification at the origin of the r ight P1 segment. Left: No aneurysm, occlusion or significant stenosis. The left posterior cerebral artery is best rudy reciated on the postcontrast axial images of the brain. Vertebral Arteries: Right: No aneurysm, occlusion or significant stenosis. Moderate atherosclerosis. Left: No aneurysm, occlusion or significant stenosis. Moderately severe atherosclerosis. Basilar Artery: No occlusion or significant stenosis. Moderately severe atherosclerosis. The tip of the basilar artery is densely calcified. The P1 segments are not well visualized. An aneurysm in t his region cannot be entirely excluded. IMPRESSION: 1. 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 2. Density calcified tip of the basilar artery. An aneurysm in this region cannot be entirely exclud ed. 3. Age-related cerebral atrophy and small vessel ischemic disease. Encephalomalacia in the left occi pital lobe and right basal gangliar lacunar infarct. RADIATION DOSE DELIVERED: 1,661.32mGy.cm Total DLP DATA REPOSITORY: All CT scans at this facility are submitted to the National Radiology Data Registry (NRDR) Dose Index Registry (DIR) with the [employer] (ACR). RADIATION OPTIMIZATION: All CT scans at this facility use at least one of these dose optimization te chniques: automated exposure control; mA and/or kV adjustment per patient size (includes targeted exa ms where dose is matched to clinical indication); or iterative reconstruction.
[2021-02-26 15:48] LABS: CREATININE 0.9 mg/dL (0.55-1.02); Vitamin B12 698 pg/mL (193-986)
[2021-02-26] MEDS: Omnipaque 350 MG/ML 100 ML BTL IV (16:02)
[2021-02-26] MEDS: Normal Saline - Diluent 50 ML VIAL IV (16:04)
== END 2021-02-26 02:56 ==
PROVIDERS: PCP Student in an Organized Health Care Education/Training Program; Visit Provider Psychiatry & Neurology Neurology
DX: I67.1 Cerebral aneurysm, nonruptured (principal); G31.89 Other specified degenerative diseases of nervous system; G93.89 Other specified disorders of brain; G62.9 Polyneuropathy, unspecified; Z01.812 Encounter for preprocedural laboratory examination; R20.0 Anesthesia of skin
CPT/HCPCS: 70496; 82565; 82607; J3490

== ENCOUNTER → 2021-03-12 10:41 | Outpatient (BNVA) | payer MEDICARE, MEDICAID, SELFPAY | PROVIDERS: PCP Student in an Organized Health Care Education/Training Program; Referring Provider Student in an Organized Health Care Education/Training Program; Visit Provider Psychiatry & Neurology Neurology | DX: G81.91 Hemiplegia, unspecified affecting right dominant side (principal); I67.1 Cerebral aneurysm, nonruptured; I48.11 Longstanding persistent atrial fibrillation; R41.3 Other amnesia | CPT/HCPCS: 99213 ==

== ENCOUNTER 2021-04-11 03:27 | Outpatient (CLI) | payer MEDICARE, MEDICAID, SELFPAY ==
[2021-04-11 08:18] LABS: HCT 38.4 % (36.0-46.0); HGB 12.7 g/dL (11.2-15.7); MCHC 33.1 % (32.0-36.0); MCV 99.7 fL (80-95); MPV 9.8 fL (8.0-11.0); Platelet Count 154 10^3/uL (130-400); RBC 3.85 10^6/uL (3.93-5.22); RDW 13.2 % (11.7-14.6); RDW-SD 47.8 fL; WBC 4.95 10^3/uL (4.4-10.8)
[2021-04-11 09:04] LABS: Anion Gap 8.1 mmol/L (3-11); BUN 19 mg/dL (7-18); CO2 30.9 mmol/L (21.0-32.0); Calcium 9.3 mg/dL (8.5-10.1); Calculated LDL 44 mg/dL (<100); Chloride 107 mmol/L (98-107); Cholesterol 105 mg/dL (<200); Estimated GFR 53.62 (mL/min/1.73m2); Glucose 97 mg/dL (74-106); HDL Cholesterol 45 mg/dL (40-60); Potassium 4.3 mmol/L (3.5-5.1); Sodium 146 mmol/L (136-145); Triglyceride 81 mg/dL (<150)
== END 2021-04-11 03:28 | disposition home or self-care (01) ==
LOC: LBO 03:28
PROVIDERS: PCP Student in an Organized Health Care Education/Training Program; Visit Provider Student in an Organized Health Care Education/Training Program
DX: R63.4 Abnormal weight loss (principal); I10 Essential (primary) hypertension; E86.0 Dehydration; I25.10 Atherosclerotic heart disease of native coronary artery without angina pectoris; N20.0 Calculus of kidney
CPT/HCPCS: 36415; 80048; 80061; 85027

== ENCOUNTER → 2021-05-03 13:10 | Outpatient (BNVA) | payer MEDICARE, MEDICAID, SELFPAY | PROVIDERS: PCP Student in an Organized Health Care Education/Training Program; Visit Provider Internal Medicine Cardiovascular Disease | DX: I48.11 Longstanding persistent atrial fibrillation (principal); I25.10 Atherosclerotic heart disease of native coronary artery without angina pectoris; I10 Essential (primary) hypertension; Z86.79 Personal history of other diseases of the circulatory system | CPT/HCPCS: 99214; 99213 ==

== ENCOUNTER 2021-06-10 15:47 | Outpatient (CLI) | payer MEDICARE, MEDICAID, SELFPAY ==
--- NOTE | 2021-06-10 10:45 | DI.RAD_ITS ---
Exam(s) XR HIP RT COMPLETE AP PELVIS EXAM: XR HIP RT COMPLETE AP PELVIS CLINICAL HISTORY: r/o fracture, acute rt hip pain, fall, W19.XXXA, M25.551. TECHNIQUE: 2D digital imaging was performed. COMPARISON: No exams were available for comparison FINDINGS: No evidence of pelvic nor hip fracture. Minimal degenerative changes. Vascular calcification noted. Sacroiliac joints appear age-appropriate. No osseous lesions IMPRESSION: DATA REPOSITORY: RADIATION DOSE DELIVERED:
--- NOTE | 2021-06-10 10:45 | DI.RAD_ITS ---
Exam(s) XR RIBS LT W PA LAT CHEST EXAM: XR RIBS LT W PA LAT CHEST CLINICAL HISTORY: r/o rib fracture--tender 8-9-10 on L, FALL, RIB PAIN LT, W19.XXXA, COUGH,. TECHNIQUE: 2D digital imaging was performed. COMPARISON: CR XR PORTABLE CHEST AP from 05/15/2020 FINDINGS: Heart size upper normal. Calcified thoracic aorta again noted. Mediastinum not widened. Lungs are clear. No pulmonary infiltrates nor pleural effusions and no evidence of pulmonary edema at this juan e. Dedicated views of the left rib cage reveal no obvious fractures. No lung contusion. No pneumothora x. There are no compression fractures of the thoracic vertebrae evident. IMPRESSION: DATA REPOSITORY: RADIATION DOSE DELIVERED:
== END 2021-06-10 16:07 ==
PROVIDERS: PCP Student in an Organized Health Care Education/Training Program; Visit Provider Nurse Practitioner Adult Health
DX: M25.551 Pain in right hip (principal); R05 Cough; R07.81 Pleurodynia; R52 Pain, unspecified; W19.XXXA Unspecified fall, initial encounter
CPT/HCPCS: 71046; 71100; 73502

== ENCOUNTER 2021-07-09 13:01 | Outpatient (CLI) | payer MEDICARE, MEDICAID, SELFPAY ==
[2021-07-09 14:42] LABS: Anion Gap 5.3 mmol/L (3-11); BUN 23 mg/dL (7-18); CO2 32.7 mmol/L (21.0-32.0); CREATININE 1.1 mg/dL (0.55-1.02); Calcium 9.2 mg/dL (8.5-10.1); Chloride 105 mmol/L (98-107); Estimated GFR 48.04 (mL/min/1.73m2); Glucose 137 mg/dL (74-106); Potassium 4.1 mmol/L (3.5-5.1); Sodium 143 mmol/L (136-145)
== END 2021-07-09 13:02 | disposition home or self-care (01) ==
LOC: LBO 13:04
PROVIDERS: PCP Student in an Organized Health Care Education/Training Program; Visit Provider Student in an Organized Health Care Education/Training Program
DX: J45.909 Unspecified asthma, uncomplicated (principal); I10 Essential (primary) hypertension; Z79.1 Long term (current) use of non-steroidal anti-inflammatories (NSAID)
CPT/HCPCS: 36415; 80048

== ENCOUNTER 2021-07-17 02:37 | Outpatient (CLI) | payer MEDICARE, MEDICAID, SELFPAY ==
--- NOTE | 2021-07-17 09:00 | DI.US_ITS ---
Exam(s) US RENAL EXAM: US RENAL CLINICAL HISTORY: monitor known stones,h/o renal calculi, z87.442 TECHNIQUE: Ultrasound of both kidneys performed using standard protocol. COMPARISON: CT CT ABDOMEN PELVIS W from 05/15/2020 US US RENAL from 01/01/2021 FINDINGS: Both kidneys measure approximately 9.5 cm length and exhibit normal cortical thickness and corticomed ullary differentiation. There are multiple echogenic foci noted both kidneys may represent small non obstructive calculi. No hydronephrosis. No perinephric fluid URINARY BLADDER: Prevoid volume is 375 cc Postvoid volume is 70 cc No evidence of obvious bladder mass nor obvious diverticuli. Ureterovesical jets: Both identified and appear symmetrical IMPRESSION: 1. Possible small bilateral nonobstructive calculi in both kidneys. No hydronephrosis. 2. Postvoid residual volume in the urinary bladder is 70 cc (prevoid volume was 375 cc) DATA REPOSITORY:
== END 2021-07-17 02:57 ==
PROVIDERS: PCP Student in an Organized Health Care Education/Training Program; Visit Provider Urology
DX: N20.0 Calculus of kidney
CPT/HCPCS: 76770; 99213

== ENCOUNTER 2021-07-19 00:39 | Outpatient (CLI) | payer MEDICARE, MEDICAID, SELFPAY ==
--- NOTE | 2021-07-19 07:45 | DI.US_ITS ---
Exam(s) US SOFT TISS EXTREMITY/GROIN EXAM: US SOFT TISS EXTREMITY/GROIN CLINICAL HISTORY: evaluate for hematoma (RT THIGH),RT THIGH PAIN, M79.651,S/P FALL,W10.2XXS TECHNIQUE: Ultrasound performed using standard protocol. COMPARISON: US US RENAL from 07/17/2021 FINDINGS: Ultrasound examination of the right superior thigh/inguinal region was performed to evaluate clinical ly suspected hematoma. No hematoma or mass was identified in this region. IMPRESSION: DATA REPOSITORY:
== END 2021-07-19 00:59 ==
PROVIDERS: PCP Student in an Organized Health Care Education/Training Program; Visit Provider Student in an Organized Health Care Education/Training Program
DX: M79.651 Pain in right thigh (principal); W19.XXXA Unspecified fall, initial encounter
CPT/HCPCS: 76882

== ENCOUNTER 2021-09-05 01:47 | Outpatient (CLI) | payer MEDICARE, MEDICAID, SELFPAY ==
--- NOTE | 2021-09-05 08:30 | DI.CT_ITS ---
Exam(s) CT BRAIN CTA EXAM: CT BRAIN CTA CLINICAL HISTORY: monitoring of cerebral aneurysms,i67.1. TECHNIQUE: Imaging Protocol: Both noninfused and contrast infused CT scans of the brain were perform ed. IV Contrast Dose =85 cc Axial computed tomography images with coronal and sagittal reformatted images were created and review ed COMPARISON: CT CT BRAIN CTA from 02/26/2021 FINDINGS: There are no skull fractures nor fluid in the visualized paranasal sinuses. No evidence of intracranial hemorrhage. Previously described area of encephalomalacia in the left oc cipital lobe prior infarct is again noted. Also again noted is area of wedge-shaped hypodensity in t he inferior mid aspect of the left cerebellar hemisphere consistent with non recent infarct. No evid ence of acute infarct. Abundant bilateral mild periventricular hypodensity consistent chronic small vessel again noted.Also again noted is very prominent calcification of all of the vessels in the skul l base, including both vertebral arteries, the entire basilar artery as well as origins of the shed workers supervisor ior cerebral arteries. Also the intracavernous and supraclinoid aspects of both internal carotid art eries. There are no ring enhancing lesions in the brain and there is no abnormal meningeal enhancement, foca l or diffuse. ANTERIOR CIRCULATION: The supraclinoid aspects of both internal carotid arteries are very heavily calcified making evaluati on difficult. Previously described mild fusiform aneurysmal dilatation of the supraclinoid aspect of the right ICA appears unchanged. There is flow demonstrated in both A1 segments as well as in both anterior cerebral arteries. No aneurysm at the level of the anterior communicating artery. Both mid dle cerebral arteries appear patent. POSTERIOR CIRCULATION: Both vertebral arteries are severely calcified as is the entire length of the basilar artery and the basilar tip. There is opacification of the right superior cerebellar artery and probably also the left superior c erebellar artery. Right posterior cerebral artery is opacified. Difficult to visualized left shed workers supervisor ior cerebral artery. IMPRESSION: Less than optimal study due to the very heavy calcification noted within the intracranial arteries at the skull base, this calcification involving both the anterior posterior circulation vessels.However , the fusiform dilatation of the right supraclinoid ICA remain stable. With respect to the posterior circulation it might be prudent to perform noninfused brain magnetic resonance angiography using juan e-of-flight sequence which should be less affected by the mural calcium here. No significant enhancing intracranial findings. RADIATION DOSE DELIVERED: 1,556.25mGy.cm Total DLP DATA REPOSITORY: All CT scans at this facility are submitted to the National Radiology Data Registry (NRDR) Dose Index Registry (DIR) with the [employer] (ACR). RADIATION OPTIMIZATION: All CT scans at this facility use at least one of these dose optimization te chniques: automated exposure control; mA and/or kV adjustment per patient size (includes targeted exa ms where dose is matched to clinical indication); or iterative reconstruction.
[2021-09-05 13:58] LABS: Estimated GFR 53.62 (mL/min/1.73m2)
[2021-09-05] MEDS: Omnipaque 350 MG/ML 100 ML BTL 85 ML IJ (14:33)
== END 2021-09-05 02:07 ==
PROVIDERS: PCP Student in an Organized Health Care Education/Training Program; Visit Provider Psychiatry & Neurology Neurology
DX: I67.1 Cerebral aneurysm, nonruptured (principal); I67.2 Cerebral atherosclerosis; Z01.812 Encounter for preprocedural laboratory examination
CPT/HCPCS: 70496; 82565; J3490

== ENCOUNTER → 2021-10-14 13:32 | Outpatient (BNVA) | payer MEDICARE, MEDICAID, SELFPAY | PROVIDERS: PCP Student in an Organized Health Care Education/Training Program; Visit Provider Psychiatry & Neurology Neurology | DX: I67.1 Cerebral aneurysm, nonruptured (principal); I48.11 Longstanding persistent atrial fibrillation; I63.9 Cerebral infarction, unspecified; R41.3 Other amnesia; I11.0 Hypertensive heart disease with heart failure; I50.9 Heart failure, unspecified | CPT/HCPCS: 99213 ==

== ENCOUNTER → 2021-11-19 08:58 | Outpatient (BNVA) | payer MEDICARE, MEDICAID, SELFPAY | PROVIDERS: PCP Student in an Organized Health Care Education/Training Program; Visit Provider Internal Medicine Cardiovascular Disease | DX: I50.20 Unspecified systolic (congestive) heart failure (principal); I42.9 Cardiomyopathy, unspecified | CPT/HCPCS: 99214; 99213 ==

== ENCOUNTER 2021-11-22 00:57 | Outpatient (CLI) | payer MEDICARE, MEDICAID, SELFPAY ==
--- NOTE | 2021-11-22 07:00 | DI.DEXA_ITS ---
Exam(s) XR DEXA BONE DENSITY W/WO JACOB EXAM: XR DEXA BONE DENSITY W/WO JACOB CLINICAL HISTORY: re-evaluate bone density,osteopenia,high risk fx,m85.88 TECHNIQUE: COMPARISON: Comparison examination is 06/15/2013. FINDINGS: Lateral Spine Image: Unremarkable. No compression deformities identified. Left hip: Total T-Score: -2.8. This compares to -1.3 on the prior examination. Total Z-Score: -0.8 T- and Z-scores: Findings are consistent with osteoporosis. Lumbar Spine: Total T-Score: -1.3. This compares to -0.6 on the prior examination. Total Z-Score: 1.3 T- and Z-scores: Findings are consistent with osteopenia. IMPRESSION: Osteoporosis in the left hip.
== END 2021-11-22 01:17 ==
PROVIDERS: PCP Student in an Organized Health Care Education/Training Program; Visit Provider Student in an Organized Health Care Education/Training Program
DX: M85.88 Other specified disorders of bone density and structure, other site; Z13.820 Encounter for screening for osteoporosis; M81.0 Age-related osteoporosis without current pathological fracture
CPT/HCPCS: 77080

== ENCOUNTER 2022-01-20 00:52 | Outpatient (CLI) | payer MEDICARE, MEDICAID, SELFPAY ==
--- OUTSIDE RECORDS SUMMARY | 2022-01-20 00:55 | XMS_ITS | Encounter Summary ---
:1940 Author Organization [facility] Address [address] [place] [address] Care Team Providers Name Role Phone Luis Felipe Francois MD Primary Care Provider Encounter Details Date Type Department Care Team Description 11/18/2011 Hospital Encounter [facility] Radha Jackson MD [address] [facility] [address] [place] [address] [facility] [phone] Office Building, [address] [place] [id number] (Wo rk) Social History Tobacco Use Types Packs/Day Years Used Date Never Assessed Sex Assigned at Date Recorded Not on file documented as of this encounter Medications at Time of Discharge Medication Sig Dispensed Refills Start Date End Date DILTiazem (TIAZAC) 240 mg Take 240 mg by 0 08/29/2019 SR capsule mouth daily. isosorbide mononitrate Take 120 mg by 0 08/29/2019 (IMDUR) 60 mg CR tablet mouth daily. ranitidine (ZANTAC) 150 mg Take 150 mg by 0 04/11/2020 tablet mouth daily. simvastatin (ZOCOR) 20 mg Take 20 mg by mouth 0 08/29/2019 tablet daily. documented as of this encounter Discharge Disposition Disposition Code Departure Means Destination Auto Discharge Home documented in this encounter Plan of Treatment Not on filedocumented as of this encounter Visit Diagnoses Not on filedocumented in this encounter Care Teams Physician Assistant Psychiatry Relationship Specialty Start Date End Date Shahid Francois MD PCP - General 10/30/11 [address] [place] [address] documented as of this encounter
--- OUTSIDE RECORDS SUMMARY | 2022-01-20 00:55 | XMS_ITS | Encounter Summary ---
:1940 Author Organization [facility] Address [address] [place] [address] Care Team Providers Name Role Phone Luis Felipe Francois MD Primary Care Provider Reason for Visit Reason Onset Date Comments Other 09/05/2019 Patient seen in ER 1 11/05/18 Encounter Details Date Type Department Care Team Description 09/05/2019 Telephone [facility] - Coty Wagner Ot her (Patient seen in [facility] Clin ic TOY DESIGNER 09/04/19) [address] [place] [address] [facility] [phone] [address] [place], [place] [id number] Social History Tobacco Use Types Packs/Day Years Used Date Never Smoker Smokeless Tobacco: Never Used Sex Assigned at Date Recorded Not on file documented as of this encounter Miscellaneous Notes Telephone Encounter - Coty Wagner RN - 09/05/2019 1222 EST Notified Hermelinda by detailed message to have patient hold her eliquis X 3 days and also should stop aspirin. Also instructed per note last week if bleeding continues should see ENT. Instructed to call the office with further questions or concerns. elephone Encounter - Vero Overton MD - 09/05/2019 1212 EST The pain/ pressure may be related to nasal packing. Either way lets hold the Eliquis for 3 days. Stop Aspirin now. Then restart Eliquis in 3 days. elephone Encounter - Coty Wagner RN - 09/05/2019 0953 EST Patients daughter called to report patient had to go to the ER yesterday as she developed another nose bleed. She does have nasal packing in at this time. She has been instructed to hold her eliquis bythe ER. She is now complaining of pain pressure behind her eye and also continues to have some bleeding. They would like instruction regarding how long to hold eliquis. How shall I advise? documented in this encounter Plan of Treatment Not on filedocumented as of this encounter Visit Diagnoses Not on filedocumented in this encounter Care Teams Spot Worker Relationship Specialty Start Date End Date Shahid Francois MD PCP - General 10/30/[address] [place] [address] documented as of this encounter
--- OUTSIDE RECORDS SUMMARY | 2022-01-20 00:55 | XMS_ITS | Encounter Summary ---
:1940 Author Organization [facility] Address [address] [place] [address] Care Team Providers Name Role Phone Luis Felipe Francois MD Primary Care Provider Encounter Details Date Type Department Care Team Description 03/20/2015 Hospital Encounter [facility]- Jeny Unknown, Provider, [facility] [address] [facility] [phone] [place] [address] (Work) [phone] Social History Tobacco Use Types Packs/Day Years Used Date Never Assessed Sex Assigned at Date Recorded Not on file documented as of this encounter Medications at Time of Discharge Medication Sig Dispensed Refills Start Date End Date aspirin 81 mg EC tablet Take 81 mg by mouth 0 daily. cetirizine (ZYRTEC) 10 mg Take 10 mg by 0 015 tablet mouth. EPINEPHrine (EPIPEN 2-AMINTA) 0 5 0.3 mg/0.3 mL injection FA/MV,CA,IRON,MIN/LYCOPENE Take 1 Tab by mouth 0 /LUT (MULTIVITAL ORAL) daily. nitroGLYCERIN (NITROSTAT) Place 0.4 mg under 0 0.4 mg SL tablet the tongue every 5 minutes as needed. DILTiazem (TIAZAC) 240 mg Take 240 mg by 0 08/29/2019 SR capsule mouth daily. isosorbide mononitrate Take 120 mg by 0 08/29/2019 (IMDUR) 60 mg CR tablet mouth daily. lisinopril (ZESTRIL) 20 mg Take 20 mg by mouth 0 04/11/2020 tablet daily. omeprazole (PRILOSEC) 20 Take 20 mg by mouth 0 04/11/2020 mg capsule daily. ranitidine (ZANTAC) 150 mg Take 150 mg by 0 04/11/2020 tablet mouth daily. simvastatin (ZOCOR) 20 mg Take 20 mg by mouth 0 08/29/2019 tablet daily. documented as of this encounter Discharge Disposition Disposition Code Departure Means Destination Home or Self Assisted documented in this encounter Plan of Treatment Not on filedocumented as of this encounter Visit Diagnoses Not on filedocumented in this encounter Care Teams Software Analyst Relationship Specialty Start Date End Date Shahid Francois MD PCP - General 10/30/11 [address] [place] [address] documented as of this encounter
--- OUTSIDE RECORDS SUMMARY | 2022-01-20 00:55 | XMS_ITS | Encounter Summary ---
:1940 Author Organization [facility] Address [address] [place] [address] Care Team Providers Name Role Phone Unavailable Primary Care Provider Unavailable Encounter Details Date Type Department Care Team Description 02/22/2002 - Hospital Encounter [facility] Kevin Coles, 02/23/2002 Cardiac/Telemetry MD [address] [facility] [address] [place] [address] [facility] [phone] [place] [address] Social History Tobacco Use Types Packs/Day Years Used Date Never Assessed Sex Assigned at Date Recorded Not on file documented as of this encounter Discharge Disposition Disposition Code Departure Means Destination Home or Self Care documented in this encounter Plan of Treatment Not on filedocumented as of this encounter Procedures Procedure Name Priority Date/Time Associated Comments Diagnosis CREATININE Routine 02/23/2002 7:00 Results for this EDT procedure are i n the results section. COMPLETE BLOOD COUNT Routine 02/23/2002 7:00 Res ults for this EDT procedure are i n the results section. BUN Routine 02/23/2002 7:00 Results for this EDT procedure are i n the results section. ELECTROLYTES Routine 02/23/2002 7:00 Results for this EDT procedure are i n the results section. documented in this encounter Results ELECTROLYTES (02/23/2002 7:00 EDT) Pathologist [facility] nature Sodium 142 136 - 145 mEq/L [facility] Potassium 4.0 3.5 - 5.0 mEq/L [facility] Chloride 110 96 - 110 mEq/L [facility] CO2 24 24 - 30 mEq/L [facility] Specimen Performing Organization Address City/[facility]/ZIP Code Phon e Number [facility] [address] [place] [address] SERVICES [facility] [address] [place] [address] CREATININE (02/23/2002 7:00 EDT) Pathologist Sig nature Creatinine 1.0 0.7 - 1.5 mg/dl [facility] Specimen Performing Organization Address [facility] Code Phon e Number [facility] [address] [place] [address] SERVICES [facility] [address] [place] [address] (ABNORMAL) HEMAGRAM (02/23/2002 7:00 EDT) Pathologist Sig nature WBC 3.96 (L) 4.0 - 12.4 K/cmm [facility] RBC 3.72 (L) 3.86 - 5.04 M/cmm [facility] Hemoglobin 11.6 11.6 - 15.2 gm/dl [facility] HCT 33.6 (L) 34.9 - 44.4 % [facility] MCV 90 81 - 98 fl [facility] MCH 31.2 26.7 - 33.3 pg [facility] MCHC 34.6 32.1 - 35.9 gm/dl [facility] PLT 162 141 - 320 K/cmm [facility] RDW-CV 12.8 11.7 - 14.6 % [facility] Specimen Performing Organization Address [facility]/ZIP Code Phon e Number [facility] [address] [place] [address] SERVICES [facility] [address] [place] [address] BUN (02/23/2002 7:00 EDT) Pathologist Sig nature BUN 15 10 - 26 mg/dl [facility] Specimen Performing Organization Address [facility] Code Phon e Number [facility] [address] [place] [address] SERVICES [facility] [address] [place] [address] documented in this encounter Visit Diagnoses Not on filedocumented in this encounter
--- OUTSIDE RECORDS SUMMARY | 2022-01-20 00:55 | XMS_ITS | Encounter Summary ---
:[address] [facility] Address [address] [place] [address] Care Team Providers Name Role Phone Luis Felipe Francois MD Primary Care Provider Reason for Visit Reason Onset Date Comments Nose Bleeds 09/02/2019 Encounter Details Date Type Department Care Team Description 09/02/2019 Telephone [facility] Vero Stevens MD Nose Bleeds [facility] [address] [place], [place] [address] [place] [phone] (Wo rk) Social History Tobacco Use Types Packs/Day Years Used Date Never Smoker Smokeless Tobacco: Never Used Sex Assigned at Date Recorded Not on file documented as of this encounter Miscellaneous Notes Telephone Encounter - Coty Wagner RN - 09/05/2019 1209 EST See most recent TE, 09/05 elephone Encounter - Vero Overton MD - 09/05/2019 0840 EST Please ask her to stop Aspirin therapy. Continue Eliquis. ENT referral if further nose bleeds. Thanks. elephone Encounter - Malik Monroy RN - 09/02/[address] Walton who advises that pt should stay on the Eliquis and if continues to have nose bleeds may need a referral to ENT. I called and left a message for Hermelinda (Daughter in law) advising to please stay on the Eliquis and to go to the Emergency Department if the epistaxis is severe and/or doesn't stop with 20 mins of direct pressure. Also advised to try to keep her nares moist with vaseline or bacitracin. Forwarding message to Dr. Overton as well so that he can weigh in when he returns on Thursday. elephone Encounter - Malik Monroy RN - 09/02/2019 1655 EST Forwarding to purification director Inspector Quality Assurance Dr. Walton for recommendations. Please advise. Telephone Encounter - Fiona Wood - 09/02/2019 1648 EST Hermelinda, patients daughter in law called and left a msg regarding Ellen's Eliquis medication. Ellen has now had 3 nose bleeds this afternoon, they have been able to get them to stop within about 5-7 minutes but are concerned about them continuing while she is on the Eliquis. Hermelinda would like a call back at [phone]. elephone Encounter - Malik Monroy RN - 09/02/2019 1318 EST Home Health nurse (Rupinder) called as she was visiting Ellen. She reports that Ellen has had 2minor and brief episodes of epistaxis since starting Eliquis last week. Pt reports some mild dizziness but is ambulating/walking the dog without objective difficulty per Rupinder. No headache and no apparent distress per Rupinder. Advised Rupinder and pt to contact us if having continued or worsening sxsand to go to ED for acute epistaxis. Pt and Rupinder verbalize understanding. Malik Monroy RN documented in this encounter Plan of Treatment Not on filedocumented as of this encounter Visit Diagnoses Not on filedocumented in this encounter Care Teams Museum Guide Relationship Specialty Start Date End Date Shahid Francois MD PCP - General 10/30/[address] [place] [address] documented as of this encounter
--- OUTSIDE RECORDS SUMMARY | 2022-01-20 00:55 | XMS_ITS | Encounter Summary ---
:1940 Author Organization [facility] Address [address] [place] [address] Care Team Providers Name Role Phone Luis Felipe Francois MD Primary Care Provider Reason for Visit Reason Onset Date Comments Other 03/16/2012 Encounter Details Date Type Department Care Team Description 03/16/2012 Telephone [facility] Radha Skinner, Other Medicine and Reconstructive MD Surgery - Medical Office [address] [place] [address] Office Building, [address] [address] [place], [place] [phone] (Wo rk) Social History Tobacco Use Types Packs/Day Years Used Date Never Assessed Sex Assigned at Date Recorded Not on file documented as of this encounter Miscellaneous Notes Telephone Encounter - Linda Lopez RN - 03/17/2012 1510 EDT Ellen did have a TVT done in November of this year. If Ellen is feeling like she has to strain to empty or is feeling that she is not emptying her bladder, we would check her PVR. We have patients whom voice that it takes them much longer to void: the bladder is now pushing against resistance it did not encounter pre op. We would encourage patience with voiding, double voiding if necessary. If Ellen is c/o discomfort in the bladder or Urethra, we would trial Hyophen,1 tab TID prn to seeif patient gets some relief. Dr. Jackson and I reviewed the above plan together. Feel free to be in touch if necessary. Linda Lopez R.N.,KarlUGemma. Nurse Clinician [facility] phone: fax: e-mail: [email or web address] elephone Encounter - Debbie Denton - 03/16/2012 1632 EDT Patient was in seeing Dr. Park . Patient thought she had a UTI. Doctor is sending fax with lab results and would like to discuss with the nurse or Dr. Jackson by email. She will be at a differentlocation tomorrow. documented in this encounter Plan of Treatment Not on filedocumented as of this encounter Visit Diagnoses Not on filedocumented in this encounter Care Teams Vocational Rehabilitation Consultant Relationship Specialty Start Date End Date Shahid Francois MD PCP - General 10/30/11 [address] [place] [address] documented as of this encounter
--- OUTSIDE RECORDS SUMMARY | 2022-01-20 00:55 | XMS_ITS | Encounter Summary ---
:1940 Author Organization [facility] Address [address] [place] [address] Care Team Providers Name Role Phone Luis Felipe Francois MD Primary Care Provider Reason for Visit Reason Comments Post-OP Follow Up Encounter Details Date Type Department Care Team Description 01/05/2012 Office Visit [facility] Radha Jackson y incontinence Pelvic Medicine and MD Mireille (Primary Dx) Reconstructive Surgery - [address] [place] [address] Medical [place] [address] Medical [address] [place] [address] [address] [place] [phone] Social History Tobacco Use Types Packs/Day Years Used Date Never Assessed Sex Assigned at Date Recorded Not on file documented as of this encounter Last Filed Vital Signs Vital Sign Reading Time Taken Comments Blood Pressure 171/101 01/05/2012 0912 EDT Pulse 87 01/05/2012 0912 EDT Temperature - - Respiratory Rate - - Oxygen Saturation - - Inhaled Oxygen Concentration - - Weight - - Height - - Body Mass Index - - documented in this encounter Progress Notes Radha Jackson MD - 01/05/2012 0941 EDT Pt s/p TVT and anterior repair. No complaints. No further leakage. EXAM: No prolapse. Incisions healing well PLAN: F/U 6 months or prn. Caroline Santana LPN - 01/05/2012 0926 EDT Results for orders placed in visit on 01/05/12 POCT URINE DIPSTICK Component Value Range Color YELLOW Clarity, UA Clear Glucose Neg Neg Bilirubin Neg Neg Ketones Neg Neg Specific Pecan Gap 1.010 1.001 - 1.035 Blood 1+ (*) Neg pH 7.0 4.6 - 8.0 Protein Neg Neg Urobilinogen 0.2 0.2 - 1.0 (E.U./dl) Nitrite Neg Neg Leuk Esterase Trace (*) Neg Tech ID [id number] documented in this encounter Plan of Treatment Not on filedocumented as of this encounter Procedures Procedure Name Priority Date/Time Associated Diagnosis Comme nts POCT URINE Routine 01/05/2012 9:12 Urinary incontinence Res ults for this DIPSTICK, CLINITEK EDT procedure are in the results section. documented in this encounter Results (ABNORMAL) POCT URINE DIPSTICK (01/05/2012 9:12 EDT) Color YELLOW [facility] Clarity, UA Clear [facility] Glucose Neg Neg [facility] Bilirubin Neg Neg [facility] Ketones Neg Neg [facility] Specific Pecan Gap 1.010 1.001 - 1.035 [facility] Blood 1+ (A) Neg [facility] pH 7.0 4.6 - 8.0 [facility] Protein Neg Neg [facility] Urobilinogen 0.2 0.2 - 1.0 [facility] E.U./dl LAB Nitrite Neg Neg [facility] Leuk Esterase Trace (A) Neg [facility] paint roller covermaker ID [id number]: [facility] Test performed at LAB [facility] Specimen Urine (substance) Performing Organization Address City/State/ZIP Code Phon e Number [facility] [address] [place] [phone] SERVICES [facility] [address] [place] [address] documented in this encounter Visit Diagnoses Diagnosis Urinary incontinence - Primary Unspecified urinary incontinence documented in this encounter Discontinued Medications Medication Sig Discontinue Reason Start Date End Date HYDROmorphone (DILAUDID) 2 Take 1-2 Tabs by Therapy completed 12/1101/05/2012 mg tablet mouth every 4 hours as needed for Pain. documented as of this encounter Care Teams Care Services Manager Relationship Specialty Start Date End Date Shahid Francois MD PCP - General 10/30/11 [address] [place] [address] documented as of this encounter
--- OUTSIDE RECORDS SUMMARY | 2022-01-20 00:55 | XMS_ITS | Encounter Summary ---
:1940 Author Organization [facility] Address [address] [place] [address] Care Team Providers Name Role Phone Luis Felipe Francois MD Primary Care Provider Encounter Details Date Type Department Care Team Description 03/20/2015 Results Only [facility] Cipriano Luu MD [phone] [phone] (Wo rk) Social History Tobacco Use Types Packs/Day Years Used Date Never Assessed Sex Assigned at Date Recorded Not on file documented as of this encounter Plan of Treatment Not on filedocumented as of this encounter Procedures Procedure Name Priority Date/Time Associated Diagnosis Comme [facility] SURGICAL PATHOLOGY Routine 03/20/2015 8:51 Resul ts for this EDT procedure are i n the results section. documented in this encounter Results SURGICAL PATHOLOGY (03/20/2015 8:51 EDT) Pathology Report: SURGICAL PATHOLOGY REPORT [facility] Reports generated via electronic interface conta in original data; [facility] however they are lacking the format of the original re port. SERVICES Caution should be taken when reading/interpreting unfo rmatted reports. Name: ? SALLIE MATOS ? Accession #: ? [id number] ? : ? 1940 (Age: 9 2) ??F ? Collect Date: ? 03/20/2015 ? Location: ? [facility] ? Receive Date: ? 03/21/2015 ? Provider: LASHON LUU MD Copy to: ? Final Pathologic Diagnosis: A. ? DUODENUM, 2ND PORTION, BIOPSY: - Duodenal mucosa with no specific pathologic features . B. ? STOMACH, ANTRUM AND BODY, BIOPSY: - Gastric antral mucosa with reactive (chemical) gastr opathy. - Gastric body mucosa with no specific pathologic feat ures. C. ? GASTROESOPHAGEAL JUNCTION, BIOPSY: - Squamocolumnar junctional mucosa with mild reactive changes. - Negative for intestinal metaplasia; Negative for dys plasia. D. ? ESOPHAGUS, MID, BIOPSY: - Squamous mucosa with no specific pathologic features . Document reviewed and electronically signed by: MALIK CHENG MD Report ??Date: 03/26/2015 13:45 By the signature above, the attending physician certif ies that he/she has personally conducted a gross and/or microscopic examin ation of the described specimens and rendered or confirmed the above diagnosi s. Specimen(s) Received: A. ??2nd portion of duodenum B. ??Antrum and body C. ??EGJ D. ??Mid esophagus Clinical History: Dyspepsia; dysphagia; clinical diagnosis code: 536.8 Gross Description: A. ?Received in formalin labelled with proper p atient identification (initials M, M) and 2nd portion of duodenum ar e two pink-anna tissues (0.2 x 0.2 x 0.1 cm and 0.4 x 0.3 x 0.2 cm). Entirely submitt ed in block A1. B. ?Received in formalin labelled with proper p atient identification (initials M, M) and antrum and body are four pink-anna tissues (0.2 x 0.1 x 0.1 cm to 0.4 x 0.3 x 0.2 cm). Entirely submitted in block s B1 and B2. C. ?Received in formalin labelled with proper p atient identification (initials M, M) and EGJ ar e two pink-anna tissues (0.2 x 0.2 x 0.1 cm and 0.2 x 0.2 x 0.2 cm). Entirely submitted in block C1. D. ?Received in formalin labelled with proper p atient identification (initials M, M) and mid esophagus are two whit e tissues (0.2 x 0.1 x 0.1 cm and 0.3 x 0.3 x 0.1 cm). Entirely submitted in block D 1. Chelo Lay 03/22/2015 09:42 AM End of Report Specimen Performing Organization Address City/State/ZIP Code Phon e Number [facility] [address] [place] [address] SERVICES documented in this encounter Visit Diagnoses Not on filedocumented in this encounter Care Teams Flask Cleaner Relationship Specialty Start Date End Date Shahid Francois MD PCP - General 10/30/[address] [place], [place] [address] documented as of this encounter
--- OUTSIDE RECORDS SUMMARY | 2022-01-20 00:55 | XMS_ITS | Encounter Summary ---
:1940 Author Organization [facility] Address [address] [place] [address] Care Team Providers Name Role Phone Luis Felipe Francois MD Primary Care Provider Reason for Visit Reason Onset Date Comments Medications Refill 12/05/2019 Encounter Details Date Type Department Care Team Description 12/05/2019 Refill [facility] Coty Wagner RN Medications Refill Cardiology Clinic [address] [facility] [address] [facility] [address] [place] [address] [place] [address] [phone] (Wo rk) Social History Tobacco Use Types Packs/Day Years Used Date Never Smoker Smokeless Tobacco: Never Used Sex Assigned at Date Recorded Not on file documented as of this encounter Ordered Prescriptions Prescription Sig Dispensed Refills Start Date End Date amLODIPine (NORVASC) 2.5 Take 1 Tab by mouth 90 Tab 3 04/11/2020 mg tablet daily. documented in this encounter Miscellaneous Notes Telephone Encounter - Coty Wagner RN - 12/05/2019 1004 EDT Patient called the script line requesting RF of her Amlodipine. She was seen in the office 08/29/19 by . Med RF sent to pharmacy. documented in this encounter Plan of Treatment Not on filedocumented as of this encounter Visit Diagnoses Not on filedocumented in this encounter Discontinued Medications Medication Sig Discontinue Reason Start Date End Date amLODIPine (NORVASC) 2.5 Take 1 Tab by mouth Duplicate Therapy 05/201912/05/2019 mg tablet daily for 90 days. documented as of this encounter Care Teams Gravel Weigher Relationship Specialty Start Date End Date Shahid Francois MD PCP - General 10/30/11 [address] [place] [address] documented as of this encounter
--- OUTSIDE RECORDS SUMMARY | 2022-01-20 00:55 | XMS_ITS | Encounter Summary ---
:1940 Author Organization [facility] Address [address] [place] [address] Care Team Providers Name Role Phone Luis Felipe Francois MD Primary Care Provider Encounter Details Date Type Department Care Team Description 03/12/2020 Lab Requisition [facility] Outr Resulting Lab, Pathology & Laboratory Provider [facility] [address] [place] [address] Social History Tobacco Use Types Packs/Day Years Used Date Never Smoker Smokeless Tobacco: Never Used Sex Assigned at Date Recorded Not on file documented as of this encounter Plan of Treatment Not on filedocumented as of this encounter Procedures Procedure Name Priority Date/Time Associated Diagnosis Comme nts COVID-[address] [facility] Today 03/12/2020 9:19 LAB PCR EDT COVID-19 TESTING Routine 03/12/2020 9:19 Results for this EDT procedure are i n the results section. documented in this encounter Results COVID-[address] [facility] LAB PCR (03/12/2020 9:19 EDT) Specimen Swab - Entire nasopharynx (body structur e) Performing Organization Address City/State/ZIP Code Phon e Number [facility] [address] [place] [address] SERVICES COVID-19 TESTING (03/12/2020 9:19 EDT) COVID-19 rt-PCR Negative Negative [facility] Result Comment: [facility] Negative results do not prec lude 2019-nCoV infection and should not be used as the sole basis for treatment or other patient management decisions. Negative results must be combined with clinical observa SERVICES tions, patient history, and epidemiological informatio n. This test was developed and its performance characteristics determined by [facility]. It has not been cleared or approved by the US Food and Drug Administration. FDA does not require this test to go through premarket FDA review. This t est is used for clinical purposes. It should not be regarded as investigational or for research. This laboratory is certified under the Clinical Laboratory Improvement Amendm ents (CLIA) as qualified to perform high complexity clinical laboratory testing. This test is based on the CD C COVID-19 Emergency Use Authorization (EUA) assay, with minor modification as defined by the FDA Performed on the [employer] [address]. Performing Lab [address] [facility] Lab [facility] SERVICES Specimen Swab Performing Organization Address City/State/ZIP Code Phon e Number [facility] [address] [place] [address] SERVICES documented in this encounter Visit Diagnoses Not on filedocumented in this encounter Care Teams Sales Hunter Relationship Specialty Start Date End Date Shahid Francois MD PCP - General 10/30/[address] [place], [place] [address] documented as of this encounter
--- OUTSIDE RECORDS SUMMARY | 2022-01-20 00:55 | XMS_ITS | Encounter Summary ---
:1940 Author Organization [facility] Address [address] [place] [address] Care Team Providers Name Role Phone Luis Felipe Francois MD Primary Care Provider Reason for Visit Reason Comments Pre-op Exam Encounter Details Date Type Department Care Team Description 12/04/2011 Office Visit [facility] Radha Jackson Preop examination (Primary Dx); Pelvic Medicine and MD Mireille Cystocele Reconstructive Surgery - [address] [place] [address] Medical [place] [address] Medical Office [address] [place] [address] [address] [place] [phone] Social History Tobacco Use Types Packs/Day Years Used Date Never Assessed Sex Assigned at Date Recorded Not on file documented as of this encounter Last Filed Vital Signs Vital Sign Reading Time Taken Comments Blood Pressure 174/105 12/04/2011 1138 EDT Pulse 98 12/04/2011 1138 EDT Temperature 36.1 ??C (97 ??F) 12/04/2011 1134 EDT Respiratory Rate 18 12/04/2011 1134 EDT Oxygen Saturation - - Inhaled Oxygen Concentration - - Weight 57.2 kg (126 lb) 12/04/2011 1134 EDT Height 152.4 cm (5') 12/04/2011 1134 EDT Body Mass Index 24.61 12/04/2011 1134 EDT documented in this encounter Progress Notes Radha Jackson MD - 12/04/2011 1134 EDT Subjective: Ellen Willard is a 71 y.o.P5 who presents for preop examination. Chief Complaint Patient presents with ??? Pre-op Exam HPI: 71 yo with cystocele and GSI. PMH: No past medical history on file. PSHX: History Social History ??? Marital Status: Spouse Name: N/A Number of Children: N/A ??? Years of Education: N/A Social History Main Topics ??? Smoking status: Not on file ??? Smokeless tobacco: Not on file ??? Alcohol Use: Not on file ??? Drug Use: Not on file ??? Sexually Active: Not on file Other Topics Concern ??? Not on file Social History Narrative ??? No narrative on file Allergies: Allergies Allergen Reactions ??? Morphine GI upset ??? Narcotic Antagonist GI upset ??? Other - See Comments Pt states she is allergic to some anesthesia drugs And other antibiotics But not sure which ones ??? Penicillins Anaphylaxis ??? Sulfa(Sulfonamide Antibiotics) Anaphylaxis ??? Tetracycline Analogues Unknown Reaction Medications: Current Outpatient Prescriptions on File Prior to Visit Medication Sig Dispense Refill ??? aspirin 325 mg tablet Take 325 mg by mouth daily. ??? FA/MV,CA,IRON,MIN/LYCOPENE/LUT (MULTIVITAL ORAL) Take 1 Tab by mouth daily. ??? omeprazole (PRILOSEC) 20 mg capsule Take 20 mg by mouth daily. ??? nitroGLYCERIN (NITROSTAT) 0.[address] 0.4 mg under the tongue every 5 minutes as needed. ??? lisinopril (ZESTRIL) 20 mg tablet Take 20 mg by mouth daily. ??? DILTiazem (TIAZAC) 240 mg SR capsule Take 240 mg by mouth daily. ??? isosorbide mononitrate (IMDUR) 60 mg CR tablet Take 120 mg by mouth daily. ??? simvastatin (ZOCOR) 20 mg tablet Take 20 mg by mouth daily. ??? ranitidine (ZANTAC) 150 mg tablet Take 150 mg by mouth daily. Family History: No family history on file. Social History: History Social History ??? Marital Status: Spouse Name: N/A Number of Children: N/A ??? Years of Education: N/A Occupational History ??? Not on file. Social History Main Topics ??? Smoking status: Not on file ??? Smokeless tobacco: Not on file ??? Alcohol Use: Not on file ??? Drug Use: Not on file ??? Sexually Active: Not on file Other Topics Concern ??? Not on file Social History Narrative ??? No narrative on file Employment: Not employeed Review Of Systems: Skin:negative Neurologic: negative Endocrine: negative Cardiovascular: Stents x 4 Hematologic/ Lympathic: negative Allergy/Immunol: negative ENT/Mouth: negative Respiratory: asthma Gastrointestinal: GERD Musculoskeletal: negative Constitutional: negative Genitourinary: per HPI Physical Exam: Physical Exam: General: Normal Neck: Normal Lungs: Normal Heart: regular rate and rhythm, no murmurs Neuro/Psych: Normal Abdomen: negative Assessment/Plan Assessment: Ellen Willard is a 71 y.o. with a normal pre op exam. Plan: Pt scheduled for TVT and anterior repair. documented in this encounter Procedure Notes TETRYL NITRATOR OPERATOR, SCAN 2 - 12/09/2011 0510 EDTAssociated Order(s): ECG REPORT - SCANNED documented in this encounter Plan of Treatment Scheduled Orders Name Type Priority Associated Diagnoses Order S chedule EKG 12-LEAD ECG Routine Preop examinatio n Ordered: 12/04/2011 Cystocele documented as of this encounter Procedures Procedure Name Priority Date/Time Associated Diagnosis Comme nts ECG REPORT - 12/09/2011 5:10 Results for this SCANNED EDT procedure are i n the results section. documented in this encounter Results ECG REPORT - SCANNED (12/09/2011 5:10 EDT) Specimen Narrative This result has an attachment that is no t available. Transcriptions TETRYL NITRATOR OPERATOR, SCAN 2 - 12/09/2011 5:10 EDT documented in this encounter Visit Diagnoses Diagnosis Preop examination - Primary Preoperative examination, unspecified Cystocele Cystocele, midline documented in this encounter Care Teams Puller Over Relationship Specialty Start Date End Date Shahid Francois MD PCP - General 10/30/11 [address] [place] [address] documented as of this encounter
--- OUTSIDE RECORDS SUMMARY | 2022-01-20 00:55 | XMS_ITS | Encounter Summary ---
:1940 Author Organization [facility] Address [address] [place] [address] Care Team Providers Name Role Phone Luis Felipe Francois MD Primary Care Provider Encounter Details Date Type Department Care Team Description 10/31/2011 Orders Only [facility] Radha Jackson Post-m enopausal bleeding; Pelvic Medicine and MD Mireille Hematuria Reconstructive Surgery - [address] [place] [address] Medical [place] [address] Medical [address] [place] [id number] [address] [place] [phone] Social History Tobacco Use Types Packs/Day Years Used Date Never Assessed Sex Assigned at Date Recorded Not on file documented as of this encounter Plan of Treatment Not on filedocumented as of this encounter Procedures Procedure Name Priority Date/Time Associated Comments Diagnosis RAD US RETROPERITONEAL Routine 11/18/2011 10:05 Post-menopausa l Results for this COMPLETE EST bleeding procedure are in Hematuria the results section. RAD US PELVIS Routine 11/18/2011 10:05 Post-menopausal Results for this TRANSABDOMINAL AND EST bleeding procedure are in TRANSVAGINAL Hematuria the results section. documented in this encounter Results RAD US RETROPERITONEAL COMPLETE (11/18/2011 10:05 EST) Anatomical Region Laterality Modality Other Specimen Narrative [facility] RAD[facility] - 11/18/2011 11:06 EST Retroperitoneal ultrasound, and pelvic ultrasound November 18, 2011 History: Hematuria, postmenopausal bleed ing Retroperitoneal ultrasound: The kidneys are normal in size and appearance, the right measures 10.7 cm i n length and the left measures 11.2 cm. No solid or cystic margarita al masses are appreciated. No calcifications are seen in the kidneys a nd there is no hydronephrosis. The renal cortex is norm al in echotexture and thickness in both kidneys. The urinary b ladder appears normal. Impression: Normal retroperitoneal ultra sound Pelvic ultrasound: Transabdominal and tr ansvaginal scans were performed. The uterus is anteverted and normal in s ize and appearance measuring 8.2 x 2.9 x 5.1 cm. The endometrial lini ng is normal in thickness measuring 3 mm in double wall thickness. There is a trace amount of fluid within the endometrial canal. The ovaries are normal in size and appearance, the right measures 1.8 x 1.5 x 1.1 cm, the left measures 1.7 x 1.2 x 1.7 cm. No free flu id is identified in the pelvis. Impression: Normal pelvic ultrasound Procedure Note 11/18/2011 Retroperitoneal ultrasound, and pelvic u ltrasound November 18, 2011 History: Hematuria, postmenopausal bleed ing Retroperitoneal ultrasound: The kidneys are normal in size and appearance, the right measures 10.7 cm i n length and the left measures 11.2 cm. No solid or cystic margarita al masses are appreciated. No calcifications are seen in the kidneys a nd there is no hydronephrosis. The renal cortex is norm al in echotexture and thickness in both kidneys. The urinary b ladder appears normal. Impression: Normal retroperitoneal ultra sound Pelvic ultrasound: Transabdominal and tr ansvaginal scans were performed. The uterus is anteverted and normal in s ize and appearance measuring 8.2 x 2.9 x 5.1 cm. The endometrial lini ng is normal in thickness measuring 3 mm in double wall thickness. There is a trace amount of fluid within the endometrial canal. The ovaries are normal in size and appearance, the right measures 1.8 x 1.5 x 1.1 cm, the left measures 1.7 x 1.2 x 1.7 cm. No free flu id is identified in the pelvis. Impression: Normal pelvic ultrasound Performing Organization Address City/State/ZIP Code Phon e Number [facility] RAD[facility] RAD US PELVIS TRANSABDOMINAL AND TRANSVAGINAL (11/18/2011 10:05 EST) Anatomical Region Laterality Modality Other Specimen Narrative [facility] RAD[facility] - 11/18/2011 11:06 EST Retroperitoneal ultrasound, and pelvic ultrasound November 18, 2011 History: Hematuria, postmenopausal bleed ing Retroperitoneal ultrasound: The kidneys are normal in size and appearance, the right measures 10.7 cm i n length and the left measures 11.2 cm. No solid or cystic margarita al masses are appreciated. No calcifications are seen in the kidneys a nd there is no hydronephrosis. The renal cortex is norm al in echotexture and thickness in both kidneys. The urinary b ladder appears normal. Impression: Normal retroperitoneal ultra sound Pelvic ultrasound: Transabdominal and tr ansvaginal scans were performed. The uterus is anteverted and normal in s ize and appearance measuring 8.2 x 2.9 x 5.1 cm. The endometrial lini ng is normal in thickness measuring 3 mm in double wall thickness. There is a trace amount of fluid within the endometrial canal. The ovaries are normal in size and appearance, the right measures 1.8 x 1.5 x 1.1 cm, the left measures 1.7 x 1.2 x 1.7 cm. No free flu id is identified in the pelvis. Impression: Normal pelvic ultrasound Procedure Note 11/18/2011 Retroperitoneal ultrasound, and pelvic u ltrasound November 18, 2011 History: Hematuria, postmenopausal bleed ing Retroperitoneal ultrasound: The kidneys are normal in size and appearance, the right measures 10.7 cm i n length and the left measures 11.2 cm. No solid or cystic margarita al masses are appreciated. No calcifications are seen in the kidneys a nd there is no hydronephrosis. The renal cortex is norm al in echotexture and thickness in both kidneys. The urinary b ladder appears normal. Impression: Normal retroperitoneal ultra sound Pelvic ultrasound: Transabdominal and tr ansvaginal scans were performed. The uterus is anteverted and normal in s ize and appearance measuring 8.2 x 2.9 x 5.1 cm. The endometrial lini ng is normal in thickness measuring 3 mm in double wall thickness. There is a trace amount of fluid within the endometrial canal. The ovaries are normal in size and appearance, the right measures 1.8 x 1.5 x 1.1 cm, the left measures 1.7 x 1.2 x 1.7 cm. No free flu id is identified in the pelvis. Impression: Normal pelvic ultrasound Performing Organization Address City/State/ZIP Code Phon e Number [facility] RAD[facility] documented in this encounter Visit Diagnoses Diagnosis Post-menopausal bleeding Postmenopausal bleeding Hematuria Hematuria, unspecified documented in this encounter Care Teams Bisque Ware Dipper Relationship Specialty Start Date End Date Shahid Francois MD PCP - General 10/30/[address] [place] [address] documented as of this encounter
--- OUTSIDE RECORDS SUMMARY | 2022-01-20 00:55 | XMS_ITS | Encounter Summary ---
:1940 Author Organization [facility] Address [address] [place] [address] Care Team Providers Name Role Phone Luis Felipe Francois MD Primary Care Provider Encounter Details Date Type Department Care Team Description 05/15/2020 Lab Requisition [facility] Outr Resulting Lab, Pathology & Laboratory Provider [facility] [address] [place], [place] [id number] Social History Tobacco Use Types Packs/Day Years Used Date Never Smoker Smokeless Tobacco: Never Used Sex Assigned at Date Recorded Not on file documented as of this encounter Plan of Treatment Not on filedocumented as of this encounter Procedures Procedure Name Priority Date/Time Associated Diagnosis Comme nts COVID-19 TEST [facility] Today 05/15/2020 14:15 LAB PCR EDT COVID-19 TESTING Routine 05/15/2020 14:15 Results for this EDT procedure are i n the results section. documented in this encounter Results COVID-19 TEST [facility] LAB PCR (05/15/2020 14:15 EDT) Specimen Swab - Entire nasopharynx (body structur e) Performing Organization Address City/State/ZIP Code Phon e Number [facility] [address] [place] [address] SERVICES COVID-19 TESTING (05/15/2020 14:15 EDT) COVID-19 rt-PCR Negative Negative [facility] Result Comment: [facility] This test has not been FDA c leared or approved. This test has been authorized by FDA under an EUA for use by authorized laboratories. This test has been authorized only for detection of nucleic acid fro SERVICES m 2019-nCoV, not for any oth er viruses or pathogens. This test is only authorized for the duration of the declaration that circumstances exist justifying the authorization of emergency use of in vitro d iagnostic tests for detectio n and/or diagnosis of 2019-nCoV under section 564(b)(1) of Act, 21 U.S.C ?? 360bbb-3(b) (1), unless the authorization is terminated or revoked sooner. Negative results do not prec lude 2019-nCoV infection and should not be used as the sole basis for treatment or other patient management decisions. Negative results must be combined with clinical observa tions, patient history, and epidemiological informatio n. Performed on the [employer] S&Ther Fusion instrument Performing Lab [place] [facility] Lab [facility] SERVICES Specimen Swab Performing Organization Address City/State/ZIP Code Phon e Number [facility] [address] [place] [address] SERVICES documented in this encounter Visit Diagnoses Not on filedocumented in this encounter Care Teams [place] Rafting Guide Relationship Specialty Start Date End Date Shahid Francois MD PCP - General 10/30/[address] [place] [address] documented as of this encounter
--- OUTSIDE RECORDS SUMMARY | 2022-01-20 00:55 | XMS_ITS | Encounter Summary ---
:1940 Author Organization [facility] Address [address] [place] [address] Care Team Providers Name Role Phone Luis Felipe Francois MD Primary Care Provider Encounter Details Date Type Department Care Team Description 10/31/2011 Results Only [facility], [place] [facility], Aparna Kendrick, [facility] MD [address] [facility] [address] [place] [address] [facility] [phone] Office Building, [address] [place] [address] (Wo rk) Social History Tobacco Use Types Packs/Day Years Used Date Never Assessed Sex Assigned at Date Recorded Not on file documented as of this encounter Plan of Treatment Not on filedocumented as of this encounter Procedures Procedure Name Priority Date/Time Associated Diagnosis Comme [facility] CYTOPATHOLOGY Routine 10/31/2011 0:00 EST Result s for this procedure are i n the results section . documented in this encounter Results CYTOPATHOLOGY (10/31/2011 0:00 EST) Pathology Report: CYTOPATHOLOGY REPORT [facility] Reports generated via electronic interface contain desean ginal data; however they are lacking the format of the original re port. Caution should be taken when reading/interpreting unfo rmatted reports. Name: ? TATO MATOS ? Accession #: ? [id number] : ? 1940 (Age: 70) ??F ?Collect Date: ? 10/22 Location: ? [facility] ? Receive Date: ? 10/31/2011 Provider: ? ANNABELLE BRISCOE MD Copy to: ? CYTOLOGIC DIAGNOSIS: ? Urine, voided, cytologic evaluation: - Atypical cells present. ??See comment. ? COMMENT: ? In a background of red blood cells, casts, and reactive-appearing urothelial cells are rare small clusters of atypical c ells with increased nuclear to cytoplasmic ratio s. ??These cells have round nuclei with fine uniform chromatin, but their presence is atypical in a voided urine. ??Clinical correlation is recommended. ??(Dr. Gilbert)/ljn Document reviewed and electronically signed by: ? ALEX RIVERA MD Report Date: ??11/03/2011 14:05 By the signature above, the attending physician certif ies that he/she has personally conducted a gross and/or microscopic examin ation of the described specimens and rendered or confirmed the above diagnosi s. Specimen Type: ? Urine, Voided Clinical History: ? Microhematuria; clinical diagnosis code: 599.72 ? Gross Description: ? 60 cc of clear yellow fluid were received and pr ocessed by selective cellular enhancement technique. ? End of Report Specimen Performing Organization Address City/State/ZIP Code Phon e Number [facility] [address] [place] [address] SERVICES [facility] [address] [place] [address] documented in this encounter Visit Diagnoses Not on filedocumented in this encounter Care Teams Network Pricing Consultant Relationship Specialty Start Date End Date Shahid Francois MD PCP - General 10/30/[address] [place] [address] documented as of this encounter
--- OUTSIDE RECORDS SUMMARY | 2022-01-20 00:55 | XMS_ITS | Encounter Summary ---
:1940 Author Organization [facility] Address [address] [place] [address] Care Team Providers Name Role Phone Luis Felipe Francois MD Primary Care Provider Reason for Visit Reason Comments Atrial Fibrillation Encounter Details Date Type Department Care Team Description 01/06/2020 Telemedicine [facility] - Vero Overton Lo ngstanding persistent atrial fibrillation (Primary Dx); [facility] Cardiology Coronary artery disease involving [place] coronary artery of [place] heart without angina pectoris; Clinic [address] Essential hypertension; [address] [place] [address] [place], [place] [phone] Social History Tobacco Use Types Packs/Day Years Used Date Never Smoker Smokeless Tobacco: Never Used Sex Assigned at Date Recorded Not on file documented as of this encounter Progress Notes Jadon Bishop - 01/06/2020 1545 EDT appt sched for 05/21/20; 1545 arrival. Pt aware Vero Hobbs MD - 01/06/2020 1545 EDT [facility] Telephone Visit Verbal consent: The concept of ???Telemedicine?? has been described to the patient. Patient has been informed of the anticipated benefits and possible risks. Patient understands the information provided regarding telemedicine, has had the opportunity to ask questions about this information, and all questions have been answered to patient???s satisfaction. Patient consents for the use of telemedicine in his/her medical care and authorizes the transmission of any relevant medical information to providers and their staff involved in patient???s medical or mental health care. Verbal consent obtained by myself or auxiliary staff: yes. Subjective: Chief Complaint(s): Atrial Fibrillation HPI: 79-year-old female with a history of coronary disease with previous PCI in the distant past. Also has history of asthma. Prior history of stroke, hypertension and recurrent nephrolithiasis. Previous Holter monitor in 2016 revealed frequent ventricular ectopy with ectopy burden of 1.2%. Oneshort 9 beat bursts of nonsustained [place]. Asymptomatic. Has had more issues with her nephrolithiasis recently. Underwent a urothoracoscopy with stone extraction in April 2019. Noted to have some brief atrial fibrillation perioperatively in the OR. Continues to have issues with urinary stones. Urology following. Continues to do well at the present. Reports no exertional chest discomfort. Breathing is remainedstable. No palpitations or syncope. Her main issues as mentioned above is ongoing issues with urinary stones. Otherwise mobilizes with a walker. Denies any significant increasing weight. No PND orleg swelling. I have reviewed patient's tobacco history: reports that she has never smoked. She has never used smokeless tobacco. I have reviewed current problem list and current medications. Systems review A 10 point review of systems was performed and pertinent negatives and positives are mentioned above. Objective: Examination: Home Vitals: Daughter took vitals at home. Blood pressure 138/86 mmHg. Pulse 81 bpm and regular. Oxygen saturation is 98%. RR 19/min and afebrile. Pertinent exam findings: None. Data reviewed with patient: LABS Lab Results Component Value Date WBC 3.96 (L) 02/23/2002 HGB 11.6 02/23/2002 HCT 33.6 (L) 02/23/2002 MCV 90 02/23/2002 PLT 162 02/23/2002 Lab Results Component Value Date CREATININE 1.0 02/23/2002 Lab Results Component Value Date NA 142 02/23/2002 K 4.0 02/23/2002 CL 110 02/23/2002 CO2 24 02/23/2002 Prior Echo Jul 2019 Mildly reduced LV function. EF 45 to 50%. RV function low normal. Left atrium moderately dilated. Right atrium moderately dilated. Moderate mitral regurgitation. Moderate tricuspid regurgitation. Holter monitor Jun 2019 Atrial fibrillation throughout. Assessment & Plan: 1. Coronary artery disease involving [place] coronary artery of [place] heart without angina pectoris Known coronary disease with previous PCI in the distant past. No exertional symptoms of chest discomfort. CCS class I. Continue aspirin and statin therapy. 2. Permanent atrial fibrillation Initially diagnosed perioperatively during stone extraction. An EKG at a previous clinic visit reveals atrial fibrillation. Her beta-devon dose was increased at that point. Continue Metoprolol XL 75 mg daily. CHADSVASc score 5. Elevated stroke risk. She is agreeable to commencing Eliquis. 5 mg twice daily prescribed. She was initially on Eliquis therapy, however, is suffering from significant epistaxis. Requiring cauterization by ENT. Eliquis has since been discontinued and she continues on aspirin 81 mg daily. She does not wish to restart Eliquis at this point. Some of her fatigue may be related to her underlying atrial fibrillation. She has had a mild drop in her EF on recent echo. No evidence of heart failure on questioning today. Denies any weight gain,leg swelling or PND. According to her daughter her rates have been well controlled on the higher dose of metoprolol. 3. Essential hypertension Overall well controlled. Continue amlodipine to 2.5 mg daily. 4. Dyslipidemia Continue high intensity statin therapy. 5. Nonrheumatic mitral valve regurgitation Moderate mitral regurgitation on most recent echo from July 2019. We will continue to monitor this. Repeat echo in 1-2 years. 6. Nonrheumatic tricuspid valve regurgitation Moderate tricuspid regurgitation. Vero Overton MD Patient initiated phone contact with the office: no. Patient is an established patient (parent, guardian) yes. E/M provided within previous 7 days for same medical assessment: no Anticipate E/M service within 24hrs or next available urgent appointment no. This visit was conducted by telephone. I spent a total of 13 minutes in discussion with the patient as described in the progress note. documented in this encounter Plan of Treatment Not on filedocumented as of this encounter Visit Diagnoses Diagnosis Longstanding persistent atrial fibrillat ion (HCC-CMS) (HCC) - Primary Coronary artery disease involving [place] coronary artery of [place] heart without angina pectoris Essential hypertension Unspecified essential hypertension Dyslipidemia Other and unspecified hyperlipidemia documented in this encounter Historical Medications This list may reflect changes made after this encounter. Medication Sig Dispensed Refills Start Date End Date metoprolol XL (TOPROL-XL) TAKE 1 TABLET BY 0 11/1904/11/2020 25 mg tablet MOUTH ONCE DAILY WITH 50MG TABLET FOR TOTAL DAILY DOSE OF 75MG. added in this encounter Care Teams Passenger Solicitor Relationship Specialty Start Date End Date Shahid Francois MD PCP - General 10/30/11 [address] [place] [address] documented as of this encounter
--- OUTSIDE RECORDS SUMMARY | 2022-01-20 00:55 | XMS_ITS | Encounter Summary ---
:1940 Author Organization [facility] Address [address] [place] [address] Care Team Providers Name Role Phone Luis Felipe Francois MD Primary Care Provider Reason for Visit Reason Comments Pelvic Organ Prolapse Urinary Incontinence Constantly leaking, day and night Urinary Frequency Urinates every 5 to 10 madelyn evert, day and night Encounter Details Date Type Department Care Team Description 10/31/2011 Office Visit [facility] Radha Jackson y incontinence (Primary Dx); Pelvic Medicine and MD Mireille Microscopic hematuria; Reconstructive Surgery - [address] [place] [address] Medical Office [place] [address] Medical Office [address] [place] [address] [address] [place] [address] Social History Tobacco Use Types Packs/Day Years Used Date Never Assessed Sex Assigned at Date Recorded Not on file documented as of this encounter Last Filed Vital Signs Vital Sign Reading Time Taken Comments Blood Pressure - - Pulse - - Temperature - - Respiratory Rate - - Oxygen Saturation - - Inhaled Oxygen Concentration - - Weight 59.4 kg (131 lb) 10/31/2011 1130 EST Height 153.7 cm (5' 0.5) 10/31/2011 1130 EST Body Mass Index 25.16 10/31/2011 1130 EST documented in this encounter Progress Notes Radha Pa LPN - 10/31/2011 1153 EST Results for orders placed in visit on 10/31/11 POCT URINE DIPSTICK Component Value Range Color YELLOW Clarity, UA Clear Glucose Neg Neg Bilirubin Neg Neg Ketones Neg Neg Specific [place] <=1.005 1.001 - 1.035 Blood 1+ (*) Neg pH 6.0 4.6 - 8.0 Protein Neg Neg Urobilinogen 0.2 0.2 - 1.0 (E.U./dl) Nitrite Neg Neg Leuk Esterase Neg Neg Tech ID [id number] Voided urine spec. Radha Jackson MD - 10/31/2011 1144 EST [facility] FEMALE EXAMINATION Patient: Ellen Willard is an 70 y.o. P5 with symptomatic cystocele and urinary incontinence. Must wear a pad at all times. Denies rectal leakage. Had vaginal spotting with pessary trials. Chief Complaint Patient presents with ??? Pelvic Organ Prolapse ??? Urinary Incontinence Constantly leaking, day and night ??? Urinary Frequency Urinates every 5 to 10 minutes, day and night ROS Pelvic pain: No Dyspareunia: No Recurrent UTI: No Hematuria: No Prior Incontinence Treatments None OB History No data available No past medical history on file. No past surgical history on file. No family history on file. History Social History ??? Marital Status: Spouse [...] History Narrative ??? No narrative on file Current Outpatient Prescriptions Medication Sig Dispense Refill ??? DILTiazem (TIAZAC) 240 mg SR capsule Take 240 mg by mouth daily. ??? isosorbide mononitrate (IMDUR) 60 mg CR tablet Take 120 mg by mouth daily. ??? simvastatin (ZOCOR) 20 mg tablet Take 20 mg by mouth daily. ??? ranitidine (ZANTAC) 150 mg tablet Take 150 mg by mouth daily. Allergies not on file A 15 point Review of Systems was performed. Positives related to the patient???s complaint are listed below; all others are either negative or documented in the patient???s scanned Review of Systems. FEMALE EXAM (urogyn) External Genitalia: Normal Post Void Residual: Not done Vaginal Examination: Vaginal atrophy moderate UVJ mobility (Q-tip test): Fixed:No Cystocele: Grade:2-3 Rectocele: Grade: 1 Enterocele: Grade: 0 Vault Prolapse: Grade: 0 Uterine Descent: Grade: 1 Uterus: Normal Adenoxa: Normal Vitals Ht 153.7 cm (60.5) Wt 59.421 kg (131 lb) BMI 25.16 kg/m2 General Medical Exam Constitutional/General: normal EENT & Mouth: normal Neck/Thyroid: Not Examined Skin, nodes, glands: Not Examined Respiratory: Not Examined Heart Peripheral Vascular: Not Examined Breasts and Axillae: Not Examined Abdomen: normal Musculoskeletal: normal Labs Results for orders placed during the hospital encounter of 02/22/02 BUN Component Value Range BUN 15 10-26 (mg/dl) HEMAGRAM Component Value Range WBC 3.96 (*) 4.0-12.4 (K/cmm) RBC 3.72 (*) 3.86-5.04 (M/cmm) Hemoglobin 11.6 11.6-15.2 (gm/dl) HCT 33.6 (*) 34.9-44.4 (%) MCV 90 81-98 (fl) MCH 31.2 26.7-33.3 (pg) MCHC 34.6 32.1-35.9 (gm/dl) PLT 162 141-320 (K/cmm) RDW-CV 12.8 11.7-14.6 (%) CREATININE Component Value Range Creatinine 1.0 0.7-1.5 (mg/dl) ELECTROLYTES Component Value Range Sodium 142 136-145 (mEq/L) Potassium 4.0 3.5-5.0 (mEq/L) Chloride 110 96-110 (mEq/L) CO2 24 24-30 (mEq/L) Assessment Ellen Willard is a 70 y.o. female with cystocele and urinary incontinence. Plan Office Urodynamic Testing: uroflow, post void residual and pressure flow study Cystoscopy Pelvic and renal US. Urine cytology done. Radha Jackson MD documented in this encounter Plan of Treatment Not on filedocumented as of this encounter Procedures Procedure Name Priority Date/Time Associated Diagnosis Comme nts POCT URINE Routine 10/31/2011 11:43 Urinary incontinence Res ults for this DIPSTICK, CLINITEK EST procedure are in the results section. documented in this encounter Results (ABNORMAL) POCT URINE DIPSTICK (10/31/2011 11:43 EST) Color YELLOW [facility] Clarity, UA Clear [facility] Glucose Neg Neg [facility] Bilirubin Neg Neg [facility] Ketones Neg Neg [facility] Specific [place] <=1.005 1.001 - 1.035 [facility] Blood 1+ (A) Neg [facility] pH 6.0 4.6 - 8.0 [facility] Protein Neg Neg [facility] Urobilinogen 0.2 0.2 - 1.0 [facility] E.U./dl LAB Nitrite Neg Neg [facility] Leuk Esterase Neg Neg [facility] work manager ID [id number]: [facility] Test performed at LAB [facility] Specimen Urine (substance) Performing Organization Address City/State/ZIP Code Phon e Number [facility] [address] [place] [address] SERVICES [facility] [address] [place] [address] documented in this encounter Visit Diagnoses Diagnosis Urinary incontinence - Primary Unspecified urinary incontinence Microscopic hematuria Cystocele Cystocele, midline documented in this encounter Historical Medications This list may reflect changes made after this encounter. Medication Sig Dispensed Refills Start Date End Date ranitidine (ZANTAC) 150 mg Take 150 mg by 0 04/11/2020 tablet mouth daily. simvastatin (ZOCOR) 20 mg Take 20 mg by mouth 0 08/29/2019 tablet daily. isosorbide mononitrate Take 120 mg by 0 08/29/2019 (IMDUR) 60 mg CR tablet mouth daily. DILTiazem (TIAZAC) 240 mg Take 240 mg by 0 08/29/2019 SR capsule mouth daily. added in this encounter Care Teams Helper/Driver Relationship Specialty Start Date End Date Shahid Francois MD PCP - General 10/30/11 [address] [place] [address] documented as of this encounter
--- OUTSIDE RECORDS SUMMARY | 2022-01-20 00:55 | XMS_ITS | Clinical Summary ---
:1940 Author Organization [facility] Address [address] [place] [address] Care Team Providers Name Role Phone Luis Felipe Francois MD Primary Care Provider Allergies Active Allergy Reactions Severity Noted Date Comments Cephalexin Other (See Comments) 08/24/2019 ? LE We akness Ciprofloxacin Other (See Comments) Medium 08/24/2019 Agitat ion Duloxetine Swelling of throat 08/24/2019 Diclofenac Other (See Comments) 08/24/2019 Confusi on, night terrors, dizzin ess Egg Swelling 08/24/2019 Gabapentin Other (See Comments) 08/24/2019 Dizzine ss Homatropine Other (See Comments) 08/24/2019 Loopy Hydrocodone Bitartrate Other (See Comments) 08/24/2019 Loopy Hyoscyamine Other (See Comments) 08/24/2019 Lighthe aded Lidocaine Rash 08/24/2019 Skin Sensitivit y Lisinopril Other (See Comments) 08/24/2019 Uvula S welling Mirtazapine Other (See Comments) 08/24/2019 Throat discomfort, feeling tired, nauseated Morphine GI upset High 12/03/2011 Narcotic Antagonist GI upset 12/03/2011 Nortriptyline 08/24/2019 Tree Nut Swelling 08/24/2019 Swelling, Edema Other - See Comments 12/03/2011 Pt stat es she is allergic to camelia e anesthesia drug s And other antibioti cs But not sure wh ich ones Peanut Butter Flavor Swelling Swellin g, edema Penicillins Anaphylaxis 12/03/2011 Sulfa (Sulfonamide Anaphylaxis 12/03/2011 Antibiotics) Tetracyclines Unknown Reaction 12/03/2011 Tramadol 08/24/2019 Medications Medication Sig Dispensed Refills Start Date End Date Status aspirin 81 mg EC tablet Take 81 mg by 0 Active mouth daily. FA/MV,CA,IRON,MIN/LYCOP Take 1 Tab by 0 Active [place]/LUT (MULTIVITAL mouth daily. ORAL) nitroGLYCERIN Place 0.4 mg 0 Act nikos (NITROSTAT) 0.4 mg SL under the tongue tablet every 5 minutes as needed. acetaminophen (TYLENOL) Take 1,300 mg by 0 Active 650 mg CR mouth 2 times tabletIndications: and daily. prn atorvastatin (LIPITOR) Take 40 mg by 0 06/17/2019 Active 40 mg tablet mouth daily. cetirizine (ZYRTEC) 10 Take 10 mg by 0 12/28/2014 Active mg tablet mouth. EPINEPHrine (EPIPEN 0 01/22/2015 Active 2-AMINTA) 0.3 mg/0.3 mL injection fluticasone Inhale 2 Puffs as 0 04/16/2015 Active propion-salmeterol directed 2 times (ADVAIR HFA) 230-21 daily. mcg/actuation inhaler ipratropium-albuterol Inhale 3 mL as 0 Active (DUONEB) 0.5 mg-3 directed every 4 mg(2.5 mg base)/3 mL hours as needed. nebulizer solution melatonin 10 mg capsule Take 10 mg by 0 Active mouth. montelukast (SINGULAIR) Take 10 mg by 0 05/12/2015 Active 10 mg tablet mouth. Magnesium 250 mg tablet Take 250 mg by 0 Active mouth daily. Simethicone (GAS-X) 125 Take 125 mg by 0 Active mg capsule mouth 2 times daily. UNABLE TO FIND 2 times daily. 0 Active Med Name: Tumeric Daily calcium carb/magnesium Take by mouth 0 Active hydrox (MYLANTA daily. ORAL)Indications: Before meals calcium Take by mouth. 0 Activ e carbonate-vitamin D3 (CALCIUM 600 WITH VITAMIN D3) 600 mg(1,500mg) -500 unit capsule famotidine (PEPCID) 20 Take 40 mg by 0 03/19/2020 Active mg tablet mouth daily. metoprolol XL Take 1 Tab by 180 Tab 3 04/11/2020 A ctive (TOPROL-XL) 50 mg mouth 2 times tablet daily. Active Problems Problem Noted Date Nonrheumatic mitral valve regurgitation 04/11/2020 Nonrheumatic tricuspid valve regurgitation 04/11/2020 Chronic combined systolic and diastolic heart failure ([facility]) 04/11/2020 Coronary artery disease involving [place] coronary terry ry of [place] heart 08/29/2019 without angina pectoris Dyslipidemia 08/29/2019 Essential hypertension 08/29/2019 Atrial fibrillation ([facility]) 08/24/2019 Medical History Medical History Date Comments Coronary artery disease involving [place] coronary artery of [place] 08/29/2019 heart without angina pectoris Atrial fibrillation ([facility]) ([facility]) 08/24/2019 Essential hypertension 08/29/2019 Social History Tobacco Use Types Packs/Day Years Used Date Never Smoker Smokeless Tobacco: Never Used Sex Assigned at Date Recorded Not on file Last Filed Vital Signs Vital Sign Reading Time Taken Comments Blood Pressure 120/80 04/11/2020 1440 EDT Pulse 88 04/11/2020 1440 EDT Temperature 36.4 ??C (97.5 ??F) 12/12/2011 1014 EDT Respiratory Rate 18 04/11/2020 1440 EDT Oxygen Saturation 96% 04/11/2020 1440 EDT Inhaled Oxygen Concentration - - Weight 44.9 kg (98 lb 14.4 oz) 04/11/2020 1440 EDT Height 152.4 cm (5') 08/29/2019 1607 EST Body Mass Index 19.32 08/29/2019 1607 EST Plan of Treatment Health Maintenance Due Date Last Done Comments Fall Risk Screening 2007 Insurance Payer Benefit Plan / Subscriber ID Effective Phone Address T ype Group Dates MEDICARE MEDICARE A/B [id number] 2007-Prese [address] [facility] [place] [address] [place] [id number] 2019-Pres [address] Medicaid [place] [facility], [facility] [id number] Molleur,Ellen Personal/Family Self [address] (Home) [place] [address] Molleur,Ellen Personal/Family Self [address] (Home) [place] [address] Advance Directives For more information, please contact: [phone] Documents on File Type Date Recorded Patient Delivery Professional Explanati on Advance Directives and Living Will Power of Sales Advisory Manager Care Teams Lithopress Operator Relationship Specialty Start Date End Date Shahid Francois MD PCP - General 10/30/11 [address] [place] [address]
--- OUTSIDE RECORDS SUMMARY | 2022-01-20 00:55 | XMS_ITS | Encounter Summary ---
:1940 Author Organization [facility] Address [address] [place] [address] Care Team Providers Name Role Phone Unavailable Primary Care Provider Unavailable Encounter Details Date Type Department Care Team Description 02/04/2002 Hospital Encounter [facility] MD General Surgery [address] [place], [place] [id number] [place] [address] [place] [id number] (Wo rk) Social History Tobacco Use Types [...]
--- OUTSIDE RECORDS SUMMARY | 2022-01-20 00:55 | XMS_ITS | Encounter Summary ---
:1940 Author Organization [facility] Address [address] [place] [id number] Care Team Providers Name Role Phone Luis Felipe Francois MD Primary Care Provider Encounter Details Date Type Department Care Team Description 12/12/2011 Hospital Encounter [facility] Radha Jackson Perioperative Services - MD Jeny Kendrick [address] [address] Jeny Horowitz, Medical Office Building, [address] [place] [address] Social History Tobacco Use Types Packs/Day Years Used Date Never Assessed Sex Assigned at Date Recorded Not on file documented as of this encounter Last Filed Vital Signs Vital Sign Reading Time Taken Comments Blood Pressure 159/103 12/12/2011 1115 at baseline BP, anes EDT aware Pulse - - Temperature 36.4 ??C (97.5 ??F) 12/12/2011 1014 EDT Respiratory Rate 23 12/12/2011 1115 EDT Oxygen Saturation 97% 12/12/2011 1115 EDT Inhaled Oxygen - - Concentration Weight 58.1 kg (128 lb) 12/03/2011 1513 EDT Height 149.9 cm (4' 11) 12/03/2011 1513 EDT Body Mass Index 25.85 12/03/2011 1513 EDT documented in this encounter Discharge Instructions Amy Randall - 12/12/2011 Diet: Regular Activity: Nothing in vagina (no tampons, douches, or intercourse for 6 weeks) Skin/Wound Care: Keep the wound area clean and dry. Bathing: Shower only Pending Results: Not applicable Symptoms to Call Your Doctor About: Decreased urine output Fever greater than 100.5 or chills Increased or new pain Pain unrelieved by medication Signs of infection such as pain, redness, swelling or drainage at procedure or wound site Appointments: See Dr. Radha Jackson on 01/09/2012 at 11:30 Other Instructions: Vaginal packing should be removed tomorrow morning. Remove jaramillo catheter Thursday as previously instructed. documented in this encounter Medications at Time of Discharge Medication Sig Dispensed Refills Start Date End Date aspirin 81 mg EC tablet Take 81 mg by mouth 0 daily. FA/MV,CA,IRON,MIN/LYCOPEN Take 1 Tab by mouth 0 E/LUT (MULTIVITAL ORAL) daily. nitroGLYCERIN (NITROSTAT) Place 0.4 mg under 0 0.4 mg SL tablet the tongue every 5 minutes as needed. DILTiazem (TIAZAC) 240 mg Take 240 mg by mouth 0 08/29/2019 SR capsule daily. HYDROmorphone (DILAUDID) Take 1-2 Tabs by 10 Tab 0 12/1101/05/2012 2 mg tablet mouth every 4 hours as needed for Pain. isosorbide mononitrate Take 120 mg by mouth 0 08/29/2019 (IMDUR) 60 mg CR tablet daily. lisinopril (ZESTRIL) 20 Take 20 mg by mouth 0 04/11/2020 mg tablet daily. nitrofurantoin, Take 1 Cap by mouth 4 Cap 0 12/12/2011 12/16/2011 macrocrystal-monohydrate, at bedtime for 4 (MACROBID) 100 mg capsule days. Take while catheter in place omeprazole (PRILOSEC) 20 Take 20 mg by mouth 0 04/11/2020 mg capsule daily. ranitidine (ZANTAC) 150 Take 150 mg by mouth 0 04/11/2020 mg tablet daily. simvastatin (ZOCOR) 20 mg Take 20 mg by mouth 0 08/29/2019 tablet daily. documented as of this encounter Ordered Prescriptions Prescription Sig Dispensed Refills Start Date End Date nitrofurantoin, Take 1 Cap by mouth 4 Cap 0 12/12/2011 12/16/2011 macrocrystal-monohydrate, at bedtime for 4 (MACROBID) 100 mg capsule days. Take while catheter in place HYDROmorphone (DILAUDID) Take 1-2 Tabs by 10 Tab 0 12/1101/05/2012 2 mg tablet mouth every 4 hours as needed for Pain. documented in this encounter Discharge Disposition Disposition Code Departure Means Destination Home or Self Care documented in this encounter Progress Notes Magaly Mckeon RN - 12/12/2011 1154 EDT Spinal wore off easily. Now awake Esposito Good leg strength. Family at bedside. Instructions reviewedwith pt and daughter. Leg bag given for home use. Pt and family wanted me to tear up dilaudid rx which i did as she did not want to take narcotics due to hx of poor reaction. Plans to take tylenol and motrin at home for discomfort. Pass criteria met. No problems anticipated with d.c. Of note. bpelevated 170/102 Preop. She has remained high in pacul. Takes hypertensive med daily and took today. I had conversation with pt and daughter @ need to f/u with pcp regarding con't high readings Dimple hernandez RN - 12/03/2011 1538 EDT Left message at Dr. Gutiérrez office with nurse that pt is on 325 mg Daily. Pt has stents Dimple Kingsley RN - 12/03/2011 1511 EDT Ellen Willard has been instructed as follows regarding medication administration for the day ofthe scheduled procedure. Date of Surgery: \ Instructions for Taking Medications Day of Surgery Medication Last Dose Hold DOS Take DOS aspirin 325 mg tablet x FA/MV,CA,IRON,MIN/LYCOPENE/LUT (MULTIVITAL ORAL) x omeprazole (PRILOSEC) 20 mg capsule x nitroGLYCERIN (NITROSTAT) 0.4 mg SL tablet x lisinopril (ZESTRIL) 20 mg tablet x DILTiazem (TIAZAC) 240 mg SR capsule x isosorbide mononitrate (IMDUR) 60 mg CR tablet x simvastatin (ZOCOR) 20 mg tablet x ranitidine (ZANTAC) 150 mg tablet x documented in this encounter H&P Notes Radha Jackson MD - 12/12/2011 0907 EDT The preoperative history and physical which was performed within 30 days of this procedure has been reviewed and the clinically appropriate elements of the physical examination havebeen repeated. There are no changes to the documented history and physical or if so such changes aredocumented below Radha Jackson MD 12/12/2011 9:07 INETChRadha lee MD - 12/04/2011 1134 EDT Subjective: Ellen [...] repair. documented in this encounter Procedure Notes LEARNING SUPPORT ASSISTANT, SCAN 2 - 12/16/2011 1145 EDTAssociated Order(s): ORDERS - SCANNED LEARNING SUPPORT ASSISTANT, SCAN 2 - 12/16/2011 1145 EDTAssociated Order(s): IMPLANT RECORD - SCANNED LEARNING SUPPORT ASSISTANT, SCAN 2 - 12/16/2011 1145 EDTAssociated Order(s): ECG REPORT - SCANNED documented in this encounter OR Notes OR PreOp - LEARNING SUPPORT ASSISTANT, SCAN 2 - 12/16/2011 1145 EDT R Surgeon - Radha Jackson MD - 12/12/2011 1305 EDT OPERATIVE REPORT SERVICE DATE: 12/12/2011 SURGEON: Radha Jackson MD SALES EXPERT HOME THEATER: Amy Jcak MD PREOPERATIVE DIAGNOSIS: Genuine stress urinary incontinence and cystocele. POSTOPERATIVE DIAGNOSIS: Genuine stress urinary incontinence and cystocele. PROCEDURE: Tension-free vaginal tape and cystoscopy and anterior colporrhaphy. ANESTHESIA: Spinal. FINDINGS: She has a stage III cystocele on cystoscopy. The bladder mucosa is normal, mildly trabeculated. No lesions, no trocar injury after placement of TVT trocars. ESTIMATED BLOOD LOSS: Minimal. FLUIDS: 200. URINE OUTPUT: 100. FOREIGN MATERIAL RETAINED: Tension-free vaginal tape, Jaramillo catheter, and a vaginal pack. SPECIMENS: None. COMPLICATIONS: None. CONDITION: Good. DISPOSITION: To recovery. NARRATIVE: The patient was taken to the operating room. Spinal anesthesia was placed. She was then placed in the lithotomy position, prepped and draped. A Jaramillo catheter was placed to gravity drainage. Two suprapubic incisions were made 1.5 cm lateral to the midline. The midurethra was palpated. This area was grasped with Allis clamps, injected with dilute vasopressin, and incised. Sharp dissection with the Metzenbaum scissors allowed access to the retropubic space. TVT Exact trocars were placed through the vaginal incision and out the suprapubic incisions. Cystoscopy was then performed to ensure no bladder injury had occurred. The bladder was re-drained with the Jaramillo catheter. The TVT trocars were brought through the suprapubic incisions, and with a small clamp at the midurethra to prevent overtensioning of the sling, the mesh sheaths were removed. The mesh was cut at the skin level. The skin was closed with Dermabond. The anterior vaginal wall was grasped with Allis clamps in the midline. This area was injected with dilute vasopressin and incised. The vaginal mucosa was sharply dissected off the underlying cystocele. The cystocele was reduced using 2-0 PDS pursestring suture. The vaginal mucosa was trimmed and it was closed with a 2-0 Vicryl running locked stitch. A vaginal pack was placed. The patient was cleansed of the Betadine, placed supine. She was then transferred in stable condition to the recovery room, having tolerated these procedures well. Sponge and needle counts were correct at the end of the procedure. The urine remained clear. Unless otherwise noted, there were no complications, no blood loss, no cultures obtained, no specimens removed, and no drains retained. Radha Jackson MD 10 15 AM / Radha Jackson MD mt Confirmation: [id number] Dictation ID: [id number] nesthesia Procedure Notes - LEARNING SUPPORT ASSISTANT, SCAN 2 - 12/12/2011 1027 EDT R PreOp - LEARNING SUPPORT ASSISTANT, SCAN 2 - 12/12/2011 0939 EDT nesthesia Preprocedure Evaluation - LEARNING SUPPORT ASSISTANT, SCAN 2 - 12/12/2011 0917 EDT documented in this encounter Miscellaneous Notes Scanned Note-Null - LEARNING SUPPORT ASSISTANT, SCAN 2 - 12/16/2011 1145 EDT rief Op Note - Amy Jack - 12/12/2011 1008 EDT Department of Obstetrics and Gynecology Brief operative Note Surgeon: Radha Jackson MD Meat Cutting Teacher: AMY JACK MD Pre-Op Dx/Indications: GSI/Cystocele Post-op Dx: Same Procedure: TVT Exact, Anterior Colporrhaphy, Cystoscopy Anesthesia: Spinal Findings: Grade 3 Cystocele. Intact bladder on Cystoscopy Blood Loss:Min Replacement IVF/Blood:300cc LR Urine Output:not recorded Specimens sent:none Cultures obtained: none Drains/Packs/Foreign Material Retained:Jaramillo catheter, vaginal packing, TVT Complications: none Condition: stable Disposition: PACU Amy Jack MD PGY-4 Obstetrics & Gynecology 12/12/2011 10:10 documented in this encounter Plan of Treatment Not on filedocumented as of this encounter Procedures Procedure Name Priority Date/Time Associated Diagnosis Comme nts IMPLANT RECORD - 12/16/2011 11:45 Results for this SCANNED EDT procedure are i n the results section. ECG REPORT - 12/16/2011 11:45 Results for this SCANNED EDT procedure are i n the results section. ORDERS - SCANNED 12/16/2011 11:45 Results for this EDT procedure are i n the results section. documented in this encounter Results ORDERS - SCANNED (12/16/2011 11:45 EDT) Specimen Narrative This result has an attachment that is no t available. Transcriptions LEARNING SUPPORT ASSISTANT, SCAN 2 - 12/16/2011 11:45 EDT IMPLANT RECORD - SCANNED (12/16/2011 11:45 EDT) Specimen Narrative This result has an attachment that is no t available. Transcriptions LEARNING SUPPORT ASSISTANT, SCAN 2 - 12/16/2011 11:45 EDT ECG REPORT - SCANNED (12/16/2011 11:45 EDT) Specimen Narrative This result has an attachment that is no t available. Transcriptions LEARNING SUPPORT ASSISTANT, SCAN 2 - 12/16/2011 11:45 EDT documented in this encounter Visit Diagnoses Not on filedocumented in this encounter Administered Medications Inactive Administered Medications - up to 3 most recent administrations Medication Order MAR Action Action Date Dose Rate Site acetaminophen (TYLENOL) tablet 325 Given 12/12/2011 10:36 EDT 65 0 mg mg 325 mg, oral, PRN, 2 doses, Starting on Thu12/12/11 at 1000, Until 12/13/11 at 0116, Pain, Routine, Recovery (only) lactated ringers (LR) infusion New Bag 12/12/2011 8:32 EDT 25 mL/hr at 25 mL/hr, intravenous, CONTINUOUS, Starting on Thu12/12/11 at 0830, Until 12/13/11 at 0116, Routine, Pre-Op DOS Rx Approved levofloxacin (LEVAQUIN) IVPB 250 mg Given 12/12/2011 8:54 EDT 250 mg 250 mg, intravenous, Administer over 1 Hours, PRE-OP ONCE, 1 dose, On Thu12/12/11 at 0600, Routine, Pre Op Day of Surgery documented in this encounter Historical Medications This list may reflect changes made after this encounter. Medication Sig Dispensed Refills Start Date End Date nitroGLYCERIN (NITROSTAT) Place 0.4 mg under 0 0.4 mg SL tablet the tongue every 5 minutes as needed. FA/MV,CA,IRON,MIN/LYCOPENE Take 1 Tab by mouth 0 /LUT (MULTIVITAL ORAL) daily. aspirin 81 mg EC tablet Take 81 mg by mouth 0 daily. lisinopril (ZESTRIL) 20 mg Take 20 mg by mouth 0 04/11/2020 tablet daily. omeprazole (PRILOSEC) 20 Take 20 mg by mouth 0 04/11/2020 mg capsule daily. added in this encounter Active and Recently Administered Medications Times are shown in EDT. Scheduled Medication Order 12/10/2011 12/11/2011 12/12/2011 levofloxacin (LEVAQUIN) IVPB 250 mg (COMPLETED) 0854 (Given - Provider: Latosha Noguera, JOBY) 250 mg, Intravenous, for 1 Hours, PRE-OP ONCE, 1 dose, Thu at 0600 Continuous Medication Order 12/10/2011 12/11/2011 12/12/2011 lactated ringers (LR) infusion (CANCELED) 0832 (New Bag - Provider: Latosha Noguera RN) at 25 mL/hr, Intravenous, CONTINUOUS, St arting 12/12/11 at 0830, Until 12/13/11 at 0116 PRN Medication Order 12/10/2011 12/11/2011 12/12/2011 acetaminophen (TYLENOL) tablet 325 mg (CANCELED) 1036 (Given - Provider: Magaly Mckeon RN) 325 mg, Oral, PRN, 2 doses, Starting Thu12/12/11 at 1000, Until 12/13/11 at 0116, Pain HYDROmorphone (DILAUDID) tablet 2 mg 2 mg, Oral, EVERY 4 HOURS PRN, Starting Thu12/12/11 at 1000, Until 12/13/11 at 0116, Pain documented in this encounter Orders Medications Ordered That Might Not Have Count Last Ord ered Date First Ordered Date Been Administered atropine 0.1 mg/mL 10 mL syringe 0.5 mg 1 12/12/19 12 HYDROmorphone (DILAUDID) tablet 2 mg 1 12/12/2011 naloxone (NARCAN) injection 0.2 mg 1 12/12/2011 levofloxacin (LEVAQUIN) IVPB 250 mg 1 12/09/2011 Discharge Count Last Ordered Date First Ordered Date DISCHARGE PATIENT 1 12/12/2011 documented in this encounter Care Teams Violin Maker Hand Relationship Specialty Start Date End Date Shahid Francois MD PCP - General 10/30/11 [address] [place] [address] documented as of this encounter
--- OUTSIDE RECORDS SUMMARY | 2022-01-20 00:55 | XMS_ITS | Encounter Summary ---
:1940 Author Organization [facility] Address [address] [place] [address] Care Team Providers Name Role Phone Luis Felipe Francois MD Primary Care Provider Reason for Visit Reason Onset Date Comments Appointment Related 03/26/2020 Encounter Details Date Type Department Care Team Description 03/26/2020 Telephone [facility] - Marichuy Overton MD Appointment Related [facility] Cardiology Clin ic [address] [facility] [address] [facility] [address] [place] [address] [place] [phone] (Wo rk) Social History Tobacco Use Types Packs/Day Years Used Date Never Smoker Smokeless Tobacco: Never Used Sex Assigned at Date Recorded Not on file documented as of this encounter Miscellaneous Notes Telephone Encounter - Jadon Bishop - 03/28/2020 0859 EDT Looks like she has a FU appt with Dr. Overton on 04/11/20 elephone Encounter - Vero Overton MD - 03/27/2020 1630 EDT If we can get her set up with an LENNIE prior to that that would be great. Thanks. elephone Encounter - Coty Wagner RN - 03/26/2020 1208 EDT When should patient have F/U? elephone Encounter - Norma Gould - 03/26/2020 0943 EDT Pt was seen in the ED over the weekend for high heart rate/just not feeling well. She was told to be seen sooner than 8.31. Hermelinda is wondering when she should be seen? They believe that this could be from pain as she is passing a stone. She is also in silent afib allthe time. documented in this encounter Plan of Treatment Not on filedocumented as of this encounter Visit Diagnoses Not on filedocumented in this encounter Care Teams Asphalt Tamper Relationship Specialty Start Date End Date Shahid Francois MD PCP - General 10/30/[address] [place] [address] documented as of this encounter
--- OUTSIDE RECORDS SUMMARY | 2022-01-20 00:55 | XMS_ITS | Encounter Summary ---
:1940 Author Organization [facility] Address [address] [place] [address] Care Team Providers Name Role Phone Luis Felipe Francois MD Primary Care Provider Reason for Visit Reason Comments Atrial Fibrillation Follow-up Encounter Details Date Type Department Care Team Description 04/11/2020 Office Visit [facility] - Vero Overton Lo ngstariq persistent atrial fibrillation (Primary Dx); [facility] [place] Coronary artery disease involving modoc coronary artery of modoc heart without angina pectoris; Clinic [address] [facility] Chronic combined systolic and diastolic heart failure ([facility]); [address] [facility] [address] Essential hypertension; [place] [address] [place] Dyslipidemia; [phone] Nonrheumatic mitral valve regurgitation; [phone] Nonrheumatic tr icuspid valve regurgitation (Work) Social History Tobacco Use Types Packs/Day Years Used Date Never Smoker Smokeless Tobacco: Never Used Sex Assigned at Date Recorded Not on file documented as of this encounter Last Filed Vital Signs Vital Sign Reading Time Taken Comments Blood Pressure 120/80 04/11/2020 1440 EDT Pulse 88 04/11/2020 1440 EDT Temperature - - Respiratory Rate 18 04/11/2020 1440 EDT Oxygen Saturation 96% 04/11/2020 1440 EDT Inhaled Oxygen Concentration - - Weight 44.9 kg (98 lb 14.4 oz) 04/11/2020 1440 EDT Height - - Body Mass Index 19.32 08/29/2019 1607 EST documented in this encounter Ordered Prescriptions Prescription Sig Dispensed Refills Start Date End Date metoprolol XL (TOPROL-XL) Take 1 Tab by mouth 180 Tab 3 0 04/11/2020 50 mg tablet 2 times daily. documented in this encounter Progress Notes Vero Overton MD - 04/11/2020 1445 EDT Cardiology Clinic Note 04/11/20 14:44 Presenting complaint: Atrial Fibrillation and Follow-up HPI 79-year-old female with a history of coronary disease with previous PCI in the distant past. CABG 2009 (with MAZE and LA appendage excision). Atrial fibrillation. Also has history of asthma. Prior history of stroke, hypertension and recurrent nephrolithiasis, cardiomyopathy - EF 45-50%. 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 She continues to have issues with her nephrolithiasis. Has undergone multiple lithotripsies. Currently in the process of passing more kidney stones. She was in the emergency room back in February 2020 due to weakness. Her A. fib rates were slightly elevated. Lab work-up and imaging revealed no significant issues. She continues to feel some intermittent weakness. Has been mobilizing more recently. Walks with a walker. Otherwise reports no chest discomfort. No leg swelling or PND. Her weight is remained stable, if anything and she is lost some weight. Appetite so-so. No palpitations or syncope. Systems review A 10 point review of systems was performed and pertinent negatives and positives are mentioned above. Past medical history Past Medical History: Diagnosis Date ??? Atrial fibrillation ([facility]) 08/24/2019 ??? Coronary artery disease involving modoc coronary artery of modoc heart without angina /9/2019 ??? Essential hypertension 08/29/2019 No past surgical history on file. Medications Current Outpatient Medications: acetaminophen (TYLENOL) 650 mg CR tablet amLODIPine (NORVASC) 2.5 mg tablet aspirin 81 mg EC tablet atorvastatin (LIPITOR) 40 mg tablet calcium carb/magnesium hydrox (MYLANTA ORAL) calcium carbonate-vitamin D3 (CALCIUM 600 WITH VITAMIN D3) 600 mg(1,500mg) -500 unit capsule cetirizine (ZYRTEC) 10 mg tablet EPINEPHrine (EPIPEN 2-AMINTA) 0.3 mg/0.3 mL injection FA/MV,CA,IRON,MIN/LYCOPENE/LUT (MULTIVITAL ORAL) famotidine (PEPCID) 20 mg tablet fluticasone propion-salmeterol (ADVAIR HFA) 230-21 mcg/actuation inhaler ipratropium-albuterol (DUONEB) 0.5 mg-3 mg(2.5 mg base)/3 mL nebulizer solution Magnesium 250 mg tablet melatonin 10 mg capsule metoprolol XL (TOPROL-XL) 25 mg tablet metoprolol XL (TOPROL-XL) 50 mg tablet montelukast (SINGULAIR) 10 mg tablet nitroGLYCERIN (NITROSTAT) 0.4 mg SL tablet Simethicone (GAS-X) 125 mg capsule UNABLE TO FIND No current facility-administered medications for this visit. Medication allergies Allergies Allergen Reactions ??? Morphine GI upset ??? Ciprofloxacin Other (See Comments) Agitation ??? Cephalexin Other (See Comments) ? LE Weakness ??? Cymbalta [Duloxetine] Swelling of throat ??? Diclofenac Other (See Comments) Confusion, night terrors, dizziness ??? Egg Swelling ??? Gabapentin Other (See Comments) Dizziness ??? Homatropine Other (See Comments) Loopy ??? Hydrocodone Bitartrate Other (See Comments) Loopy ??? Hyoscyamine Other (See Comments) Lightheaded ??? Lidocaine Rash Skin Sensitivity ??? Lisinopril Other (See Comments) Uvula Swelling ??? Mirtazapine Other (See Comments) Throat discomfort, feeling tired, nauseated ??? Narcotic Antagonist GI upset ??? Nortriptyline ??? Nuts [Tree Nut] Swelling Swelling, Edema ??? Other - See Comments Pt states she is allergic to some anesthesia drugs And other antibiotics But not sure which ones ??? Peanut Butter Flavor Swelling Swelling, edema ??? Penicillins Anaphylaxis ??? Sulfa (Sulfonamide Antibiotics) Anaphylaxis ??? Tetracyclines Unknown Reaction ??? Tramadol Fhx/ Shx Social History Occupational History ??? Not on file Tobacco Use ??? Smoking status: Never Smoker ??? Smokeless tobacco: Never Used Substance and Sexual Activity ??? Alcohol use: Not on file ??? Drug use: Not on file ??? Sexual activity: Not on file Examination BP 120/80 (BP Cuff Location: Right arm, BP Patient Position: Sitting, BP Cuff Sizes: Adult, regular) Pulse 88 Resp 18 Wt (!) 44.9 kg (98 lb 14.4 oz) SpO2 96% BMI 19.32 kg/m?? General - alert and orientated, no acute distress HEENT - [place] - oropharynx clear NECK - supple - no palpable lymphadenopathy - no carotid bruits Chest - good air entry - no focal crepitations - no wheeze CVS - heart sounds I and II normal, irregular - no added sounds or murmurs - no elevated JVP Abdomen - soft and non-tender - no signs of peritonism - bowel sounds present Extremities - no edema, distal pulses present, no clubbing Skin - intact Peripheral neurology - grossly intact LABS Lab Results Component Value Date WBC 3.96 (L) 02/23/2002 HGB 11.6 02/23/2002 HCT 33.6 (L) 02/23/2002 MCV 90 02/23/2002 PLT 162 02/23/2002 Lab Results Component Value Date CREATININE 1.0 02/23/2002 Lab Results Component Value Date NA 142 02/23/2002 K 4.0 02/23/2002 CL 110 02/23/2002 CO2 24 02/23/2002 Prior Echo Jul 2019 ([facility]) Mildly reduced LV function. EF 45 to 50%. RV function low normal. Left atrium moderately dilated. Right atrium moderately dilated. Moderate mitral regurgitation. Moderate tricuspid regurgitation. Holter monitor Jun 2019 Atrial fibrillation throughout. EKG (04/11/2020) - atrial fibrillation. Ventricular rate of 90 bpm. Assessment and Plan 1. Coronary artery disease involving modoc coronary artery of modoc heart without angina pectoris Known coronary disease with previous PCI in the distant past. Hx of CABG. No exertional symptoms ofchest discomfort. CCS class I. Continue aspirin and statin therapy. 2. Chronic combined systolic and diastolic heart failure (HCC-CMS) Known borderline EF with EF varying over the years. Last echo July 2019 with an EF of 45 to 50%. No evidence of decompensated heart failure on physical examination. Continue to monitor weights. Intolerant of DIANA inhibitors in the past. 3. Longstanding persistent atrial fibrillation Permanent atrial fibrillation. MAZE in 2009 with LA appendage excision. Looking back at her notes - has had known atrial fibrillation since at least 2002. EKG confirms atrial fibrillation in the clinic today with a heart rate in the 90s. Increase metoprolol. Metoprolol ER 50 mg twice daily. CHADSVASc score 5. Elevated stroke risk. She was initially on Eliquis therapy, however, suffered from significant epistaxis. Requiring cauterization by ENT. Eliquis has since been discontinued and she continues on aspirin 81 mg daily. She does not wish to restart Eliquis at this point. Some of her fatigue may be related to her underlying atrial fibrillation. - EKG 12-LEAD 4. Essential hypertension Overall well controlled. Given the increase in metoprolol made today we today discontinued her amlodipine. 5. Dyslipidemia Continue high intensity statin therapy. 6. Nonrheumatic mitral valve regurgitation Moderate mitral regurgitation on most recent echo from July 2019. We will continue to monitor this. Repeat echo in 1-2 years. 7. Nonrheumatic tricuspid valve regurgitation Moderate tricuspid regurgitation. She will transfer to [facility] cardiology as it is closer to her home. Vero Overton MD documented in this encounter Plan of Treatment Not on filedocumented as of this encounter Procedures Procedure Name Priority Date/Time Associated Diagnosis Comme nts EKG 12-LEAD Routine 04/11/2020 14:47 EDT Longstanding Results for this persistent atrial procedure are in fibrillation the results section. documented in this encounter Results EKG 12-LEAD (04/11/2020 14:47 EDT) Specimen Narrative [facility] - 020 14:47 EDT ? [facility] ? Test Date: ?2020-04-11 14:47:39 Pat Name: ? TATO MOLLEUR ? Department: ?Room: ? Gender: ? F ?[employer] Senior Specialist: ?? DL : ?1940 ? Requested By: Order Number: ?Reading MD: ?? Preeth Sundaran, MD ? Measurements Intervals ?[place] ? Rate: ? 90 ? P: ? AL: ?QRS: ?-20 QRSD: ? 78 ? T: ?-9 QT: ? 378 ? QTc: ?462 ? Interpretive Statements Atrial fibrillation Nonspecific ST abnormality Abnormal ECG Compared to ECG 08/29/2019 16:33:57 No significant changes Electronically Signed On 04-12-2020 9:11: 07 EDT by Vero Overton MD [email or web address] Procedure Note Vero Overton MD - 04/12/2020 [facility] Cardiology T est Date: 2020-04-11 14:47:39 Pat Name: TATO Currie epartment: R oom: Gender: F T echnician: DL : 1940 R equested By: Order Number: R marleen MD: Vero Overton MD Measure ments Intervals A xis Rate: 90 P : AL: Q RS: -20 QRSD: 78 T : -9 QT: 378 QTc: 462 Interpretive Statements Atrial fibrillation Nonspecific ST abnormality Abnormal ECG Compared to ECG 08/29/2019 16:33:57 No significant changes Electronically Signed On 04-12-2020 9:11: 07 EDT by Vero Overton MD [email or web address] Performing Organization Address City/State/ZIP Code Phon e Number [facility] [address] [place] [address] documented in this encounter Visit Diagnoses Diagnosis Longstanding persistent atrial fibrillat ion (HCC-CMS) (HCC) - Primary Coronary artery disease involving modoc coronary artery of modoc heart without angina pectoris Chronic combined systolic and diastolic heart failure ([facility]) ([facility]) Chronic combined systolic and diastolic heart failure Essential hypertension Unspecified essential hypertension Dyslipidemia Other and unspecified hyperlipidemia Nonrheumatic mitral valve regurgitation Nonrheumatic tricuspid valve regurgitati on Tricuspid valve disorders, specified as nonrheumatic documented in this encounter Discontinued Medications Medication Sig Discontinue Reason Start Date End Date ketorolac (TORADOL) 10 TK 1 T PO TID FOR 5 Therapy completed 201904/11/2020 mg tablet DAYS PRF PAIN. DO NOT TK OTHER NSAIDS WHILE ON THIS MEDICATION lisinopril (ZESTRIL) 20 Take 20 mg by mouth 04/11/2020 mg tablet daily. MUCINEX 600 mg SR 07/20/2019 04/11/2020 tablet multivitamin Take 1 Tab by mouth. 020 (THERAGRAN) tablet omeprazole (PRILOSEC) Take 20 mg by mouth 04/11/2020 20 mg capsule daily. ranitidine (ZANTAC) 150 Take 150 mg by mouth 04/11/2020 mg tablet daily. amLODIPine (NORVASC) Take 1 Tab by mouth Therapy completed 12/05/19 20 04/11/2020 2.5 mg tablet daily. metoprolol XL TAKE 1 TABLET BY Therapy completed 11/29/201904/11 (TOPROL-XL) 25 mg MOUTH ONCE DAILY WITH tablet 50MG TABLET FOR TOTAL DAILY DOSE OF 75MG. metoprolol XL Take 50 mg by mouth Reorder 020 (TOPROL-XL) 50 mg daily. tablet documented as of this encounter Historical Medications This list may reflect changes made after this encounter. Medication Sig Dispensed Refills Start Date End Date famotidine (PEPCID) 20 Take 40 mg by mouth 0 02/20 mg tablet daily. ketorolac (TORADOL) 10 TK 1 T PO TID FOR 5 0 02/2004/11/2020 mg tablet DAYS PRF PAIN. DO NOT TK OTHER NSAIDS WHILE ON THIS MEDICATION added in this encounter Care Teams Risk Tech Relationship Specialty Start Date End Date Shahid Francois MD PCP - General 10/30/11 [address] [place] [address] (work) documented as of this encounter
--- OUTSIDE RECORDS SUMMARY | 2022-01-20 00:55 | XMS_ITS | Encounter Summary ---
:1940 Author Organization [facility] Address [address] [place] [address] Care Team Providers Name Role Phone Luis Felipe Francois MD Primary Care Provider Reason for Visit Reason Comments Enuresis Encounter Details Date Type Department Care Team Description 11/18/2011 Office Visit [facility] Radha Jackson Urinaareli y incontinence (Primary Dx); Pelvic Medicine and MD Mireille Abnormal urine cytology Reconstructive Surgery - [address] [place] [address] Medical [place] [address] Medical [address] [place] [address] [address] [place] [phone] Social History Tobacco Use Types Packs/Day Years Used Date Never Assessed Sex Assigned at Date Recorded Not on file documented as of this encounter Discharge Disposition Disposition Code Departure Means Destination Auto Discharge documented in this encounter Progress Notes Radha Jackson MD - 11/19/2011 1055 EST Cystourethroscopy Procedure Note Preoperative Diagnosis: microscopic hematuria, frequency and severe urinary leakage requiring pads and Depends. Postoperative Diagnosis: same Procedure: The patient was correctly identified and taken into the procedure room. The risks, benefits, complications, treatment options and expected outcomes were discussed with the patient. The patient concurred with the proposed plan, and informed consent was obtained. The patient was placed into the supine position. The urethral meatus was prepped and draped in the usual sterile fashion. Local anesthesia was achieved with 10cc of 2% lidocaine jelly. A 16 croatian flexible cystoscope was inserted into the anterior urethral meatus and passed into the bladder. The bladder was filled with 200 mL of normal saline without pain. The bladder and urethra were fully inspectedwith the following findings: Findings: Normal bladder and urethral mucosa. Urethra hypermobile and + leaking with straining on exam with cystocele reduced despite normal urodynamic testing. The patient tolerated the procedures well. Will schedule TVT and cystocele repair. documented in this encounter Miscellaneous Notes Scanned Note-Null - CLINICAL PRACTITIONER, SCAN 2 - 12/11/2011 6468 EDT documented in this encounter Plan of Treatment Not on filedocumented as of this encounter Procedures Procedure Name Priority Date/Time Associated Diagnosis Comme nts UROVYSION(TM) FOR Routine 11/18/2011 14:52 Abnormal urine Resu lts for this BLADDER CANCER EST cytology procedure are in the results section. POCT URINE Routine 11/18/2011 13:03 Urinary incontinence Res ults for this DIPSTICK, CLINITEK EST procedure are in the results section. documented in this encounter Results UROVYSION(TM) (11/18/2011 14:52 EST) Specimen Urine [facility] Specimen ID [id number] [facility] Source cath [facility] Order Date 21 Nov 2011 09:51 [facility] Method (Note) [facility] Comment: LAB Fluorescence in situ hybridization (FISH) with centrom ere probes for chromosome 3 (D3Z1), 7 (D7Z1), 17 (D17Z1) a nd a locus specific probe for 9p21. Reason For Referral (Note)Comment: r/o [facility] urothelial carcinoma LAB Results Negative. [facility] Interpretation (Note) [facility] Comment: LAB No evidence of urothelial carcinoma. ??However, it jordan uld be noted that there were very few cells observed. ??Pleas e submit another urine specimen if clinically indicated. This test was developed and its performance characteri stics determined by Laboratory Medicine and Pathology, [facility]. ??It has not been cleared or approved by the U .S. Food and Drug Administration. Jr. Systems Administrator [facility] Report Date 25 Nov 2011 15:54 [facility] Comment: LAB Performed or Referred by: [facility] Dpt of Lab Med a nd Path, [address] [place] [address], Lab Dir: Osvaldo anguiano III, MD Specimen Urine (substance) Performing Organization Address [facility] e Number [facility] [address] [place] [address] SERVICES [facility] [address] [place] [address] (ABNORMAL) POCT URINE DIPSTICK (11/18/2011 13:03 EST) Color YELLOW [facility] Clarity, UA Clear [facility] Glucose Neg Neg [facility] Bilirubin Neg Neg [facility] Ketones Neg Neg [facility] Specific [place] 1.010 1.001 - 1.035 [facility] Blood 2+ (A) Neg [facility] pH 6.0 4.6 - 8.0 [facility] Protein Neg Neg [facility] Urobilinogen 0.2 0.2 - 1.0 [facility] E.U./dl LAB Nitrite Neg Neg [facility] Leuk Esterase Neg Neg [facility] weaver apprentice ID [id number]: [facility] Test performed at LAB the [facility] Specimen Urine (substance) Performing Organization Address [facility] e [facility] LABORATORY [address] [place] [address] SERVICES [facility] [address] [place] [address] documented in this encounter Visit Diagnoses Diagnosis Urinary incontinence - Primary Unspecified urinary incontinence Abnormal urine cytology Other nonspecific finding on examination of urine documented in this encounter Care Teams Quality Control Head Relationship Specialty Start Date End Date Shahid Francois MD PCP - General 10/30/11 [address] [place] [address] documented as of this encounter
--- OUTSIDE RECORDS SUMMARY | 2022-01-20 00:55 | XMS_ITS | Encounter Summary ---
:1940 Author Organization [facility] Address [address] [place] [address] Care Team Providers Name Role Phone Luis Felipe Francois MD Primary Care Provider Reason for Visit Reason Comments Other S/P Echo and Holter--former [facility] PT Atrial Fibrillation Encounter Details Date Type Department Care Team Description 08/29/2019 Office Visit [facility] Co ronary artery disease involving quinault coronary artery of quinault heart without angina pectoris (Primary Dx); [facility] Card[facility] Permanent atrial fibrillation; Clinic [address] Essential hypertension; [address] Dyslipidemia; [place] [address] [place], [place] Nonrheumatic mitral valve re gurgitation; [phone] [id number] Nonrheumatic tricuspid valve regurgitati on Social History Tobacco Use Types Packs/Day Years Used Date Never Smoker Smokeless Tobacco: Never Used Sex Assigned at Date Recorded Not on file documented as of this encounter Last Filed Vital Signs Vital Sign Reading Time Taken Comments Blood Pressure 130/96 08/29/2019 1607 EST Pulse 80 08/29/2019 1607 EST Temperature - - Respiratory Rate - - Oxygen Saturation 97% 08/29/2019 1607 EST Inhaled Oxygen Concentration - - Weight 49 kg (108 lb) 08/29/2019 1607 EST Height 152.4 cm (5') 08/29/2019 1607 EST Body Mass Index 21.09 08/29/2019 1607 EST documented in this encounter Patient Instructions Patient InstructionsSuVero saenz MD - 08/29/2019 16:30 EST Please reduce aspirin to 81 mg daily. Reduced Amlodipine to 2.5 mg daily. Metoprolol increased to 75 mg daily. Eliquis commenced. documented in this encounter Ordered Prescriptions Prescription Sig Dispensed Refills Start Date End Date amLODIPine (NORVASC) 2.5 Take 1 Tab by mouth 90 Tab 0 12/05/2019 mg tablet daily for 90 days. metoprolol XL (TOPROL XL) Take 1 Tab by mouth 90 Tab 2 1 10/30/2018 11/27/2019 25 mg tablet daily for 90 days. Take in addition to 50 mg XL tablet of Metoprolol. Total dose 75 mg daily. apixaban (ELIQUIS) 5 mg Take 1 Tab by mouth 180 Tab 2 05/201911/27/2019 tablet 2 times daily for 90 days. documented in this encounter Progress Notes Vero Overton MD - 08/29/2019 1630 EST Cardiology Clinic Note 08/29/19 17:09 Presenting complaint: Other (S/P Echo and Holter--former [facility] PT) and Atrial Fibrillation HPI 78-year-old female with a history of coronary disease with previous PCI in the distant past. Also has history of asthma. Prior history of stroke, hypertension and recurrent nephrolithiasis. Previous Holter monitor in 2015 revealed frequent ventricular ectopy with ectopy burden of 1.2%. Oneshort 9 beat bursts of nonsustained VT. Asymptomatic. Has had more issues with her nephrolithiasis recently. Underwent a urothoracoscopy with stone extraction in April 2019. Noted to have some brief atrial fibrillation perioperatively in the OR. Since her previous visit she overall feels relatively okay. No significant shortness of breath withexertion. Her mobility at present is quite limited due to bursitis in her right hip. Reports no exertional chest discomfort. No leg swelling or PND. Weight is remained stable. She does report issues with fatigue. Walks with a walker. Cardiac echo from August 2016 revealed low normal LV systolic function with EF 50 to 55%. Normal RV function. Mild mitral regurgitation. Mild ectasia of the proximal aorta. Systems review A 10 point review of systems was performed and pertinent negatives and positives are mentioned above. Past medical history Past Medical History: Diagnosis Date ??? Atrial fibrillation (HCC-CMS) 08/24/2019 ??? Coronary artery disease involving quinault coronary artery of quinault heart without angina gampyrja46/9/2019 ??? Essential hypertension 08/29/2019 History reviewed. No pertinent surgical history. Medications Current Outpatient Medications: acetaminophen (TYLENOL) 650 mg CR tablet amLODIPine (NORVASC) 2.5 mg tablet apixaban (ELIQUIS) 5 mg tablet aspirin 81 mg EC tablet atorvastatin (LIPITOR) 40 mg tablet calcium carb/magnesium hydrox (MYLANTA ORAL) calcium carbonate-vitamin D3 (CALCIUM 600 WITH VITAMIN D3) 600 mg(1,500mg) -500 unit capsule cetirizine (ZYRTEC) 10 mg tablet EPINEPHrine (EPIPEN 2-AMINTA) 0.3 mg/0.3 mL injection FA/MV,CA,IRON,MIN/LYCOPENE/LUT (MULTIVITAL ORAL) fluticasone propion-salmeterol (ADVAIR HFA) 230-21 mcg/actuation inhaler ipratropium-albuterol (DUONEB) 0.5 mg-3 mg(2.5 mg base)/3 mL nebulizer solution lisinopril (ZESTRIL) 20 mg tablet Magnesium 250 mg tablet melatonin 10 mg capsule metoprolol XL (TOPROL XL) 25 mg tablet metoprolol XL (TOPROL-XL) 50 mg tablet montelukast (SINGULAIR) 10 mg tablet MUCINEX 600 mg SR tablet multivitamin (THERAGRAN) tablet nitroGLYCERIN (NITROSTAT) 0.4 mg SL tablet omeprazole (PRILOSEC) 20 mg capsule ranitidine (ZANTAC) 150 mg tablet Simethicone (GAS-X) 125 mg capsule UNABLE [...] Sexual activity: Not on file Examination BP (!) 130/96 (BP Cuff Location: Right arm, BP Patient Position: Sitting, BP Cuff Sizes: Adult, regular) Pulse 80 Ht 152.4 cm (60) Wt 49 kg (108 lb) SpO2 97% BMI 21.09 kg/m?? General - alert and orientated, no [...] monitor Jun 2019 Atrial fibrillation throughout. EKG - atrial fibrillation. Ventricular rate of 95 beats. Assessment and Plan 1. Coronary artery disease involving quinault coronary artery of quinault heart without angina pectoris Known coronary disease with previous PCI in the distant past. No exertional symptoms of chest discomfort. CCS class I. Continue aspirin and statin therapy. Suggest that she can reduce her aspirin to 81 mg daily 2. Permanent atrial fibrillation Initially diagnosed perioperatively during stone extraction. An EKG at the previous clinic visit reveals atrial fibrillation. Her beta-devon dose was increased at that point. We today increased her beta-devon to 75 mg daily. Metoprolol XL. CHADSVASc score 5. Elevated stroke risk. She is agreeable to commencing Eliquis. 5 mg twice dailyprescribed. Some of her fatigue may be related to her underlying atrial fibrillation. She has had a mild drop in her EF on recent echo. No evidence of heart failure on physical examination today. Options are for optimizing rate control versus trying a rhythm control strategy. Electrical cardioversion was explained. She will call us and let us know whether she wishes to proceed with electricalcardioversion. - EKG 12-LEAD 3. Essential hypertension Overall well controlled. We today reduced her amlodipine to 2.5 mg daily. This as we are increasing metoprolol. May need to discontinue amlodipine if blood pressure drops. 4. Dyslipidemia Continue high intensity statin therapy. 5. Nonrheumatic mitral valve regurgitation Moderate mitral regurgitation on most recent echo from July 2019. We will continue to monitor this. 6. Nonrheumatic tricuspid valve regurgitation Moderate tricuspid regurgitation. Vero Overton MD documented in this encounter Plan of Treatment Scheduled Orders Name Type Priority Associated Diagnoses Order S chedule EKG 12-LEAD ECG Routine Permanent atrial fibrillatio n ([facility]) Ordered: 08/29/2019 documented as of this encounter Visit Diagnoses Diagnosis Coronary artery disease involving quinault coronary artery of quinault heart without angina pectoris - Primary Permanent atrial fibrillation ([facility]) ([facility]) Atrial fibrillation Essential hypertension Unspecified essential hypertension Dyslipidemia Other and unspecified hyperlipidemia Nonrheumatic mitral valve regurgitation Nonrheumatic tricuspid valve regurgitati on Tricuspid valve disorders, specified as nonrheumatic documented in this encounter Discontinued Medications Medication Sig Discontinue Reason Start Date End Date DILTiazem (TIAZAC) 240 mg Take 240 mg by Therapy completed 08/29/2019 SR capsule mouth daily. amLODIPine (NORVASC) 5 mg Take 5 mg by mouth. 05/24/20 15 08/29/2019 tablet isosorbide mononitrate Take 120 mg by Therapy completed 08/29/2019 (IMDUR) 60 mg CR tablet mouth daily. simvastatin (ZOCOR) 20 mg Take 20 mg by mouth Therapy completed 08/29/2019 tablet daily. documented as of this encounter Historical Medications This list may reflect changes made after this encounter. Medication Sig Dispensed Refills Start Date End Date calcium carbonate-vitamin Take by mouth. 0 D3 (CALCIUM 600 WITH VITAMIN D3) 600 mg(1,500mg) -500 unit capsule calcium carb/magnesium Take by mouth daily. 0 hydrox (MYLANTA ORAL)Indications: Before meals UNABLE TO FIND 2 times daily. Med 0 Name: Tumeric Daily Simethicone (GAS-X) 125 Take 125 mg by mouth 0 mg capsule 2 times daily. Magnesium 250 mg tablet Take 250 mg by mouth 0 daily. montelukast (SINGULAIR) Take 10 mg by mouth. 0 10 mg tablet melatonin 10 mg capsule Take 10 mg by mouth. 0 ipratropium-albuterol Inhale 3 mL as 0 (DUONEB) 0.5 mg-3 mg(2.5 directed every 4 mg base)/3 mL nebulizer hours as needed. solution fluticasone Inhale 2 Puffs as 0 04/16/2015 propion-salmeterol directed 2 times (ADVAIR HFA) 230-21 daily. mcg/actuation inhaler EPINEPHrine (EPIPEN 0 01/22/2015 2-AMINTA) 0.3 mg/0.3 mL injection cetirizine (ZYRTEC) 10 mg Take 10 mg by mouth. 0 12/28/2014 tablet atorvastatin (LIPITOR) 40 Take 40 mg by mouth 0 0 06/17/2019 mg tablet daily. acetaminophen (TYLENOL) Take 1,300 mg by 0 650 mg CR mouth 2 times daily. tabletIndications: and prn metoprolol XL (TOPROL-XL) Take 50 mg by mouth 0 04/11/2020 50 mg tablet daily. multivitamin (THERAGRAN) Take 1 Tab by mouth. 0 04/11/2020 tablet MUCINEX 600 mg SR tablet 0 07/20/2019 04/11/2020 amLODIPine (NORVASC) 5 mg Take 5 mg by mouth. 0 0 05/24/2015 08/29/2019 tablet added in this encounter Care Teams Superintendent [employer] Relationship Specialty Start Date End Date Shahid Francois MD PCP - General 10/30/[address] [place] [id number] documented as of this encounter
--- NOTE | 2022-01-20 07:45 | DI.US_ITS ---
Exam(s) US RENAL EXAM: US RENAL CLINICAL HISTORY: monitoring calculi,h/o calculi, z87.442. TECHNIQUE: Luna scale, color and spectral Doppler were used. COMPARISON: FINDINGS: Renal size in cm: Right: 8 left: 9 Echogenicity: Normal Hydronephrosis: No Cyst or mass: No Nephrolithiasis: Right kidney: 3 millimeter stone upper pole. 4 millimeter stone lower pole. Left k idney: 3 millimeter stone in the mid kidney. 2 millimeter stone inferior pole. Bladder:Normal Prevoid vol:41 Postvoid vol:Not performed Other: Left adnexal cystic mass measuring 7.1 x 4.6 x 6.9 cm. IMPRESSION: Small bilateral nonobstructing renal calculi. No hydronephrosis. Continued increase in size of left adnexal cystic lesion. DATA REPOSITORY:
== END 2022-01-20 01:12 ==
PROVIDERS: PCP Student in an Organized Health Care Education/Training Program; Visit Provider Nurse Practitioner Gerontology
DX: N20.0 Calculus of kidney; N85.8 Other specified noninflammatory disorders of uterus
CPT/HCPCS: 76770

== ENCOUNTER → 2022-01-27 13:46 | Outpatient (BNVA) | payer MEDICARE, MEDICAID, SELFPAY | PROVIDERS: PCP Student in an Organized Health Care Education/Training Program; Visit Provider Nurse Practitioner Gerontology | DX: Z87.442 Personal history of urinary calculi (principal) | CPT/HCPCS: 99214 ==

== ENCOUNTER 2022-03-18 02:46 | Outpatient (CLI) | payer MEDICARE, MEDICAID, SELFPAY ==
[2022-03-20 05:23] LABS: Vitamin D 25 Total 46.6 ng/mL (30-100)
== END 2022-03-18 02:47 | disposition home or self-care (01) ==
LOC: LBO 02:46
PROVIDERS: PCP Student in an Organized Health Care Education/Training Program; Visit Provider Student in an Organized Health Care Education/Training Program
DX: M85.88 Other specified disorders of bone density and structure, other site (principal)
CPT/HCPCS: 36415; 82306

== ENCOUNTER 2022-05-01 01:31 | Outpatient (CLI) | payer MEDICARE, MEDICAID, SELFPAY ==
[2022-05-01 08:34] LABS: HGB 11.7 g/dL (11.2-15.7)
[2022-05-01 09:29] LABS: ALT 31 U/L (14-59); AST 25 U/L (15-37); Albumin 3.7 g/dL (3.4-5.0); Alkaline Phosphatase 59 U/L (46-116); Anion Gap 6.6 mmol/L (3-11); BUN 16 mg/dL (7-18); Bilirubin, Total 0.7 mg/dL (0.2-1.0); CO2 30.4 mmol/L (21.0-32.0); CREATININE 0.9 mg/dL (0.55-1.02); Chloride 105 mmol/L (98-107); Ferritin 102 ng/mL (8-252); Glucose 105 mg/dL (74-106); Potassium 4.6 mmol/L (3.5-5.1); Sodium 142 mmol/L (136-145); TSH (W/Ref FT4) 2.65 uIU/mL (0.36-3.74); Total Protein 6.7 g/dL (6.4-8.2); Vitamin B12 591 pg/mL (193-986)
[2022-05-01 09:31] LABS: Folate > 20.0 ng/mL (8.6-20.0)
[2022-05-01 09:34] LABS: Iron 88 ug/dL (50-170); Total Iron Binding Capacity 297 ug/dL (250-450); Transferrin Sat 30 % (15-50)
== END 2022-05-01 01:32 | disposition home or self-care (01) ==
LOC: LBO 01:31
PROVIDERS: PCP Student in an Organized Health Care Education/Training Program; Visit Provider Student in an Organized Health Care Education/Training Program
DX: R53.83 Other fatigue (principal); E46 Unspecified protein-calorie malnutrition; N28.9 Disorder of kidney and ureter, unspecified; Z86.2 Personal history of diseases of the blood and blood-forming organs and certain disorders involving the immune mechanism; Z72.820 Sleep deprivation
CPT/HCPCS: 36415; 80053; 82607; 82728; 82746; 83540; 83550; 84443; 85018

== ENCOUNTER → 2022-05-13 02:19 | Outpatient (CLI) | payer MEDICARE, MEDICAID, SELFPAY ==
--- NOTE | 2022-05-13 07:00 | DI.US_ITS ---
APPROVED REPORT EXAM: Comprehensive 2D, Doppler, and color-flow Echocardiogram Patient Location: Out-Patient Sr Account Executive: Susan Parra RDCS (AE) Indications: Cardiomyopathy, Atrial fibrillation Other Information Study Quality: Adequate. Technically limited study due to uncooperative patient. Conclusion Normal left ventricular wall thickness and chamber size. Estimated ejection fraction is 45 to 50%. There is mild global hypokinesis Normal right ventricular size and systolic function Left atrium is mildly dilated. Right atrium is normal in size Mildly sclerotic trileaflet aortic valve with trace regurgitation Mildly thickened mitral leaflets. Moderate mitral regurgitation Normal tricuspid valve with moderate regurgitation Dilated aortic root and ascending aorta Wall motion Left Ventricle The left ventricle is normal size. Left ventricular systolic function is mildly decreased. There is n ormal left ventricular wall thickness. There is global hypokinesis of the left ventricle. There is no ventricular septal defect visualized. LVEF is 45-50%. Right Ventricle The right ventricle is normal size. The right ventricular systolic function is normal. The RVSP is 35 .4mmHg. Atria Left atrium is mildly dilated. The right atrium size is normal. The interatrial septum is intact with no evidence for an atrial septal defect. Aortic Valve The Aortic valve is mildly sclerotic. Aortic valve is trileaflet. There is no aortic valvular stenosi s. Trace aortic regurgitation. Mitral Valve Mitral valve leaflets are mildly thickened. No evidence of mitral valve stenosis. Moderate mitral reg urgitation. Tricuspid Valve The tricuspid valve is normal in structure. There is no tricuspid valve stenosis. Moderate tricuspid regurgitation. Pulmonic Valve The pulmonary valve is normal in structure. There is no pulmonic valvular stenosis. Mild pulmonic reg urgitation. Great Vessels Aortic root is mildly dilated.3.45 cm The ascending aorta is severely dilated.4.51 cm IVC is normal i n size and collapses >50% with inspiration. Pericardium There is no pericardial effusion. 2D Dimensions IVSD d PLAX 0.83 cm F: 0.6-1.0 LV Vol A2C d MOD 68.7 mL LVPW d PLAX 0.83 cm F: 0.6 - 1.0 LV Vol A4C d MOD 51.3 mL LVID d PLAX 3.75 cm F: 3.8 - 5.2 LA vol/ BSA A2C s A-L 37.6 mL/m2 LVDs 2.90 cm F: 2.2 - 3.5 LA vol/ BSA A4C s A-L 19.6 mL/m2 Ao Root d 3.46 cm F: 2.7 - 3.3 LA Vol/ BSA Biplane s A-L 29.4 mL/m2 RA Area A4C 12.38 cm2 LA Area A4C s MOD 12.25 cm2 RA Vol/ BSA A4C s A-L 18.9 mL/m2 LA Area A2C s MOD 18.34 cm2 Ao Asc Diam d 4.21 cm F: 2.3 - 3.1 LV EF A4C MOD 45.4 % LV EF Teichholz 44.1 % LV EF A2C MOD 45.9 % LVEF (Walters's) 43.79 % F: 54 - 74 LV EF Biplane MOD 43.8 % LV Volume 53.01 mL F: 46 - 106 SV 26.62 mL LV Volume Index 39.55 mL/m2 F: 29 - 61 SV Index 19.81 mL/m2 LV Vol Biplane MOD 60.8 mL FS 21.35 % M-Mode TAPSE 1.28 cm (M/F) >1.7 LV Diastology MV E' medial 0.073 (>0.07 m/s) E/A Ratio 4.2 LV E/e MED 11.55 (<14) MV E Vmax 0.84 (0.4-1.3 m/s) MV E' lateral 0.102 (>0.1 m/s) MV A Vmax 0.20 (0.4-1.3 m/s) LV E/e LAT 8.20 (<14) MV E/A Ratio 3.43 MV E/E' medial 11.56 MV E/E' lateral 8.23 Aortic Valve LVOT Area 2.97 cm2 AoV Area Vmax 2.05 cm2 LVOT Vmax 0.58 m/s AoV Area/ BSA (Vmax) 1.52 cm2/m2 LVOT Mean Melchor. 0.45 m/s CECILIA Mean Melchor. 2.27 cm2 LVOT Peak Grad 1.3 mmHg CECILIA Mean Melchor. Index 1.69 cm2/m2 LVOT Mean Grad 0.9 mmHg LVOT VTI 0.121 m LVOT Diam s 1.90 cm AoV Vmax 0.84 m/s Velocity Ratio 0.69 AoV Mean Melchor. 0.60 m/s AoV Peak Grad 2.9 mmHg LVOT SV 35.85 mL AoV Mean Grad 1.6 mmHg AoV VTI 0.121 m AoV Area VTI 2.98 cm2 AoV Area/ BSA (VTI) 2.21 cm/m2 Mitral Valve MV DT 131 (160-240 msec) MR Vmax 4.77 m/s MV PHT 38 msec MR VTI 1.537 m MV Area PHT 5.77 cm2 MR Peak Grad 90.9 mmHg MV VTI 0.146 m MR Mean Grad 59.9 mmHg MV Area VTI 2.45 (4.0-6.0 cm2) MR PISA Radius 0.51 cm MR EROA 0.12 cm2 MR Aliasing Velocity 0.35 m/s MR PISA 1.63 cm2 Pulmonary Valve PV Vmax 0.68 (0.5-1.5 m/s) RVOT Peak Gr. 0.90 mmHg PV Peak Grad 1.9 mmHg RVOT Mean Gr. 0.50 mmHg PV Mean Grad 1.2 mmHg RVOT VTI 0.089 m PV VTI 0.120 m RVOT Vmax 0.47 m/s Tricuspid Valve TR Peak Grad 32.4 mmHg TR Vmax 2.85 m/s RA Pressure 3.00 mmHg RVSP (TR) 35.4 mmHg
== END ==
PROVIDERS: PCP Student in an Organized Health Care Education/Training Program; Visit Provider Internal Medicine Cardiovascular Disease
DX: I48.11 Longstanding persistent atrial fibrillation (principal); I42.8 Other cardiomyopathies; I35.8 Other nonrheumatic aortic valve disorders; I34.0 Nonrheumatic mitral (valve) insufficiency
CPT/HCPCS: 93306

== ENCOUNTER → 2022-05-27 08:46 | Outpatient (BNVA) | payer MEDICARE, MEDICAID, SELFPAY | PROVIDERS: PCP Student in an Organized Health Care Education/Training Program; Visit Provider Internal Medicine Cardiovascular Disease | DX: I48.11 Longstanding persistent atrial fibrillation (principal); I25.10 Atherosclerotic heart disease of native coronary artery without angina pectoris; I10 Essential (primary) hypertension; I42.9 Cardiomyopathy, unspecified; Z86.79 Personal history of other diseases of the circulatory system | CPT/HCPCS: 99214; 99213 ==

== ENCOUNTER → 2022-06-13 00:06 | Outpatient (CLI) | payer MEDICARE, MEDICAID, SELFPAY ==
--- NOTE | 2022-06-13 07:45 | DI.US_ITS ---
Exam(s) US PELVIS EXAM: US PELVIS CLINICAL HISTORY: re-evaluate left adnexal mass,R19.00 TECHNIQUE: Transabdominal imaging was performed using standard protocol. The patient denied transva ginal imaging. COMPARISON: US US RENAL from 01/01/2021 US US RENAL from 01/20/2022 FINDINGS: KIDNEYS: Kidneys are symmetric in size. No evidence of renal calculi. No evidence of hydronephrosis. No renal mass or cyst identified. UTERUS: Anteverted. 4.7 x 1.7 by 3.2 cm Endometrium: 3 millimeters Myometrium: Unremarkable. Cervix: Unremarkable. OVARIES: Right: Cyst or mass: None. Left: Cyst or mass: Cyst measuring 5.4 x 5.1 x 4.5 cm. This appears smaller when compared with the p revious exam. DOPPLER: Color: Symmetric and uniform flow to both ovaries. No hyperemia. Duplex: Normal ovarian arterial waveforms visualized. CUL-DE-SAC: Free fluid: None. IMPRESSION: 1. Normal-appearing uterus with endometrial stripe within normal limits. 2. Apparent interval decrease in size of previously noted left ovarian cyst.. DATA REPOSITORY:
== END ==
PROVIDERS: PCP Student in an Organized Health Care Education/Training Program; Visit Provider Student in an Organized Health Care Education/Training Program
DX: N83.202 Unspecified ovarian cyst, left side (principal)
CPT/HCPCS: 76856

== ENCOUNTER → 2022-07-23 02:36 | Outpatient (CLI) | payer MEDICARE, MEDICAID, SELFPAY ==
--- NOTE | 2022-07-23 07:15 | DI.US_ITS ---
Exam(s) US RENAL EXAM: US RENAL CLINICAL HISTORY: monitoring renal calculi,H/O CALCULI,Z87.442. TECHNIQUE: Luna scale, color and spectral Doppler were used. COMPARISON: CT CT ABDOMEN PELVIS W from 05/15/2020 FINDINGS: Renal size in cm: Right: 8.4 left: 9.0 Echogenicity: Normal Hydronephrosis: No Cyst or mass: No Nephrolithiasis: 5 millimeter echogenic focus upper pole right kidney. 3 millimeter echogenic focus lower pole right kidney. No left renal calculi visible on the current exam. Calculi which were thou ght to be present on the prior ultrasound. Bladder:Left sided bladder diverticulum. Prevoid vol: 104 cc Postvoid vol: Patient unable to void. IMPRESSION: Two small right renal calculi are demonstrated on today's exam.. Left-sided bladder diverticulum. DATA REPOSITORY:
== END ==
PROVIDERS: PCP Student in an Organized Health Care Education/Training Program; Visit Provider Nurse Practitioner Gerontology
DX: Z87.442 Personal history of urinary calculi (principal); N20.0 Calculus of kidney
CPT/HCPCS: 76770

== ENCOUNTER → 2022-08-04 10:17 | Outpatient (BNVA) | payer MEDICARE, MEDICAID, SELFPAY | PROVIDERS: PCP Student in an Organized Health Care Education/Training Program; Referring Provider Student in an Organized Health Care Education/Training Program; Visit Provider Nurse Practitioner Gerontology | DX: Z87.442 Personal history of urinary calculi (principal) | CPT/HCPCS: 99214 ==

== ENCOUNTER 2022-09-17 01:56 | Outpatient (CLI) | payer MEDICARE, MEDICAID, SELFPAY ==
[2022-09-17 14:21] LABS: Estimated GFR 57.31 (mL/min/1.73m2)
--- NOTE | 2022-09-17 14:52 | DI.CT_ITS ---
Exam(s) CT BRAIN CTA EXAM: CT BRAIN CTA CLINICAL HISTORY: ?cerebral aneurysms,i72.9,h/o rt ica,? basilar tip aneurysm. TECHNIQUE: Imaging Protocol: T8 Both noninfused and contrast infused CT scans of the brain were performed. IV Contrast Dose =75 cc Axial computed tomography images with coronal and sagittal reformatted images were created and review ed COMPARISON: CT CT BRAIN CTA from 09/05/2021 FINDINGS: BRAIN: There are no skull fractures nor fluid in the visualized paranasal sinuses. There is no evidence of intracranial hemorrhage, mass effect, or shift of midline structures. There are no extra-axial fluid collections. The ventricles are not enlarged or shifted and there is no blo od within the ventricular system nor within the basal cisterns. Triangular area of hypodensity in the left cerebellar hemisphere is unchanged and consistent with tiff or infarct at this level. No other cysts cerebellar findings. Again noted is previously described l eft occipital lobe infarct, unchanged. Again noted is a lacunar infarct in the medial right basal ganglia and there is also abundant bilater al periventricular hypodensity consistent with chronic small vessel disease. There are no ring enhancing lesions in the brain and there is no abnormal meningeal enhancement, foca l or diffuse. CT ANGIOGRAPHY BRAIN (CTA): Intracranial arteries are again noted be heavily calcified. Vertebral arteries at the skull base are also noted be heavily calcified and this calcification extends along the entire course of the basila r artery to the basilar artery tip. In the anterior circulation there is calcification of the intrac avernous and supraclinoid internal carotid arteries again noted. ANTERIOR CIRCULATION: Heavily calcified internal carotid arteries in the upper neck. The internal ca rotid arteries are patent in the skull base. There is flow demonstrated in these vessels through the heavily calcified intracavernous internal carotid arteries.. Flow is demonstrated in both A1 segmen ts. Both anterior cerebral arteries are patent and there is no aneurysm at the level of the anterior communicating artery. Heavy calcification noted the origin of the middle cerebral arteries but without obvious high-grade s tenosis nor occlusion nor intraluminal thrombus. These vessels appear unchanged from the prior study . POSTERIOR CIRCULATION: Both vertebral arteries are heavily calcified at the skull base but both contribute to the formation of the basilar artery. Basilar artery is heavily calcified proximally and distally. Similar are sim ilar to previous. Distally basilar artery gives off partially calcified but appearing to be patent p osterior cerebral arteries. There is no obvious significant aneurysm at the tip of the basilar arter y. IMPRESSION: Minimal if any significant change compared to the prior study 1 year ago (09/15/2021) Heavily intracranial calcified vessels are again noted.. If clinically indicated further study with brain magnetic resonance angiography/MRA can be performed (no IV contrast). This would probably demo nstrate vascular lumens better, given the amount calcium here.. RADIATION DOSE DELIVERED: 1,928.23mGy.cm Total DLP DATA REPOSITORY: All CT scans at this facility are submitted to the National Radiology Data Registry (NRDR) Dose Index Registry (DIR) with the [employer] ([employer]). RADIATION OPTIMIZATION: All CT scans at this facility use at least one of these dose optimization te chniques: automated exposure control; mA and/or kV adjustment per patient size (includes targeted exa ms where dose is matched to clinical indication); or iterative reconstruction.
== END 2022-09-17 02:16 ==
LOC: DI 01:56
PROVIDERS: PCP Student in an Organized Health Care Education/Training Program; Visit Provider Psychiatry & Neurology Neurology
DX: I67.1 Cerebral aneurysm, nonruptured (principal); R41.3 Other amnesia; R20.0 Anesthesia of skin; I63.89 Other cerebral infarction
CPT/HCPCS: 70496; 82565

== ENCOUNTER 2022-09-19 00:28 | Outpatient (CLI) | payer MEDICARE, MEDICAID, SELFPAY ==
[2022-09-19] MEDS: Omnipaque 350 MG/ML 100 ML BTL IJ (12:25)
--- NOTE | 2022-09-19 12:25 | DI.CT_ITS ---
Exam(s) CT BRAIN CTA EXAM: CT BRAIN CTA CLINICAL HISTORY: ANEURYSM, F/U OF 09/17/22 EXAM. TECHNIQUE: Imaging Protocol: Axial CT angiography was performed with multi-slice acquisition and mu lti-planar and/or 3D reconstructions. CONTRAST MATERIAL: Intravenous: Omnipaque 350 Contrast volume:structured data in ml COMPARISON: MR MRI BRAIN W/WO from 11/15/[address] BRAIN CTA from 02/26/[address] BRAIN CTA from 09/17/2022 FINDINGS: CT angiography brain: An old left occipital infarct and left cerebellar infarct is again noted. The vertebral, basilar and distal carotid arteries are noted to be heavily calcified. The tip of the basilar artery is again noted to be heavily calcified and prominent. There is no definite aneurysm. . Again noted is somewhat poor flow to the posterior and anterior cerebral arteries. No change from prior exams. IMPRESSION: Heavily calcified vertebral and basilar arteries as well as distal carotid arteries. The basilar tip is prominent and heavily calcified but there is no significant aneurysm. RADIATION DOSE DELIVERED: 117.29mGy.cm Total DLP DATA REPOSITORY: All CT scans at this facility are submitted to the National Radiology Data Registry (NRDR) Dose Index Registry (DIR) with the [employer] (ACR). RADIATION OPTIMIZATION: All CT scans at this facility use at least one of these dose optimization te chniques: automated exposure control; mA and/or kV adjustment per patient size (includes targeted exa ms where dose is matched to clinical indication); or iterative reconstruction.
[2022-09-19] MEDS: Normal Saline - Diluent 50 ML VIAL IJ (12:26)
== END 2022-09-19 00:48 ==
LOC: DI 00:28
PROVIDERS: PCP Student in an Organized Health Care Education/Training Program; Visit Provider Psychiatry & Neurology Neurology
DX: I67.89 Other cerebrovascular disease (principal); I67.2 Cerebral atherosclerosis
CPT/HCPCS: 70496; J3490

== ENCOUNTER → 2022-11-10 09:21 | Outpatient (BNVA) | payer MEDICARE, MEDICAID, SELFPAY | PROVIDERS: PCP Student in an Organized Health Care Education/Training Program; Visit Provider Psychiatry & Neurology Neurology | DX: H57.13 Ocular pain, bilateral (principal); R20.0 Anesthesia of skin; I72.9 Aneurysm of unspecified site; I48.11 Longstanding persistent atrial fibrillation; G81.91 Hemiplegia, unspecified affecting right dominant side; R41.3 Other amnesia; I10 Essential (primary) hypertension; Z86.73 Personal history of transient ischemic attack (TIA), and cerebral infarction without residual deficits | CPT/HCPCS: 99214 ==

== ENCOUNTER 2023-01-05 14:41 | Outpatient (CLI) | payer MEDICARE, MEDICAID, SELFPAY ==
--- NOTE | 2023-01-05 | DI.RAD_ITS ---
Exam(s) XR CHEST 2V PA LATERAL EXAM: XR CHEST 2V PA LATERAL CLINICAL HISTORY: COUGH, R05.8. TECHNIQUE: 2D digital imaging was performed. COMPARISON: CR XR RIBS LT W PA LAT CHEST from 06/10/2021 FINDINGS: 2 views: Heart size is normal. The mediastinum is not widened. Calcified thoracic aorta is again noted. Lungs are clear. No infiltrates nor pleural effusions. No pulmonary edema. IMPRESSION: No acute pulmonary findings.No significant change compared to May 2021. DATA REPOSITORY: RADIATION DOSE DELIVERED:
== END 2023-01-05 15:01 ==
LOC: DI 14:44
PROVIDERS: PCP Student in an Organized Health Care Education/Training Program; Visit Provider Nurse Practitioner Family
DX: R05.8 Other specified cough (principal)
CPT/HCPCS: 71046

== ENCOUNTER 2023-01-15 15:25 | Outpatient (CLI) | payer MEDICARE, MEDICAID, SELFPAY ==
--- NOTE | 2023-01-15 15:15 | DI.RAD_ITS ---
Exam(s) XR KNEE RT 4V+ EXAM: XR KNEE RT 4V+ CLINICAL HISTORY: Anterior pain after a fall in clinic, W19.XXXA. TECHNIQUE: 2D digital imaging was performed of the right knee. Four views obtained. Merchant, AP, la teral and PA tunnel views were obtained. COMPARISON: No exams were available for comparison FINDINGS: BONES: No acute fracture is present. No bony destructive lesion is seen. There is an enthesophyte at the superior patella. JOINTS: The knee is normally aligned. No joint effusion is seen. There is chondrocalcinosis of the fe moral tibial joint. SOFT TISSUE: Atherosclerosis. IMPRESSION: No acute fracture or dislocation. DATA REPOSITORY: RADIATION DOSE DELIVERED:
== END 2023-01-15 15:45 ==
LOC: DI 15:25
PROVIDERS: PCP Student in an Organized Health Care Education/Training Program; Visit Provider Family Medicine
DX: M25.561 Pain in right knee (principal); W19.XXXA Unspecified fall, initial encounter
CPT/HCPCS: 73564

== ENCOUNTER 2023-01-26 15:25 | Outpatient (CLI) | payer MEDICARE, MEDICAID, SELFPAY ==
--- NOTE | 2023-01-26 14:59 | DI.RAD_ITS ---
Exam(s) XR HIP RT COMPLETE AP PELVIS EXAM: XR HIP RT COMPLETE AP PELVIS CLINICAL HISTORY: Pain after a fall, kerry saravia also,hip pain, m25.559. TECHNIQUE: 2D digital imaging was performed. Two views COMPARISON: CR XR HIP RT COMPLETE AP PELVIS from 06/10/2021 FINDINGS: BONES: Acute nondisplaced fracture of the greater trochanter. No additional fractures identified. T he sacrum is mostly obscured by stool. No bony destructive lesion is seen. JOINTS: No dislocation present. Hip joint spaces are maintained. Bilateral acetabular spurring. SOFT TISSUE: Arterial calcifications. IMPRESSION: Nondisplaced fracture of the greater trochanter. DATA REPOSITORY: RADIATION DOSE DELIVERED:
== END 2023-01-26 15:45 ==
LOC: DI 15:25
PROVIDERS: PCP Student in an Organized Health Care Education/Training Program; Visit Provider Family Medicine
DX: M25.559 Pain in unspecified hip (principal); S72.111A Displaced fracture of greater trochanter of right femur, initial encounter for closed fracture
CPT/HCPCS: 73502

== ENCOUNTER 2023-01-27 15:18 | Emergency (ER) | payer MEDICARE, MEDICAID, SELFPAY ==
[2023-01-27 15:20] VITALS: BP 150/93; PULSE 92; RESP 18; TEMP 37.5; O2SAT 99
--- NOTE | 2023-01-27 16:34 | ED.GENADUL_ITS ---
Discharge Plan Disposition Patient Disposition: Home W/Home Health Services Condition: Stable Discharge Details Clinical Impression: Fracture of greater trochanter of right femur Primary Care Provider: Miguelina Tilley ED Provider: Fanny Cordova Home Meds and New Rx's Prescriptions: New celecoxib [Celebrex] 100 mg capsule 100 mg PO BID Qty: 60 0RF Continued nitroglycerin [Nitrostat] 0.4 mg tablet, sublingual 0.4 mg Sublingual PRN Qty: 30 0RF Rx Instructions: DX: CHEST PAIN PRN MAY REPEAT EVERY 5 MIN X2 FOR CHEST PAIN epinephrine [EpiPen 2-Moe] 0.3 mg/0.3 mL auto-injector 0.3 mg IM ONCE Qty: 2 1RF levalbuterol tartrate 45 mcg/actuation HFA aerosol inhaler 2 inh IH Q6H Qty: 15 1RF Rx Instructions: Levalbuterol recomm by [facility] tumeric 500 mg capsule 500 mg PO BID Qty: 90 1RF Rx Instructions: Re-start for imflammation; ask pharmacist for recommendation if not covered Rx. PLS CALL DTR. Ensure Active High Protein Liquid 1 ml PO DAILY Qty: 77833 6RF Rx Instructions: 30 days, 1 bottle daily BEST DISPENSED (DME) Entrust Plus Briefs Misc 1 ea Miscellaneous TID Qty: 132 12RF Rx Instructions: 5/day for urinary incontinence, R32, for skin hygiene (DME) sanitary pad See Rx Instructions .Route .MEDSUPPLY Qty: 60 0RF Rx Instructions: As directed. . for incontinence acetaminophen-codeine 300-30 mg tablet 1 tab PO Q8H PRN (Reason: pain) Qty: 15 0RF (DME) Adult Aerosol Mask Misc 1 ea Miscellaneous DAILY Qty: 1 0RF Rx Instructions: AND TUBING Blister moe PO Rx Instructions: [facility] naproxen 375 mg tablet 375 mg PO BID Qty: 6 0RF Rx Instructions: Pain associated with fall ipratropium-albuterol 0.5 mg-3 mg(2.5 mg base)/3 mL solution for nebulization 3 ml Inhalation Q3H PRN Qty: 90 4RF magnesium citrate 125 mg capsule 250 mg PO DAILY Qty: 90 3RF multivitamin Tablet 1 tab PO DAILY Qty: 90 3RF acetaminophen 650 mg tablet extended release 1,300 mg PO BID Qty: 270 3RF Rx Instructions: 2 tabs am, 1 tab pm for back pain 06/14/15 [facility] alendronate [Fosamax] 70 mg tablet 70 mg PO QWEEK Qty: 25 1RF Rx Instructions: Start for osteoporosis (01/2022 DEXA) simethicone 125 mg capsule 125 mg PO BID PRN (Reason: abdominal distention) Qty: 60 3RF Boost High Protein 0.06 gram- 1 kcal/mL liquid See Rx Instructions PO .COMPLEX Qty: 6399 3RF Rx Instructions: 1 Bottle daily PO; melatonin 10 mg capsule 10 mg PO HS PRN (Reason: sleep) Qty: 90 3RF cetirizine 10 mg tablet 10 mg PO DAILY MDD 10mg Qty: 90 3RF calcium carb and citrate-vitD3 600 mg-12.5 mcg (500 unit) tablet extended release 1 tab PO BID Qty: 180 3RF Rx Instructions: restarting 1200mg (urol ok) metoprolol succinate 100 mg tablet extended release 24 hr 100 mg PO DAILY Qty: 90 3RF diltiazem HCl 120 mg capsule,extended release 24hr 120 mg PO HS Qty: 90 6RF aspirin 81 mg tablet,delayed release (DR/EC) 81 mg PO DAILY Qty: 90 3RF Rx Instructions: Take 81 mg daily. famotidine 40 mg tablet 40 mg PO DAILY Qty: 90 1RF Rx Instructions: replacing ranitidine montelukast 10 mg tablet 10 mg PO HS Qty: 90 3RF Rx Instructions: per Dr. Mckinney. atorvastatin 40 mg tablet 40 mg PO DAILY Qty: 90 3RF losartan 25 mg tablet 25 mg PO BID Qty: 60 0RF Discharge Instructions Instructions: Hip Fracture (ED) Additional Instructions: You can weight-bear as tolerated with a front wheeled walker at all times for gait safety and stability You can use heat or ice to the affected area if needed for symptom management Continue pain medication as previously prescribed we have added Celebrex twice daily, this is not on your allergy profile so should be well-tolerated Referrals: Sidney Tsai MD [ [facility] STAFF PHYSICIAN] - Discharge Data Discharge Date/Time-TO BE ENTERED AT DEPARTURE: 01/27/23 17:58 Medical Decision Making <Fanny Cordova NP - Last Filed: 01/29/23 17:00> imaging reviewed by DR Tsai who evaluated patient. she has been safely re- ambulated and is safe for discharge to home. see consult note. home health services ordered. Medical Records Medical records reviewed: Yes I reviewed the patient's medical records. Imaging Data Radiologic Study: Imaging: X-Ray Radiologist's impression: Patient Name: Ellen Willard Unit #: [id number] Loc: DI ? Ordering Provider:? Kashif Bueno DO Status: PRE CLI ? Primary Care Provider: Miguelina Tilley DO Date of Exam: 01/26/23 Sex: F ? Admission Date: 01/26/23? : 1940 ? Age: 82 ? Exam(s) XR HIP RT COMPLETE ? AP PELVIS EXAM:? XR HIP RT COMPLETE ? AP PELVIS CLINICAL HISTORY: ? Pain after a fall, frx likley; tailbone also,hip pain, m25.559.? TECHNIQUE:? 2D digital imaging was performed.? Two views COMPARISON:? CR XR HIP RT COMPLETE ? AP PELVIS from 06/10/2021 FINDINGS: BONES: Acute nondisplaced fracture of the greater trochanter.? No additional fractures identified.? The sacrum is mostly obscured by stool.? No bony destructive lesion is seen. JOINTS: No dislocation present.? Hip joint spaces are maintained.? Bilateral acetabular spurring.? SOFT TISSUE: Arterial calcifications. IMPRESSION: Nondisplaced fracture of the greater trochanter. DATA REPOSITORY:? RADIATION DOSE DELIVERED:? Ordered By:? Kashif Bueno DO CC: ? <Walt Bundy MD - Last Filed: 02/02/23 14:04> Note: I was not involved in the care of this patient. I was not consulted. My involvement was not requested. The patient was evaluated independently by EKATERINA Cordova. Diagnostic workup and treatment plan, including disposition determination, was performed by EKATERINA Cordova. HPI <Fanny Cordova NP - Last Filed: 01/29/23 17:00> General Date/Time Provider Initiated Documentation: 01/27/23 15:19 . Related Data Home Medications Medication Instructions Recorded Confirmed nitroglycerin 0.4 mg sublingual 0.4 mg sublingual PRN #30 tab-caps 05/11/20 01/27/23 tablet (Nitrostat) simethicone 125 mg capsule 125 mg PO BID PRN abdominal 04/01/21 01/27/23 distention #60 caps Blister moe PO 06/10/21 01/15/23 naproxen 375 mg tablet 375 mg PO BID #6 tabs 06/10/21 01/27/23 nebulizer accessories (Adult #1 ea 06/20/21 01/27/23 Aerosol Mask) epinephrine 0.3 mg/0.3 mL 0.3 mg (0.3 mL) IM ONCE #2 pens 12/12/21 01/27/23 injection, auto-injector (EpiPen 2-Moe) food supplemt, lactose-reduced See Rx Instructions PO .COMPLEX 02/09/22 01/27/23 0.06 gram-1 kcal/mL oral liquid #6,399 mL (Boost High Protein) melatonin 10 mg capsule 10 mg PO HS PRN sleep #90 caps 03/07/22 01/27/23 acetaminophen 650 mg 1,300 mg PO BID #270 tabs 03/11/22 01/27/23 tablet,extended release ipratropium 0.5 mg-albuterol 3 mg 3 ml inhalation Q3H PRN for COPD, 03/11/22 01/27/23 (2.5 mg base)/3 mL nebulization J44.9 #90 mL soln magnesium citrate 125 mg capsule 250 mg PO DAILY #90 caps 03/11/22 01/27/23 multivitamin 1 tab PO DAILY #90 tabs 03/11/22 01/27/23 alendronate 70 mg tablet (Fosamax) 70 mg PO QWEEK #25 tabs 03/12/22 01/27/23 calcium carb,cit ER 600 mg-vit D3 1 tab PO BID #180 tabs 04/08/22 01/27/23 12.5 mcg (500 unit) tablet,ext.rel cetirizine 10 mg tablet 10 mg PO DAILY #90 tab-caps 04/08/22 01/27/23 metoprolol succinate 100 mg 100 mg PO DAILY #90 tabs 04/28/22 01/27/23 tablet,extended release 24 hr diltiazem HCl 120 mg 120 mg PO HS #90 caps 05/27/22 01/27/23 capsule,extended release 24 hr levalbuterol tartrate 45 2 inh inhalation Q6H #15 grams 07/26/22 01/27/23 mcg/actuation aerosol inhaler aspirin 81 mg tablet,delayed 81 mg PO DAILY #90 tabs 08/23/22 01/27/23 release famotidine 40 mg tablet 40 mg PO DAILY #90 tabs 08/23/22 01/27/23 montelukast 10 mg tablet 10 mg PO HS #90 tab-caps 09/24/22 01/27/23 atorvastatin 40 mg tablet 40 mg PO DAILY #90 tab-caps 11/17/22 01/27/23 diaper,brief,adult,disposable #132 ea 11/25/22 01/27/23 (Entrust Plus Briefs) food supplemt, lactose-reduced 1 ml PO DAILY #12,000 mL 11/25/22 01/27/23 (Ensure Active High Protein oral liquid) sanitary pad #60 ea 11/25/22 01/27/23 tumeric 500 mg PO BID #90 ea 11/25/22 01/27/23 losartan 25 mg tablet 25 mg PO BID #60 tabs 12/01/22 01/27/23 acetaminophen 300 mg-codeine 30 mg 1 tab PO Q8H PRN pain #15 tabs 01/26/23 01/27/23 tablet celecoxib 100 mg capsule (Celebrex) 100 mg PO BID #60 caps 01/27/23 Previous Rx's Medication Instructions Recorded nitroglycerin 0.4 mg sublingual 0.4 mg sublingual PRN #30 tab-caps 05/11/20 tablet (Nitrostat) simethicone 125 mg capsule 125 mg PO BID PRN abdominal 04/01/21 distention #60 caps naproxen 375 mg tablet 375 mg PO BID #6 tabs 06/10/21 nebulizer accessories (Adult #1 ea 06/20/21 Aerosol Mask) epinephrine 0.3 mg/0.3 mL 0.3 mg (0.3 mL) IM ONCE #2 pens 12/12/21 injection, auto-injector (EpiPen 2-Moe) food supplemt, lactose-reduced See Rx Instructions PO .COMPLEX 02/09/22 0.06 gram-1 kcal/mL oral liquid #6,399 mL (Boost High Protein) melatonin 10 mg capsule 10 mg PO HS PRN sleep #90 caps 03/07/22 acetaminophen 650 mg 1,300 mg PO BID #270 tabs 03/11/22 tablet,extended release ipratropium 0.5 mg-albuterol 3 mg 3 ml inhalation Q3H PRN for COPD, 03/11/22 (2.5 mg base)/3 mL nebulization J44.9 #90 mL soln magnesium citrate 125 mg capsule 250 mg PO DAILY #90 caps 03/11/22 multivitamin 1 tab PO DAILY #90 tabs 03/11/22 alendronate 70 mg tablet (Fosamax) 70 mg PO QWEEK #25 tabs 03/12/22 calcium carb,cit ER 600 mg-vit D3 1 tab PO BID #180 tabs 04/08/22 12.5 mcg (500 unit) tablet,ext.rel cetirizine 10 mg tablet 10 mg PO DAILY #90 tab-caps 04/08/22 metoprolol succinate 100 mg 100 mg PO DAILY #90 tabs 04/28/22 tablet,extended release 24 hr diltiazem HCl 120 mg 120 mg PO HS #90 caps 05/27/22 capsule,extended release 24 hr levalbuterol tartrate 45 2 inh inhalation Q6H #15 grams 07/26/22 mcg/actuation aerosol inhaler aspirin 81 mg tablet,delayed 81 mg PO DAILY #90 tabs 08/23/22 release famotidine 40 mg tablet 40 mg PO DAILY #90 tabs 08/23/22 montelukast 10 mg tablet 10 mg PO HS #90 tab-caps 09/24/22 atorvastatin 40 mg tablet 40 mg PO DAILY #90 tab-caps 11/17/22 diaper,brief,adult,disposable #132 ea 11/25/22 (Entrust Plus Briefs) food supplemt, lactose-reduced 1 ml PO DAILY #12,000 mL 11/25/22 (Ensure Active High Protein oral liquid) sanitary pad #60 ea 11/25/22 tumeric 500 mg PO BID #90 ea 11/25/22 losartan 25 mg tablet 25 mg PO BID #60 tabs 12/01/22 acetaminophen 300 mg-codeine 30 mg 1 tab PO Q8H PRN pain #15 tabs 01/26/23 tablet celecoxib 100 mg capsule (Celebrex) 100 mg PO BID #60 caps 01/27/23 Allergies Allergy/AdvReac Type Severity Reaction Status Date / Time Influenza Virus Vaccines Allergy Severe throat Verified 01/27/23 15:27 closed Opioids - Morphine Analogues Allergy Severe BP Verified 01/27/23 15:27 elevates, pulse drops prednisone Allergy Severe throat Verified 01/27/23 15:27 swelling duloxetine HCl Allergy Intermediate sweat/throat Verified 01/27/23 15:27 [From Cymbalta] tight egg Allergy Intermediate Swelling/Ed Verified 01/27/23 15:27 shoshana Penicillins Allergy Intermediate swelling/choked Verified 01/27/23 15:27 up Sulfa (Sulfonamide Allergy Intermediate swelling Verified 01/27/23 15:27 Antibiotics) tetracycline Allergy Unknown Pt states Verified 01/27/23 15:27 her throat gets tight tramadol Allergy Verified 01/27/23 15:27 morphine AdvReac Severe HR Verified 01/27/23 15:27 dropped/BP high albuterol AdvReac Intermediate cardiac Verified 01/27/23 15:27 dysrhythmia ciprofloxacin [From Cipro] AdvReac Intermediate AGITATION Verified 01/27/23 15:27 diclofenac AdvReac Intermediate confusion, Verified 01/27/23 15:27 night terrors, dizziness gabapentin AdvReac Intermediate Dizziness Verified 01/27/23 15:27 & Sedation hyoscyamine AdvReac Intermediate lightheaded Verified 01/27/23 15:27 lisinopril AdvReac Intermediate Uvula Verified 01/27/23 15:27 Swelling mirtazapine AdvReac Intermediate throat Verified 01/27/23 15:27 discomfort, feeling tired, nauseated nortriptyline AdvReac Intermediate dry mouth, Verified 01/27/23 15:27 constipation, urinary retention, increased sweats homatropine [From Hycodan] AdvReac Mild Loopy Verified 01/27/23 15:27 hydrocodone bitartrate AdvReac Mild Loopy Verified 01/27/23 15:27 [From Hycodan] lidocaine AdvReac Mild Skin Verified 01/27/23 15:27 sensitivity/Rash trazodone AdvReac Unknown Dizzy, Verified 01/27/23 15:27 weak and hallucinations reported 07/08/16 cephalexin monohydrate AdvReac ?LE Verified 01/27/23 15:27 [From Keflex] weakness nuts Allergy Intermediate Swelling/Ed Uncoded 01/27/23 15:27 shoshana peanut butter Allergy Intermediate Throat Uncoded 01/27/23 15:27 Swelling/Edema General Stated Complaint: Orthopedic DELVIN: 4 PFSH <Fanny Cordova NP - Last Filed: 01/29/23 17:00> All Active Problems (Updated 01/28/23 @ 21:33 by Miguelina Tilley, ) Not bearing weight on lower extremity (Acute) Fracture of greater trochanter of right femur (Acute) Imaging shows: Nondisplaced fracture of the greater trochanter. Incontinence in female (Acute) Memory changes (Acute) Poor sleep (Acute) Waking through the night, more and more often .. Fatigue (Acute) Seems worse .. denies dehydration? possible poor sleep? Osteoporosis (Chronic) per November DEXA .. Hx bone density? Preferred no meds, but infusion? Other specified disorders of bone density and structure, other site (Acute) Cerebral aneurysm (Acute) Fall (on)(from) incline, sequela (Acute) Skin abrasion (Acute) Hit by shopping cart; followed by HH .. Weight loss (Acute) Memory loss (Acute) Disorientation during a walk last week ... walked back by a friend. Hx of renal calculi (Acute) Aneurysm (Acute) Cortical cataract of left eye (Chronic) Homonymous bilateral field defects, right side (Acute) Capsular glaucoma with pseudoexfoliation of lens, right eye, moderate stage (Chronic) Eye pain (Acute) Right facial numbness (Acute) Pelvic mass (Acute) to be followed via US .. [ ] need to review Dx/Tx plans. Noted during hospitalization, seen by Sustainability Specialist.. Pulmonary hypertension (Chronic) Acute on chronic systolic CHF (congestive heart failure) (Acute) Heart failure with reduced ejection fraction due to cardiomyopathy (Acute) Echo ([facility])(05/16/20): LV size/wall thickness WNL. Syst functn reduced, EF 45%. Diffuse hypokinesis. History of cardiomyopathy (Acute) Per echocardiogram 08/17/2019-normal LV size, mildly decreased LV systolic function with normal LV wall thickness with slight sigmoid septum. Normal segmental wall motion. LVEF 45-50%. RV systolic function low normal but normal size. Moderately dilated left atrium, moderately dilated right atrium, thickened aortic valve without stenosis and no aortic insufficiency. Mild MAC with moderate mitral regurgitation and no mitral valve stenosis. Moderate tricuspid regurgitation. RVSP 28-34 mm. Ascending aorta mild to moderately dilated 4 cm. Atrial fibrillation with RVR (Acute) Acute CHF (congestive heart failure) (Acute) Anaphylaxis (Acute) Recent closing of throat, presume nut in premade soup. Hx anaphylxs and allergic rxns. Ovarian cyst, complex (Acute) Left septated ov cyst .. Est 1cm 6-month growth. 53mm (03/2020) <-- 6 (01/2020) cm <-- 4.5 cm (09/2019) per US. Lesion of skin of face (Acute) Nonhealing lesion, rt cheek. Hx seeing Dr. Valderrama. 09/17/20 f/u Dr Valderrama [facility] Right-sided epistaxis (Acute) 09/12/19 with cauterization in ER. Gastroesophageal reflux disease (Chronic 09/12/15) Asthma (Chronic 12/31/12) Spirometry 01/07/13 Mild obstructive airway disease with significant bronchodilator response Dyslipidemia (Chronic) Atrial fibrillation (Chronic) Trochanteric bursitis, left hip (Acute) Trochanteric bursitis, right hip (Acute) Retinal arteriolar sclerosis (Acute) 07/01/19- [facility] eye care report. Elias Hernandez. OS>OD. Bursitis of both hips (Acute) R>>L Right kidney stone (Acute) Advance directive in chart (Acute 10/22/16) Allergic rhinitis, unspecified (Acute) Cervical spondylosis (Acute 01/31/13) Cervical spine 2012 Carpal tunnel syndrome (Acute 05/31/12) Right, wears brace. Chronic pain (Acute 02/13/15) Coronary artery disease (Chronic 04/05/14) FA stents Dysphagia (Acute 01/22/15) Essential hypertension (Acute 01/31/13) Other and unspecified hyperlipidemia (Acute 01/31/13) Osteopenia (Acute 06/06/13) HEIDY Olivares 05/2009 & [facility] 2012 Pulse irregularity (Acute 06/03/16) Holter found to have frequent PACs, PVCs Cardiology consult --> metoprolol started Rectocele (Acute 01/31/13) Hx Right kidney stone (Acute 11/17/16) Right ureteral calculus (Acute 11/17/16) Another one, 02/2019! Followed by Jakub .. Ca stones per Hx .. decrease Ca suppl? Spinal stenosis, lumbar region without neurogenic claudication (Acute 01/31/13) CT-lumbar 2011: [facility] Serene Luna 12/2012 [facility] Neuro Unspecified urinary incontinence (Acute 01/31/13) Dribbles, overflows. Using briefs, sanitary pads daily .. up to 5/day. Unsteady gait (Acute 10/17/13) Frequent falls PT & chiropractic Unspecified urinary incontinence (Acute) She is s/p surgery. Neuropathy has worsened and she was not a candidate for repeat surgery. Followed by [facility]. Reordering briefs, 11/06/17, 03/16/19. ik Uvular edema (Acute 01/25/15) Medical History ASCVD (arteriosclerotic cardiovascular disease) Cervical spondylosis High cholesterol History of basal cell carcinoma 09/17/20 F/U with Srinivas Riley Medial Cheek (bhad been done) 11/20/20 R nasal sidewall-Mohs at [facility] HTN (hypertension) Imbalance Kidney stones Palliative care patient Pneumonia Right carpal tunnel syndrome Spinal stenosis Urinary retention Urinary, incontinence, stress female Weakness of distal arms and legs Surgical History Coronary Stent x5 at [facility] 1990s History of section History of colonoscopy History of esophagogastroduodenoscopy (EGD) History of tubal ligation Status post laser cataract surgery of right eye Status post Mohs surgery for basal cell carcinoma (11/2020) [facility] Derm Dr Drea Espino nasal sidewall TOT (Incontinence sling) Family History Father Heart disease Diabetes Mother No problems noted. Brother , OF BLOOD CLOT Lung cancer Diabetes Hypertension Heart disease Social History Smoking/Tobacco Use Status: Never Smoking risk assessment performed?: Yes Alcohol Intake: never Drug use: Never Substance use type: does not use Adopted: No Caregiver/Support person: Yes Foster care: No Household members: none Housing: house Number of Children: 5 number of grandchildren: 10 Communication Needs: None Education Level: middle school Do you need help understanding health information?: Always current occupation: Not Employed Pets and animals: Yes Pets and animals: dog(s) Sexually active: No Do you think of yourself as: straight/heterosexual Current gender identity: female What is your relationship status?: How often do you talk on the phone with friends or family?: three or more times per week How often do you get together with friends or relatives?: twice per week How often do you attend jehovah's witness or confucianist services?: decline to answer Do you belong to any clubs or organized social groups?: no Panel score (0-1 are the most socially isolated patients): 1 What type of physical activity do you participate in: walking Duration: 15-30 minutes/day Frequency: 1-2 times per week Special dina needs: No Seatbelt use: always Drive intox or ride w/intox cdl flatbed truck driver: No Working smoke detector in home: Yes Fire extinguisher in home: Yes Carbon monox detector in home: Yes Do you feel safe at home: Yes (sometimes) Course <Fanny Cordova NP - Last Filed: 01/29/23 17:00> Vital Signs Vital signs: Vital Signs Temperature 37.5 C 01/27/23 15:20 Pulse 92 H 01/27/23 15:20 Respiratory Rate 18 01/27/23 15:20 Blood Pressure 150/93 H 01/27/23 15:20 Pulse Oximetry 99 01/27/23 15:20 Temperature 37.5 C 01/27/23 15:20 Temperature Source Skin 01/27/23 15:20 Pulse 92 H 01/27/23 15:20 Respiratory Rate 18 01/27/23 15:20 Respiratory Effort Normal 01/27/23 15:28 Blood Pressure 150/93 H 01/27/23 15:20 Blood Pressure Position Sitting 01/27/23 15:20 Pulse Oximetry 99 01/27/23 15:20 Oxygen Delivery Method Room Air 01/27/23 15:20 Oxygen Flow Rate 0 01/27/23 15:20 Pain Level 10 01/27/23 15:20
--- NOTE | 2023-01-27 16:50 | OCONE_ITS ---
Date of service: 01/27/23 Time of Service: 16:50 History of Present Illness History of Present Illness Chief Complaint: Right Hip Pain Narrative: Ellen is an 82-year-old who is here in the emergency department with her 2 daughters. She had a fall approxi-2 days ago. She landed on the right side. She was seen in the primary care physician office and x-ray was performed as an outpatient which demonstrated greater trochanter fracture. She was advised to come to the emergency department. She reports pain with attempted weightbearing although more specifically is with motion of the right hip. She denies any pain in this hip prior to the fall. She has been able to stand and ambulate into the exam room with some discomfort. She denies radicular symptoms. She is supposed to use a walker at all times, although this is using a 4 wheeled walker. She does have help at home although not 24 hours a day. Consults Consult date: 01/27/23 Requesting physician: Fanny Cordova Consult Reason Right greater trochanteric fracture Assessment and Plan Assessment and plan (1) Fracture of greater trochanter of right femur: Status: Acute Assessment and plan: Ellen is an 82-year-old female who had a fall onto the right side. She suffered a fracture of the greater trochanter of the femur. She was able to weight-bear today and was able to get into the exam room. This fracture is usually stable although it needs to be protected. I recommend a four-point gait with a walker at all times for the next 6 weeks. Should avoid any active abduc tion as well. This needs no further follow-up although I be happy to see her back in 6 weeks for reevaluation. She would likely find transitions to be the most painful but should be able to ambulate with a walker. Review of Systems All systems reviewed & are unremarkable except as noted in HPI and below PFSH All Active Problems (Updated 01/28/23 @ 21:33 by Miguelina Tilley DO) Not bearing weight on lower extremity (Acute) Fracture of greater trochanter of right femur (Acute) Imaging shows: Nondisplaced fracture of the greater trochanter. Incontinence in female (Acute) Memory changes (Acute) Poor sleep (Acute) Waking through the night, more and more often .. Fatigue (Acute) Seems worse .. denies dehydration? possible poor sleep? Osteoporosis (Chronic) per November DEXA .. Hx bone density? Preferred no meds, but infusion? Other specified disorders of bone density and structure, other site (Acute) Cerebral aneurysm (Acute) Fall (on)(from) incline, sequela (Acute) Skin abrasion (Acute) Hit by shopping cart; followed by HH .. Weight loss (Acute) Memory loss (Acute) Disorientation during a walk last week ... walked back by a friend. Hx of renal calculi (Acute) Aneurysm (Acute) Cortical cataract of left eye (Chronic) Homonymous bilateral field defects, right side (Acute) Capsular glaucoma with pseudoexfoliation of lens, right eye, moderate stage (Chronic) Eye pain (Acute) Right facial numbness (Acute) Pelvic mass (Acute) to be followed via US .. [ ] need to review Dx/Tx plans. Noted during hospitalization, seen by [facility] Pulmonary hypertension (Chronic) Acute on chronic systolic CHF (congestive heart failure) (Acute) Heart failure with reduced ejection fraction due to cardiomyopathy (Acute) [place] LV size/wall thickness WNL. Syst functn reduced, EF 45%. Diffuse hypokinesis. History of cardiomyopathy (Acute) Per echocardiogram 08/17/2019-normal LV size, mildly decreased LV systolic function with normal LV wall thickness with slight sigmoid septum. Normal segmental wall motion. LVEF 45-50%. RV systolic function low normal but normal size. Moderately dilated left atrium, moderately dilated right atrium, thickened aortic valve without stenosis and no aortic insufficiency. Mild MAC with moderate mitral regurgitation and no mitral valve stenosis. Moderate tricuspid regurgitation. RVSP 28-34 mm. Ascending aorta mild to moderately dilated 4 cm. Atrial fibrillation with RVR (Acute) Acute CHF (congestive heart failure) (Acute) Anaphylaxis (Acute) Recent closing of throat, presume nut in premade soup. Hx anaphylxs and allergic rxns. Ovarian cyst, complex (Acute) Left septated ov cyst .. Est 1cm 6-month growth. 53mm (03/2020) <-- 6 (01/2020) cm <-- 4.5 cm (09/2019) per US. Lesion of skin of face (Acute) Nonhealing lesion, rt cheek. Hx seeing Dr. Valderrama. 09/17/20 f/u Dr Valderrama [facility] Right-sided epistaxis (Acute) 09/12/19 with cauterization in ER. 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 Elias Hernandez. OS>OD. Bursitis of both hips (Acute) R>>L Right kidney stone (Acute) Advance directive in chart (Acute 10/22/16) Allergic rhinitis, unspecified (Acute) Cervical spondylosis (Acute 01/31/13) Cervical spine 2011 Carpal tunnel syndrome (Acute 05/31/12) Right, wears brace. Chronic pain (Acute 02/13/15) Coronary artery disease (Chronic 04/05/14) [facility] stents 1990s Dysphagia (Acute 01/22/15) Essential hypertension (Acute 01/31/13) Other and unspecified hyperlipidemia (Acute 01/31/13) Osteopenia (Acute 06/06/13) HEIDY Olivares 05/2009 & [facility] 2012 Pulse irregularity (Acute 06/03/16) Holter found to have frequent PACs, PVCs Cardiology consult --> metoprolol started Rectocele (Acute 01/31/13) Hx Right kidney stone (Acute 11/17/16) Right ureteral calculus (Acute 11/17/16) Another one, 02/2019! Followed by Jakub .. Ca stones per Hx .. decrease Ca suppl? Spinal stenosis, lumbar region without neurogenic claudication (Acute 01/31/13) CT-lumbar 2011: [facility] Se[facility] Luna 12/2012 [facility] Unspecified urinary incontinence (Acute 01/31/13) Dribbles, overflows. Using briefs, sanitary pads daily .. up to 5/day. Unsteady gait (Acute 10/17/13) Frequent falls PT & chiropractic Unspecified urinary incontinence (Acute) She is s/p surgery. Neuropathy has worsened and she was not a candidate for repeat surgery. Followed by [facility]. Reordering briefs, 11/06/17, 03/16/19. ik Uvular edema (Acute 01/25/15) Medical History ASCVD (arteriosclerotic cardiovascular disease) Cervical spondylosis High cholesterol History of basal cell carcinoma 09/17/20 F/U with rSinivas Riley Medial Cheek (bhad been done) 11/20/20 [place] nasal sidewall[place]Mohs [place] [facility] HTN (hypertension) Imbalance Kidney stones Palliative care patient Pneumonia Right carpal tunnel syndrome Spinal stenosis Urinary retention Urinary, incontinence, stress female Weakness of distal arms and legs Surgical History Coronary Stent x5 at [facility] 1990s History of section History of colonoscopy History of esophagogastroduodenoscopy (EGD) History of tubal ligation Status post laser cataract surgery of right eye Status post Mohs surgery for basal cell carcinoma (11/2020[place] [facility] [place] Drea Espino nasal sidewall TOT (Incontinence sling) Family History Father Heart disease Diabetes Mother No problems noted. Brother , OF BLOOD CLOT Lung cancer Diabetes Hypertension Heart disease Social History Smoking/Tobacco Use Status: Never Smoking risk assessment performed?: Yes Alcohol Intake: never Drug use: Never Substance use type: does not use Adopted: No Caregiver/Support person: Yes Foster care: No Household members: none Housing: house Number of Children: 5 number of grandchildren: 10 Communication Needs: None Education Level: middle school Do you need help understanding health information?: Always current occupation: Not Employed Pets and animals: Yes Pets and animals: dog(s) Sexually active: No Do you think of yourself as: straight/heterosexual Current gender identity: female What is your relationship status?: How often do you talk on the phone with friends or family?: three or more times per week How often do you get together with friends or relatives?: twice per week How often do you attend sabianism or adventist services?: decline to answer Do you belong to any clubs or organized social groups?: no Panel score (0-1 are the most socially isolated patients): 1 What type of physical activity do you participate in: walking Duration: 15-30 minutes/day Frequency: 1-2 times per week Special dina needs: No Seatbelt use: always Drive intox or ride w/intox telephone directory distributor driver: No Working smoke detector in home: Yes Fire extinguisher in home: Yes Carbon monox detector in home: Yes Do you feel safe at home: Yes (sometimes) Exam Narrative Exam Narrative: Able to ambulate to the exam room. Within the exam room she can rise from the chair with the use of her hands but no other assistance necessary. She is able to ambulate with a walker. She has pain to palpation over the right hip. Active hip flexion and abduction causes pain. Gentle rotation of the hip does not cause pain. No pain to palpation over the distal thigh or knee. Results Last Vital Signs Temp 37.5 C 01/27/23 15:20 Pulse 92 H 01/27/23 15:20 Resp 18 01/27/23 15:20 BP 150/93 H 01/27/23 15:20 Pulse Ox 99 01/27/23 15:20 Imaging Imaging Studies: X-ray of the right hip shows a nondisplaced fracture of the greater trochanter of the femur. There is some mild to moderate arthritis about the hip itself. No extension distally.
--- NOTE | 2023-01-27 17:23 | PDOC.HHF2F ---
Home Health Referral Home Health Orders Clinical synopsis of why skilled professionals are needed: hip fracture Medical diagnosis necessitation home health referral: right hip fracture Physical Therapist: Check all that apply Increase strength & endurance for safe mobility at home: Ordered To design/establish home maintenance program: Ordered Fall reduction therapy program for patient with history of frequent falls: Ordered Home safety evaluation and teaching/gait training including stair management (if applicable): Ordered Occupational Therapist: Evaluate and treat for patient unable to perform ADL/IADL/self-care: Ordered Upper extremity strengthening, range and motion: Ordered Environmental Property Assessor: Assist with community resources: Ordered Assist with intermodal owner operator truck driver care planning: Ordered Home Bound Status Requires the aid of supportive device (check all that apply): Walker (front wheeled walker) Describe why leaving home would require a considerable and taxing effort: Requires frequent rest periods Encounter Date and Reason: I certify that a FTF encounter for this patient was performed on January 27, 2023 and that such encounter was related to the primary reason the patient requires home health services. The encounter was conducted in the following manner: By me as the certifying physician, SUPPLY ASSISTANT, PA or By an inpatient physician, SUPPLY ASSISTANT or PA during an inpatient stay who communicated findings to me, Certification And Authentication I certify that I composed the above information based on my clinical judgment relating to this patient's medical condition and, if applicable, clinical findings communicated to me by the NPP or inpatient physician who performed the FTF encounter. Name of Provider that will be monitoring home health services: Miguelina Tilley
[2023-01-27] MEDS: Celecoxib 100 MG CAP PO (17:59)
== END 2023-01-27 17:58 | disposition home health service (06) ==
PROVIDERS: Emergency Provider Nurse Practitioner Acute Care; PCP Student in an Organized Health Care Education/Training Program
DX: S72.111A Displaced fracture of greater trochanter of right femur, initial encounter for closed fracture (principal); W19.XXXA Unspecified fall, initial encounter
CPT/HCPCS: 99283

== ENCOUNTER 2023-02-09 15:26 | Outpatient (CLI) | payer MEDICARE, MEDICAID, SELFPAY ==
--- NOTE | 2023-02-09 15:15 | DI.RAD_ITS ---
Exam(s) XR HIP RT AP LAT ONLY EXAM: XR HIP RT AP LAT ONLY CLINICAL HISTORY: fx recheck. TECHNIQUE: 2D digital imaging was performed of the right hip. Two images were obtained. AP and late ral views were obtained. COMPARISON: CR XR HIP RT COMPLETE AP PELVIS from 01/26/2023 FINDINGS: BONES: There is again it seen a fracture through the greater trochanter. There has been increased di straction compared to the prior examination. There is now 7 mm of distraction compared to 3 mm on th e prior examination. No bony destructive lesion is seen. JOINTS: No dislocation present. Degenerative changes are seen in the hip with acetabular and femoral head spurring and mild joint space narrowing. SOFT TISSUE: Atherosclerosis is present. IMPRESSION: Increased distraction of the fracture through the greater trochanter since 01/26/2023. DATA REPOSITORY: RADIATION DOSE DELIVERED:
== END 2023-02-09 15:27 | disposition home or self-care (01) ==
LOC: DIORS 15:26
PROVIDERS: PCP Student in an Organized Health Care Education/Training Program; Referring Provider Student in an Organized Health Care Education/Training Program; Visit Provider Physician Assistant
DX: S72.111D Displaced fracture of greater trochanter of right femur, subsequent encounter for closed fracture with routine healing; W19.XXXD Unspecified fall, subsequent encounter
CPT/HCPCS: 99213; 73502

== ENCOUNTER 2023-02-25 02:56 | Outpatient (CLI) | payer MEDICARE, MEDICAID, SELFPAY ==
--- NOTE | 2023-02-25 08:00 | DI.US_ITS ---
Exam(s) US RENAL EXAM: US RENAL CLINICAL HISTORY: monitoring renal calculi, hx calculi, Z87.442. TECHNIQUE: Luna scale, color and spectral Doppler were used. COMPARISON: CT CT ABDOMEN PELVIS W from 05/15/2020 US US RENAL from 07/23/2022 FINDINGS: Renal size in cm: Right: 9.4. Left: 9.7. Echogenicity: Normal. Hydronephrosis: No. Cyst or mass: No. Nephrolithiasis: There is a 5 mm lower pole echogenic focus in the right kidney. There is a question of a 9 mm echogenic focus in the midpole of the left kidney. Other findings: There is again seen a cystic mass in the left adnexa measuring 6.1 x 4.2 x 6.4 cm. T his is visualized on prior examinations including CT scans and ultrasounds. It may be ovarian in desean gin. Bladder:Normal. Ureteral jets: Right: Not visualized on this examination. Left: Not visualized on this examination. Prevoid vol:98 cc Postvoid vol:40 cc Renal color flow: Symmetric and within normal limits. IMPRESSION: 1. Bilateral nephrolithiasis. No hydronephrosis. 2. Persistent left adnexal cystic lesion. This may be ovarian in origin. A bladder diverticulum, en teric duplication cyst or other cystic lesion cannot be excluded. A CT scan of the pelvis may be obt ained for better comparison with prior examinations. DATA REPOSITORY:
== END 2023-02-25 03:16 ==
LOC: DI 03:00
PROVIDERS: PCP Student in an Organized Health Care Education/Training Program; Visit Provider Nurse Practitioner Gerontology
DX: Z87.442 Personal history of urinary calculi (principal); N20.0 Calculus of kidney; N83.202 Unspecified ovarian cyst, left side
CPT/HCPCS: 76770

== ENCOUNTER 2023-03-09 15:53 | Outpatient (CLI) | payer MEDICARE, MEDICAID, SELFPAY ==
--- NOTE | 2023-03-09 09:30 | DI.RAD_ITS ---
Exam(s) XR HIP RT AP LAT ONLY EXAM: XR HIP RT AP LAT ONLY INDICATION: fx recheck. COMPARISON: CR XR HIP RT COMPLETE AP PELVIS from 01/26/2023 CR XR HIP RT AP LAT ONLY from 02/09/2023 TECHNIQUE: 2D digital imaging was performed. Two views. FINDINGS: Stable appearance of greater trochanter fracture. No new abnormalities are identified. DATA REPOSITORY: RADIATION DOSE DELIVERED:
== END 2023-03-09 15:54 | disposition home or self-care (01) ==
LOC: DIORS 15:53
PROVIDERS: PCP Student in an Organized Health Care Education/Training Program; Referring Provider Student in an Organized Health Care Education/Training Program; Visit Provider Physician Assistant
DX: S72.111D Displaced fracture of greater trochanter of right femur, subsequent encounter for closed fracture with routine healing (principal); W19.XXXD Unspecified fall, subsequent encounter
CPT/HCPCS: 99213; 73502

== ENCOUNTER 2023-04-20 10:55 | Outpatient (CLI) | payer MEDICARE, MEDICAID, SELFPAY ==
--- NOTE | 2023-04-20 10:15 | DI.RAD_ITS ---
Exam(s) XR HIP RT AP LAT ONLY EXAM: XR HIP RT AP LAT ONLY CLINICAL HISTORY: F/U R FEMUR FX. TECHNIQUE: 2D digital imaging was performed. Two views COMPARISON: CR XR HIP RT COMPLETE AP PELVIS from 06/10/2021 CR XR DEXA BONE DENSITY W/WO JACOB from 11/22/2021 CR XR HIP RT COMPLETE AP PELVIS from 01/26/2023 CR XR HIP RT AP LAT ONLY from 02/09/2023 CR XR HIP RT AP LAT ONLY from 03/09/2023 FINDINGS: No change in the alignment of the fracture at the greater trochanter. Degenerative changes the hip a re again noted. Acetabular spurring. Spurring at pubic symphysis. Vascular calcifications. Impression: Stable alignment of greater trochanter fracture DATA REPOSITORY: RADIATION DOSE DELIVERED:
== END 2023-04-20 10:56 | disposition home or self-care (01) ==
LOC: DIORS 10:55
PROVIDERS: PCP Student in an Organized Health Care Education/Training Program; Referring Provider Student in an Organized Health Care Education/Training Program; Visit Provider Student in an Organized Health Care Education/Training Program
DX: S72.111D Displaced fracture of greater trochanter of right femur, subsequent encounter for closed fracture with routine healing (principal); X58.XXXD Exposure to other specified factors, subsequent encounter
CPT/HCPCS: 99213; 73502

== ENCOUNTER → 2023-05-14 02:07 | Outpatient (CLI) | payer MEDICARE, MEDICAID, SELFPAY ==
--- NOTE | 2023-05-14 14:15 | DI.CT_ITS ---
Exam(s) CT LOWER EXTREMITY RT WO EXAM: CT LOWER EXTREMITY RT WO CLINICAL HISTORY: RIGHT HIP F/U S72.111A DISPLACED FX RT FEMUR. TECHNIQUE: Imaging Protocol: Axial computed tomography images with coronal and sagittal reformatted images were created and reviewed. CONTRAST MATERIAL: Intravenous: Omnipaque 350 Contrast volume:structured data in ml Contrast route:I V - Oral: yes / no COMPARISON: CR XR HIP RT COMPLETE AP PELVIS from 01/26/2023 CR XR HIP RT AP LAT ONLY from 04/20/2023 FINDINGS: OSSEOUS: There is a mildly displaced fracture of greater trochanter right hip. Fracture line somewhat widened when compared to the images of 01/26/2023. Does not appear to be a distinct osseous lesion at this level.. No prominent joint effusion. Degenerative changes noted in the ipsilateral hip joint. No a cetabular fractures. 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 This was 1st evident on plain films of 01/26/2023. RADIATION DOSE DELIVERED: 230.57mGy.cm Total DLP DATA REPOSITORY: All CT scans at this facility are submitted to the National Radiology Data Registry (NRDR) Dose Index Registry (DIR) with the [employer] (A[employer]). RADIATION OPTIMIZATION: All CT scans at this facility use at least one of these dose optimization te chniques: automated exposure control; mA and/or kV adjustment per patient size (includes targeted exa ms where dose is matched to clinical indication); or iterative reconstruction.
== END ==
PROVIDERS: PCP Student in an Organized Health Care Education/Training Program; Visit Provider Student in an Organized Health Care Education/Training Program
DX: S72.111D Displaced fracture of greater trochanter of right femur, subsequent encounter for closed fracture with routine healing (principal); X58.XXXD Exposure to other specified factors, subsequent encounter
CPT/HCPCS: 73700

== ENCOUNTER → 2023-12-02 09:12 | Outpatient (BNVA) | payer MEDICARE, MEDICAID, SELFPAY | PROVIDERS: PCP Student in an Organized Health Care Education/Training Program; Referring Provider Student in an Organized Health Care Education/Training Program; Visit Provider Nurse Practitioner Gerontology | DX: N20.0 Calculus of kidney (principal); Z87.442 Personal history of urinary calculi | CPT/HCPCS: 99213 ==